=== PATIENT | female | born 1965 | race Two or more races ===

== ENCOUNTER 2016-12-31 23:40 | Inpatient (IN) | payer OTHER ==
[~2016-12-31] VITALS: Ht 160 cm; Wt 120.3 kg
[~2016-12-31 23:40] MED LIST: AMLO-218 PO; ASPI81TA3 PO; ATOR20TA38 PO; CEFT1FRO2 IV; FER325 PO; FOLI-49; FOLI-49 PO; HYDR10TA36 PO; HYDR200T5; HYDR200T5 PO; LANT3I SC; NOVO3I SC; NPH,100V SC; SODI473S19 IRR; SYN75 PO; TRAM50TA2 PO; VANC1PLA4 IVPB
[2017-01-01] VITALS (8 sets, daily range): BP systolic 130–173; BP diastolic 62–85; PULSE 77; RESP 16–20; Ht 160 cm; Wt 120.3 kg
[2017-01-01] MEDS ORDERED: ONDANSETRON 4 MG INJ IV PRN ×2 (04:00→16:00)
[2017-01-01] MEDS ORDERED: VANCOMYCIN IV PER PHARMACY XX SCH (04:00)
[2017-01-01] MEDS ORDERED: INSULIN GLARGINE [LANtus] 3 ML PEN SC ONE (04:00)
[2017-01-01] MEDS ORDERED: ACETAMINOPHEN 325 MG TAB PO PRN (04:00)
[2017-01-01] MEDS ORDERED: morphine 4 MG/ML VIAL IV PRN ×2 (04:00→16:00)
[2017-01-01] MEDS: SOD CHLORIDE 0.9% 1,000 ML IV SCH ×2 (04:34→15:27)
[2017-01-01] MEDS ORDERED: VANCOMYCIN 2 GM in SOD CHLORIDE 0.9% 500 ML IVPB SCH ×2 (05:00→07:00)
[2017-01-01] MEDS: PIPER-TAZO 3.375 GM IV (PMX) 100 ML IVPB SCH ×4 (05:37→23:59)
[2017-01-01 05:40] LABS: ADD SCAN DIFF NO
[2017-01-01] MEDS: hydrALAzine 20 MG INJ IV PRN ×2 (05:40→15:27)
[2017-01-01 05:52] LABS: BASOPHIL # 0.1 10^3/ul (0.0-0.1); BASOPHILS % 0.3 % (0.0-2.0); EOSINOPHILS # 0.1 10^3/ul (0.0-0.5); EOSINOPHILS % 0.4 % (0.0-7.0); HEMATOCRIT 32.9 % (37.0-47.0); HEMOGLOBIN 10.2 g/dl (12.0-16.0); LYMPHOCYTES % 10.3 % (15.0-51.0); MEAN CORPUSCULAR HEMOGLOBIN 26.9 pg (29.0-33.0); MEAN CORPUSCULAR VOLUME 86.8 fl (82.0-101.0); MEAN PLATELET VOLUME 11.5 fl (7.4-10.4); MONOCYTE # 1.2 10^3/ul (0.3-0.9); MONOCYTES % 6.1 % (0.0-11.0); NEUTROPHIL # 15.7 10^3/ul (1.6-7.5); NEUTROPHILS % 79.7 % (39.0-77.0); PLATELET COUNT 298 10^3/UL (140-415); RED BLOOD COUNT 3.79 10^6/ul (4.20-5.40); RED CELL DISTRIBUTION WIDTH 15.1 % (11.5-14.5); WHITE BLOOD COUNT 19.7 10^3/ul (4.8-10.8)
[2017-01-01 06:21] LABS: ALANINE AMINOTRANSFERASE 21 IU/L (13-69); ALBUMIN 3.2 g/dl (3.3-4.9); ALBUMIN/GLOBULIN RATIO 0.84; ALKALINE PHOSPHATASE 135 IU/L (42-121); ANION GAP 13 (8-16); ASPARTATE AMINO TRANSFERASE < 8 IU/L (15-46); BILIRUBIN,INDIRECT 0.4 mg/dl (0-1.1); BILIRUBIN,TOTAL 0.4 mg/dl (0.2-1.3); BLOOD UREA NITROGEN 43 mg/dl (7-20); CALCIUM 8.4 mg/dl (8.4-10.2); CARBON DIOXIDE 22 mmol/L (21-31); CHLORIDE 107 mmol/L (97-110); CHOL/HDL RATIO 10.3 RATIO; CHOLESTEROL 176 mg/dl (100-200); CREATININE 2.58 mg/dl (0.44-1.00); GLUCOSE 315 mg/dl (70-220); HDL CHOLESTEROL 17 mg/dl (37-92); MAGNESIUM 1.6 mg/dl (1.7-2.5); PHOSPHORUS 3.6 mg/dl (2.5-4.9); SODIUM 138 mmol/L (135-144); TRIGLYCERIDES 192 mg/dl (0-149)
--- NOTE | 2017-01-01 08:21 | HP ---
DATE OF ADMISSION: 01/01/2017 TIME SEEN: 3 a.m. CHIEF COMPLAINT: Right foot pain and infection. HISTORY OF PRESENT ILLNESS: The patient is a 51-year-old female with a history of right foot diabet ic ulcer/osteomyelitis, hypertension, diabetes, hypothyroidism, dyslipidemia, chronic kidney disease , and a right internal carotid artery stenosis who was transferred from an outside hospital for righ t foot wound/osteo. At the outside hospital, I will x-ray of the right foot shows osteo as well as gas-producing infection. She was also complaining of nausea and vomiting for which a CT abdomen and pelvis was done which showed no obstruction, but cholelithiasis was noted without cholecystitis. T he patient's poultry picking machine tender is Dr. Patterson, and according to the Transfer Center, the vascular surge on is Dr. Miguel Angel Love. I was also told that the patient was referred to Dr. Vaca, an orthopedic s urgeon. The patient denies fevers, chills, chest pain, shortness of breath, abdominal pain, or urin pal symptoms. The patient was last admitted here in 2013, and in fact, in March 2014 she underwent excisional debridement and drainage of the right lower extremity wound and had a right 2nd and 3rd toe amputati on by Dr. Bird. REVIEW OF SYSTEMS: Negative except as mentioned in the HPI. PAST MEDICAL HISTORY: As per HPI. PAST SURGICAL HISTORY: As per HPI including right carotid endarterectomy and . SOCIAL HISTORY: Monitor for history of tobacco, alcohol, or illicit drug use. ALLERGIES: NO KNOWN DRUG ALLERGIES. HOME MEDICATIONS: 1. Plaquenil. 2. Ferrous sulfate. 3. Norvasc. 4. Synthroid. 5. Insulin. 6. Folic acid. 7. Aspirin. PHYSICAL EXAMINATION: VITAL SIGNS: Blood pressure 173/74, heart rate 80, respiratory rate 20, temperature 98, oxygen satu ration 96% on room air. GENERAL: The patient lying in bed. Initially sleepy, but arousable, answering questions appropriat christina. HEENT: No obvious head deformity. Pupils react to right, extraocular muscles intact. CARDIOVASCULAR: Regular rate and rhythm. No extra sounds. LUNGS: Clear. ABDOMEN: Soft, nontender, nondistended. Positive bowel sounds. EXTREMITIES: There is a right foot wound with some drainage. There is a right 2nd and 3rd toe ampu tation. LABORATORY: Currently pending. IMAGING: From [facility], x-ray of the right foot shows osteomyelitis and gas-produ cing infection. CT abdomen and pelvis again from [facility] shows cholelithiasis wi thout any other acute findings. IMPRESSION: 1. Right foot osteomyelitis/wound. 2. Diabetes with hyperglycemia. 3. Hypertension, blood pressure not within goal. 4. History of dyslipidemia. 5. Chronic kidney disease with a creatinine of 2 from outside hospital. 6. History of right carotid artery endarterectomy. PLAN: She will be placed on broad-spectrum antibiotic. Will send wound culture and blood culture. She will be provided pain medications as needed. We will her poultry picking machine tender, vascular surgeon, as well as ortho. She will be on insulin for diabetes. Will check an A1c in the morning. Will adjust ant ihypertensives for better blood pressure control. Further workup and management as per clinical course. Dictated By: STEFFANY VILLATORO/SYED Conf#: [id number] DID#: [id number]
[2017-01-01] MEDS: HEPARIN 5,000 UNIT/0.5 ML VIAL SC SCH ×2 (08:45→21:00)
[2017-01-01] MEDS: INSULIN ASPART [NOVOLOG] 3 ML PEN SC SCH ×7 (08:45→21:00)
[2017-01-01 12:20] LABS: ADD UMIC YES; UR BILIRUBIN (Dip) NEGATIVE (NEGATIVE); UR BLOOD (Dip) 2+ (NEGATIVE); UR CLARITY CLEAR (CLEAR); UR COLOR YELLOW (YELLOW); UR KETONES (Dip) NEGATIVE (NEGATIVE); UR LEUKOCYTE ESTERASE (Dip) NEGATIVE (NEGATIVE); UR NITRITE (Dip) NEGATIVE (NEGATIVE); UR TOTAL PROTEIN (Dip) 4+ (NEGATIVE); UR UROBILINOGEN (Dip) 0.2 E.U./dL (0.1-1.0)
[2017-01-01 12:36] LABS: BACTERIA,URINE FEW; UR SQUAMOUS EPITHELIAL CELL FEW
[2017-01-01] MEDS ORDERED: GLUCAGON 1 MG INJ IM PRN (15:00)
[2017-01-01] MEDS ORDERED: MAGNESIUM SULFATE 1 GM/D5W 100 ML IVPB ONE (15:00)
[2017-01-01] MEDS ORDERED: DEXTROSE 50% 50 ML SYRINGE IV PRN ×2 (15:00)
[2017-01-01] MEDS ORDERED: GLUCOSE GEL 15 GRAM TUBE BUCCAL PRN (15:00)
[2017-01-01] MEDS ORDERED: GLUCOSE GEL 15 GRAM TUBE PO PRN ×2 (15:00)
[2017-01-01] MEDS ORDERED: traMADol 50 MG TAB PO PRN (15:00)
[2017-01-01] MEDS: INSULIN GLARGINE [LANtus] 3 ML PEN SC SCH ×2 (15:34→22:02)
--- NOTE | 2017-01-01 16:49 | CONS ---
DATE OF ADMISSION: 01/01/2017 DATE OF CONSULTATION: 01/01/2017 TYPE OF CONSULTATION: Infectious Disease. REASON FOR CONSULTATION: Antibiotic management. HISTORY OF PRESENT ILLNESS: Dina Narayanan is a 51-year-old female who comes in with right foot p ain and infection. Her past problems include: 1. Adult-onset diabetes mellitus. 2. Hypertension. 3. Hypothyroidism. 4. Dyslipidemia. 5. Chronic renal disease. 6. Right internal carotid artery stenosis. 7. History of right foot diabetic ulcers/osteomyelitis. The patient was transferred from an outside hospital for right foot wound and osteomyelitis. At the outside hospital, x-rays of the foot shows osteo as well as gas-producing infection. She is also c omplaining of nausea, vomiting with a CT scan of the abdomen and pelvis showed no obstruction but ch olelithiasis was noted without cholecystitis. The patient was referred to Dr. Vaca. The patient denies fever or chest pain, chills, shortness of breath. She was last admitted here in 2013 and in March 2014. She underwent excisional debridement and drainage of right lower extremity wound al annalisa with right 2nd and 3rd amputation right 2nd and 3rd toe amputation by Dr. Bird. PAST MEDICAL HISTORY: Operations as outlined. FAMILY HISTORY: Noncontributory. SOCIAL HISTORY: She does not smoke, drink or abuse drugs. ALLERGIES: NONE TO PENICILLIN, SULFA OR FOODS. MEDICATIONS: Per chart reviewed. REVIEW OF SYSTEMS: As per HPI. PAST SURGICAL HISTORY: Positive for right carotid endarterectomy and a . REVIEW OF SYSTEMS: Noncontributory. PHYSICAL EXAMINATION GENERAL: The patient is a well-developed, well-nourished female who is sleepy but arousable, in no acute distress. VITAL SIGNS: Stable. She is afebrile. SKIN: Without generalized rash or icterus. HEENT: Within normal limits. NECK: Supple. LYMPH NODES: None palpable. CHEST: Decreased breath sounds at the bases. HEART: Without murmur or gallop. ABDOMEN: Soft, nontender without organosplenomegaly or masses. EXTREMITIES: She has a right foot wound with drainage and right second and third toe amputations. RECTAL AND GENITAL: Deferred. NEUROLOGIC EVALUATION: No focal neurological abnormalities. She has decreased sensation in distal extremities. LABORATORY DATA: On admission, her white count was 19.7, H and H of 10.2 and 32.9, platelet count o f 298,000. BUN and creatinine 43/2.58. AST and ALT are normal. Alkaline phosphatase 135. MICROBIOLOGY: Pending. IMPRESSION: Imaging from [facility] shows that the right foot shows osteomyelitis a nd gas producing infection. CT scan of the abdomen and pelvis shows cholelithiasis without any acut e findings. In conclusion, the patient has right foot osteomyelitis as well as a wound. She is sylvester betic, along with all of her other problems. She was started on broad spectrum antibiotic therapy i n the form of vancomycin and Zosyn. The patient is currently on vancomycin and Zosyn. We will chec k on her cultures. She had a urinalysis, blood cultures and wound cultures, which are all pending. I will dictate my findings to the hospitalist and to Dr. Vaca. Dictated By: IRENA DEL RIO MD, JD/SYED Conf#: [id number] DID#: [id number]
[2017-01-01] MEDS: ONDANSETRON INJ 8 MG in SOD CHLORIDE 0.9% 50 ML IV PRN (16:59)
--- NOTE | 2017-01-01 19:43 | CONS ---
DATE OF ADMISSION: 01/01/2017 DATE OF CONSULTATION: 01/01/2017 REFERRING PHYSICIAN: Toan Dave MD TYPE OF CONSULTATION: Nephrology. REASON FOR CONSULTATION: Acute kidney injury. BUN 43, creatinine 2.58. HISTORY OF PRESENT ILLNESS: This is a 51-year-old female with a past medical history of right foot diabetic ulcer/osteomyelitis, hypertension, diabetes mellitus, hypothyroidism, dyslipidemia, chronic kidney disease secondary to diabetic nephropathy in the right internal carotid artery stenosis who was transferred from outside hospital for a right foot wound pain, infections. The patient has had a CT abdomen and pelvis done which showed no obstruction but cholelithiasis. She was noted to be wi thout cholecystitis. The patient's byproducts pump operator is Dr. Aries Avendano and according to the transfer ce nter, the vascular surgeon was Dr. Miguel Angel Love. The patient was referred to the orthopedic surgery. The patient previously admitted in 2013. In 2013 she had an excisional debridement and drainage o f the right lower extremity wound and had a right second and third toe amputation done by Dr. Chepe berkowitz. Dictated By: MANUEL WISDOM MD, KP/SYED Conf#: [id number] DID#: [id number]
--- NOTE | 2017-01-01 19:51 | CONS ---
DATE OF ADMISSION: 01/01/2017 DATE OF CONSULTATION: 01/01/2017 REASON FOR CONSULTATION: Acute kidney injury. REFERRING PHYSICIAN: Toan Dave MD. HISTORY OF PRESENT ILLNESS: This is a 51-year-old female with a past medical history of adult onset diabetes mellitus, hypertension, hypothyroidism, dyslipidemia, right internal carotid artery stenos is, history of right foot diabetic ulcers with osteomyelitis who was transferred from an outside [facility] for right foot wound osteomyelitis. The patient was previously admitted in 2013 and had incis ion and drainage of the right lower extremity wound along with the right second and third toe amputa tions done by Dr. Bird. Patient is noted to have a BUN of 43, creatinine of 2.58, admission and renal has been consulted for acute kidney injury versus acute on chronic renal failure. REVIEW OF SYSTEMS: As per HPI. PAST MEDICAL HISTORY: Notable for adult onset diabetes mellitus, hypertension, hyperlipidemia, hypo thyroidism, right internal carotid artery stenosis, history of right foot diabetic ulcer, osteomyeli tis. FAMILY HISTORY: Noncontributory. SOCIAL HISTORY: The patient does not smoke, drink or abuse drugs. ALLERGIES: NONE TO PENICILLIN, SULFA OR FOODS. PAST SURGICAL HISTORY: Positive for right carotid endarterectomy and . PHYSICAL EXAMINATION: VITAL SIGNS: Temperature 98.5, heart rate 79, respiration 18, blood pressure 151/68, saturation 99% on room air. GENERAL: Awake, alert, in no distress. HEENT: Normal. Pupils equal, reactive to light and accommodation. Extraocular muscles are intact. NECK: Supple, no JVD, no lymphadenopathy. LUNGS: Clear to auscultation. No crackles, no wheezes. HEART: S1, S2, with regular rhythm, no murmur. ABDOMEN: Soft, nontender, nondistended. Bowel sounds are present. EXTREMITIES: No clubbing, cyanosis, or edema. Right foot dressing in place. NEUROLOGICAL: Nonfocal, intact. PSYCHIATRIC: Appropriate affect and mood. LABORATORY DATA/DIAGNOSTIC IMAGING: Sodium 138, potassium 4, chloride 107, bicarbonate 22, BUN 43, c reatinine 2.5, glucose 315, calcium 8.4, magnesium 1.6. LFTs are normal. Urinalysis shows 2+ hemog lobin, 4+ protein. WBC 19.7, hemoglobin 10.2, platelet count 290. IMPRESSION: This is a 51-year-old female who is getting transferred from outside hospital for right foot osteomyelitis. Wound care, IV antibiotics and possible surgical intervention. Renal has been consulted for: 1. Acute kidney injury on chronic kidney disease secondary to sepsis from infections including the right foot osteomyelitis. 2. History of possible chronic kidney disease secondary to diabetic nephropathy. 3. Adult onset type 2 diabetes mellitus, poorly controlled. 4. Hypertension. 5. Hypothyroidism. 6. History of previous right second and third toe amputations. 7. Possible peripheral vascular disease. PLAN: Thank you, Dr. Dave, for this consultation. The patient is new to the [facility]. There are no previous records available in the recent years, and the last admission the pat ie was in 2013. At that time, she had a lower extremity Doppler ultrasound and MRI of the foot. No renal workup has been done before. I will order the patient's urine studies including a urine protein creatinine ratio, urine sodium, u rine eosinophils, CK total, uric acid. Renal ultrasound. I will order the renal ultrasounds to assess the kidney size, echogenicity and to rule out hydronephrosis. Continue the current IV antibiotics and I will switch the patient's IV fluids from ____ to half ____ at 75 mL hour. Magnesium sulfate 1 gram IV x1 has been ordered for hypomagnesemia. The patient currently seen in the med/surg floor and she will be followed up along with the primary care service and podiatry service. Total time spent in this patient's consultations, making assessment and plan, communicating with the patient's family and the nursing staff took more than 60 minutes. Dictated By: MANUEL WISDOM MD, KP/SYED Conf#: [id number] DID#: [id number]
[2017-01-01] MEDS: SODIUM HYPOCHLORITE 0.125% 473 ML BTL IRR SCH ×2 (21:00→22:06)
[2017-01-01] MEDS: FERROUS SULFATE (EC) 325 MG TAB PO SCH ×3 (21:00→22:12)
[2017-01-01] MEDS: SOD CHLORIDE 0.45% 1,000 ML IV SCH (22:05)
[2017-01-01] MEDS: ATORVASTATIN 20 MG TAB PO SCH (22:06)
--- NOTE | 2017-01-01 22:27 | RADRPT ---
PROCEDURE: Retroperitoneal ultrasound. CLINICAL INDICATION: Acute renal failure TECHNIQUE: Garcia scale and color doppler ultrasound images of the retroperitoneum, kidneys, urinary bladder COMPARISON: 09/04/2013 FINDINGS: Right kidney 11.3 cm in length. Right renal cortical thickness is preserved. Left kidney 11.1 cm in length. Left renal cortical thickness is preserved. Mildly increased echogenicity of both kidneys. No hydronephrosis. No renal calculi. No focal lesions. Bladder: No focal lesions. IMPRESSION: Mildly increased echogenicity of both kidneys without hydronephrosis compatible with medical renal d isease. RPTAT: AADD .Hayden Whitt MD, MD Date Time Electronically viewed and signed by .Hayden Whitt MD, on 01/01/2017 22:27 .B/
[2017-01-02] VITALS (13 sets, daily range): BP systolic 126–181; BP diastolic 31–78; PULSE 79–98; RESP 16–19
[2017-01-02] MEDS ORDERED: ACCU-CHEK XX SCH ×2 (02:00)
[2017-01-02 05:38] LABS: ADD SCAN DIFF NO
[2017-01-02 05:41] LABS: BASOPHIL # 0.1 10^3/ul (0.0-0.1); BASOPHILS % 0.2 % (0.0-2.0); EOSINOPHILS # 0.4 10^3/ul (0.0-0.5); EOSINOPHILS % 2.1 % (0.0-7.0); HEMATOCRIT 34.8 % (37.0-47.0); HEMOGLOBIN 10.7 g/dl (12.0-16.0); LYMPHOCYTES # 2.1 10^3/ul (0.8-2.9); MEAN CORPUSCULAR HGB CONC 30.7 g/dl (32.0-37.0); MEAN CORPUSCULAR VOLUME 87.9 fl (82.0-101.0); MEAN PLATELET VOLUME 11.2 fl (7.4-10.4); MONOCYTE # 1.1 10^3/ul (0.3-0.9); MONOCYTES % 5.5 % (0.0-11.0); NEUTROPHIL # 16.1 10^3/ul (1.6-7.5); NEUTROPHILS % 78.7 % (39.0-77.0); PLATELET COUNT 341 10^3/UL (140-415); RED BLOOD COUNT 3.96 10^6/ul (4.20-5.40); RED CELL DISTRIBUTION WIDTH 15.2 % (11.5-14.5); WHITE BLOOD COUNT 20.5 10^3/ul (4.8-10.8)
[2017-01-02] MEDS: PIPER-TAZO 3.375 GM IV (PMX) 100 ML IVPB SCH ×3 (06:06→18:49)
[2017-01-02] MEDS: LEVOTHYROXINE 75 MCG TAB PO SCH (06:06)
[2017-01-02 06:10] LABS: MAGNESIUM 1.9 mg/dl (1.7-2.5); PHOSPHORUS 4.4 mg/dl (2.5-4.9)
[2017-01-02 06:14] LABS: URIC ACID 7.9 mg/dl (3.1-7.9)
[2017-01-02 06:15] LABS: CALCIUM 8.6 mg/dl (8.4-10.2); CREATININE 2.58 mg/dl (0.44-1.00); POTASSIUM 3.5 mmol/L (3.5-5.1)
[2017-01-02 06:18] LABS: CREATINE KINASE < 20 IU/L (23-200)
[2017-01-02] MEDS: INSULIN ASPART [NOVOLOG] 3 ML PEN SC SCH ×7 (07:50→21:00)
[2017-01-02] MEDS ORDERED: INSULIN GLARGINE [LANtus] 3 ML PEN SC SCH (08:00)
[2017-01-02] MEDS: AMLODIPINE 10 MG TAB PO SCH (09:25)
[2017-01-02] MEDS: ONDANSETRON INJ 8 MG in SOD CHLORIDE 0.9% 50 ML IV PRN (09:25)
[2017-01-02] MEDS: ASPIRIN 81 MG TAB PO SCH (09:25)
[2017-01-02] MEDS: FOLIC ACID 1 MG TAB PO SCH (09:25)
[2017-01-02] MEDS: INSULIN GLARGINE [LANtus] 3 ML PEN SC SCH (09:28)
[2017-01-02] MEDS: HEPARIN 5,000 UNIT/0.5 ML VIAL SC SCH ×2 (09:29→23:32)
[2017-01-02] MEDS: SOD CHLORIDE 0.45% 1,000 ML IV SCH (09:36)
[2017-01-02] MEDS: SODIUM HYPOCHLORITE 0.125% 473 ML BTL IRR SCH ×2 (09:37→21:00)
--- NOTE | 2017-01-02 12:35 | CONS ---
Date/Time of Note Date/Time of Note DATE: 01/02/17 TIME: 12:31 Assessment/Plan Assessment/Plan Additional Assessment/Plan 1. Acute kidney injury on chronic kidney disease secondary to sepsis from infections including the right foot osteomyelitis. 2. History of possible chronic kidney disease secondary to diabetic nephropathy. 3. Adult onset type 2 diabetes mellitus, poorly controlled. 4. Hypertension. 5. Hypothyroidism. 6. History of previous right second and third toe amputations. 7. Possible peripheral vascular disease. PLAN: pt has acute on chronic renal failure, received IVF still Cr 2.58 BP high will stop IVF Pending podiatry evaluation Nurse instructed to call me if pt is planned for for any procedures/surgery-we will do some measures to prevent Contrast induced nephropathy will follow up US c/w Medical renal disease Consultation Date/Type/Reason Admit Date/Time Jan 01, 2017 at 01:45 Initial Consult Date Type of Consultation: NEPHROLOGY Reason for Consultation acute on chronic renal failure Referring Provider: GABRIELLA CABRERA 24 HR Interval Summary Free Text/Dictation Cr still 2.58, BUN 34, BP high Exam/Review of Systems Vital Signs Vitals Vital Signs Date Time Temp Pulse Resp B/P Pulse Ox O2 Delivery O2 Flow Rate FiO2 01/02/17 07:45 97.5 89 18 181/78 99 Intake and Output 01/01/17 01/01/17 01/02/17 14:59 22:59 06:59 Intake Total 854 ml 1563 ml Output Total 200 ml 650 ml Balance 654 ml 913 ml Exam GENERAL: Awake, alert, in no distress. HEENT: Normal. Pupils equal, reactive to light and accommodation. Extraocular muscles are intact. NECK: Supple, no JVD, no lymphadenopathy. LUNGS: Clear to auscultation. No crackles, no wheezes. HEART: S1, S2, with regular rhythm, no murmur. ABDOMEN: Soft, nontender, nondistended. Bowel sounds are present. EXTREMITIES: No clubbing, cyanosis, or edema. Right foot dressing in place. NEUROLOGICAL: Nonfocal, intact. PSYCHIATRIC: Appropriate affect and mood. Results Result Diagram: 01/02/17 0446 01/02/17 0446 Results 24 hrs Laboratory Tests Test 01/01/17 17:52 01/01/17 22:00 01/02/17 04:46 01/02/17 08:47 Bedside Glucose 223 H 86 125 White Blood Count 20.5 H Red Blood Count 3.96 L Hemoglobin 10.7 L Hematocrit 34.8 L Mean Corpuscular Volume 87.9 Mean Corpuscular Hemoglobin 27.0 L Mean Corpuscular Hemoglobin Concent 30.7 L Red Cell Distribution Width 15.2 H Platelet Count 341 Mean Platelet Volume 11.2 H Neutrophils % 78.7 H Lymphocytes % 10.0 L Monocytes % 5.5 Eosinophils % 2.1 Basophils % 0.2 Nucleated Red Blood Cells % 0.0 Neutrophils # 16.1 H Lymphocytes # 2.1 Monocytes # 1.1 H Eosinophils # 0.4 Basophils # 0.1 Nucleated Red Blood Cells # 0.0 Sodium Level 142 Potassium Level 3.5 Chloride Level 108 Carbon Dioxide Level 24 Anion Gap 14 Blood Urea Nitrogen 34 H Creatinine 2.58 H Glucose Level 91 # Uric Acid 7.9 Calcium Level 8.6 Phosphorus Level 4.4 Magnesium Level 1.9 Creatine Kinase < 20 L Test 01/02/17 11:00 Urine Eosinophils % 0.0 Urine Random Creatinine 130.41 Urine Random Sodium 61 Urine Protein/Creatinine Ratio Pending Urine Total Protein Pending Medications Medications Current Medications Piperacillin Sod/ Tazobactam Sod (Zosyn 3.375gm/ 100 ml (Pmx)) 100 ml @ 200 mls /hr Q6 IVPB Last administered on 01/02/17 06:06; Admin Dose 200 MLS/HR; Start 01/01/17 at 06:00 Acetaminophen (Tylenol Tab) 650 mg Q6H PRN PO PAIN AND OR ELEVATED TEMP; Start 01/01/17 at 04:00 Heparin Sodium (Porcine) (Heparin (5000 Units/0.5 ml)) 5,000 unit BID SC Last administered on 01/02/17 09:29; Admin Dose 5,000 UNIT; Start 01/01/17 at 09:00 Hydralazine HCl (Apresoline) 10 mg Q4H PRN IV ELEVATED BLOOD PRESSURE>150 Last administered on 01/01/17 15:27; Admin Dose 10 MG; Start 01/01/17 at 05:30 Amlodipine Besylate (Norvasc) 10 mg DAILY PO Last administered on 01/02/17 09: 25; Admin Dose 10 MG; Start 01/02/17 at 09:00 Aspirin (Aspirin) 81 mg DAILY PO Last administered on 01/02/17 09:25; Admin Dose 81 MG; Start 01/02/17 at 09:00 Atorvastatin Calcium (Lipitor) 20 mg QHS PO Last administered on 01/01/17 22:06 ; Admin Dose 20 MG; Start 01/01/17 at 21:00 Ferrous Sulfate (Ferrous Sulfate (Ec)) 325 mg TID PO ; Start 01/01/17 at 21:00 Folic Acid (Folic Acid) 1 mg DAILY PO Last administered on 01/02/17 09:25; Admin Dose 1 MG; Start 01/02/17 at 09:00 Hydralazine HCl (Apresoline) 10 mg DAILY@21 PO Last administered on 01/01/17 22 :09; Admin Dose 10 MG; Start 01/01/17 at 21:00 Insulin Glargine (Lantus) 22 unit Q12 SC Last administered on 01/02/17 09:28; Admin Dose 22 UNIT; Start 01/01/17 at 15:00 Levothyroxine Sodium (Synthroid) 75 mcg DAILY@06 PO Last administered on 06:06; Admin Dose 75 MCG; Start 01/02/17 at 06:00 Sodium Hypochlorite (Dakin'S (1/4 Strength)) BID IRR Last administered on 09:37; Admin Dose 1 APPLIC; Start 01/01/17 at 21:00 Tramadol HCl (Ultram) 50 mg Q6H PRN PO PAIN LEVEL 7-10; Start 01/01/17 at 15:00 Miscellaneous Information 1 ea NOTE XX ; Start 01/01/17 at 15:00 Glucose (Glutose) 15 gm Q15M PRN PO DECREASED GLUCOSE; Start 01/01/17 at 15:00 Glucose (Glutose) 22.5 gm Q15M PRN PO DECREASED GLUCOSE; Start 01/01/17 at 15:00 Dextrose (D50w Syringe) 25 ml Q15M PRN IV DECREASED GLUCOSE; Start 01/01/17 at 15:00 Dextrose (D50w Syringe) 50 ml Q15M PRN IV DECREASED GLUCOSE; Start 01/01/17 at 15:00 Glucagon (Glucagen) 1 mg Q15M PRN IM DECREASED GLUCOSE; Start 01/01/17 at 15:00 Glucose (Glutose) 15 gm Q15M PRN BUCCAL DECREASED GLUCOSE; Start 01/01/17 at 15: 00 Morphine Sulfate 2 mg 2 mg Q4H PRN IV PAIN; Start 01/01/17 at 16:00 Ondansetron HCl 8 mg/Sodium Chloride 54 ml @ 216 mls/hr Q6H PRN IV NAUSEA AND/ OR VOMITING Last administered on 01/02/17 09:25; Admin Dose 216 MLS/HR; Start at 15:30 Sodium Chloride (1/2 NS) 1,000 ml @ 75 mls/hr [id number] IV Last administered on 01/02/17 09:36; Admin Dose 75 MLS/HR; Start 01/01/17 at 19:30 Miscellaneous Information (*Rx Drug Level Order Reminder*) VANCOMYCIN RANDOM LEVEL IN AM ONCE ONCE XX ; Start 01/03/17 at 05:00; Stop 01/03/17 at 05:01 MANUEL WISDOM MD Jan 02, 2017 12:35
[2017-01-02] MEDS: hydrALAzine 20 MG INJ IV PRN (12:52)
[2017-01-02] MEDS: FERROUS SULFATE (EC) 325 MG TAB PO SCH ×2 (12:53→21:00)
[2017-01-02 13:01] LABS: PROTEIN/CREAT RATIO 4.5 RATIO
--- NOTE | 2017-01-02 13:57 | PN ---
DATE: 01/02/2017 INFECTIOUS DISEASE PROGRESS NOTE SUBJECTIVE: The patient is alert, feels better today, looks comfortable, no fevers. LABORATORY DATA: WBC 20.5, H and H 10.7 and 34.8, platelets 341, neutrophils 78.7, BUN 34, creatini ne 2.58. MICROBIOLOGY: Wound culture of her right foot growing diphtheroids. PRELIMINARY DIAGNOSTICS: Renal ultrasound revealed no hydronephrosis, but medical renal disease. ANTIMICROBIALS: The patient is on: 1. Zosyn. 2. Vancomycin. PHYSICAL EXAMINATION: GENERAL: This is a morbidly obese, middle-aged [place] woman who is alert, in no distress. HEENT: Head atraumatic, normocephalic. Sclerae anicteric. Buccal mucosa dry. NECK: Supple. CHEST: Rise symmetrical. Breath sounds diminished to bases. HEART: S1, S2. ABDOMEN: Soft, bowel sounds present. EXTREMITIES: With right foot dressing intact. ASSESSMENT: 1. Right foot cellulitis, osteomyelitis, status post multiple debridements. 2. Diabetes. 3. Hypertension. 4. Chronic kidney disease. 5. Morbid obesity. PLAN: The patient remains clinically stable. She is on broad-spectrum antibiotics which we will co ntinue. Pending ortho evaluation. Dictated By: GEORGIANA MORIN OBSTETRICS/GYNECOLOGY NURSE for IRENA ALVARADO/SYED Conf#: [id number] DID#: [id number]
--- NOTE | 2017-01-02 15:07 | PN ---
DATE: 01/02/2017 SUBJECTIVE: The patient denies any pain. Was seen by infectious disease team and renal team yester day. Still waiting to be seen by orthopedic team. No acute events overnight. OBJECTIVE VITAL SIGNS: Stable. GENERAL: The patient is lying in bed, answering questions appropriately. No acute distress. HEENT: Pupils equal, round, reactive to light. Extraocular muscles intact. NECK: Supple. No thyromegaly. LUNGS: Clear to auscultation bilaterally. CARDIOVASCULAR: S1, S2 heard. No rubs or gallops. ABDOMEN: Soft, nontender, nondistended. Normal bowel sounds. No rebound or guarding. MUSCULOSKELETAL: There is a right foot wound with some drainage ____ right second and third toe amp utations, otherwise no lower extremity edema bilaterally. NEUROLOGIC: No focal deficits. LABORATORY DATA: WBC 20.5, hemoglobin 10.7, hematocrit 34.8, platelets 341. Sodium 142, potassium 3.5, chloride 108, CO2 24, BUN of 34, creatinine 2.58, glucose 91. ASSESSMENT AND PLAN: A 51-year-old female with history of right foot diabetic ulcer, osteomyelitis, essential hypertension, type 2 diabetes, hypothyroidism, high cholesterol, chronic kidney disease, right internal carotid artery stenosis who was transferred from outside hospital for right foot woun d infection and osteomyelitis. 1. Right foot wound infection/osteomyelitis. Again, continue broad spectrum antibiotics. Follow u p ID recommendations. Tylenol p.r.n. pain, fevers. Follow up final culture results. Awaiting podi atry and orthopedic surgery consults as well. 2. Type 2 diabetes. Again, A1c is elevated. Continue current insulin regimen. Sugars appear to b e under good control over the last 12 hours. 3. Hypertension. Again, blood pressure is high normal. Continue p.o. medications and p.r.n. hydra lazine IV. 4. History of chronic kidney disease. Again, there is a creatinine of 2 from the outside hospital. Creatinine is still slightly elevated. Follow up renal recommendations. Continue to monitor urin e output. Continue IV fluids as well. 5. History of right carotid endarterectomy. Continue to monitor for now. 6. Gastrointestinal prophylaxis. Add Pepcid. 7. Deep venous thrombosis prophylaxis. Heparin subcutaneously. Dictated By: GABRIELLA SAWYER Conf#: [id number] [facility]#: [id number]
[2017-01-02] MEDS: FAMOTIDINE 20 MG TAB PO SCH (16:28)
--- NOTE | 2017-01-02 17:48 | RADRPT ---
PROCEDURE: XR Chest. CLINICAL INDICATION: Preoperative TECHNIQUE: Single portable view of the chest was obtained COMPARISON: 03/24/2014 FINDINGS: The heart is enlarged. The lungs are clear. There is no pleural effusion or pneumothorax. RPTAT: AA IMPRESSION: Mild Cardiomegaly. .Pedro Brown MD, Date Time Electronically viewed and signed by .Pedro Brown MD, on 01/02/2017 17:48 .S/
--- NOTE | 2017-01-02 20:24 | HPN ---
Date/Time of Note Date/Time of Note DATE: 01/02/17 TIME: 20:24 Interval H&P Admission Note Pt. seen H&P reviewed: No system changes CARMEN HAWKINS DPM Jan 02, 2017 20:24
[2017-01-02] MEDS ORDERED: METOCLOPRAMIDE 10 MG INJ ONE (20:42)
[2017-01-02] MEDS ORDERED: MIDAZOLAM 1 MG/ML 2 ML INJ ONE (20:42)
[2017-01-02] MEDS ORDERED: PROPOFOL 40 ML ONE (20:42)
[2017-01-02] MEDS ORDERED: BACITRACIN 50000 UNITS INJ ONE (21:04)
[2017-01-02] MEDS ORDERED: EPHEDrine SULFATE 50 MG/5 ML SYG ONE (21:07)
[2017-01-02] MEDS ORDERED: FENTAnyl 50 MCG/ML VIAL ONE ×2 (21:09→21:26)
[2017-01-02] MEDS ORDERED: LIDOCAINE 1% (STERILE-PAK) 30 ML INJ ONE ×2 (21:10→21:20)
[2017-01-02] MEDS ORDERED: PROPOFOL 20 ML ONE (21:28)
[2017-01-02] MEDS ORDERED: MEPERIDINE 25 MG INJ IV PRN (21:30)
[2017-01-02] MEDS ORDERED: METOCLOPRAMIDE 10 MG INJ IV PRN (21:30)
[2017-01-02] MEDS ORDERED: HYDROmorphONE (0.2 MG/ML) 10ML SYG IV PRN ×3 (21:30)
[2017-01-02] MEDS ORDERED: DIPHENHYDRAMINE 50 MG INJ IV PRN ×3 (21:30→23:30)
[2017-01-02] MEDS ORDERED: ONDANSETRON 4 MG INJ IV PRN ×3 (21:30→23:30)
[2017-01-02] MEDS ORDERED: PERMETHRIN 1% 59 ML TOP ONE (22:00)
--- NOTE | 2017-01-02 22:01 | OPR ---
Date/Time of Note Date/Time of Note DATE: 01/02/17 TIME: 21:55 Operative Report Preoperative Diagnosis Right foot deep space abscess Cellulitis Osteomyelitis Diabetic foot ulceration Postoperative Diagnosis Right foot deep space abscess Osteomyelitis Cellulitis Diabetic foot ulceration Surgeon: KYLER ROQUE DPM Bus Starter: CARMEN HAWKINS DPM Anesthesia: MAC Anesthesiologist: JEFFERY LAYNE MD Tourniquet Time: none Estimated Blood Loss: 100 - 150 ml's Specimens bone culture. bone pathology. wound culture. Tubes/Drains open packing Complications: None Pt Condition Post Procedure: stable Disposition: PACU Indications severe foot infection Operative\Procedure Findings gas/ purulence Procedure Description Right foot multiple incision and drainage with pulse lavage Debridement of ulceration bone 8x6 cm plantar aspect Copies To: CC: CARMEN HAWKINS DPM; KYLRE ROQUE DPM, RONALD J. DPM Jan 02, 2017 22:01
--- NOTE | 2017-01-02 22:09 | CONS ---
Date/Time of Note Date/Time of Note DATE: 01/02/17 TIME: 22:00 Assessment/Plan Assessment/Plan Chief Complaint/Hosp Course Right foot abscess. Likely deep plantar space abscess. Right foot plantar ulcer involving bone. Problems: Additional Assessment/Plan Right foot abscess. Likely deep plantar space abscess. Will plan for Surgical I&D. Will likely need several follow up surgeries. Right foot plantar ulcer involving bone. Will plan for Surgical debridement involving bone. Will likely need serial debridements. To be addressed during the Surgical I&D and Surgical debridements. Will monitor. Consultation Date/Type/Reason Admit Date/Time Jan 01, 2017 at 01:45 Type of Consultation: Podiatry-Surgery Reason for Consultation Coverage for Dr. Bird. Hx of Present Illness Admission for right foot infection, abscess, and open wound. X-rays reveal gas gangrene. Urgent Surgical debridement. Will schedule for OR time this PM. Anticipate Right foot I&D and right foot debridement involving bone. Social History Smoking Status: Never smoker Exam/Review of Systems Vital Signs Vitals Vital Signs Date Time Temp Pulse Resp B/P Pulse Ox O2 Delivery O2 Flow Rate FiO2 01/02/17 10:00 147/67 01/02/17 07:45 97.5 89 18 99 Intake and Output 01/01/17 01/01/17 01/02/17 15:00 23:00 07:00 Intake Total 854 ml 1563 ml Output Total 200 ml 650 ml Balance 654 ml 913 ml Exam Right foot plantar wound. Extreme edema and pain. X-rays reveal gas. Wound on the plantar aspect probes to deep plantar space. Highly suspicious of deep plantar space abscess. Results Result Diagram: 01/02/17 0446 01/02/17 0446 Results 24 hrs Laboratory Tests Test 01/02/17 04:46 01/02/17 08:47 01/02/17 11:00 01/02/17 12:44 White Blood Count 20.5 H Red Blood Count 3.96 L Hemoglobin 10.7 L Hematocrit 34.8 L Mean Corpuscular Volume 87.9 Mean Corpuscular Hemoglobin 27.0 L Mean Corpuscular Hemoglobin Concent 30.7 L Red Cell Distribution Width 15.2 H Platelet Count 341 Mean Platelet Volume 11.2 H Neutrophils % 78.7 H Lymphocytes % 10.0 L Monocytes % 5.5 Eosinophils % 2.1 Basophils % 0.2 Nucleated Red Blood Cells % 0.0 Neutrophils # 16.1 H Lymphocytes # 2.1 Monocytes # 1.1 H Eosinophils # 0.4 Basophils # 0.1 Nucleated Red Blood Cells # 0.0 Sodium Level 142 Potassium Level 3.5 Chloride Level 108 Carbon Dioxide Level 24 Anion Gap 14 Blood Urea Nitrogen 34 H Creatinine 2.58 H Glucose Level 91 # Uric Acid 7.9 Calcium Level 8.6 Phosphorus Level 4.4 Magnesium Level 1.9 Creatine Kinase < 20 L Bedside Glucose 125 124 Urine Eosinophils % 0.0 Urine Random Creatinine 130.41 Urine Random Sodium 61 Urine Protein/Creatinine Ratio 4.50 Urine Total Protein 588.0 H Test 01/02/17 18:05 Bedside Glucose 164 Medications Medications Current Medications Piperacillin Sod/ Tazobactam Sod (Zosyn 3.375gm/ 100 ml (Pmx)) 100 ml @ 200 mls /hr Q6 IVPB Last administered on 01/02/17 18:49; Admin Dose 200 MLS/HR; Start 01/01/17 at 06:00 Acetaminophen (Tylenol Tab) 650 mg Q6H PRN PO PAIN AND OR ELEVATED TEMP; Start 01/01/17 at 04:00 Heparin Sodium (Porcine) (Heparin (5000 Units/0.5 ml)) 5,000 unit BID SC Last administered on 01/02/17 09:29; Admin Dose 5,000 UNIT; Start 01/01/17 at 09:00 Hydralazine HCl (Apresoline) 10 mg Q4H PRN IV ELEVATED BLOOD PRESSURE>150 Last administered on 01/02/17 12:52; Admin Dose 10 MG; Start 01/01/17 at 05:30 Amlodipine Besylate (Norvasc) 10 mg DAILY PO Last administered on 01/02/17 09: 25; Admin Dose 10 MG; Start 01/02/17 at 09:00 Aspirin (Aspirin) 81 mg DAILY PO Last administered on 01/02/17 09:25; Admin Dose 81 MG; Start 01/02/17 at 09:00 Atorvastatin Calcium (Lipitor) 20 mg QHS PO Last administered on 01/01/17 22:06 ; Admin Dose 20 MG; Start 01/01/17 at 21:00 Ferrous Sulfate (Ferrous Sulfate (Ec)) 325 mg TID PO ; Start 01/01/17 at 21:00 Folic Acid (Folic Acid) 1 mg DAILY PO Last administered on 01/02/17 09:25; Admin Dose 1 MG; Start 01/02/17 at 09:00 Hydralazine HCl (Apresoline) 10 mg DAILY@21 PO Last administered on 01/01/17 22 :09; Admin Dose 10 MG; Start 01/01/17 at 21:00 Insulin Glargine (Lantus) 22 unit Q12 SC Last administered on 01/02/17 09:28; Admin Dose 22 UNIT; Start 01/01/17 at 15:00 Levothyroxine Sodium (Synthroid) 75 mcg DAILY@06 PO Last administered on 06:06; Admin Dose 75 MCG; Start 01/02/17 at 06:00 Sodium Hypochlorite (Dakin'S (1/4 Strength)) BID IRR Last administered on 09:37; Admin Dose 1 APPLIC; Start 01/01/17 at 21:00 Tramadol HCl (Ultram) 50 mg Q6H PRN PO PAIN LEVEL 7-10; Start 01/01/17 at 15:00 Miscellaneous Information 1 ea NOTE XX ; Start 01/01/17 at 15:00 Glucose (Glutose) 15 gm Q15M PRN PO DECREASED GLUCOSE; Start 01/01/17 at 15:00 Glucose (Glutose) 22.5 gm Q15M PRN PO DECREASED GLUCOSE; Start 01/01/17 at 15:00 Dextrose (D50w Syringe) 25 ml Q15M PRN IV DECREASED GLUCOSE; Start 01/01/17 at 15:00 Dextrose (D50w Syringe) 50 ml Q15M PRN IV DECREASED GLUCOSE; Start 01/01/17 at 15:00 Glucagon (Glucagen) 1 mg Q15M PRN IM DECREASED GLUCOSE; Start 01/01/17 at 15:00 Glucose (Glutose) 15 gm Q15M PRN BUCCAL DECREASED GLUCOSE; Start 01/01/17 at 15: 00 Morphine Sulfate 2 mg 2 mg Q4H PRN IV PAIN; Start 01/01/17 at 16:00 Ondansetron HCl/ Sodium Chloride (Zofran Inj/NS) 54 ml @ 216 mls/hr Q6H PRN IV NAUSEA AND/OR VOMITING Last administered on 6/6/17at 09:25; Admin Dose 216 MLS/HR; Start 01/01/17 at 15:30 Miscellaneous Information (*Rx Drug Level Order Reminder*) VANCOMYCIN RANDOM LEVEL IN AM ONCE ONCE XX ; Start 01/03/17 at 05:00; Stop 01/03/17 at 05:01 Hydralazine HCl (Apresoline) 10 mg Q6H PRN IV ELEVATED BLOOD PRESSURE; Start at 15:00 Famotidine (Pepcid) 20 mg DAILY PO Last administered on 01/02/17t 16:28; Admin Dose 20 MG; Start 01/02/17 at 15:00 Permethrin (Nix) 1 applic ONCE ONCE TOP ; Start 01/02/17 at 22:00; Stop 01/02/17 at 22:01 KYLER ROQUE DPM Jan 02, 2017 22:09
[2017-01-02] MEDS ORDERED: KETOROLAC 15 MG INJ IV PRN (22:30)
[2017-01-02] MEDS ORDERED: HYDROCODONE/APAP (10/325) TAB PO PRN (22:30)
[2017-01-02] MEDS ORDERED: CEPASTAT LOZENGE MT PRN ×2 (22:30→23:30)
[2017-01-02] MEDS ORDERED: IBUPROFEN 600 MG TAB PO PRN ×2 (22:30→23:30)
[2017-01-02] MEDS ORDERED: NACL 0.9% 3 ML SYG IV SCH (22:30)
[2017-01-02] MEDS ORDERED: HYDROCODONE/APAP (5/325) TAB PO PRN ×2 (22:30→23:30)
[2017-01-02] MEDS ORDERED: ZOLPIDEM 5 MG TAB PO PRN (22:30)
[2017-01-02] MEDS ORDERED: ACETAMINOPHEN 325 MG TAB PO PRN ×2 (22:30→23:30)
[2017-01-02] MEDS ORDERED: morphine 2 MG INJ IV PRN ×2 (22:30→23:30)
[2017-01-02] MEDS ORDERED: SENNA TAB PO PRN (22:30)
[2017-01-02] MEDS: ATORVASTATIN 20 MG TAB PO SCH (23:30)
[2017-01-02] MEDS ORDERED: KETOROLAC 30 MG INJ IV PRN (23:30)
[2017-01-03] MEDS: PIPER-TAZO 3.375 GM IV (PMX) 100 ML IVPB SCH ×3 (00:08→12:49)
[2017-01-03] MEDS: INSULIN GLARGINE [LANtus] 3 ML PEN SC SCH ×3 (00:10→21:56)
--- NOTE | 2017-01-03 00:16 | OPR ---
DATE OF OPERATION: 01/02/2017 SURGEON: Carmen Bird DPM FINISHING DEPARTMENT SUPERVISOR: Jensen Castellanos DPM PREOPERATIVE DIAGNOSES: 1. Right foot deep space abscess. 2. Cellulitis. 3. Diabetic foot ulceration, plantar aspects. 4. Osteomyelitis. 5. Charcot foot deformity. 6. Diabetes type 2, poorly controlled with peripheral neuropathy. POSTOPERATIVE DIAGNOSES: 1. Right foot deep space abscess. 2. Cellulitis. 3. Diabetic foot ulceration, plantar aspects. 4. Osteomyelitis. 5. Charcot foot deformity. 6. Diabetes type 2, poorly controlled with peripheral neuropathy. PROCEDURES PERFORMED: 1. Multiple incision and drainage of right foot dorsal aspect. 2. Excisional debridement of skin, subcutaneous tissue, muscle, and bone to ulceration plantar aspe ct 8 x 6 cm. PATHOLOGY: Wound cultures, bone cultures, bone for pathology. ANESTHESIA: MAC with local lidocaine 1% plain, 30 mL. ESTIMATED BLOOD LOSS: 20 mL. Hemostasis with electrocautery and compression. COMPLICATIONS: None. INDICATION FOR PROCEDURE: The patient admitted for severe right foot infection at risk for amputati on. She had been transferred from another facility and had been offered amputation. The patient pr esents for urgent emergent surgical intervention. Discussed planned procedure. The patient amenabl e. Informed consent was obtained. PROCEDURE IN DETAIL: The patient brought into the operating room and placed in the supine position. Formal timeout was performed. The patient had been initiated on empiric antibiotics. Extremity w as prepped with Betadine and draped in usual sterile fashion. At this time, using a pickup scissors , rongeur, excisional debridement of skin, subcutaneous tissue, and muscle performed. The Versajet was used to further debride the plantar ulceration. There were 2 tunneling wounds, which were irrig ated and further debrided with the Versajet. Wounds probe to bone. Bone was debrided using a ronge ur. Wound cultures, bone cultures, and bone obtained for pathology. There is estimated 40 mL of pu rulence. Appear to track to the dorsal aspect. A [place] was used to explore the depth. A 15 blade was used to make an incision dorsally x2 and was spread open with a hemostat. Approximately 5 mL of purulence was drained. There was a tunnel from the plantar wound, which appeared to track along pe roneal tendons and a separate incision was made approximately 6 cm at the level of the sinus tarsi a nd additional purulent material was evacuated. The wound was irrigated with hydrogen peroxide and p acked open with quarter inch iodoform Nu Gauze packing. Using electrocautery, all bleeders were cau terized. The patient had estimated blood loss of 20 mL. The patient was wrapped with 4 x 4 gauze, Kerlix, Leon wrap, and transferred to the PACU with vital signs stable. POSTOPERATIVE PLAN: Continue empiric antibiotic. We will follow up on the culture results. Will p apurva additional debridement to the right foot. The patient at high risk for amputation. May require wound VAC at future debridement operation. Dictated By: CARMEN DAVEY/SYED Conf#: [id number] DID#: [id number] CC: STEFFANY GOMEZ MD;*EndCC*
[2017-01-03 05:22] LABS: ADD SCAN DIFF NO
[2017-01-03 05:32] LABS: BASOPHILS % 0.2 % (0.0-2.0); EOSINOPHILS # 0.2 10^3/ul (0.0-0.5); EOSINOPHILS % 1.6 % (0.0-7.0); HEMOGLOBIN 8.3 g/dl (12.0-16.0); LYMPHOCYTES # 1.3 10^3/ul (0.8-2.9); LYMPHOCYTES % 9.1 % (15.0-51.0); MEAN CORPUSCULAR HEMOGLOBIN 26.9 pg (29.0-33.0); MEAN CORPUSCULAR HGB CONC 30.7 g/dl (32.0-37.0); MEAN CORPUSCULAR VOLUME 87.7 fl (82.0-101.0); MONOCYTES % 7.3 % (0.0-11.0); NEUTROPHIL # 11.4 10^3/ul (1.6-7.5); NEUTROPHILS % 79.2 % (39.0-77.0); PLATELET COUNT 297 10^3/UL (140-415); RED BLOOD COUNT 3.08 10^6/ul (4.20-5.40); RED CELL DISTRIBUTION WIDTH 15.3 % (11.5-14.5); WHITE BLOOD COUNT 14.3 10^3/ul (4.8-10.8)
[2017-01-03 05:45] LABS: INR 1.28; PROTIME 16.1 Sec (12.2-14.2); PT RATIO 1.3
[2017-01-03 05:46] LABS: PARTIAL THROMBOPLASTIN TIME 29.3 Sec (25.0-35.0)
[2017-01-03] MEDS: LEVOTHYROXINE 75 MCG TAB PO SCH (05:46)
[2017-01-03 06:02] LABS: ALBUMIN 2.8 g/dl (3.3-4.9); ALBUMIN/GLOBULIN RATIO 0.82; BILIRUBIN,INDIRECT 0.4 mg/dl (0-1.1); BILIRUBIN,TOTAL 0.4 mg/dl (0.2-1.3); CALCIUM 7.7 mg/dl (8.4-10.2); CREATININE 2.8 mg/dl (0.44-1.00); POTASSIUM 3.8 mmol/L (3.5-5.1); TOTAL PROTEIN 6.2 g/dl (6.1-8.1)
[2017-01-03] MEDS ORDERED: INSULIN ASPART [NOVOLOG] 3 ML PEN SC ONE (06:30)
[2017-01-03] MEDS ORDERED: ENOXAPARIN 40 MG/0.4 ML SYG SC SCH ×2 (07:00)
[2017-01-03] MEDS ORDERED: INSULIN ASPART [NOVOLOG] 3 ML PEN SC SCH (07:50)
[2017-01-03 08:40] VITALS: BP 171/74; RESP 19
[2017-01-03] MEDS ORDERED: FAMOTIDINE 20 MG TAB PO SCH ×2 (09:00)
[2017-01-03] MEDS: FERROUS SULFATE (EC) 325 MG TAB PO SCH ×3 (09:00→21:59)
[2017-01-03] MEDS: SODIUM HYPOCHLORITE 0.125% 473 ML BTL IRR SCH (09:00)
[2017-01-03] MEDS: DOCUSATE SODIUM 100 MG CAP PO SCH ×2 (09:01→21:59)
[2017-01-03] MEDS: FOLIC ACID 1 MG TAB PO SCH (09:01)
[2017-01-03] MEDS: ASPIRIN 81 MG TAB PO SCH (09:01)
[2017-01-03] MEDS: ASCORBIC ACID 500 MG TAB PO SCH (09:02)
[2017-01-03] MEDS: AMLODIPINE 10 MG TAB PO SCH (09:02)
[2017-01-03] MEDS: FAMOTIDINE 20 MG TAB PO SCH (09:02)
[2017-01-03] MEDS: INSULIN ASPART [NOVOLOG] 3 ML PEN SC SCH ×7 (09:05→21:55)
[2017-01-03] MEDS: HEPARIN 5,000 UNIT/0.5 ML VIAL SC SCH ×2 (09:06→21:54)
[2017-01-03 10:30] VITALS: BP 123/56; RESP 19
[2017-01-03] MEDS ORDERED: LORAZEPAM 0.5 MG TAB PO PRN (11:00)
[2017-01-03] MEDS ORDERED: VANCOMYCIN 1.5 GM in SOD CHLORIDE 0.9% 250 ML IVPB SCH (13:00)
[2017-01-03] MEDS ORDERED: IVERMECTIN 3 MG TAB PO ONE (13:00)
--- NOTE | 2017-01-03 13:03 | PN ---
DATE: 01/03/2017 SUBJECTIVE: No acute changes overnight. The patient is sleeping, looks comfortable, no fevers. ANTIMICROBIALS: 1. Vancomycin. 2. Zosyn. PHYSICAL EXAMINATION: GENERAL: This is a well-developed, morbidly obese, middle-aged, [place]ic-speaking woman, who is in n o distress. HEENT: Head atraumatic, normocephalic. Sclerae anicteric. Buccal mucosa dry. NECK: Supple. Trachea midline. CHEST: Rise symmetrical. Breath sounds diminished to bases. HEART: S1, S2. ABDOMEN: Soft, bowel tones present. EXTREMITIES: With right lower extremity dressing intact. MICROBIOLOGY: Wound culture growing gram-negative rods, corynebacterium species and enterococcus sp ecies. ASSESSMENT: 1. Right foot osteomyelitis, cellulitis, status post I and D. 2. Charcot deformity. 3. Diabetes. 4. Morbid obesity. 5. Scabies, status post Elimite statement. 6. Chronic kidney disease. PLAN: The patient remains stable. We will give her a dose of Ivermectin p.o. for scabies and repea t x2 weekly. Await for final wound cultures. Follow Podiatry's recommendations. Dictated By: GEORGIANA MORIN SPECIAL DELIVERY MESSENGER for IRENA ALVARADO/SYED Conf#: [id number] DID#: [id number]
--- NOTE | 2017-01-03 14:38 | PN ---
Date/Time of Note Date/Time of Note DATE: 01/03/17 TIME: 14:33 Assessment/Plan VTE Prophylaxis VTE Prophylaxis Intervention: heparin Lines/Catheters IV [facility]from [facility]ine [facility] Urinary Cath still in place: No Assessment/Plan Chief Complaint/Hosp Course ASSESSMENT AND PLAN: 51-year-old female with history of right foot diabetic ulcer, osteomyelitis, essential hypertension, type 2 diabetes, hypothyroidism, high cholesterol, chronic kidney disease, right internal carotid artery stenosis who was transferred from outside hospital for right foot wound infection and osteomyelitis, s/p surgery yesterday. 1. Right foot wound infection/osteomyelitis - POD # 1 of multiple incision and drainage of right foot dorsal aspect and excisional debridement of skin, subcutaneous tissue, muscle, and bone to ulceration plantar aspect 8 x 6 cm. - Again, continue broad spectrum antibiotics. - Follow up ID and podiatry recommendations. - Tylenol p.r.n. pain, fevers. - Follow up final culture results. 2. Type 2 diabetes. Again, A1c is elevated. - Continue current insulin regimen. 3. Hypertension. Again, blood pressure is high normal. - Continue p.o. medications and p.r.n. hydralazine IV. 4. History of chronic kidney disease. Again, there is a creatinine of 2 from the outside hospital. Creatinine is more elevated today. - Follow up renal recommendations. - Continue to monitor urine output. - restart IV fluids as well. 5. History of right carotid endarterectomy. Continue to monitor for now. 6. Gastrointestinal prophylaxis - Pepcid. 7. Deep venous thrombosis prophylaxis. Heparin subcutaneously. 8. Lice - received Elimite - f/u ID rec's - per ID, will give her a dose of Ivermectin p.o. for scabies and repeat x2 weekly Problems: Subjective 24 Hr Interval Summary Free Text/Dictation Pt dx with lice, on tx for this, had right foot surgery yesterday as well. Exam/Review of Systems Vital Signs Vitals Vital Signs Date Time Temp Pulse Resp B/P Pulse Ox O2 Delivery O2 Flow Rate FiO2 01/03/17 10:30 98.0 19 123/56 97 01/03/17 08:40 86 01/02/17 22:40 Room Air Intake and Output 01/02/17 01/02/17 01/03/17 15:00 23:00 07:00 Intake Total 379 ml 1600 ml 800 ml Output Total 550 ml Balance 379 ml 1050 ml 800 ml Exam GENERAL: The patient is lying in bed, answering questions appropriately. No acute distress. HEENT: Pupils equal, round, reactive to light. Extraocular muscles intact. NECK: Supple. No thyromegaly. LUNGS: Clear to auscultation bilaterally. CARDIOVASCULAR: S1, S2 heard. No rubs or gallops. ABDOMEN: Soft, nontender, nondistended. Normal bowel sounds. No rebound or guarding. MUSCULOSKELETAL: There is a right foot bandage, otherwise no lower extremity edema bilaterally. NEUROLOGIC: No focal deficits. Results Result Diagram: 01/03/17 0445 01/03/17 0445 Results 24 hrs Laboratory Tests Test 01/02/17 18:05 01/02/17 22:30 01/02/17 23:15 01/03/17 04:45 Bedside Glucose 164 166 Platelet Count 349 297 White Blood Count 14.3 #H Red Blood Count 3.08 #L Hemoglobin 8.3 #L Hematocrit 27.0 #L Mean Corpuscular Volume 87.7 Mean Corpuscular Hemoglobin 26.9 L Mean Corpuscular Hemoglobin Concent 30.7 L Red Cell Distribution Width 15.3 H Mean Platelet Volume 11.0 H Neutrophils % 79.2 H Lymphocytes % 9.1 L Monocytes % 7.3 Eosinophils % 1.6 Basophils % 0.2 Nucleated Red Blood Cells % 0.0 Neutrophils # 11.4 H Lymphocytes # 1.3 Monocytes # 1.0 H Eosinophils # 0.2 Basophils # 0.0 Nucleated Red Blood Cells # 0.0 Prothrombin Time 16.1 H Prothrombin Time Ratio 1.3 INR International Normalized Ratio 1.28 Activated Partial Thromboplast Time 29.3 Sodium Level 135 Potassium Level 3.8 Chloride Level 107 Carbon Dioxide Level 20 L Anion Gap 12 Blood Urea Nitrogen 33 H Creatinine 2.80 H Glucose Level 411 #*H Calcium Level 7.7 L Total Bilirubin 0.4 Direct Bilirubin 0.00 Indirect Bilirubin 0.4 Aspartate Amino Transf (AST/SGOT) 20 Alanine Aminotransferase (ALT/SGPT) 22 Alkaline Phosphatase 95 Total Protein 6.2 Albumin 2.8 L Globulin 3.40 H Albumin/Globulin Ratio 0.82 Random Vancomycin Level 9.7 Test 01/03/17 08:58 01/03/17 12:36 Bedside Glucose 291 H 160 Medications Medications Current Medications Acetaminophen (Tylenol Tab) 650 mg Q6H PRN PO PAIN AND OR ELEVATED TEMP; Start 01/01/17 at 04:00 Heparin Sodium (Porcine) (Heparin (5000 Units/0.5 ml)) 5,000 unit BID SC Last administered on 01/03/17 09:06; Admin Dose 5,000 UNIT; Start 01/01/17 at 09:00 Amlodipine Besylate (Norvasc) 10 mg DAILY PO Last administered on 01/03/17 09: 02; Admin Dose 10 MG; Start 01/02/17 at 09:00 Aspirin (Aspirin) 81 mg DAILY PO Last administered on 01/03/17 09:01; Admin Dose 81 MG; Start 01/02/17 at 09:00 Atorvastatin Calcium (Lipitor) 20 mg QHS PO Last administered on 01/02/17 23:30 ; Admin Dose 20 MG; Start 01/01/17 at 21:00 Ferrous Sulfate (Ferrous Sulfate (Ec)) 325 mg TID PO ; Start 01/01/17 at 21:00 Folic Acid (Folic Acid) 1 mg DAILY PO Last administered on 01/03/17 09:01; Admin Dose 1 MG; Start 01/02/17 at 09:00 Hydralazine HCl (Apresoline) 10 mg DAILY@21 PO Last administered on 01/02/17 23 :30; Admin Dose 10 MG; Start 01/01/17 at 21:00 Insulin Glargine (Lantus) 22 unit Q12 SC Last administered on 01/03/17 09:07; Admin Dose 22 UNIT; Start 01/01/17 at 15:00 Levothyroxine Sodium (Synthroid) 75 mcg DAILY@06 PO Last administered on 05:46; Admin Dose 75 MCG; Start 01/02/17 at 06:00 Sodium Hypochlorite (Dakin'S (1/4 Strength)) BID IRR Last administered on 09:37; Admin Dose 1 APPLIC; Start 01/01/17 at 21:00 Tramadol HCl (Ultram) 50 mg Q6H PRN PO PAIN LEVEL 7-10; Start 01/01/17 at 15:00 Miscellaneous Information 1 ea NOTE XX ; Start 01/01/17 at 15:00 Glucose (Glutose) 15 gm Q15M PRN PO DECREASED GLUCOSE; Start 01/01/17 at 15:00 Glucose (Glutose) 22.5 gm Q15M PRN PO DECREASED GLUCOSE; Start 01/01/17 at 15:00 Dextrose (D50w Syringe) 25 ml Q15M PRN IV DECREASED GLUCOSE; Start 01/01/17 at 15:00 Dextrose (D50w Syringe) 50 ml Q15M PRN IV DECREASED GLUCOSE; Start 01/01/17 at 15:00 Glucagon (Glucagen) 1 mg Q15M PRN IM DECREASED GLUCOSE; Start 01/01/17 at 15:00 Glucose (Glutose) 15 gm Q15M PRN BUCCAL DECREASED GLUCOSE; Start 01/01/17 at 15: 00 Morphine Sulfate 2 mg 2 mg Q4H PRN IV PAIN; Start 01/01/17 at 16:00 Ondansetron HCl/ Sodium Chloride (Zofran Inj/NS) 54 ml @ 216 mls/hr Q6H PRN IV NAUSEA AND/OR VOMITING Last administered on 01/02/17 09:25; Admin Dose 216 MLS/HR; Start 01/01/17 at 15:30 Hydralazine HCl (Apresoline) 10 mg Q6H PRN IV ELEVATED BLOOD PRESSURE; Start at 15:00 Famotidine (Pepcid) 20 mg DAILY PO Last administered on 01/03/17 09:02; Admin Dose 20 MG; Start 01/02/17 at 15:00 Morphine Sulfate (morphine) 2 mg Q2H PRN IV PAIN LEVEL 6-10; Start 01/02/17 at 22:30 Acetaminophen/ Hydrocodone Bitart (Fonda (5/325)) 1 tab Q6H PRN PO PAIN LEVEL 6 -10; Start 01/02/17 at 22:30 Acetaminophen/ Hydrocodone Bitart (Fonda (10/325)) 1 tab Q6H PRN PO PAIN; Start 01/02/17 at 22:30 Ketorolac Tromethamine (Toradol) 15 mg Q6H PRN IV PAIN; Start 01/02/17 at 22:30 ; Stop 01/05/17 at 22:29 Acetaminophen (Tylenol Tab) 650 mg Q6H PRN PO PAIN AND OR ELEVATED TEMP; Start 01/02/17 at 22:30 Ibuprofen (Motrin) 600 mg Q6H PRN PO PAIN LEVEL 1-5; Start 01/02/17 at 22:30 Diphenhydramine HCl (Benadryl) 25 mg Q6H PRN IV ITCHING; Start 01/02/17 at 22:30 Ondansetron HCl (Zofran Inj) 4 mg Q6H PRN IV NAUSEA AND/OR VOMITING; Start 01/02 at 22:30 Phenol (Cepastat Lozenge) 1 lozenge PRN PRN MT SORE THROAT; Start 01/02/17 at 22 :30 Zolpidem Tartrate (Ambien) 5 mg HS PRN PO INSOMNIA; Start 01/02/17 at 22:30 Docusate Sodium (Colace) 100 mg BID PO Last administered on 01/03/17 09:01; Admin Dose 100 MG; Start 01/03/17 at 09:00 Senna (Senokot) 1 tab BID PRN PO CONSTIPATION; Start 01/02/17 at 22:30 Ascorbic Acid 1000 mg 1,000 mg DAILY PO Last administered on 01/03/17 09:02; Admin Dose 1,000 MG; Start 01/03/17 at 09:00 Vancomycin HCl 1.5 gm/Sodium Chloride 250 ml @ 83.333 mls/ hr 13 IVPB Last administered on 01/03/17 13:28; Admin Dose 83.333 MLS/HR; Start 01/03/17 at 13:00 ; Stop 01/03/17 at 23:00 Piperacillin Sod/ Tazobactam Sod 50 ml @ 100 mls/hr Q6 IVPB ; Start 01/03/17 at 18:00 Sodium Chloride (NS) 1,000 ml @ 125 mls/hr Q8H IV ; Start 01/03/17 at 14:30; Status GABRIELLA RUGGIERO Jan 03, 2017 14:38
--- NOTE | 2017-01-03 16:38 | CONS ---
Date/Time of Note Date/Time of Note DATE: 01/03/17 TIME: 16:36 Assessment/Plan Assessment/Plan Additional Assessment/Plan 1. Acute kidney injury on chronic kidney disease secondary to sepsis from infections including the right foot osteomyelitis. 2. History of possible chronic kidney disease secondary to diabetic nephropathy. 3. Adult onset type 2 diabetes mellitus, poorly controlled. 4. Hypertension. 5. Hypothyroidism. 6. History of previous right second and third toe amputations. 7. Possible peripheral vascular disease. PLAN: pt has acute on chronic renal failure, received IVF , Cr bumped to 2.8- IVF restarted at 125xx/hr need better glycemic control Nurse instructed to call me if pt is planned for for any procedures/surgery-we will do some measures to prevent Contrast induced nephropathy will follow up US c/w Medical renal disease Consultation Date/Type/Reason Admit Date/Time Jan 01, 2017 at 01:45 Type of Consultation: NEPHROLOGY Referring Provider: GABRIELLA CABRERA 24 HR Interval Summary Free Text/Dictation Cr bumped, blood sugar has been r unning high Exam/Review of Systems Vital Signs Vitals Vital Signs Date Time Temp Pulse Resp B/P Pulse Ox O2 Delivery O2 Flow Rate FiO2 01/03/17 10:30 98.0 19 123/56 97 01/03/17 08:40 86 01/02/17 22:40 Room Air Intake and Output 01/02/17 01/02/17 01/03/17 15:00 23:00 07:00 Intake Total 379 ml 1600 ml 800 ml Output Total 550 ml Balance 379 ml 1050 ml 800 ml Exam GENERAL: Awake, alert, in no distress. HEENT: Normal. Pupils equal, reactive to light and accommodation. Extraocular muscles are intact. NECK: Supple, no JVD, no lymphadenopathy. LUNGS: Clear to auscultation. No crackles, no wheezes. HEART: S1, S2, with regular rhythm, no murmur. ABDOMEN: Soft, nontender, nondistended. Bowel sounds are present. EXTREMITIES: No clubbing, cyanosis, or edema. Right foot dressing in place. NEUROLOGICAL: Nonfocal, intact. PSYCHIATRIC: Appropriate affect and mood Results Result Diagram: 01/03/17 0445 01/03/17 0445 Results 24 hrs Laboratory Tests Test 01/02/17 18:05 01/02/17 22:30 01/02/17 23:15 01/03/17 04:45 Bedside Glucose 164 166 Platelet Count 349 297 White Blood Count 14.3 #H Red Blood Count 3.08 #L Hemoglobin 8.3 #L Hematocrit 27.0 #L Mean Corpuscular Volume 87.7 Mean Corpuscular Hemoglobin 26.9 L Mean Corpuscular Hemoglobin Concent 30.7 L Red Cell Distribution Width 15.3 H Mean Platelet Volume 11.0 H Neutrophils % 79.2 H Lymphocytes % 9.1 L Monocytes % 7.3 Eosinophils % 1.6 Basophils % 0.2 Nucleated Red Blood Cells % 0.0 Neutrophils # 11.4 H Lymphocytes # 1.3 Monocytes # 1.0 H Eosinophils # 0.2 Basophils # 0.0 Nucleated Red Blood Cells # 0.0 Prothrombin Time 16.1 H Prothrombin Time Ratio 1.3 INR International Normalized Ratio 1.28 Activated Partial Thromboplast Time 29.3 Sodium Level 135 Potassium Level 3.8 Chloride Level 107 Carbon Dioxide Level 20 L Anion Gap 12 Blood Urea Nitrogen 33 H Creatinine 2.80 H Glucose Level 411 #*H Calcium Level 7.7 L Total Bilirubin 0.4 Direct Bilirubin 0.00 Indirect Bilirubin 0.4 Aspartate Amino Transf (AST/SGOT) 20 Alanine Aminotransferase (ALT/SGPT) 22 Alkaline Phosphatase 95 Total Protein 6.2 Albumin 2.8 L Globulin 3.40 H Albumin/Globulin Ratio 0.82 Random Vancomycin Level 9.7 Test 01/03/17 08:58 01/03/17 12:36 Bedside Glucose 291 H 160 Medications Medications Current Medications Acetaminophen (Tylenol Tab) 650 mg Q6H PRN PO PAIN AND OR ELEVATED TEMP; Start 01/01/17 at 04:00 Heparin Sodium (Porcine) (Heparin (5000 Units/0.5 ml)) 5,000 unit BID SC Last administered on 01/03/17 09:06; Admin Dose 5,000 UNIT; Start 01/01/17 at 09:00 Amlodipine Besylate (Norvasc) 10 mg DAILY PO Last administered on 01/03/17 09: 02; Admin Dose 10 MG; Start 01/02/17 at 09:00 Aspirin (Aspirin) 81 mg DAILY PO Last administered on 01/03/17 09:01; Admin Dose 81 MG; Start 01/02/17 at 09:00 Atorvastatin Calcium (Lipitor) 20 mg QHS PO Last administered on 01/02/17 23:30 ; Admin Dose 20 MG; Start 01/01/17 at 21:00 Ferrous Sulfate (Ferrous Sulfate (Ec)) 325 mg TID PO ; Start 01/01/17 at 21:00 Folic Acid (Folic Acid) 1 mg DAILY PO Last administered on 01/03/17 09:01; Admin Dose 1 MG; Start 01/02/17 at 09:00 Hydralazine HCl (Apresoline) 10 mg DAILY@21 PO Last administered on 01/02/17 23 :30; Admin Dose 10 MG; Start 01/01/17 at 21:00 Insulin Glargine (Lantus) 22 unit Q12 SC Last administered on 01/03/17 09:07; Admin Dose 22 UNIT; Start 01/01/17 at 15:00 Levothyroxine Sodium (Synthroid) 75 mcg DAILY@06 PO Last administered on 05:46; Admin Dose 75 MCG; Start 01/02/17 at 06:00 Sodium Hypochlorite (Dakin'S (1/4 Strength)) BID IRR Last administered on 09:37; Admin Dose 1 APPLIC; Start 01/01/17 at 21:00 Tramadol HCl (Ultram) 50 mg Q6H PRN PO PAIN LEVEL 7-10; Start 01/01/17 at 15:00 Miscellaneous Information 1 ea NOTE XX ; Start 01/01/17 at 15:00 Glucose (Glutose) 15 gm Q15M PRN PO DECREASED GLUCOSE; Start 01/01/17 at 15:00 Glucose (Glutose) 22.5 gm Q15M PRN PO DECREASED GLUCOSE; Start 01/01/17 at 15:00 Dextrose (D50w Syringe) 25 ml Q15M PRN IV DECREASED GLUCOSE; Start 01/01/17 at 15:00 Dextrose (D50w Syringe) 50 ml Q15M PRN IV DECREASED GLUCOSE; Start 01/01/17 at 15:00 Glucagon (Glucagen) 1 mg Q15M PRN IM DECREASED GLUCOSE; Start 01/01/17 at 15:00 Glucose (Glutose) 15 gm Q15M PRN BUCCAL DECREASED GLUCOSE; Start 01/01/17 at 15: 00 Morphine Sulfate 2 mg 2 mg Q4H PRN IV PAIN; Start 01/01/17 at 16:00 Ondansetron HCl/ Sodium Chloride (Zofran Inj/NS) 54 ml @ 216 mls/hr Q6H PRN IV NAUSEA AND/OR VOMITING Last administered on 01/02/17 09:25; Admin Dose 216 MLS/HR; Start 01/01/17 at 15:30 Hydralazine HCl (Apresoline) 10 mg Q6H PRN IV ELEVATED BLOOD PRESSURE; Start at 15:00 Famotidine (Pepcid) 20 mg DAILY PO Last administered on 01/03/17 09:02; Admin Dose 20 MG; Start 01/02/17 at 15:00 Morphine Sulfate (morphine) 2 mg Q2H PRN IV PAIN LEVEL 6-10; Start 01/02/17 at 22:30 Acetaminophen/ Hydrocodone Bitart ([place] (5/325)) 1 tab Q6H PRN PO PAIN LEVEL 6 -10; Start 01/02/17 at 22:30 Acetaminophen/ Hydrocodone Bitart ([place] (10/325)) 1 tab Q6H PRN PO PAIN; Start 01/02/17 at 22:30 Ketorolac Tromethamine (Toradol) 15 mg Q6H PRN IV PAIN; Start 01/02/17 at 22:30 ; Stop 01/05/17 at 22:29 Acetaminophen (Tylenol Tab) 650 mg Q6H PRN PO PAIN AND OR ELEVATED TEMP; Start 01/02/17 at 22:30 Ibuprofen (Motrin) 600 mg Q6H PRN PO PAIN LEVEL 1-5; Start 01/02/17 at 22:30 Diphenhydramine HCl (Benadryl) 25 mg Q6H PRN IV ITCHING; Start 01/02/17 at 22:30 Ondansetron HCl (Zofran Inj) 4 mg Q6H PRN IV NAUSEA AND/OR VOMITING; Start 01/02 at 22:30 Phenol (Cepastat Lozenge) 1 lozenge PRN PRN MT SORE THROAT; Start 01/02/17 at 22 :30 Zolpidem Tartrate (Ambien) 5 mg HS PRN PO INSOMNIA; Start 01/02/17 at 22:30 Docusate Sodium (Colace) 100 mg BID PO Last administered on 01/03/17 09:01; Admin Dose 100 MG; Start 01/03/17 at 09:00 Senna (Senokot) 1 tab BID PRN PO CONSTIPATION; Start 01/02/17 at 22:30 Ascorbic Acid 1000 mg 1,000 mg DAILY PO Last administered on 01/03/17 09:02; Admin Dose 1,000 MG; Start 01/03/17 at 09:00 Vancomycin HCl 1.5 gm/Sodium Chloride 250 ml @ 83.333 mls/ hr 13 IVPB Last administered on 01/03/17 13:28; Admin Dose 83.333 MLS/HR; Start 01/03/17 at 13:00 ; Stop 01/03/17 at 23:00 Piperacillin Sod/ Tazobactam Sod 50 ml @ 100 mls/hr Q6 IVPB ; Start 01/03/17 at 18:00 Sodium Chloride (NS) 1,000 ml @ 125 mls/hr Q8H IV ; Start 01/03/17 at 14:30 MANUEL WISDOM MD Jan 03, 2017 16:38
[2017-01-03] MEDS: SOD CHLORIDE 0.9% 1,000 ML IV SCH (17:54)
[2017-01-03] MEDS: PIPER-TAZO 2.25 GM (PMX) 50 ML IVPB SCH (18:03)
[2017-01-03 20:47] VITALS: BP 135/63; RESP 20
[2017-01-03] MEDS: ATORVASTATIN 20 MG TAB PO SCH (21:59)
[2017-01-04] VITALS (16 sets, daily range): BP systolic 124–155; BP diastolic 55–65; PULSE 80–88; RESP 6–20
[2017-01-04] MEDS: PIPER-TAZO 2.25 GM (PMX) 50 ML IVPB SCH ×3 (00:26→12:33)
[2017-01-04] MEDS: SOD CHLORIDE 0.9% 1,000 ML IV SCH ×3 (03:02→15:44)
[2017-01-04 05:03] LABS: ADD SCAN DIFF NO
[2017-01-04 05:21] LABS: BASOPHILS % 0.2 % (0.0-2.0); EOSINOPHILS # 0.8 10^3/ul (0.0-0.5); EOSINOPHILS % 6.7 % (0.0-7.0); LYMPHOCYTES # 2.1 10^3/ul (0.8-2.9); LYMPHOCYTES % 16.8 % (15.0-51.0); MEAN CORPUSCULAR HGB CONC 29.6 g/dl (32.0-37.0); MEAN CORPUSCULAR VOLUME 91.2 fl (82.0-101.0); MEAN PLATELET VOLUME 11.4 fl (7.4-10.4); MONOCYTE # 0.7 10^3/ul (0.3-0.9); MONOCYTES % 5.7 % (0.0-11.0); NEUTROPHIL # 8.5 10^3/ul (1.6-7.5); NEUTROPHILS % 68.7 % (39.0-77.0); PLATELET COUNT 321 10^3/UL (140-415); RED BLOOD COUNT 2.96 10^6/ul (4.20-5.40); RED CELL DISTRIBUTION WIDTH 15.6 % (11.5-14.5); WHITE BLOOD COUNT 12.4 10^3/ul (4.8-10.8)
[2017-01-04 05:33] LABS: INR 1.17; PT RATIO 1.2
[2017-01-04 05:37] LABS: CALCIUM 7.7 mg/dl (8.4-10.2); CREATININE 2.63 mg/dl (0.44-1.00); POTASSIUM 4.2 mmol/L (3.5-5.1)
[2017-01-04] MEDS: LEVOTHYROXINE 75 MCG TAB PO SCH (06:19)
[2017-01-04] MEDS: ASPIRIN 81 MG TAB PO SCH (08:53)
[2017-01-04] MEDS: DOCUSATE SODIUM 100 MG CAP PO SCH ×2 (08:54→21:00)
[2017-01-04] MEDS: FERROUS SULFATE (EC) 325 MG TAB PO SCH ×3 (08:54→21:00)
[2017-01-04] MEDS: FOLIC ACID 1 MG TAB PO SCH (08:54)
[2017-01-04] MEDS: AMLODIPINE 10 MG TAB PO SCH (08:54)
[2017-01-04] MEDS: INSULIN ASPART [NOVOLOG] 3 ML PEN SC SCH ×7 (08:56→21:00)
[2017-01-04] MEDS: HEPARIN 5,000 UNIT/0.5 ML VIAL SC SCH ×2 (08:57→21:00)
[2017-01-04] MEDS: INSULIN GLARGINE [LANtus] 3 ML PEN SC SCH ×2 (08:57→22:45)
[2017-01-04] MEDS: FAMOTIDINE 20 MG TAB PO SCH (08:58)
[2017-01-04] MEDS: ASCORBIC ACID 500 MG TAB PO SCH (08:58)
--- NOTE | 2017-01-04 09:38 | CONS ---
Date/Time of Note Date/Time of Note DATE: 01/04/17 TIME: 09:36 Assessment/Plan Assessment/Plan Additional Assessment/Plan 1. Acute kidney injury on chronic kidney disease secondary to sepsis from infections including the right foot osteomyelitis. 2. History of possible chronic kidney disease secondary to diabetic nephropathy. 3. Adult onset type 2 diabetes mellitus, poorly controlled. 4. Hypertension. 5. Hypothyroidism. 6. History of previous right second and third toe amputations. 7. Possible peripheral vascular disease. PLAN: pt has acute on chronic renal failure, s/p IVF- then, Cr bumped from 2.5 to 2.8 - IVF restarted at 125xx/hr- again creatinine improved to 2.5- will decrease IVF to 75cc/hr x 24 hr then stop podiatry planning for possible debridement today need better glycemic control Nurse instructed to call me if pt is planned for for any procedures/surgery-we will do some measures to prevent Contrast induced nephropathy will follow up US c/w Medical renal disease Consultation Date/Type/Reason Admit Date/Time Jan 01, 2017 at 01:45 Type of Consultation: NEPHROLOGY Referring Provider: GABRIELLA CABRERA 24 HR Interval Summary Free Text/Dictation started on IVF,Cr improved to 1.58 Exam/Review of Systems Vital Signs Vitals Vital Signs Date Time Temp Pulse Resp B/P Pulse Ox O2 Delivery O2 Flow Rate FiO2 01/04/17 07:59 97.7 89 18 148/65 97 01/02/17 22:40 Room Air Intake and Output 01/03/17 01/03/17 01/04/17 15:00 23:00 07:00 Intake Total 1790 ml 340 ml Output Total 500 ml 600 ml Balance 1290 ml -260 ml Exam GENERAL: Awake, alert, in no distress. HEENT: Normal. Pupils equal, reactive to light and accommodation. Extraocular muscles are intact. NECK: Supple, no JVD, no lymphadenopathy. LUNGS: Clear to auscultation. No crackles, no wheezes. HEART: S1, S2, with regular rhythm, no murmur. ABDOMEN: Soft, nontender, nondistended. Bowel sounds are present. EXTREMITIES: No clubbing, cyanosis, or edema. Right foot dressing in place. NEUROLOGICAL: Nonfocal, intact. PSYCHIATRIC: Appropriate affect and mood Results Result Diagram: 01/04/17 04201/04/17 0422 Results 24 hrs Laboratory Tests Test 01/03/17 12:36 01/03/17 17:53 01/03/17 21:48 01/04/17 00:31 Bedside Glucose 160 138 195 174 Test 01/04/17 04:22 01/04/17 08:52 White Blood Count 12.4 H Red Blood Count 2.96 L Hemoglobin 8.0 L Hematocrit 27.0 L Mean Corpuscular Volume 91.2 Mean Corpuscular Hemoglobin 27.0 L Mean Corpuscular Hemoglobin Concent 29.6 L Red Cell Distribution Width 15.6 H Platelet Count 321 Mean Platelet Volume 11.4 H Neutrophils % 68.7 Lymphocytes % 16.8 Monocytes % 5.7 Eosinophils % 6.7 Basophils % 0.2 Nucleated Red Blood Cells % 0.0 Neutrophils # 8.5 H Lymphocytes # 2.1 Monocytes # 0.7 Eosinophils # 0.8 H Basophils # 0.0 Nucleated Red Blood Cells # 0.0 Prothrombin Time 15.0 H Prothrombin Time Ratio 1.2 INR International Normalized Ratio 1.17 Activated Partial Thromboplast Time 29.0 Sodium Level 139 Potassium Level 4.2 Chloride Level 113 H Carbon Dioxide Level 20 L Anion Gap 10 Blood Urea Nitrogen 33 H Creatinine 2.63 H Glucose Level 219 # Calcium Level 7.7 L Bedside Glucose 205 Medications Medications Current Medications Acetaminophen (Tylenol Tab) 650 mg Q6H PRN PO PAIN AND OR ELEVATED TEMP; Start 01/01/17 at 04:00 Heparin Sodium (Porcine) (Heparin (5000 Units/0.5 ml)) 5,000 unit BID SC Last administered on 01/04/17 08:57; Admin Dose 5,000 UNIT; Start 01/01/17 at 09:00 Amlodipine Besylate (Norvasc) 10 mg DAILY PO Last administered on 01/04/17 08: 54; Admin Dose 10 MG; Start 01/02/17 at 09:00 Aspirin (Aspirin) 81 mg DAILY PO Last administered on 01/04/17 08:53; Admin Dose 81 MG; Start 01/02/17 at 09:00 Atorvastatin Calcium (Lipitor) 20 mg QHS PO Last administered on 01/03/17 21:59 ; Admin Dose 20 MG; Start 01/01/17 at 21:00 Ferrous Sulfate (Ferrous Sulfate (Ec)) 325 mg TID PO Last administered on 21:59; Admin Dose 325 MG; Start 01/01/17 at 21:00 Folic Acid (Folic Acid) 1 mg DAILY PO Last administered on 01/04/17 08:54; Admin Dose 1 MG; Start 01/02/17 at 09:00 Hydralazine HCl (Apresoline) 10 mg DAILY@21 PO Last administered on 01/03/17 22 :00; Admin Dose 10 MG; Start 01/01/17 at 21:00 Insulin Glargine (Lantus) 22 unit Q12 SC Last administered on 01/04/17 08:57; Admin Dose 22 UNIT; Start 01/01/17 at 15:00 Levothyroxine Sodium (Synthroid) 75 mcg DAILY@06 PO Last administered on 06:19; Admin Dose 75 MCG; Start 01/02/17 at 06:00 Tramadol HCl (Ultram) 50 mg Q6H PRN PO PAIN LEVEL 7-10; Start 01/01/17 at 15:00 Miscellaneous Information 1 ea NOTE XX ; Start 01/01/17 at 15:00 Glucose (Glutose) 15 gm Q15M PRN PO DECREASED GLUCOSE; Start 01/01/17 at 15:00 Glucose (Glutose) 22.5 gm Q15M PRN PO DECREASED GLUCOSE; Start 01/01/17 at 15:00 Dextrose (D50w Syringe) 25 ml Q15M PRN IV DECREASED GLUCOSE; Start 01/01/17 at 15:00 Dextrose (D50w Syringe) 50 ml Q15M PRN IV DECREASED GLUCOSE; Start 01/01/17 at 15:00 Glucagon (Glucagen) 1 mg Q15M PRN IM DECREASED GLUCOSE; Start 01/01/17 at 15:00 Glucose (Glutose) 15 gm Q15M PRN BUCCAL DECREASED GLUCOSE; Start 01/01/17 at 15: 00 Morphine Sulfate 2 mg 2 mg Q4H PRN IV PAIN; Start 01/01/17 at 16:00 Ondansetron HCl/ Sodium Chloride (Zofran Inj/NS) 54 ml @ 216 mls/hr Q6H PRN IV NAUSEA AND/OR VOMITING Last administered on 01/02/17 09:25; Admin Dose 216 MLS/HR; Start 01/01/17 at 15:30 Hydralazine HCl (Apresoline) 10 mg Q6H PRN IV ELEVATED BLOOD PRESSURE; Start at 15:00 Famotidine (Pepcid) 20 mg DAILY PO Last administered on 01/04/17 08:58; Admin Dose 20 MG; Start 01/02/17 at 15:00 Morphine Sulfate (morphine) 2 mg Q2H PRN IV PAIN LEVEL 6-10; Start 01/02/17 at 22:30 Acetaminophen/ Hydrocodone Bitart ([place] (5/325)) 1 tab Q6H PRN PO PAIN LEVEL 6 -10; Start 01/02/17 at 22:30 Acetaminophen/ Hydrocodone Bitart ([place] (10/325)) 1 tab Q6H PRN PO PAIN; Start 01/02/17 at 22:30 Ketorolac Tromethamine (Toradol) 15 mg Q6H PRN IV PAIN; Start 01/02/17 at 22:30 ; Stop 01/05/17 at 22:29 Acetaminophen (Tylenol Tab) 650 mg Q6H PRN PO PAIN AND OR ELEVATED TEMP; Start 01/02/17 at 22:30 Ibuprofen (Motrin) 600 mg Q6H PRN PO PAIN LEVEL 1-5; Start 01/02/17 at 22:30 Diphenhydramine HCl (Benadryl) 25 mg Q6H PRN IV ITCHING; Start 01/02/17 at 22:30 Ondansetron HCl (Zofran Inj) 4 mg Q6H PRN IV NAUSEA AND/OR VOMITING; Start 01/02 at 22:30 Phenol (Cepastat Lozenge) 1 lozenge PRN PRN MT SORE THROAT; Start 01/02/17 at 22 :30 Zolpidem Tartrate (Ambien) 5 mg HS PRN PO INSOMNIA; Start 01/02/17 at 22:30 Docusate Sodium (Colace) 100 mg BID PO Last administered on 01/04/17 08:54; Admin Dose 100 MG; Start 01/03/17 at 09:00 Senna (Senokot) 1 tab BID PRN PO CONSTIPATION; Start 01/02/17 at 22:30 Ascorbic Acid 1000 mg 1,000 mg DAILY PO Last administered on 01/04/17 08:58; Admin Dose 1,000 MG; Start 01/03/17 at 09:00 Piperacillin Sod/ Tazobactam Sod 50 ml @ 100 mls/hr Q6 IVPB Last administered on 01/04/17 06:19; Admin Dose 100 MLS/HR; Start 01/03/17 at 18:00 Sodium Chloride (NS) 1,000 ml @ 125 mls/hr Q8H IV Last administered on 03:02; Admin Dose 125 MLS/HR; Start 01/03/17 at 14:30 MANUEL WISDOM MD Jan 04, 2017 09:38
[2017-01-04] MEDS ORDERED: INSULIN ASPART [NOVOLOG] 3 ML PEN SC ONE (12:30)
[2017-01-04] MEDS ORDERED: LEVOFLOXACIN 500 MG TAB PO ONE (13:30)
--- NOTE | 2017-01-04 13:42 | PN ---
Date/Time of Note Date/Time of Note DATE: 01/04/17 TIME: 13:39 Assessment/Plan VTE Prophylaxis VTE Prophylaxis Intervention: heparin Lines/Catheters IV [facility]from [facility] Peripheral IV Urinary Cath still in place: No Assessment/Plan Chief Complaint/Hosp Course ASSESSMENT AND PLAN: 51-year-old female with history of right foot diabetic ulcer, osteomyelitis, essential hypertension, type 2 diabetes, hypothyroidism, high cholesterol, chronic kidney disease, right internal carotid artery stenosis who was transferred from outside hospital for right foot wound infection and osteomyelitis, s/p surgery. 1. Right foot wound infection/osteomyelitis - POD # 2 of multiple incision and drainage of right foot dorsal aspect and excisional debridement of skin, subcutaneous tissue, muscle, and bone to ulceration plantar aspect 8 x 6 cm. - Again, continue broad spectrum antibiotics. - Follow up ID and podiatry recommendations - for another surgical procedure today - Tylenol p.r.n. pain, fevers. - Follow up final culture results. 2. Type 2 diabetes. Again, A1c is elevated = 8.0 - Continue current insulin regimen. 3. Hypertension. Again, blood pressure is high normal. - Continue p.o. medications and p.r.n. hydralazine IV. 4. History of chronic kidney disease. Creatinine still elevated, but trending down slightly today (2.8 -> 2.6) - Follow up renal recommendations. - Continue to monitor urine output. - IV fluids as well per renal rec's 5. History of right carotid endarterectomy. Continue to monitor for now. 6. Gastrointestinal prophylaxis - Pepcid. 7. Deep venous thrombosis prophylaxis. Heparin subcutaneously. 8. Lice - received Elimite - f/u ID rec's - per ID, s/p Ivermectin p.o. for scabies and repeat x2 weekly Problems: Subjective 24 Hr Interval Summary Free Text/Dictation No acute events overnight. Pt awaiting possible second surgical procedure today. Exam/Review of Systems Vital Signs Vitals Vital Signs Date Time Temp Pulse Resp B/P Pulse Ox O2 Delivery O2 Flow Rate FiO2 01/04/17 07:59 97.7 89 18 148/65 97 01/02/17 22:40 Room Air Intake and Output 01/03/17 01/03/17 01/04/17 15:00 23:00 07:00 Intake Total 1790 ml 340 ml Output Total 500 ml 600 ml Balance 1290 ml -260 ml Exam GENERAL: The patient is lying in bed, answering questions appropriately. No acute distress. HEENT: Pupils equal, round, reactive to light. Extraocular muscles intact. NECK: Supple. No thyromegaly. LUNGS: Clear to auscultation bilaterally. CARDIOVASCULAR: S1, S2 heard. No rubs or gallops. ABDOMEN: Soft, nontender, nondistended. Normal bowel sounds. No rebound or guarding. MUSCULOSKELETAL: There is a right foot bandage, otherwise no lower extremity edema bilaterally. NEUROLOGIC: No focal deficits. Results Result Diagram: 01/04/17 0422 01/04/17 0422 Results 24 hrs Laboratory Tests Test 01/03/17 17:53 01/03/17 21:48 01/04/17 00:31 01/04/17 04:22 Bedside Glucose 138 195 174 White Blood Count 12.4 H Red Blood Count 2.96 L Hemoglobin 8.0 L Hematocrit 27.0 L Mean Corpuscular Volume 91.2 Mean Corpuscular Hemoglobin 27.0 L Mean Corpuscular Hemoglobin Concent 29.6 L Red Cell Distribution Width 15.6 H Platelet Count 321 Mean Platelet Volume 11.4 H Neutrophils % 68.7 Lymphocytes % 16.8 Monocytes % 5.7 Eosinophils % 6.7 Basophils % 0.2 Nucleated Red Blood Cells % 0.0 Neutrophils # 8.5 H Lymphocytes # 2.1 Monocytes # 0.7 Eosinophils # 0.8 H Basophils # 0.0 Nucleated Red Blood Cells # 0.0 Prothrombin Time 15.0 H Prothrombin Time Ratio 1.2 INR International Normalized Ratio 1.17 Activated Partial Thromboplast Time 29.0 Sodium Level 139 Potassium Level 4.2 Chloride Level 113 H Carbon Dioxide Level 20 L Anion Gap 10 Blood Urea Nitrogen 33 H Creatinine 2.63 H Glucose Level 219 # Calcium Level 7.7 L Test 01/04/17 08:52 01/04/17 11:58 Bedside Glucose 205 120 Medications Medications Current Medications Acetaminophen (Tylenol Tab) 650 mg Q6H PRN PO PAIN AND OR ELEVATED TEMP; Start 01/01/17 at 04:00 Heparin Sodium (Porcine) (Heparin (5000 Units/0.5 ml)) 5,000 unit BID SC Last administered on 01/04/17t 08:57; Admin Dose 5,000 UNIT; Start 01/01/17 at 09:00 Amlodipine Besylate (Norvasc) 10 mg DAILY PO Last administered on 01/04/17 08: 54; Admin Dose 10 MG; Start 01/02/17 at 09:00 Aspirin (Aspirin) 81 mg DAILY PO Last administered on 01/04/17 08:53; Admin Dose 81 MG; Start 01/02/17 at 09:00 Atorvastatin Calcium (Lipitor) 20 mg QHS PO Last administered on 01/03/17 21:59 ; Admin Dose 20 MG; Start 01/01/17 at 21:00 Ferrous Sulfate (Ferrous Sulfate (Ec)) 325 mg TID PO Last administered on 21:59; Admin Dose 325 MG; Start 01/01/17 at 21:00 Folic Acid (Folic Acid) 1 mg DAILY PO Last administered on 01/04/17 08:54; Admin Dose 1 MG; Start 01/02/17 at 09:00 Hydralazine HCl (Apresoline) 10 mg DAILY@21 PO Last administered on 01/03/17 22 :00; Admin Dose 10 MG; Start 01/01/17 at 21:00 Insulin Glargine (Lantus) 22 unit Q12 SC Last administered on 01/04/17 08:57; Admin Dose 22 UNIT; Start 01/01/17 at 15:00 Levothyroxine Sodium (Synthroid) 75 mcg DAILY@06 PO Last administered on 06:19; Admin Dose 75 MCG; Start 01/02/17 at 06:00 Tramadol HCl (Ultram) 50 mg Q6H PRN PO PAIN LEVEL 7-10; Start 01/01/17 at 15:00 Miscellaneous Information 1 ea NOTE XX ; Start 01/01/17 at 15:00 Glucose (Glutose) 15 gm Q15M PRN PO DECREASED GLUCOSE; Start 01/01/17 at 15:00 Glucose (Glutose) 22.5 gm Q15M PRN PO DECREASED GLUCOSE; Start 01/01/17 at 15:00 Dextrose (D50w Syringe) 25 ml Q15M PRN IV DECREASED GLUCOSE; Start 01/01/17 at 15:00 Dextrose (D50w Syringe) 50 ml Q15M PRN IV DECREASED GLUCOSE; Start 01/01/17 at 15:00 Glucagon (Glucagen) 1 mg Q15M PRN IM DECREASED GLUCOSE; Start 01/01/17 at 15:00 Glucose (Glutose) 15 gm Q15M PRN BUCCAL DECREASED GLUCOSE; Start 01/01/17 at 15: 00 Morphine Sulfate 2 mg 2 mg Q4H PRN IV PAIN; Start 01/01/17 at 16:00 Ondansetron HCl/ Sodium Chloride (Zofran Inj/NS) 54 ml @ 216 mls/hr Q6H PRN IV NAUSEA AND/OR VOMITING Last administered on 01/02/17 09:25; Admin Dose 216 MLS/HR; Start 01/01/17 at 15:30 Hydralazine HCl (Apresoline) 10 mg Q6H PRN IV ELEVATED BLOOD PRESSURE; Start at 15:00 Famotidine (Pepcid) 20 mg DAILY PO Last administered on 01/04/17 08:58; Admin Dose 20 MG; Start 01/02/17 at 15:00 Morphine Sulfate (morphine) 2 mg Q2H PRN IV PAIN LEVEL 6-10; Start 01/02/17 at 22:30 Acetaminophen/ Hydrocodone Bitart ([place] (5/325)) 1 tab Q6H PRN PO PAIN LEVEL 6 -10; Start 01/02/17 at 22:30 Acetaminophen/ Hydrocodone Bitart ([place] (10/325)) 1 tab Q6H PRN PO PAIN; Start 01/02/17 at 22:30 Ketorolac Tromethamine (Toradol) 15 mg Q6H PRN IV PAIN; Start 01/02/17 at 22:30 ; Stop 01/05/17 at 22:29 Acetaminophen (Tylenol Tab) 650 mg Q6H PRN PO PAIN AND OR ELEVATED TEMP; Start 01/02/17 at 22:30 Ibuprofen (Motrin) 600 mg Q6H PRN PO PAIN LEVEL 1-5; Start 01/02/17 at 22:30 Diphenhydramine HCl (Benadryl) 25 mg Q6H PRN IV ITCHING; Start 01/02/17 at 22:30 Ondansetron HCl (Zofran Inj) 4 mg Q6H PRN IV NAUSEA AND/OR VOMITING; Start 01/02 at 22:30 Phenol (Cepastat Lozenge) 1 lozenge PRN PRN MT SORE THROAT; Start 01/02/17 at 22 :30 Zolpidem Tartrate (Ambien) 5 mg HS PRN PO INSOMNIA; Start 01/02/17 at 22:30 Docusate Sodium (Colace) 100 mg BID PO Last administered on 01/04/17 08:54; Admin Dose 100 MG; Start 01/03/17 at 09:00 Senna (Senokot) 1 tab BID PRN PO CONSTIPATION; Start 01/02/17 at 22:30 Ascorbic Acid 1000 mg 1,000 mg DAILY PO Last administered on 01/04/17 08:58; Admin Dose 1,000 MG; Start 01/03/17 at 09:00 Sodium Chloride (NS) 1,000 ml @ 75 mls/hr [id number] IV Last administered on 03:02; Admin Dose 125 MLS/HR; Start 01/03/17 at 14:30; Stop 01/05/17 at 10:00 Miscellaneous Information (*Rx Drug Level Order Reminder*) RANDOM VANCOMYCIN LEVEL ... ONCE ONCE XX ; Start 01/05/17 at 05:00; Stop 01/05/17 at 05:01 Levofloxacin (Levaquin) 250 mg DAILY@06 PO ; Start 01/05/17 at 06:00 GABRIELLA CABRERA Jan 04, 2017 13:42
--- NOTE | 2017-01-04 15:45 | CONS ---
Date/Time of Note Date/Time of Note DATE: 01/04/17 TIME: 15:44 Assessment/Plan Assessment/Plan Chief Complaint/Hosp Course SUBJECTIVE: No acute changes overnight. The patient is alert, feels better, looks comfortable, no fevers. ANTIMICROBIALS: 1. Vancomycin. 2. Levaquin. PHYSICAL EXAMINATION: GENERAL: This is a well-developed, morbidly obese, middle-aged, [place]- speaking woman, who is in no distress. HEENT: Head atraumatic, normocephalic. Sclerae anicteric. Buccal mucosa dry. NECK: Supple. Trachea midline. CHEST: Rise symmetrical. Breath sounds diminished to bases. HEART: S1, S2. ABDOMEN: Soft, bowel tones present. EXTREMITIES: With right lower extremity dressing intact. MICROBIOLOGY: Wound culture growing gram-negative rods, corynebacterium species and enterococcus species. ASSESSMENT: 1. Right foot osteomyelitis, cellulitis, status post I and D. 2. Charcot deformity. 3. Diabetes. 4. Morbid obesity. 5. Scabies, status post Elimite and Ivermectin. 6. Chronic kidney disease. PLAN: The patient remains stable. Continue abx, await for final cx, f/u podiatry rec-s, pt will require custodial IV abx for OM DW staff/pt Problems: Consultation Date/Type/Reason Admit Date/Time Jan 01, 2017 at 01:45 Initial Consult Date Type of Consultation: ID Referring Provider: GABRIELLA CABRERA Exam/Review of Systems Vital Signs Vitals Vital Signs Date Time Temp Pulse Resp B/P Pulse Ox O2 Delivery O2 Flow Rate FiO2 01/04/17 07:59 97.7 89 18 148/65 97 01/02/17 22:40 Room Air Intake and Output 01/03/17 01/03/17 01/04/17 15:00 23:00 07:00 Intake Total 1790 ml 340 ml Output Total 500 ml 600 ml Balance 1290 ml -260 ml Results Result Diagram: 01/04/17 0422 01/04/17 0422 Results 24 hrs Laboratory Tests Test 01/03/17 17:53 01/03/17 21:48 01/04/17 00:31 01/04/17 04:22 Bedside Glucose 138 195 174 White Blood Count 12.4 H Red Blood Count 2.96 L Hemoglobin 8.0 L Hematocrit 27.0 L Mean Corpuscular Volume 91.2 Mean Corpuscular Hemoglobin 27.0 L Mean Corpuscular Hemoglobin Concent 29.6 L Red Cell Distribution Width 15.6 H Platelet Count 321 Mean Platelet Volume 11.4 H Neutrophils % 68.7 Lymphocytes % 16.8 Monocytes % 5.7 Eosinophils % 6.7 Basophils % 0.2 Nucleated Red Blood Cells % 0.0 Neutrophils # 8.5 H Lymphocytes # 2.1 Monocytes # 0.7 Eosinophils # 0.8 H Basophils # 0.0 Nucleated Red Blood Cells # 0.0 Prothrombin Time 15.0 H Prothrombin Time Ratio 1.2 INR International Normalized Ratio 1.17 Activated Partial Thromboplast Time 29.0 Sodium Level 139 Potassium Level 4.2 Chloride Level 113 H Carbon Dioxide Level 20 L Anion Gap 10 Blood Urea Nitrogen 33 H Creatinine 2.63 H Glucose Level 219 # Calcium Level 7.7 L Test 01/04/17 08:52 01/04/17 11:58 Bedside Glucose 205 120 Medications Medications Current Medications Acetaminophen (Tylenol Tab) 650 mg Q6H PRN PO PAIN AND OR ELEVATED TEMP; Start 01/01/17 at 04:00 Heparin Sodium (Porcine) (Heparin (5000 Units/0.5 ml)) 5,000 unit BID SC Last administered on 01/04/17 08:57; Admin Dose 5,000 UNIT; Start 01/01/17 at 09:00 Amlodipine Besylate (Norvasc) 10 mg DAILY PO Last administered on 01/04/17 08: 54; Admin Dose 10 MG; Start 01/02/17 at 09:00 Aspirin (Aspirin) 81 mg DAILY PO Last administered on 01/04/17 08:53; Admin Dose 81 MG; Start 01/02/17 at 09:00 Atorvastatin Calcium (Lipitor) 20 mg QHS PO Last administered on 01/03/17 21:59 ; Admin Dose 20 MG; Start 01/01/17 at 21:00 Ferrous Sulfate (Ferrous Sulfate (Ec)) 325 mg TID PO Last administered on 21:59; Admin Dose 325 MG; Start 01/01/17 at 21:00 Folic Acid (Folic Acid) 1 mg DAILY PO Last administered on 01/04/17 08:54; Admin Dose 1 MG; Start 01/02/17 at 09:00 Hydralazine HCl (Apresoline) 10 mg DAILY@21 PO Last administered on 01/03/17 22 :00; Admin Dose 10 MG; Start 01/01/17 at 21:00 Insulin Glargine (Lantus) 22 unit Q12 SC Last administered on 01/04/17 08:57; Admin Dose 22 UNIT; Start 01/01/17 at 15:00 Levothyroxine Sodium (Synthroid) 75 mcg DAILY@06 PO Last administered on 06:19; Admin Dose 75 MCG; Start 01/02/17 at 06:00 Tramadol HCl (Ultram) 50 mg Q6H PRN PO PAIN LEVEL 7-10; Start 01/01/17 at 15:00 Miscellaneous Information 1 ea NOTE XX ; Start 01/01/17 at 15:00 Glucose (Glutose) 15 gm Q15M PRN PO DECREASED GLUCOSE; Start 01/01/17 at 15:00 Glucose (Glutose) 22.5 gm Q15M PRN PO DECREASED GLUCOSE; Start 01/01/17 at 15:00 Dextrose (D50w Syringe) 25 ml Q15M PRN IV DECREASED GLUCOSE; Start 01/01/17 at 15:00 Dextrose (D50w Syringe) 50 ml Q15M PRN IV DECREASED GLUCOSE; Start 01/01/17 at 15:00 Glucagon (Glucagen) 1 mg Q15M PRN IM DECREASED GLUCOSE; Start 01/01/17 at 15:00 Glucose (Glutose) 15 gm Q15M PRN BUCCAL DECREASED GLUCOSE; Start 01/01/17 at 15: 00 Morphine Sulfate 2 mg 2 mg Q4H PRN IV PAIN; Start 01/01/17 at 16:00 Ondansetron HCl/ Sodium Chloride (Zofran Inj/NS) 54 ml @ 216 mls/hr Q6H PRN IV NAUSEA AND/OR VOMITING Last administered on 01/02/17 09:25; Admin Dose 216 MLS/HR; Start 01/01/17 at 15:30 Hydralazine HCl (Apresoline) 10 mg Q6H PRN IV ELEVATED BLOOD PRESSURE; Start at 15:00 Famotidine (Pepcid) 20 mg DAILY PO Last administered on 01/04/17 08:58; Admin Dose 20 MG; Start 01/02/17 at 15:00 Morphine Sulfate (morphine) 2 mg Q2H PRN IV PAIN LEVEL 6-10; Start 01/02/17 at 22:30 Acetaminophen/ Hydrocodone Bitart ([place] (5/325)) 1 tab Q6H PRN PO PAIN LEVEL 6 -10; Start 01/02/17 at 22:30 Acetaminophen/ Hydrocodone Bitart ([place] (10/325)) 1 tab Q6H PRN PO PAIN; Start 01/02/17 at 22:30 Ketorolac Tromethamine (Toradol) 15 mg Q6H PRN IV PAIN; Start 01/02/17 at 22:30 ; Stop 01/05/17 at 22:29 Acetaminophen (Tylenol Tab) 650 mg Q6H PRN PO PAIN AND OR ELEVATED TEMP; Start 01/02/17 at 22:30 Ibuprofen (Motrin) 600 mg Q6H PRN PO PAIN LEVEL 1-5; Start 01/02/17 at 22:30 Diphenhydramine HCl (Benadryl) 25 mg Q6H PRN IV ITCHING; Start 01/02/17 at 22:30 Ondansetron HCl (Zofran Inj) 4 mg Q6H PRN IV NAUSEA AND/OR VOMITING; Start 01/02 at 22:30 Phenol (Cepastat Lozenge) 1 lozenge PRN PRN MT SORE THROAT; Start 01/02/17 at 22 :30 Zolpidem Tartrate (Ambien) 5 mg HS PRN PO INSOMNIA; Start 01/02/17 at 22:30 Docusate Sodium (Colace) 100 mg BID PO Last administered on 01/04/17 08:54; Admin Dose 100 MG; Start 01/03/17 at 09:00 Senna (Senokot) 1 tab BID PRN PO CONSTIPATION; Start 01/02/17 at 22:30 Ascorbic Acid 1000 mg 1,000 mg DAILY PO Last administered on 01/04/17 08:58; Admin Dose 1,000 MG; Start 01/03/17 at 09:00 Sodium Chloride (NS) 1,000 ml @ 75 mls/hr [id number] IV Last administered on 03:02; Admin Dose 125 MLS/HR; Start 01/03/17 at 14:30; Stop 01/05/17 at 10:00 Miscellaneous Information (*Rx Drug Level Order Reminder*) RANDOM VANCOMYCIN LEVEL ... ONCE ONCE XX ; Start 01/05/17 at 05:00; Stop 01/05/17 at 05:01 Levofloxacin (Levaquin) 250 mg DAILY@06 PO ; Start 01/05/17 at 06:00 GEORGIANA MORIN NP Jan 04, 2017 15:45
[2017-01-04] MEDS: traMADol 50 MG TAB PO SCH ×2 (18:00→23:57)
[2017-01-04] MEDS ORDERED: LIDOCAINE 1% (STERILE-PAK) 30 ML INJ ONE (19:38)
[2017-01-04] MEDS ORDERED: BACITRACIN 50000 UNITS INJ ONE (19:41)
[2017-01-04] MEDS ORDERED: PROPOFOL 40 ML ONE (20:13)
[2017-01-04] MEDS ORDERED: MIDAZOLAM 1 MG/ML 2 ML INJ ONE (20:13)
[2017-01-04] MEDS ORDERED: FENTAnyl 50 MCG/ML VIAL ONE ×2 (20:13→20:30)
[2017-01-04] MEDS ORDERED: METOCLOPRAMIDE 10 MG INJ ONE (20:17)
[2017-01-04] MEDS ORDERED: ONDANSETRON 4 MG INJ ONE (20:17)
[2017-01-04] MEDS ORDERED: PHENYLephrine (100 MCG/ML) 5ML SYG ONE (20:23)
[2017-01-04] MEDS ORDERED: HYDROGEN PEROXIDE 118 ML ZFS ONE (20:26)
[2017-01-04] MEDS ORDERED: PIPER-TAZO 3.375 GM IV (PMX) 100 ML ONE (20:46)
[2017-01-04] MEDS ORDERED: HYDROmorphONE (0.2 MG/ML) 10ML SYG IV PRN ×3 (21:00)
[2017-01-04] MEDS ORDERED: LABETALOL HCL 20MG INJ IV PRN (21:00)
[2017-01-04] MEDS ORDERED: EPHEDrine SULFATE 50 MG/5 ML SYG IV PRN (21:00)
[2017-01-04] MEDS ORDERED: METOCLOPRAMIDE 10 MG INJ IV PRN (21:00)
[2017-01-04] MEDS ORDERED: OXYCODONE/ACETAMINOPHEN (5/325) TAB PO PRN ×2 (21:00)
[2017-01-04] MEDS ORDERED: morphine (1 MG/ML) 10ML SYRINGE IV PRN ×3 (21:00)
[2017-01-04] MEDS ORDERED: MEPERIDINE 25 MG INJ IV PRN (21:00)
[2017-01-04] MEDS ORDERED: FENTAnyl 50 MCG/ML VIAL IV PRN ×3 (21:00)
[2017-01-04] MEDS ORDERED: DIPHENHYDRAMINE 50 MG INJ IV PRN (21:00)
[2017-01-04] MEDS ORDERED: hydrALAzine 20 MG INJ IV PRN (21:00)
[2017-01-04] MEDS ORDERED: ONDANSETRON 4 MG INJ IV PRN (21:00)
[2017-01-04] MEDS ORDERED: NALOXONE (0.4 MG/ML) INJ IV PRN (21:30)
--- NOTE | 2017-01-04 21:45 | OPR ---
DATE OF OPERATION: 01/04/2017 SURGEON: Carmen Bird DPM MICROSTRATEGY ARCHITECT DEVELOPER: Jensen Castellanos DPM POSTOPERATIVE DIAGNOSES: 1. Right foot diabetic foot ulceration. 2. Abscess. 3. Status post incision and drainage. 4. Osteomyelitis. 5. Diabetes with neuropathy. 6. Right foot Charcot osteoarthropathy. PROCEDURES PERFORMED: 1. Right foot excisional debridement of skin, subcutaneous tissue, muscle and bone, plantar aspect, 6 x 4 cm. 2. Excisional debridement of skin, subcutaneous tissue and muscle, lateral aspect, 4 x 1 cm. COMPLICATIONS: None. ANESTHESIA: MAC. ESTIMATED BLOOD LOSS: 50 mL. INDICATION FOR PROCEDURE: This is a 51-year-old female with severe infection at risk for limb loss is status post I and D, has persistent leukocytosis and presents for further washout of the ulceration. Informed consent was obtained. The patient had been on perioperative antibiotics and foot was marked in the holding area. PROCEDURE IN DETAIL: The patient brought into the operating room and placed in the supine position. Formal timeout was performed. The foot was confirmed and prepped with Betadine scrub and paint, draped in usual sterile fashion. At this time, the lateral incision was approached and was opened. There was a hematoma evacuated approximately 10 mL, and was debrided with excisional debridement of skin, subcutaneous tissue and muscle. Attention was directed to the plantar aspect measures 6 x 4 cm, using excisional debridement with scissors, rongeur, and 15 blade. Also, the Versajet was utilized. The wound was debrided, skin, subcutaneous tissue and muscle. There were fragments of bone, which were debrided with a rongeur, a portion was sent for pathology, culture for bacteria and fungus. The wound was irrigated with hydrogen peroxide and packed open with the silver foam to the plantar and lateral aspect , and was fully functioning at 125 mmHg. The patient had an estimated blood loss of 40 to 50 mL. The patient was transferred to the PACU with vital signs stable. POSTOPERATIVE PLAN: Anticipate need for wound VAC. Appreciate case management assistance with this. Continue tight glycemic control and continue empiric antibiotics. Dictated By: CARMEN DAVEY/SYED Conf#: [id number] DID#: [id number] [facility] HOSPITALJosep
[2017-01-04] MEDS: ATORVASTATIN 20 MG TAB PO SCH (22:41)
[2017-01-05 00:09] VITALS: BP 130/60; RESP 22
[2017-01-05] MEDS: LEVOTHYROXINE 75 MCG TAB PO SCH (05:23)
[2017-01-05] MEDS: LEVOFLOXACIN 250 MG TAB PO SCH (05:23)
[2017-01-05 05:42] LABS: ADD SCAN DIFF NO
[2017-01-05 05:49] LABS: BASOPHIL # 0.1 10^3/ul (0.0-0.1); BASOPHILS % 0.4 % (0.0-2.0); EOSINOPHILS # 0.8 10^3/ul (0.0-0.5); EOSINOPHILS % 6.8 % (0.0-7.0); HEMOGLOBIN 8.4 g/dl (12.0-16.0); LYMPHOCYTES # 2.1 10^3/ul (0.8-2.9); LYMPHOCYTES % 17.1 % (15.0-51.0); MEAN CORPUSCULAR HEMOGLOBIN 27.4 pg (29.0-33.0); MEAN CORPUSCULAR VOLUME 91.2 fl (82.0-101.0); MEAN PLATELET VOLUME 10.6 fl (7.4-10.4); MONOCYTE # 0.7 10^3/ul (0.3-0.9); MONOCYTES % 5.7 % (0.0-11.0); NEUTROPHIL # 8.5 10^3/ul (1.6-7.5); NEUTROPHILS % 68.2 % (39.0-77.0); PLATELET COUNT 370 10^3/UL (140-415); RED BLOOD COUNT 3.07 10^6/ul (4.20-5.40); RED CELL DISTRIBUTION WIDTH 15.9 % (11.5-14.5); WHITE BLOOD COUNT 12.4 10^3/ul (4.8-10.8)
[2017-01-05 05:59] LABS: INR 1.11; PROTIME 14.3 Sec (12.2-14.2); PT RATIO 1.1
[2017-01-05 06:00] LABS: PARTIAL THROMBOPLASTIN TIME 29.2 Sec (25.0-35.0)
[2017-01-05] MEDS: traMADol 50 MG TAB PO SCH ×4 (06:00→18:03)
[2017-01-05 06:08] LABS: CALCIUM 8.3 mg/dl (8.4-10.2); CREATININE 2.21 mg/dl (0.44-1.00); POTASSIUM 4.5 mmol/L (3.5-5.1)
[2017-01-05 06:12] VITALS: BP 124/76; PULSE 74; RESP 18
[2017-01-05] MEDS: hydrALAzine 20 MG INJ IV PRN (08:03)
[2017-01-05 08:38] VITALS: BP 180/78; RESP 20
[2017-01-05 09:00] VITALS: BP 150/78
[2017-01-05] MEDS: FERROUS SULFATE (EC) 325 MG TAB PO SCH ×3 (09:00→21:00)
[2017-01-05] MEDS: DOCUSATE SODIUM 100 MG CAP PO SCH ×2 (09:00→21:00)
[2017-01-05] MEDS: INSULIN ASPART [NOVOLOG] 3 ML PEN SC SCH ×7 (09:05→21:00)
[2017-01-05] MEDS: INSULIN GLARGINE [LANtus] 3 ML PEN SC SCH ×2 (09:06→21:13)
[2017-01-05] MEDS: ASCORBIC ACID 500 MG TAB PO SCH (09:08)
[2017-01-05] MEDS: ASPIRIN 81 MG TAB PO SCH (09:08)
[2017-01-05] MEDS: FAMOTIDINE 20 MG TAB PO SCH (09:08)
[2017-01-05] MEDS: AMLODIPINE 10 MG TAB PO SCH (09:11)
[2017-01-05] MEDS: HEPARIN 5,000 UNIT/0.5 ML VIAL SC SCH ×2 (09:13→20:59)
[2017-01-05] MEDS: FOLIC ACID 1 MG TAB PO SCH (11:05)
[2017-01-05] MEDS: SOD CHLORIDE 0.9% 1,000 ML IV SCH (11:05)
[2017-01-05] MEDS: VANCOMYCIN 1.5 GM in SOD CHLORIDE 0.9% 250 ML IVPB SCH (13:08)
--- NOTE | 2017-01-05 13:23 | CONS ---
Date/Time of Note Date/Time of Note DATE: 01/05/17 TIME: 13:20 Assessment/Plan Assessment/Plan Chief Complaint/Hosp Course SUBJECTIVE: No acute changes overnight. Denies pain.The patient is alert, feels better, looks comfortable, no fevers. ANTIMICROBIALS: 1. Vancomycin. 2. Levaquin. PHYSICAL EXAMINATION: GENERAL: This is a well-developed, morbidly obese, middle-aged, [place]- speaking woman, who is in no distress. HEENT: Head atraumatic, normocephalic. Sclerae anicteric. Buccal mucosa dry. NECK: Supple. Trachea midline. CHEST: Rise symmetrical. Breath sounds diminished to bases. HEART: S1, S2. ABDOMEN: Soft, bowel tones present. EXTREMITIES: With right lower extremity dressing intact. MICROBIOLOGY: Wound culture growing gram-negative rods, corynebacterium species and enterococcus species. ASSESSMENT: 1. Right foot osteomyelitis, cellulitis, status post I and D. 2. Charcot deformity. 3. Diabetes. 4. Morbid obesity. 5. Scabies, status post Elimite and Ivermectin. 6. Chronic kidney disease. PLAN: The patient remains stable. Continue abx, await for final cx, f/u podiatry rec-s, pt will require mortgage collector IV abx for OM , will order PICC line.DW staff . Problems: Consultation Date/Type/Reason Admit Date/Time Jan 01, 2017 at 01:45 Initial Consult Date Type of Consultation: ID Referring Provider: GABRIELLA CABRERA Exam/Review of Systems Vital Signs Vitals Vital Signs Date Time Temp Pulse Resp B/P Pulse Ox O2 Delivery O2 Flow Rate FiO2 01/05/17 09:00 150/78 01/05/17 08:38 98.7 84 20 92 01/05/17 06:12 Room Air 01/04/17 21:11 10.0 Intake and Output 01/04/17 01/04/17 01/05/17 15:00 23:00 07:00 Intake Total 1850 ml 800 ml Output Total 15 ml 1070 ml Balance 1835 ml -270 ml Results Result Diagram: 01/05/17 0515 01/05/17 0515 Results 24 hrs Laboratory Tests Test 01/04/17 17:10 01/04/17 22:35 01/05/17 05:15 01/05/17 08:07 Bedside Glucose 81 79 200 White Blood Count 12.4 H Red Blood Count 3.07 L Hemoglobin 8.4 L Hematocrit 28.0 L Mean Corpuscular Volume 91.2 Mean Corpuscular Hemoglobin 27.4 L Mean Corpuscular Hemoglobin Concent 30.0 L Red Cell Distribution Width 15.9 H Platelet Count 370 Mean Platelet Volume 10.6 H Neutrophils % 68.2 Lymphocytes % 17.1 Monocytes % 5.7 Eosinophils % 6.8 Basophils % 0.4 Nucleated Red Blood Cells % 0.0 Neutrophils # 8.5 H Lymphocytes # 2.1 Monocytes # 0.7 Eosinophils # 0.8 H Basophils # 0.1 Nucleated Red Blood Cells # 0.0 Prothrombin Time 14.3 H Prothrombin Time Ratio 1.1 INR International Normalized Ratio 1.11 Activated Partial Thromboplast Time 29.2 Sodium Level 144 Potassium Level 4.5 Chloride Level 114 H Carbon Dioxide Level 21 Anion Gap 14 Blood Urea Nitrogen 28 H Creatinine 2.21 H Glucose Level 193 Calcium Level 8.3 L Random Vancomycin Level 11.1 Test 01/05/17 12:27 Bedside Glucose 129 Medications Medications Current Medications Acetaminophen (Tylenol Tab) 650 mg Q6H PRN PO PAIN AND OR ELEVATED TEMP; Start 01/01/17 at 04:00 Heparin Sodium (Porcine) (Heparin (5000 Units/0.5 ml)) 5,000 unit BID SC Last administered on 01/05/17 09:13; Admin Dose 5,000 UNIT; Start 01/01/17 at 09:00 Amlodipine Besylate (Norvasc) 10 mg DAILY PO Last administered on 01/05/17 09: 11; Admin Dose 10 MG; Start 01/02/17 at 09:00 Aspirin (Aspirin) 81 mg DAILY PO Last administered on 01/05/17 09:08; Admin Dose 81 MG; Start 01/02/17 at 09:00 Atorvastatin Calcium (Lipitor) 20 mg QHS PO Last administered on 01/04/17 22:41 ; Admin Dose 20 MG; Start 01/01/17 at 21:00 Ferrous Sulfate (Ferrous Sulfate (Ec)) 325 mg TID PO Last administered on 21:59; Admin Dose 325 MG; Start 01/01/17 at 21:00 Folic Acid (Folic Acid) 1 mg DAILY PO Last administered on 01/05/17 11:05; Admin Dose 1 MG; Start 01/02/17 at 09:00 Hydralazine HCl (Apresoline) 10 mg DAILY@21 PO Last administered on 01/04/17 22 :42; Admin Dose 10 MG; Start 01/01/17 at 21:00 Insulin Glargine (Lantus) 22 unit Q12 SC Last administered on 01/05/17 09:06; Admin Dose 22 UNIT; Start 01/01/17 at 15:00 Levothyroxine Sodium (Synthroid) 75 mcg DAILY@06 PO Last administered on 05:23; Admin Dose 75 MCG; Start 01/02/17 at 06:00 Tramadol HCl (Ultram) 50 mg Q6H PRN PO PAIN LEVEL 7-10; Start 01/01/17 at 15:00 Miscellaneous Information 1 ea NOTE XX ; Start 01/01/17 at 15:00 Glucose (Glutose) 15 gm Q15M PRN PO DECREASED GLUCOSE; Start 01/01/17 at 15:00 Glucose (Glutose) 22.5 gm Q15M PRN PO DECREASED GLUCOSE; Start 01/01/17 at 15:00 Dextrose (D50w Syringe) 25 ml Q15M PRN IV DECREASED GLUCOSE; Start 01/01/17 at 15:00 Dextrose (D50w Syringe) 50 ml Q15M PRN IV DECREASED GLUCOSE; Start 01/01/17 at 15:00 Glucagon (Glucagen) 1 mg Q15M PRN IM DECREASED GLUCOSE; Start 01/01/17 at 15:00 Glucose (Glutose) 15 gm Q15M PRN BUCCAL DECREASED GLUCOSE; Start 01/01/17 at 15: 00 Morphine Sulfate 2 mg 2 mg Q4H PRN IV PAIN; Start 01/01/17 at 16:00 Ondansetron HCl/ Sodium Chloride (Zofran Inj/NS) 54 ml @ 216 mls/hr Q6H PRN IV NAUSEA AND/OR VOMITING Last administered on 01/02/17 09:25; Admin Dose 216 MLS/HR; Start 01/01/17 at 15:30 Hydralazine HCl (Apresoline) 10 mg Q6H PRN IV ELEVATED BLOOD PRESSURE Last administered on 01/05/17 08:03; Admin Dose 10 MG; Start 01/02/17 at 15:00 Famotidine (Pepcid) 20 mg DAILY PO Last administered on 01/05/17 09:08; Admin Dose 20 MG; Start 01/02/17 at 15:00 Morphine Sulfate (morphine) 2 mg Q2H PRN IV PAIN LEVEL 6-10; Start 01/02/17 at 22:30 Acetaminophen/ Hydrocodone Bitart ([place] (5/325)) 1 tab Q6H PRN PO PAIN LEVEL 6 -10; Start 01/02/17 at 22:30 Acetaminophen/ Hydrocodone Bitart ([place] (10/325)) 1 tab Q6H PRN PO PAIN; Start 01/02/17 at 22:30 Ketorolac Tromethamine (Toradol) 15 mg Q6H PRN IV PAIN; Start 01/02/17 at 22:30 ; Stop 01/05/17 at 22:29 Acetaminophen (Tylenol Tab) 650 mg Q6H PRN PO PAIN AND OR ELEVATED TEMP; Start 01/02/17 at 22:30 Ibuprofen (Motrin) 600 mg Q6H PRN PO PAIN LEVEL 1-5; Start 01/02/17 at 22:30 Diphenhydramine HCl (Benadryl) 25 mg Q6H PRN IV ITCHING; Start 01/02/17 at 22:30 Ondansetron HCl (Zofran Inj) 4 mg Q6H PRN IV NAUSEA AND/OR VOMITING; Start 01/02 at 22:30 Phenol (Cepastat Lozenge) 1 lozenge PRN PRN MT SORE THROAT; Start 01/02/17 at 22 :30 Zolpidem Tartrate (Ambien) 5 mg HS PRN PO INSOMNIA; Start 01/02/17 at 22:30 Docusate Sodium (Colace) 100 mg BID PO Last administered on 01/04/17 08:54; Admin Dose 100 MG; Start 01/03/17 at 09:00 Senna (Senokot) 1 tab BID PRN PO CONSTIPATION; Start 01/02/17 at 22:30 Ascorbic Acid (Vitamin C) 1,000 mg DAILY PO Last administered on 01/05/17 09:08 ; Admin Dose 1,000 MG; Start 01/03/17 at 09:00 Levofloxacin (Levaquin) 250 mg DAILY@06 PO Last administered on 01/05/17 05:23 ; Admin Dose 250 MG; Start 01/05/17 at 06:00 Tramadol HCl (Ultram) 50 mg Q6 PO Last administered on 01/05/17 13:08; Admin Dose 50 MG; Start 01/04/17 at 18:00 Naloxone HCl 0.2 mg 0.2 mg Q2M PRN IV RESPIRATORY RATE LESS THAN 8; Start at 21:30 Vancomycin HCl/ Sodium Chloride (Vancocin/NS) 250 ml @ 83.333 mls/ hr Q48H IVPB Last administered on 01/05/17 13:08; Admin Dose 83.333 MLS/HR; Start at 12:00 CARMEN COREY NP Jan 05, 2017 13:23
[2017-01-05] MEDS ORDERED: LIDOCAINE 1% (MPF) 5 ML VIAL SC ONE (13:30)
--- NOTE | 2017-01-05 15:18 | PN ---
Date/Time of Note Date/Time of Note DATE: 01/05/17 TIME: 15:12 Assessment/Plan VTE Prophylaxis VTE Prophylaxis Intervention: heparin Lines/Catheters IV C[facility]ter Type (from [facility]): Peripheral IV Urinary Cath still in place: No Assessment/Plan Chief Complaint/Hosp Course ASSESSMENT AND PLAN: 51-year-old female with history of right foot diabetic ulcer, osteomyelitis, essential hypertension, type 2 diabetes, hypothyroidism, high cholesterol, chronic kidney disease, right internal carotid artery stenosis who was transferred from outside hospital for right foot wound infection and osteomyelitis, s/p surgery. 1. Right foot wound infection/osteomyelitis - multiple incision and drainage of right foot dorsal aspect and excisional debridement of skin, subcutaneous tissue, muscle, and bone to ulceration plantar aspect 8 x 6 cm, x 2 surgical procedures. - Again, continue broad spectrum antibiotics. - Follow up ID and podiatry recommendations - Tylenol p.r.n. pain, fevers. - Follow up final culture results. 2. Type 2 diabetes. Again, A1c is elevated = 8.0 - Continue current insulin regimen. 3. Hypertension. Again, blood pressure is high normal. - Continue p.o. medications and p.r.n. hydralazine IV. 4. History of chronic kidney disease. Creatinine still elevated, but trending down slightly today (2.8 -> 2.6 -> 2.2) - Follow up renal recommendations. - Continue to monitor urine output. - IV fluids as well per renal rec's 5. History of right carotid endarterectomy. Continue to monitor for now. 6. Gastrointestinal prophylaxis - Pepcid. 7. Deep venous thrombosis prophylaxis. Heparin subcutaneously. 8. Lice - received Elimite - f/u ID rec's - per ID, s/p Ivermectin p.o. for scabies and repeat x2 weekly Problems: Subjective 24 Hr Interval Summary Free Text/Dictation Pt had second surgery yesterday. No acute events overnight. Exam/Review of Systems Vital Signs Vitals Vital Signs Date Time Temp Pulse Resp B/P Pulse Ox O2 Delivery O2 Flow Rate FiO2 01/05/17 09:00 150/78 01/05/17 08:38 98.7 84 20 92 01/05/17 06:12 Room Air 01/04/17 21:11 10.0 Intake and Output 01/04/17 01/04/17 01/05/17 15:00 23:00 07:00 Intake Total 1850 ml 800 ml Output Total 15 ml 1070 ml Balance 1835 ml -270 ml Exam GENERAL: The patient is lying in bed, answering questions appropriately. No acute distress. HEENT: Pupils equal, round, reactive to light. Extraocular muscles intact. NECK: Supple. No thyromegaly. LUNGS: Clear to auscultation bilaterally. CARDIOVASCULAR: S1, S2 heard. No rubs or gallops. ABDOMEN: Soft, nontender, nondistended. Normal bowel sounds. No rebound or guarding. MUSCULOSKELETAL: There is a right foot bandage, otherwise no lower extremity edema bilaterally. NEUROLOGIC: No focal deficits. Results Result Diagram: 01/05/17 0515 01/05/17 0515 Results 24 hrs Laboratory Tests Test 01/04/17 17:10 01/04/17 22:35 01/05/17 05:15 01/05/17 08:07 Bedside Glucose 81 79 200 White Blood Count 12.4 H Red Blood Count 3.07 L Hemoglobin 8.4 L Hematocrit 28.0 L Mean Corpuscular Volume 91.2 Mean Corpuscular Hemoglobin 27.4 L Mean Corpuscular Hemoglobin Concent 30.0 L Red Cell Distribution Width 15.9 H Platelet Count 370 Mean Platelet Volume 10.6 H Neutrophils % 68.2 Lymphocytes % 17.1 Monocytes % 5.7 Eosinophils % 6.8 Basophils % 0.4 Nucleated Red Blood Cells % 0.0 Neutrophils # 8.5 H Lymphocytes # 2.1 Monocytes # 0.7 Eosinophils # 0.8 H Basophils # 0.1 Nucleated Red Blood Cells # 0.0 Prothrombin Time 14.3 H Prothrombin Time Ratio 1.1 INR International Normalized Ratio 1.11 Activated Partial Thromboplast Time 29.2 Sodium Level 144 Potassium Level 4.5 Chloride Level 114 H Carbon Dioxide Level 21 Anion Gap 14 Blood Urea Nitrogen 28 H Creatinine 2.21 H Glucose Level 193 Calcium Level 8.3 L Random Vancomycin Level 11.1 Test 01/05/17 12:27 Bedside Glucose 129 Medications Medications Current Medications Acetaminophen (Tylenol Tab) 650 mg Q6H PRN PO PAIN AND OR ELEVATED TEMP; Start 01/01/17 at 04:00 Heparin Sodium (Porcine) (Heparin (5000 Units/0.5 ml)) 5,000 unit BID SC Last administered on 01/05/17t 09:13; Admin Dose 5,000 UNIT; Start 01/01/17 at 09:00 Amlodipine Besylate (Norvasc) 10 mg DAILY PO Last administered on 01/05/17 09: 11; Admin Dose 10 MG; Start 01/02/17 at 09:00 Aspirin (Aspirin) 81 mg DAILY PO Last administered on 01/05/17 09:08; Admin Dose 81 MG; Start 01/02/17 at 09:00 Atorvastatin Calcium (Lipitor) 20 mg QHS PO Last administered on 01/04/17 22:41 ; Admin Dose 20 MG; Start 01/01/17 at 21:00 Ferrous Sulfate (Ferrous Sulfate (Ec)) 325 mg TID PO Last administered on 21:59; Admin Dose 325 MG; Start 01/01/17 at 21:00 Folic Acid (Folic Acid) 1 mg DAILY PO Last administered on 01/05/17 11:05; Admin Dose 1 MG; Start 01/02/17 at 09:00 Hydralazine HCl (Apresoline) 10 mg DAILY@21 PO Last administered on 01/04/17 22 :42; Admin Dose 10 MG; Start 01/01/17 at 21:00 Insulin Glargine (Lantus) 22 unit Q12 SC Last administered on 01/05/17 09:06; Admin Dose 22 UNIT; Start 01/01/17 at 15:00 Levothyroxine Sodium (Synthroid) 75 mcg DAILY@06 PO Last administered on 05:23; Admin Dose 75 MCG; Start 01/02/17 at 06:00 Tramadol HCl (Ultram) 50 mg Q6H PRN PO PAIN LEVEL 7-10; Start 01/01/17 at 15:00 Miscellaneous Information 1 ea NOTE XX ; Start 01/01/17 at 15:00 Glucose (Glutose) 15 gm Q15M PRN PO DECREASED GLUCOSE; Start 01/01/17 at 15:00 Glucose (Glutose) 22.5 gm Q15M PRN PO DECREASED GLUCOSE; Start 01/01/17 at 15:00 Dextrose (D50w Syringe) 25 ml Q15M PRN IV DECREASED GLUCOSE; Start 01/01/17 at 15:00 Dextrose (D50w Syringe) 50 ml Q15M PRN IV DECREASED GLUCOSE; Start 01/01/17 at 15:00 Glucagon (Glucagen) 1 mg Q15M PRN IM DECREASED GLUCOSE; Start 01/01/17 at 15:00 Glucose (Glutose) 15 gm Q15M PRN BUCCAL DECREASED GLUCOSE; Start 01/01/17 at 15: 00 Morphine Sulfate 2 mg 2 mg Q4H PRN IV PAIN; Start 01/01/17 at 16:00 Ondansetron HCl/ Sodium Chloride (Zofran Inj/NS) 54 ml @ 216 mls/hr Q6H PRN IV NAUSEA AND/OR VOMITING Last administered on 01/02/17 09:25; Admin Dose 216 MLS/HR; Start 01/01/17 at 15:30 Hydralazine HCl (Apresoline) 10 mg Q6H PRN IV ELEVATED BLOOD PRESSURE Last administered on 01/05/17 08:03; Admin Dose 10 MG; Start 01/02/17 at 15:00 Famotidine (Pepcid) 20 mg DAILY PO Last administered on 01/05/17 09:08; Admin Dose 20 MG; Start 01/02/17 at 15:00 Morphine Sulfate (morphine) 2 mg Q2H PRN IV PAIN LEVEL 6-10; Start 01/02/17 at 22:30 Acetaminophen/ Hydrocodone Bitart ([place] (5/325)) 1 tab Q6H PRN PO PAIN LEVEL 6 -10; Start 01/02/17 at 22:30 Acetaminophen/ Hydrocodone Bitart ([place] (10/325)) 1 tab Q6H PRN PO PAIN; Start 01/02/17 at 22:30 Ketorolac Tromethamine (Toradol) 15 mg Q6H PRN IV PAIN; Start 01/02/17 at 22:30 ; Stop 01/05/17 at 22:29 Acetaminophen (Tylenol Tab) 650 mg Q6H PRN PO PAIN AND OR ELEVATED TEMP; Start 01/02/17 at 22:30 Ibuprofen (Motrin) 600 mg Q6H PRN PO PAIN LEVEL 1-5; Start 01/02/17 at 22:30 Diphenhydramine HCl (Benadryl) 25 mg Q6H PRN IV ITCHING; Start 01/02/17 at 22:30 Ondansetron HCl (Zofran Inj) 4 mg Q6H PRN IV NAUSEA AND/OR VOMITING; Start 01/02 at 22:30 Phenol (Cepastat Lozenge) 1 lozenge PRN PRN MT SORE THROAT; Start 01/02/17 at 22 :30 Zolpidem Tartrate (Ambien) 5 mg HS PRN PO INSOMNIA; Start 01/02/17 at 22:30 Docusate Sodium (Colace) 100 mg BID PO Last administered on 01/04/17 08:54; Admin Dose 100 MG; Start 01/03/17 at 09:00 Senna (Senokot) 1 tab BID PRN PO CONSTIPATION; Start 01/02/17 at 22:30 Ascorbic Acid (Vitamin C) 1,000 mg DAILY PO Last administered on 01/05/17 09:08 ; Admin Dose 1,000 MG; Start 01/03/17 at 09:00 Levofloxacin (Levaquin) 250 mg DAILY@06 PO Last administered on 01/05/17 05:23 ; Admin Dose 250 MG; Start 01/05/17 at 06:00 Tramadol HCl (Ultram) 50 mg Q6 PO Last administered on 01/05/17 13:08; Admin Dose 50 MG; Start 01/04/17 at 18:00 Naloxone HCl 0.2 mg 0.2 mg Q2M PRN IV RESPIRATORY RATE LESS THAN 8; Start at 21:30 Vancomycin HCl/ Sodium Chloride (Vancocin/NS) 250 ml @ 83.333 mls/ hr Q48H IVPB Last administered on 01/05/17 13:08; Admin Dose 83.333 MLS/HR; Start at 12:00 GABRIELLA CABRERA Jan 05, 2017 15:18
--- NOTE | 2017-01-05 17:55 | CONS ---
Date/Time of Note Date/Time of Note DATE: 01/05/17 TIME: 17:53 Assessment/Plan Assessment/Plan Additional Assessment/Plan 1. Acute kidney injury on chronic kidney disease secondary to sepsis from infections including the right foot osteomyelitis. 2. History of possible chronic kidney disease secondary to diabetic nephropathy. 3. Adult onset type 2 diabetes mellitus, poorly controlled. 4. Hypertension. 5. Hypothyroidism. 6. History of previous right second and third toe amputations. 7. Possible peripheral vascular disease. PLAN: pt has acute on chronic renal failure, s/p IVF- Cr improved to 2.2 with IV abx and IVF hydration s/p Right foot excisional debridement , D/c IV fluids need better glycemic control will follow up US c/w Medical renal disease Consultation Date/Type/Reason Admit Date/Time Jan 01, 2017 at 01:45 Type of Consultation: NEPHROLOGY Referring Provider: GABRIELLA CABRERA 24 HR Interval Summary Free Text/Dictation Cr improved to 2.2, BP stable, on IV abx Exam/Review of Systems Vital Signs Vitals Vital Signs Date Time Temp Pulse Resp B/P Pulse Ox O2 Delivery O2 Flow Rate FiO2 01/05/17 09:00 150/78 01/05/17 08:38 98.7 84 20 92 01/05/17 06:12 Room Air 01/04/17 21:11 10.0 Intake and Output 01/04/17 01/04/17 01/05/17 15:00 23:00 07:00 Intake Total 1850 ml 800 ml Output Total 15 ml 1070 ml Balance 1835 ml -270 ml Exam GENERAL: This is a well-developed, morbidly obese, middle-aged, [place]- speaking woman, who is in no distress. HEENT: Head atraumatic, normocephalic. Sclerae anicteric. Buccal mucosa dry. NECK: Supple. Trachea midline. CHEST: Rise symmetrical. Breath sounds diminished to bases. HEART: S1, S2. ABDOMEN: Soft, bowel tones present. EXTREMITIES: With right lower extremity dressing intact. Results Result Diagram: 01/05/17 0515 01/05/17 0515 Results 24 hrs Laboratory Tests Test 01/04/17 22:35 01/05/17 05:15 01/05/17 08:07 01/05/17 12:27 Bedside Glucose 79 200 129 White Blood Count 12.4 H Red Blood Count 3.07 L Hemoglobin 8.4 L Hematocrit 28.0 L Mean Corpuscular Volume 91.2 Mean Corpuscular Hemoglobin 27.4 L Mean Corpuscular Hemoglobin Concent 30.0 L Red Cell Distribution Width 15.9 H Platelet Count 370 Mean Platelet Volume 10.6 H Neutrophils % 68.2 Lymphocytes % 17.1 Monocytes % 5.7 Eosinophils % 6.8 Basophils % 0.4 Nucleated Red Blood Cells % 0.0 Neutrophils # 8.5 H Lymphocytes # 2.1 Monocytes # 0.7 Eosinophils # 0.8 H Basophils # 0.1 Nucleated Red Blood Cells # 0.0 Prothrombin Time 14.3 H Prothrombin Time Ratio 1.1 INR International Normalized Ratio 1.11 Activated Partial Thromboplast Time 29.2 Sodium Level 144 Potassium Level 4.5 Chloride Level 114 H Carbon Dioxide Level 21 Anion Gap 14 Blood Urea Nitrogen 28 H Creatinine 2.21 H Glucose Level 193 Calcium Level 8.3 L Random Vancomycin Level 11.1 Medications Medications Current Medications Acetaminophen (Tylenol Tab) 650 mg Q6H PRN PO PAIN AND OR ELEVATED TEMP; Start 01/01/17 at 04:00 Heparin Sodium (Porcine) (Heparin (5000 Units/0.5 ml)) 5,000 unit BID SC Last administered on 01/05/17 09:13; Admin Dose 5,000 UNIT; Start 01/01/17 at 09:00 Amlodipine Besylate (Norvasc) 10 mg DAILY PO Last administered on 01/05/17 09: 11; Admin Dose 10 MG; Start 01/02/17 at 09:00 Aspirin (Aspirin) 81 mg DAILY PO Last administered on 01/05/17 09:08; Admin Dose 81 MG; Start 01/02/17 at 09:00 Atorvastatin Calcium (Lipitor) 20 mg QHS PO Last administered on 01/04/17 22:41 ; Admin Dose 20 MG; Start 01/01/17 at 21:00 Ferrous Sulfate (Ferrous Sulfate (Ec)) 325 mg TID PO Last administered on 21:59; Admin Dose 325 MG; Start 01/01/17 at 21:00 Folic Acid (Folic Acid) 1 mg DAILY PO Last administered on 01/05/17 11:05; Admin Dose 1 MG; Start 01/02/17 at 09:00 Hydralazine HCl (Apresoline) 10 mg DAILY@21 PO Last administered on 01/04/17 22 :42; Admin Dose 10 MG; Start 01/01/17 at 21:00 Insulin Glargine (Lantus) 22 unit Q12 SC Last administered on 01/05/17 09:06; Admin Dose 22 UNIT; Start 01/01/17 at 15:00 Levothyroxine Sodium (Synthroid) 75 mcg DAILY@06 PO Last administered on 05:23; Admin Dose 75 MCG; Start 01/02/17 at 06:00 Tramadol HCl (Ultram) 50 mg Q6H PRN PO PAIN LEVEL 7-10; Start 01/01/17 at 15:00 Miscellaneous Information 1 ea NOTE XX ; Start 01/01/17 at 15:00 Glucose (Glutose) 15 gm Q15M PRN PO DECREASED GLUCOSE; Start 01/01/17 at 15:00 Glucose (Glutose) 22.5 gm Q15M PRN PO DECREASED GLUCOSE; Start 01/01/17 at 15:00 Dextrose (D50w Syringe) 25 ml Q15M PRN IV DECREASED GLUCOSE; Start 01/01/17 at 15:00 Dextrose (D50w Syringe) 50 ml Q15M PRN IV DECREASED GLUCOSE; Start 01/01/17 at 15:00 Glucagon (Glucagen) 1 mg Q15M PRN IM DECREASED GLUCOSE; Start 01/01/17 at 15:00 Glucose (Glutose) 15 gm Q15M PRN BUCCAL DECREASED GLUCOSE; Start 01/01/17 at 15: 00 Morphine Sulfate 2 mg 2 mg Q4H PRN IV PAIN; Start 01/01/17 at 16:00 Ondansetron HCl/ Sodium Chloride (Zofran Inj/NS) 54 ml @ 216 mls/hr Q6H PRN IV NAUSEA AND/OR VOMITING Last administered on 01/02/17 09:25; Admin Dose 216 MLS/HR; Start 01/01/17 at 15:30 Hydralazine HCl (Apresoline) 10 mg Q6H PRN IV ELEVATED BLOOD PRESSURE Last administered on 01/05/17 08:03; Admin Dose 10 MG; Start 01/02/17 at 15:00 Famotidine (Pepcid) 20 mg DAILY PO Last administered on 01/05/17 09:08; Admin Dose 20 MG; Start 01/02/17 at 15:00 Morphine Sulfate (morphine) 2 mg Q2H PRN IV PAIN LEVEL 6-10; Start 01/02/17 at 22:30 Acetaminophen/ Hydrocodone Bitart ([place] (5/325)) 1 tab Q6H PRN PO PAIN LEVEL 6 -10; Start 01/02/17 at 22:30 Acetaminophen/ Hydrocodone Bitart ([place] (10/325)) 1 tab Q6H PRN PO PAIN; Start 01/02/17 at 22:30 Ketorolac Tromethamine (Toradol) 15 mg Q6H PRN IV PAIN; Start 01/02/17 at 22:30 ; Stop 01/05/17 at 22:29 Acetaminophen (Tylenol Tab) 650 mg Q6H PRN PO PAIN AND OR ELEVATED TEMP; Start 01/02/17 at 22:30 Ibuprofen (Motrin) 600 mg Q6H PRN PO PAIN LEVEL 1-5; Start 01/02/17 at 22:30 Diphenhydramine HCl (Benadryl) 25 mg Q6H PRN IV ITCHING; Start 01/02/17 at 22:30 Ondansetron HCl (Zofran Inj) 4 mg Q6H PRN IV NAUSEA AND/OR VOMITING; Start 01/02 at 22:30 Phenol (Cepastat Lozenge) 1 lozenge PRN PRN MT SORE THROAT; Start 01/02/17 at 22 :30 Zolpidem Tartrate (Ambien) 5 mg HS PRN PO INSOMNIA; Start 01/02/17 at 22:30 Docusate Sodium (Colace) 100 mg BID PO Last administered on 01/04/17 08:54; Admin Dose 100 MG; Start 01/03/17 at 09:00 Senna (Senokot) 1 tab BID PRN PO CONSTIPATION; Start 01/02/17 at 22:30 Ascorbic Acid (Vitamin C) 1,000 mg DAILY PO Last administered on 01/05/17 09:08 ; Admin Dose 1,000 MG; Start 01/03/17 at 09:00 Levofloxacin (Levaquin) 250 mg DAILY@06 PO Last administered on 01/05/17 05:23 ; Admin Dose 250 MG; Start 01/05/17 at 06:00 Tramadol HCl (Ultram) 50 mg Q6 PO Last administered on 01/05/17 13:08; Admin Dose 50 MG; Start 01/04/17 at 18:00 Naloxone HCl 0.2 mg 0.2 mg Q2M PRN IV RESPIRATORY RATE LESS THAN 8; Start at 21:30 Vancomycin HCl/ Sodium Chloride (Vancocin/NS) 250 ml @ 83.333 mls/ hr Q48H IVPB Last administered on 01/05/17 13:08; Admin Dose 83.333 MLS/HR; Start at 12:00 MANUEL WISDOM MD Jan 05, 2017 17:55
[2017-01-05 20:45] VITALS: BP 185/81; PULSE 83; RESP 18
[2017-01-05] MEDS: ATORVASTATIN 20 MG TAB PO SCH (20:54)
[2017-01-06 00:17] VITALS: BP 188/85; RESP 19
[2017-01-06] MEDS ORDERED: hydrALAzine 20 MG INJ IM ONE (00:30)
[2017-01-06 05:04] LABS: ADD SCAN DIFF NO
[2017-01-06 05:13] LABS: BASOPHILS % 0.3 % (0.0-2.0); EOSINOPHILS % 7.6 % (0.0-7.0); HEMATOCRIT 26.1 % (37.0-47.0); HEMOGLOBIN 7.8 g/dl (12.0-16.0); LYMPHOCYTES # 2.2 10^3/ul (0.8-2.9); LYMPHOCYTES % 16.9 % (15.0-51.0); MEAN CORPUSCULAR HEMOGLOBIN 27.3 pg (29.0-33.0); MEAN CORPUSCULAR HGB CONC 29.9 g/dl (32.0-37.0); MEAN CORPUSCULAR VOLUME 91.3 fl (82.0-101.0); MEAN PLATELET VOLUME 10.4 fl (7.4-10.4); MONOCYTE # 0.7 10^3/ul (0.3-0.9); MONOCYTES % 5.3 % (0.0-11.0); NEUTROPHIL # 8.9 10^3/ul (1.6-7.5); NEUTROPHILS % 68.7 % (39.0-77.0); PLATELET COUNT 360 10^3/UL (140-415); RED BLOOD COUNT 2.86 10^6/ul (4.20-5.40); RED CELL DISTRIBUTION WIDTH 15.9 % (11.5-14.5)
[2017-01-06 05:24] LABS: INR 1.15; PROTIME 14.7 Sec (12.2-14.2); PT RATIO 1.1
[2017-01-06 05:25] LABS: PARTIAL THROMBOPLASTIN TIME 29.3 Sec (25.0-35.0)
[2017-01-06 05:27] LABS: CALCIUM 8.3 mg/dl (8.4-10.2); CREATININE 2.21 mg/dl (0.44-1.00); POTASSIUM 4.5 mmol/L (3.5-5.1)
[2017-01-06 05:33] VITALS: BP 141/75; PULSE 85; RESP 18
[2017-01-06] MEDS: LEVOTHYROXINE 75 MCG TAB PO SCH (05:41)
[2017-01-06] MEDS: LEVOFLOXACIN 250 MG TAB PO SCH (05:41)
[2017-01-06] MEDS: traMADol 50 MG TAB PO SCH ×5 (06:00→23:54)
[2017-01-06 08:29] VITALS: BP 164/71; RESP 20
[2017-01-06] MEDS: ASPIRIN 81 MG TAB PO SCH (08:31)
[2017-01-06] MEDS: ASCORBIC ACID 500 MG TAB PO SCH (08:32)
[2017-01-06] MEDS: FOLIC ACID 1 MG TAB PO SCH (08:32)
[2017-01-06] MEDS: AMLODIPINE 10 MG TAB PO SCH (08:32)
[2017-01-06] MEDS: FAMOTIDINE 20 MG TAB PO SCH (08:32)
[2017-01-06] MEDS: INSULIN ASPART [NOVOLOG] 3 ML PEN SC SCH ×7 (08:35→20:36)
[2017-01-06] MEDS: INSULIN GLARGINE [LANtus] 3 ML PEN SC SCH ×2 (08:37→20:33)
[2017-01-06] MEDS: FERROUS SULFATE (EC) 325 MG TAB PO SCH ×3 (09:00→20:31)
[2017-01-06] MEDS: DOCUSATE SODIUM 100 MG CAP PO SCH ×2 (09:00→20:31)
[2017-01-06] MEDS: HEPARIN 5,000 UNIT/0.5 ML VIAL SC SCH ×2 (09:32→20:32)
[2017-01-06 10:19] VITALS: BP 128/64
[2017-01-06] MEDS ORDERED: SOD CHLORIDE 0.9% 250 ML IV* ONE (10:27)
[2017-01-06] MEDS ORDERED: LIDOCAINE 1% (MPF) 5 ML VIAL SC ONE (10:30)
--- NOTE | 2017-01-06 10:30 | PN ---
Date/Time of Note Date/Time of Note DATE: 01/06/17 TIME: 10:29 Assessment/Plan VTE Prophylaxis VTE Prophylaxis Intervention: heparin Lines/Catheters IV Catheter Type (from [facility]): Peripheral IV Urinary Cath still in place: No Assessment/Plan Chief Complaint/Hosp Course ASSESSMENT AND PLAN: 51-year-old female with history of right foot diabetic ulcer, osteomyelitis, essential hypertension, type 2 diabetes, hypothyroidism, high cholesterol, chronic kidney disease, right internal carotid artery stenosis who was transferred from outside hospital for right foot wound infection and osteomyelitis, s/p surgery. 1. Right foot wound infection/osteomyelitis - multiple incision and drainage of right foot dorsal aspect and excisional debridement of skin, subcutaneous tissue, muscle, and bone to ulceration plantar aspect 8 x 6 cm, x 2 surgical procedures. - Again, continue broad spectrum antibiotics. - Follow up ID and podiatry recommendations - Tylenol p.r.n. pain, fevers. - Follow up final culture results. - PICC placement today 2. Type 2 diabetes. Again, A1c is elevated = 8.0 - Continue current insulin regimen. 3. Hypertension. Again, blood pressure is high normal. - Continue p.o. medications and p.r.n. hydralazine IV. 4. History of chronic kidney disease. Creatinine still elevated, but trending down slightly today (2.8 -> 2.6 -> 2.2 -> 2.2) - Follow up renal recommendations. - Continue to monitor urine output. - IV fluids as well per renal rec's 5. History of right carotid endarterectomy. Continue to monitor for now. 6. Gastrointestinal prophylaxis - Pepcid. 7. Deep venous thrombosis prophylaxis. Heparin subcutaneously. 8. Lice - received Elimite - f/u ID rec's - per ID, s/p Ivermectin p.o. for scabies and repeat x2 weekly Problems: Subjective 24 Hr Interval Summary Free Text/Dictation No acute events overnight, awaiting PICC placement later today. Exam/Review of Systems Vital Signs Vitals Vital Signs Date Time Temp Pulse Resp B/P Pulse Ox O2 Delivery O2 Flow Rate FiO2 01/06/17 10:19 128/64 01/06/17 08:29 98.2 85 20 94 01/06/17 05:33 Room Air 01/04/17 21:11 10.0 Intake and Output 601/05/17 01/06/17 15:00 23:00 07:00 Intake Total 450 ml 550 ml Output Total 20 ml Balance 450 ml 550 ml -20 ml Exam GENERAL: The patient is lying in bed, answering questions appropriately. No acute distress. HEENT: Pupils equal, round, reactive to light. Extraocular muscles intact. NECK: Supple. No thyromegaly. LUNGS: Clear to auscultation bilaterally. CARDIOVASCULAR: S1, S2 heard. No rubs or gallops. ABDOMEN: Soft, nontender, nondistended. Normal bowel sounds. No rebound or guarding. MUSCULOSKELETAL: There is a right foot bandage, otherwise no lower extremity edema bilaterally. NEUROLOGIC: No focal deficits. Results Result Diagram: 01/06/17 0433 01/06/17 0433 Results 24 hrs Laboratory Tests Test 01/05/17 12:27 01/05/17 17:55 01/05/17 21:10 01/06/17 04:33 Bedside Glucose 129 131 114 White Blood Count 13.0 H Red Blood Count 2.86 L Hemoglobin 7.8 L Hematocrit 26.1 L Mean Corpuscular Volume 91.3 Mean Corpuscular Hemoglobin 27.3 L Mean Corpuscular Hemoglobin Concent 29.9 L Red Cell Distribution Width 15.9 H Platelet Count 360 Mean Platelet Volume 10.4 Neutrophils % 68.7 Lymphocytes % 16.9 Monocytes % 5.3 Eosinophils % 7.6 H Basophils % 0.3 Nucleated Red Blood Cells % 0.0 Neutrophils # 8.9 H Lymphocytes # 2.2 Monocytes # 0.7 Eosinophils # 1.0 H Basophils # 0.0 Nucleated Red Blood Cells # 0.0 Prothrombin Time 14.7 H Prothrombin Time Ratio 1.1 INR International Normalized Ratio 1.15 Activated Partial Thromboplast Time 29.3 Sodium Level 141 Potassium Level 4.5 Chloride Level 114 H Carbon Dioxide Level 19 L Anion Gap 13 Blood Urea Nitrogen 30 H Creatinine 2.21 H Glucose Level 198 Calcium Level 8.3 L Medications Medications Current Medications Acetaminophen (Tylenol Tab) 650 mg Q6H PRN PO PAIN AND OR ELEVATED TEMP; Start 01/01/17 at 04:00 Heparin Sodium (Porcine) (Heparin (5000 Units/0.5 ml)) 5,000 unit BID SC Last administered on 01/06/17t 09:32; Admin Dose 5,000 UNIT; Start 01/01/17 at 09:00 Amlodipine Besylate (Norvasc) 10 mg DAILY PO Last administered on 01/06/17 08: 32; Admin Dose 10 MG; Start 01/02/17 at 09:00 Aspirin (Aspirin) 81 mg DAILY PO Last administered on 01/06/17 08:31; Admin Dose 81 MG; Start 01/02/17 at 09:00 Atorvastatin Calcium (Lipitor) 20 mg QHS PO Last administered on 01/05/17 20:54 ; Admin Dose 20 MG; Start 01/01/17 at 21:00 Ferrous Sulfate (Ferrous Sulfate (Ec)) 325 mg TID PO Last administered on 21:59; Admin Dose 325 MG; Start 01/01/17 at 21:00 Folic Acid (Folic Acid) 1 mg DAILY PO Last administered on 01/06/17 08:32; Admin Dose 1 MG; Start 01/02/17 at 09:00 Hydralazine HCl (Apresoline) 10 mg DAILY@21 PO Last administered on 01/05/17 20 :57; Admin Dose 10 MG; Start 01/01/17 at 21:00 Insulin Glargine (Lantus) 22 unit Q12 SC Last administered on 01/06/17 08:37; Admin Dose 22 UNIT; Start 01/01/17 at 15:00 Levothyroxine Sodium (Synthroid) 75 mcg DAILY@06 PO Last administered on 05:41; Admin Dose 75 MCG; Start 01/02/17 at 06:00 Tramadol HCl (Ultram) 50 mg Q6H PRN PO PAIN LEVEL 7-10; Start 01/01/17 at 15:00 Miscellaneous Information 1 ea NOTE XX ; Start 01/01/17 at 15:00 Glucose (Glutose) 15 gm Q15M PRN PO DECREASED GLUCOSE; Start 01/01/17 at 15:00 Glucose (Glutose) 22.5 gm Q15M PRN PO DECREASED GLUCOSE; Start 01/01/17 at 15:00 Dextrose (D50w Syringe) 25 ml Q15M PRN IV DECREASED GLUCOSE; Start 01/01/17 at 15:00 Dextrose (D50w Syringe) 50 ml Q15M PRN IV DECREASED GLUCOSE; Start 01/01/17 at 15:00 Glucagon (Glucagen) 1 mg Q15M PRN IM DECREASED GLUCOSE; Start 01/01/17 at 15:00 Glucose (Glutose) 15 gm Q15M PRN BUCCAL DECREASED GLUCOSE; Start 01/01/17 at 15: 00 Morphine Sulfate 2 mg 2 mg Q4H PRN IV PAIN; Start 01/01/17 at 16:00 Ondansetron HCl/ Sodium Chloride (Zofran Inj/NS) 54 ml @ 216 mls/hr Q6H PRN IV NAUSEA AND/OR VOMITING Last administered on 01/02/17 09:25; Admin Dose 216 MLS/HR; Start 01/01/17 at 15:30 Hydralazine HCl (Apresoline) 10 mg Q6H PRN IV ELEVATED BLOOD PRESSURE Last administered on 01/05/17 08:03; Admin Dose 10 MG; Start 01/02/17 at 15:00 Famotidine (Pepcid) 20 mg DAILY PO Last administered on 01/06/17 08:32; Admin Dose 20 MG; Start 01/02/17 at 15:00 Morphine Sulfate (morphine) 2 mg Q2H PRN IV PAIN LEVEL 6-10; Start 01/02/17 at 22:30 Acetaminophen/ Hydrocodone Bitart ([place] (5/325)) 1 tab Q6H PRN PO PAIN LEVEL 6 -10; Start 01/02/17 at 22:30 Acetaminophen/ Hydrocodone Bitart ([place] (10/325)) 1 tab Q6H PRN PO PAIN; Start 01/02/17 at 22:30 Acetaminophen (Tylenol Tab) 650 mg Q6H PRN PO PAIN AND OR ELEVATED TEMP; Start 01/02/17 at 22:30 Ibuprofen (Motrin) 600 mg Q6H PRN PO PAIN LEVEL 1-5; Start 01/02/17 at 22:30 Diphenhydramine HCl (Benadryl) 25 mg Q6H PRN IV ITCHING; Start 01/02/17 at 22:30 Ondansetron HCl (Zofran Inj) 4 mg Q6H PRN IV NAUSEA AND/OR VOMITING; Start 01/02 at 22:30 Phenol (Cepastat Lozenge) 1 lozenge PRN PRN MT SORE THROAT; Start 01/02/17 at 22 :30 Zolpidem Tartrate (Ambien) 5 mg HS PRN PO INSOMNIA; Start 01/02/17 at 22:30 Docusate Sodium (Colace) 100 mg BID PO Last administered on 01/04/17 08:54; Admin Dose 100 MG; Start 01/03/17 at 09:00 Senna (Senokot) 1 tab BID PRN PO CONSTIPATION; Start 01/02/17 at 22:30 Ascorbic Acid (Vitamin C) 1,000 mg DAILY PO Last administered on 01/06/17 08: 32; Admin Dose 1,000 MG; Start 01/03/17 at 09:00 Levofloxacin (Levaquin) 250 mg DAILY@06 PO Last administered on 01/06/17 05:41 ; Admin Dose 250 MG; Start 01/05/17 at 06:00 Tramadol HCl (Ultram) 50 mg Q6 PO Last administered on 01/05/17 18:03; Admin Dose 50 MG; Start 01/04/17 at 18:00 Naloxone HCl 0.2 mg 0.2 mg Q2M PRN IV RESPIRATORY RATE LESS THAN 8; Start at 21:30 Vancomycin HCl/ Sodium Chloride (Vancocin/NS) 250 ml @ 83.333 mls/ hr Q48H IVPB Last administered on 01/05/17 13:08; Admin Dose 83.333 MLS/HR; Start at 12:00 Clonidine (Catapres) 0.1 mg Q6H PRN PO SBP>160 Last administered on 01/06/17 09:31; Admin Dose 0.1 MG; Start 01/06/17 at 09:00 Lidocaine (Xylocaine 1% (Mpf)) 5 ml ONCE ONCE SC ; Start 01/06/17 at 10:30; Stop 01/06/17 at 10:31 GABRIELLA CABRERA Jan 06, 2017 10:30
--- NOTE | 2017-01-06 11:19 | RADRPT ---
PROCEDURE: Ultrasound guidance for PICC line placement by PICC line nurse. CLINICAL INDICATION: Central IV access TECHNIQUE: Ultrasound guidance was provided to PICC line nurse. Limited scanning of the upper ext remity veins is performed. COMPARISON: None FINDINGS: Limited scans of the upper extremity shows patent upper extremity veins. IMPRESSION: Ultrasound guidance provided to PICC line nurse for PICC line placement. RPTAT: QQ .Miguel Angel Leo MD, MD Date Time Electronically viewed and signed by .Miguel Angel Leo MD, on 01/06/2017 11:19 .L/
--- NOTE | 2017-01-06 11:20 | RADRPT ---
PROCEDURE: XR Chest. CLINICAL INDICATION: PICC line placement. TECHNIQUE: Single frontal chest x-ray. COMPARISON: 01/02/2017 FINDINGS: The lungs are clear of acute infiltrates, edema, effusions, or masses. There is new right arm PICC l ine in place with tip in the superior vena cava.. Cardiomediastinal silhouette is stable.. The osse ous structures are intact. IMPRESSION: No acute cardiopulmonary disease. Right arm PICC line in place with tip in superior vena cava. Call report: A call report of the findings was made to PICC line nurse on 01/06/2017 11:20:15 AM. RPTAT: QQ .Miguel Angel Leo MD, Date Time Electronically viewed and signed by .Miguel Angel Leo MD, on 01/06/2017 11:20 .L/
[2017-01-06] MEDS: FLUCONAZOLE 100 MG TAB PO SCH (13:13)
--- NOTE | 2017-01-06 15:01 | CONS ---
Date/Time of Note Date/Time of Note DATE: 01/06/17 TIME: 14:51 Assessment/Plan Assessment/Plan Additional Assessment/Plan - Anemia Hb 7.8- getting blood transfusion now. CBC am - Acute kidney injury on chronic kidney disease secondary to sepsis from infections including the right foot osteomyelitis. - Cr 2.21- improving - History of possible chronic kidney disease secondary to diabetic nephropathy. - Adult onset type 2 diabetes mellitus, poorly controlled. - Hypertension. - Hypothyroidism. - History of previous right second and third toe amputations. - Possible peripheral vascular disease. PLAN: pt has acute on chronic renal failure, s/p IVF- Cr improved to 2.21 with IV abx and IVF hydration s/p Right foot excisional debridement , D/c IV fluids need better glycemic control will follow up US c/w Medical renal disease- Mildly increased echogenicity of both kidneys. Further recommendations depend upon patient's clinical course. Plan of care dw Dr Serge Morillo /staff Consultation Date/Type/Reason Admit Date/Time Jan 01, 2017 at 01:45 Initial Consult Date Type of Consultation: NEPHROLOGY Referring Provider: GABRIELLA CABRERA 24 HR Interval Summary Free Text/Dictation alet, awake, ready to get blood transfusion today, monitoe CBC am, Exam/Review of Systems Vital Signs Vitals Vital Signs Date Time Temp Pulse Resp B/P Pulse Ox O2 Delivery O2 Flow Rate FiO2 01/06/17 10:19 128/64 01/06/17 08:29 98.2 85 20 94 01/06/17 05:33 Room Air 01/04/17 21:11 10.0 Intake and Output 01/05/17 01/05/17 01/06/17 15:00 23:00 07:00 Intake Total 450 ml 550 ml Output Total 20 ml Balance 450 ml 550 ml -20 ml Results Result Diagram: 01/06/17 0433 01/06/17 0433 Results 24 hrs Laboratory Tests Test 01/05/17 17:55 01/05/17 21:10 01/06/17 04:33 01/06/17 11:53 Bedside Glucose 131 114 99 White Blood Count 13.0 H Red Blood Count 2.86 L Hemoglobin 7.8 L Hematocrit 26.1 L Mean Corpuscular Volume 91.3 Mean Corpuscular Hemoglobin 27.3 L Mean Corpuscular Hemoglobin Concent 29.9 L Red Cell Distribution Width 15.9 H Platelet Count 360 Mean Platelet Volume 10.4 Neutrophils % 68.7 Lymphocytes % 16.9 Monocytes % 5.3 Eosinophils % 7.6 H Basophils % 0.3 Nucleated Red Blood Cells % 0.0 Neutrophils # 8.9 H Lymphocytes # 2.2 Monocytes # 0.7 Eosinophils # 1.0 H Basophils # 0.0 Nucleated Red Blood Cells # 0.0 Prothrombin Time 14.7 H Prothrombin Time Ratio 1.1 INR International Normalized Ratio 1.15 Activated Partial Thromboplast Time 29.3 Sodium Level 141 Potassium Level 4.5 Chloride Level 114 H Carbon Dioxide Level 19 L Anion Gap 13 Blood Urea Nitrogen 30 H Creatinine 2.21 H Glucose Level 198 Calcium Level 8.3 L Medications Medications Current Medications Acetaminophen (Tylenol Tab) 650 mg Q6H PRN PO PAIN AND OR ELEVATED TEMP; Start 01/01/17 at 04:00 Heparin Sodium (Porcine) (Heparin (5000 Units/0.5 ml)) 5,000 unit BID SC Last administered on 01/06/17 09:32; Admin Dose 5,000 UNIT; Start 01/01/17 at 09:00 Amlodipine Besylate (Norvasc) 10 mg DAILY PO Last administered on 01/06/17 08: 32; Admin Dose 10 MG; Start 01/02/17 at 09:00 Aspirin (Aspirin) 81 mg DAILY PO Last administered on 01/06/17 08:31; Admin Dose 81 MG; Start 01/02/17 at 09:00 Atorvastatin Calcium (Lipitor) 20 mg QHS PO Last administered on 01/05/17 20:54 ; Admin Dose 20 MG; Start 01/01/17 at 21:00 Ferrous Sulfate (Ferrous Sulfate (Ec)) 325 mg TID PO Last administered on 12:51; Admin Dose 325 MG; Start 01/01/17 at 21:00 Folic Acid (Folic Acid) 1 mg DAILY PO Last administered on 01/06/17 08:32; Admin Dose 1 MG; Start 01/02/17 at 09:00 Hydralazine HCl (Apresoline) 10 mg DAILY@21 PO Last administered on 01/05/17 20 :57; Admin Dose 10 MG; Start 01/01/17 at 21:00 Insulin Glargine (Lantus) 22 unit Q12 SC Last administered on 01/06/17 08:37; Admin Dose 22 UNIT; Start 01/01/17 at 15:00 Levothyroxine Sodium (Synthroid) 75 mcg DAILY@06 PO Last administered on 05:41; Admin Dose 75 MCG; Start 01/02/17 at 06:00 Tramadol HCl (Ultram) 50 mg Q6H PRN PO PAIN LEVEL 7-10; Start 01/01/17 at 15:00 Miscellaneous Information 1 ea NOTE XX ; Start 01/01/17 at 15:00 Glucose (Glutose) 15 gm Q15M PRN PO DECREASED GLUCOSE; Start 01/01/17 at 15:00 Glucose (Glutose) 22.5 gm Q15M PRN PO DECREASED GLUCOSE; Start 01/01/17 at 15:00 Dextrose (D50w Syringe) 25 ml Q15M PRN IV DECREASED GLUCOSE; Start 01/01/17 at 15:00 Dextrose (D50w Syringe) 50 ml Q15M PRN IV DECREASED GLUCOSE; Start 01/01/17 at 15:00 Glucagon (Glucagen) 1 mg Q15M PRN IM DECREASED GLUCOSE; Start 01/01/17 at 15:00 Glucose (Glutose) 15 gm Q15M PRN BUCCAL DECREASED GLUCOSE; Start 01/01/17 at 15: 00 Morphine Sulfate 2 mg 2 mg Q4H PRN IV PAIN; Start 01/01/17 at 16:00 Ondansetron HCl/ Sodium Chloride (Zofran Inj/NS) 54 ml @ 216 mls/hr Q6H PRN IV NAUSEA AND/OR VOMITING Last administered on 01/02/17 09:25; Admin Dose 216 MLS/HR; Start 01/01/17 at 15:30 Hydralazine HCl (Apresoline) 10 mg Q6H PRN IV ELEVATED BLOOD PRESSURE Last administered on 01/05/17 08:03; Admin Dose 10 MG; Start 01/02/17 at 15:00 Famotidine (Pepcid) 20 mg DAILY PO Last administered on 01/06/17 08:32; Admin Dose 20 MG; Start 01/02/17 at 15:00 Morphine Sulfate (morphine) 2 mg Q2H PRN IV PAIN LEVEL 6-10; Start 01/02/17 at 22:30 Acetaminophen/ Hydrocodone Bitart ([place] (5/325)) 1 tab Q6H PRN PO PAIN LEVEL 6 -10; Start 01/02/17 at 22:30 Acetaminophen/ Hydrocodone Bitart ([place] (10325)) 1 tab Q6H PRN PO PAIN; Start 01/02/17 at 22:30 Acetaminophen (Tylenol Tab) 650 mg Q6H PRN PO PAIN AND OR ELEVATED TEMP; Start 01/02/17 at 22:30 Ibuprofen (Motrin) 600 mg Q6H PRN PO PAIN LEVEL 1-5; Start 01/02/17 at 22:30 Diphenhydramine HCl (Benadryl) 25 mg Q6H PRN IV ITCHING; Start 01/02/17 at 22:30 Ondansetron HCl (Zofran Inj) 4 mg Q6H PRN IV NAUSEA AND/OR VOMITING; Start 01/02 at 22:30 Phenol (Cepastat Lozenge) 1 lozenge PRN PRN MT SORE THROAT; Start 01/02/17 at 22 :30 Zolpidem Tartrate (Ambien) 5 mg HS PRN PO INSOMNIA; Start 01/02/17 at 22:30 Docusate Sodium (Colace) 100 mg BID PO Last administered on 01/04/17 08:54; Admin Dose 100 MG; Start 01/03/17 at 09:00 Senna (Senokot) 1 tab BID PRN PO CONSTIPATION; Start 01/02/17 at 22:30 Ascorbic Acid (Vitamin C) 1,000 mg DAILY PO Last administered on 01/06/17 08: 32; Admin Dose 1,000 MG; Start 01/03/17 at 09:00 Levofloxacin (Levaquin) 250 mg DAILY@06 PO Last administered on 01/06/17 05:41 ; Admin Dose 250 MG; Start 01/05/17 at 06:00 Tramadol HCl (Ultram) 50 mg Q6 PO Last administered on 01/06/17 12:51; Admin Dose 50 MG; Start 01/04/17 at 18:00 Naloxone HCl 0.2 mg 0.2 mg Q2M PRN IV RESPIRATORY RATE LESS THAN 8; Start at 21:30 Vancomycin HCl/ Sodium Chloride (Vancocin/NS) 250 ml @ 83.333 mls/ hr Q48H IVPB Last administered on 01/05/17 13:08; Admin Dose 83.333 MLS/HR; Start at 12:00 Clonidine (Catapres) 0.1 mg Q6H PRN PO SBP>160 Last administered on 01/06/17 09:31; Admin Dose 0.1 MG; Start 01/06/17 at 09:00 Fluconazole (Diflucan) 100 mg DAILY PO Last administered on 01/06/17 13:13; Admin Dose 100 MG; Start 01/06/17 at 12:30 KIT ROBERTS Jan 06, 2017 15:01
[2017-01-06] MEDS: hydrALAzine 20 MG INJ IV PRN (18:01)
[2017-01-06 19:45] VITALS: BP 143/63; PULSE 78; RESP 18
[2017-01-06] MEDS: ATORVASTATIN 20 MG TAB PO SCH (20:31)
[2017-01-06 22:32] VITALS: BP 160/70; PULSE 72; RESP 18
[2017-01-07 05:13] LABS: ADD SCAN DIFF NO
[2017-01-07 05:26] LABS: BASOPHIL # 0.1 10^3/ul (0.0-0.1); BASOPHILS % 0.4 % (0.0-2.0); EOSINOPHILS # 0.9 10^3/ul (0.0-0.5); HEMOGLOBIN 9.8 g/dl (12.0-16.0); LYMPHOCYTES # 2.1 10^3/ul (0.8-2.9); MEAN CORPUSCULAR HEMOGLOBIN 28.2 pg (29.0-33.0); MEAN CORPUSCULAR HGB CONC 31.6 g/dl (32.0-37.0); MEAN CORPUSCULAR VOLUME 89.3 fl (82.0-101.0); MEAN PLATELET VOLUME 10.3 fl (7.4-10.4); MONOCYTE # 0.8 10^3/ul (0.3-0.9); MONOCYTES % 6.2 % (0.0-11.0); NEUTROPHIL # 8.4 10^3/ul (1.6-7.5); NEUTROPHILS % 68.2 % (39.0-77.0); PLATELET COUNT 372 10^3/UL (140-415); RED BLOOD COUNT 3.47 10^6/ul (4.20-5.40); RED CELL DISTRIBUTION WIDTH 15.7 % (11.5-14.5); WHITE BLOOD COUNT 12.3 10^3/ul (4.8-10.8)
[2017-01-07 05:34] LABS: INR 1.06; PROTIME 13.8 Sec (12.2-14.2); PT RATIO 1.1
[2017-01-07 05:35] LABS: PARTIAL THROMBOPLASTIN TIME 30.3 Sec (25.0-35.0)
[2017-01-07 05:44] LABS: CALCIUM 8.3 mg/dl (8.4-10.2); CREATININE 2.15 mg/dl (0.44-1.00); POTASSIUM 4.6 mmol/L (3.5-5.1)
[2017-01-07] MEDS: LEVOFLOXACIN 250 MG TAB PO SCH (06:13)
[2017-01-07] MEDS: LEVOTHYROXINE 75 MCG TAB PO SCH (06:13)
[2017-01-07] MEDS: traMADol 50 MG TAB PO SCH ×4 (06:14→23:41)
[2017-01-07 07:59] VITALS: BP 175/77; RESP 19
[2017-01-07] MEDS: FAMOTIDINE 20 MG TAB PO SCH (08:52)
[2017-01-07] MEDS: DOCUSATE SODIUM 100 MG CAP PO SCH ×3 (08:52→21:39)
[2017-01-07] MEDS: FOLIC ACID 1 MG TAB PO SCH (08:52)
[2017-01-07] MEDS: FLUCONAZOLE 100 MG TAB PO SCH (08:52)
[2017-01-07] MEDS: ASPIRIN 81 MG TAB PO SCH (08:52)
[2017-01-07] MEDS: FERROUS SULFATE (EC) 325 MG TAB PO SCH ×3 (08:52→21:39)
[2017-01-07] MEDS: AMLODIPINE 10 MG TAB PO SCH (08:53)
[2017-01-07] MEDS: ASCORBIC ACID 500 MG TAB PO SCH (08:53)
[2017-01-07] MEDS: HEPARIN 5,000 UNIT/0.5 ML VIAL SC SCH ×2 (08:56→21:41)
[2017-01-07] MEDS: INSULIN GLARGINE [LANtus] 3 ML PEN SC SCH ×2 (08:57→21:42)
[2017-01-07] MEDS: INSULIN ASPART [NOVOLOG] 3 ML PEN SC SCH ×7 (08:57→21:00)
[2017-01-07] MEDS: VANCOMYCIN 1.5 GM in SOD CHLORIDE 0.9% 250 ML IVPB SCH (12:41)
--- NOTE | 2017-01-07 14:32 | CONS ---
Date/Time of Note Date/Time of Note DATE: 01/07/17 TIME: 14:28 Assessment/Plan Assessment/Plan Additional Assessment/Plan - Anemia Hb 7.8- sp blood transfusion Hb- 9.8 . CBC am - Acute kidney injury on chronic kidney disease secondary to sepsis from infections including the right foot osteomyelitis. - Cr 2.15- improving - History of possible chronic kidney disease secondary to diabetic nephropathy. - Adult onset type 2 diabetes mellitus, poorly controlled. - Hypertension. - Hypothyroidism. - History of previous right second and third toe amputations. - Possible peripheral vascular disease. PLAN: pt has acute on chronic renal failure, s/p IVF- Cr improved to 2.15 with IV abx and IVF hydration s/p Right foot excisional debridement , D/c IV fluids need better glycemic control will follow up US c/w Medical renal disease- Mildly increased echogenicity of both kidneys. Further recommendations depend upon patient's clinical course. Plan of care benigno Morillo /staff Consultation Date/Type/Reason Admit Date/Time Jan 01, 2017 at 01:45 Type of Consultation: NEPHROLOGY Referring Provider: GABRIELLA CABRERA 24 HR Interval Summary Free Text/Dictation SP blood transfusion , Hb better -9.8 Cr improved- 2.15 afebrile- dw staff Constitutional: improved, requiring O2 Exam/Review of Systems Vital Signs Vitals Vital Signs Date Time Temp Pulse Resp B/P Pulse Ox O2 Delivery O2 Flow Rate FiO2 01/07/17 07:59 97.6 78 19 175/77 96 01/06/17 22:32 Room Air 01/04/17 21:11 10.0 Intake and Output 01/06/17 01/06/17 01/07/17 15:00 23:00 07:00 Intake Total 1850 ml 1050 ml Output Total 910 ml 1005 ml Balance 940 ml 45 ml Exam Constitutional: alert, oriented, well developed Respiratory: clear to auscultation, normal air movement Cardiovascular: nl pulses, regular rate and rhythm Gastrointestinal: non-tender, soft Musculoskeletal: other (sp Right foot I/D) Neurological: nl mental status, nl speech Skin: other Lymph: nontender Results Result Diagram: 01/07/17 0430 01/07/17 0430 Results 24 hrs Laboratory Tests Test 01/06/17 17:35 01/06/17 20:25 01/07/17 04:30 01/07/17 06:32 Bedside Glucose 143 124 White Blood Count 12.3 H Red Blood Count 3.47 #L Hemoglobin 9.8 #L Hematocrit 31.0 L Mean Corpuscular Volume 89.3 Mean Corpuscular Hemoglobin 28.2 L Mean Corpuscular Hemoglobin Concent 31.6 L Red Cell Distribution Width 15.7 H Platelet Count 372 Mean Platelet Volume 10.3 Neutrophils % 68.2 Lymphocytes % 17.0 Monocytes % 6.2 Eosinophils % 7.0 Basophils % 0.4 Nucleated Red Blood Cells % 0.0 Neutrophils # 8.4 H Lymphocytes # 2.1 Monocytes # 0.8 Eosinophils # 0.9 H Basophils # 0.1 Nucleated Red Blood Cells # 0.0 Prothrombin Time 13.8 Prothrombin Time Ratio 1.1 INR International Normalized Ratio 1.06 Activated Partial Thromboplast Time 30.3 Sodium Level 140 Potassium Level 4.6 Chloride Level 111 H Carbon Dioxide Level 22 Anion Gap 12 Blood Urea Nitrogen 31 H Creatinine 2.15 H Glucose Level 205 Calcium Level 8.3 L Lab Scanned Report BLOOD TRANSFUSION Test 01/07/17 08:50 01/07/17 12:40 Bedside Glucose 228 H 97 Medications Medications Current Medications Acetaminophen (Tylenol Tab) 650 mg Q6H PRN PO PAIN AND OR ELEVATED TEMP; Start 01/01/17 at 04:00 Heparin Sodium (Porcine) (Heparin (5000 Units/0.5 ml)) 5,000 unit BID SC Last administered on 01/07/17 08:56; Admin Dose 5,000 UNIT; Start 01/01/17 at 09:00 Amlodipine Besylate (Norvasc) 10 mg DAILY PO Last administered on 01/07/17 08: 53; Admin Dose 10 MG; Start 01/02/17 at 09:00 Aspirin (Aspirin) 81 mg DAILY PO Last administered on 01/07/17 08:52; Admin Dose 81 MG; Start 01/02/17 at 09:00 Atorvastatin Calcium (Lipitor) 20 mg QHS PO Last administered on 01/06/17 20: 31; Admin Dose 20 MG; Start 01/01/17 at 21:00 Ferrous Sulfate (Ferrous Sulfate (Ec)) 325 mg TID PO Last administered on 12:41; Admin Dose 325 MG; Start 01/01/17 at 21:00 Folic Acid (Folic Acid) 1 mg DAILY PO Last administered on 01/07/17 08:52; Admin Dose 1 MG; Start 01/02/17 at 09:00 Hydralazine HCl (Apresoline) 10 mg DAILY@21 PO Last administered on 01/06/17 20:31; Admin Dose 10 MG; Start 01/01/17 at 21:00 Insulin Glargine (Lantus) 22 unit Q12 SC Last administered on 01/07/17 08:57; Admin Dose 22 UNIT; Start 01/01/17 at 15:00 Levothyroxine Sodium (Synthroid) 75 mcg DAILY@06 PO Last administered on 06:13; Admin Dose 75 MCG; Start 01/02/17 at 06:00 Tramadol HCl (Ultram) 50 mg Q6H PRN PO PAIN LEVEL 7-10; Start 01/01/17 at 15:00 Miscellaneous Information 1 ea NOTE XX ; Start 01/01/17 at 15:00 Glucose (Glutose) 15 gm Q15M PRN PO DECREASED GLUCOSE; Start 01/01/17 at 15:00 Glucose (Glutose) 22.5 gm Q15M PRN PO DECREASED GLUCOSE; Start 01/01/17 at 15:00 Dextrose (D50w Syringe) 25 ml Q15M PRN IV DECREASED GLUCOSE; Start 01/01/17 at 15:00 Dextrose (D50w Syringe) 50 ml Q15M PRN IV DECREASED GLUCOSE; Start 01/01/17 at 15:00 Glucagon (Glucagen) 1 mg Q15M PRN IM DECREASED GLUCOSE; Start 01/01/17 at 15:00 Glucose (Glutose) 15 gm Q15M PRN BUCCAL DECREASED GLUCOSE; Start 01/01/17 at 15: 00 Morphine Sulfate 2 mg 2 mg Q4H PRN IV PAIN; Start 01/01/17 at 16:00 Ondansetron HCl/ Sodium Chloride (Zofran Inj/NS) 54 ml @ 216 mls/hr Q6H PRN IV NAUSEA AND/OR VOMITING Last administered on 01/02/17 09:25; Admin Dose 216 MLS/HR; Start 01/01/17 at 15:30 Hydralazine HCl (Apresoline) 10 mg Q6H PRN IV ELEVATED BLOOD PRESSURE Last administered on 01/06/17 18:01; Admin Dose 10 MG; Start 01/02/17 at 15:00 Famotidine (Pepcid) 20 mg DAILY PO Last administered on 01/07/17 08:52; Admin Dose 20 MG; Start 01/02/17 at 15:00 Morphine Sulfate (morphine) 2 mg Q2H PRN IV PAIN LEVEL 6-10; Start 01/02/17 at 22:30 Acetaminophen/ Hydrocodone Bitart ([place] (5/325)) 1 tab Q6H PRN PO PAIN LEVEL 6 -10; Start 01/02/17 at 22:30 Acetaminophen/ Hydrocodone Bitart ([place] (10/325)) 1 tab Q6H PRN PO PAIN; Start 01/02/17 at 22:30 Acetaminophen (Tylenol Tab) 650 mg Q6H PRN PO PAIN AND OR ELEVATED TEMP; Start 01/02/17 at 22:30 Ibuprofen (Motrin) 600 mg Q6H PRN PO PAIN LEVEL 1-5; Start 01/02/17 at 22:30 Diphenhydramine HCl (Benadryl) 25 mg Q6H PRN IV ITCHING; Start 01/02/17 at 22:30 Ondansetron HCl (Zofran Inj) 4 mg Q6H PRN IV NAUSEA AND/OR VOMITING; Start 01/02 at 22:30 Phenol (Cepastat Lozenge) 1 lozenge PRN PRN MT SORE THROAT; Start 01/02/17 at 22 :30 Zolpidem Tartrate (Ambien) 5 mg HS PRN PO INSOMNIA; Start 01/02/17 at 22:30 Docusate Sodium (Colace) 100 mg BID PO Last administered on 01/06/17 20:31; Admin Dose 100 MG; Start 01/03/17 at 09:00 Senna (Senokot) 1 tab BID PRN PO CONSTIPATION; Start 01/02/17 at 22:30 Ascorbic Acid (Vitamin C) 1,000 mg DAILY PO Last administered on 01/07/17 08: 53; Admin Dose 1,000 MG; Start 01/03/17 at 09:00 Levofloxacin (Levaquin) 250 mg DAILY@06 PO Last administered on 01/07/17 06:13 ; Admin Dose 250 MG; Start 01/05/17 at 06:00 Tramadol HCl (Ultram) 50 mg Q6 PO Last administered on 01/07/17 12:41; Admin Dose 50 MG; Start 01/04/17 at 18:00 Naloxone HCl 0.2 mg 0.2 mg Q2M PRN IV RESPIRATORY RATE LESS THAN 8; Start at 21:30 Vancomycin HCl/ Sodium Chloride (Vancocin/NS) 250 ml @ 83.333 mls/ hr Q48H IVPB Last administered on 01/07/17 12:41; Admin Dose 83.333 MLS/HR; Start 01/05 at 12:00 Clonidine (Catapres) 0.1 mg Q6H PRN PO SBP>160 Last administered on 01/06/17 22:09; Admin Dose 0.1 MG; Start 01/06/17 at 09:00 Fluconazole (Diflucan) 100 mg DAILY PO Last administered on 01/07/17 08:52; Admin Dose 100 MG; Start 01/06/17 at 12:30 IV Flush (NS 10 ml) 10 ml PRN PRN IV FLUSH LINE; Start 01/06/17 at 19:30 KIT ROBERTS Jan 07, 2017 14:32
--- NOTE | 2017-01-07 16:07 | PN ---
Date/Time of Note Date/Time of Note DATE: 01/07/17 TIME: 16:05 Assessment/Plan VTE Prophylaxis VTE Prophylaxis Intervention: heparin Lines/Catheters IV [facility] Type (from [facility] PICC Line Central line still needed: Yes Urinary Cath still in place: No Assessment/Plan Chief Complaint/Hosp Course ASSESSMENT AND PLAN: 51-year-old female with history of right foot diabetic ulcer, osteomyelitis, essential hypertension, type 2 diabetes, hypothyroidism, high cholesterol, chronic kidney disease, right internal carotid artery stenosis who was transferred from outside hospital for right foot wound infection and osteomyelitis, s/p surgery. 1. Right foot wound infection/osteomyelitis - s/p x 2 surgical procedures this admission - multiple incision and drainage of right foot dorsal aspect and excisional debridement of skin, subcutaneous tissue, muscle, and bone to ulceration plantar aspect 8 x 6 cm - Again, continue broad spectrum antibiotics. - Follow up ID and podiatry recommendations regarding length of abx tx - Tylenol p.r.n. pain, fevers. - Follow up final culture results. 2. Type 2 diabetes. Again, A1c is elevated = 8.0 - Continue current insulin regimen. 3. Hypertension. Again, blood pressure is high normal. - Continue p.o. medications and p.r.n. hydralazine IV. 4. History of chronic kidney disease. Creatinine still elevated, but trending down slightly today (2.8 -> 2.6 -> 2.2 -> 2.2 -> 2.15) - Follow up renal recommendations. - Continue to monitor urine output. - IV fluids as well per renal rec's 5. History of right carotid endarterectomy. Continue to monitor for now. 6. Gastrointestinal prophylaxis - Pepcid. 7. Deep venous thrombosis prophylaxis. Heparin subcutaneously. 8. Lice - received Elimite - f/u ID rec's - per ID, s/p Ivermectin p.o. for scabies and repeat x2 weekly Problems: Subjective 24 Hr Interval Summary Free Text/Dictation No acute events overnight. Received PICC. Exam/Review of Systems Vital Signs Vitals Vital Signs Date Time Temp Pulse Resp B/P Pulse Ox O2 Delivery O2 Flow Rate FiO2 01/07/17 07:59 97.6 78 19 175/77 96 01/06/17 22:32 Room Air 01/04/17 21:11 10.0 Intake and Output 01/06/17 01/06/17 01/07/17 15:00 23:00 07:00 Intake Total 1850 ml 1050 ml Output Total 910 ml 1005 ml Balance 940 ml 45 ml Exam GENERAL: The patient is lying in bed, answering questions appropriately. No acute distress. HEENT: Pupils equal, round, reactive to light. Extraocular muscles intact. NECK: Supple. No thyromegaly. LUNGS: Clear to auscultation bilaterally. CARDIOVASCULAR: S1, S2 heard. No rubs or gallops. ABDOMEN: Soft, nontender, nondistended. Normal bowel sounds. No rebound or guarding. MUSCULOSKELETAL: There is a right foot bandage, otherwise no lower extremity edema bilaterally. NEUROLOGIC: No focal deficits. Results Result Diagram: 01/07/17 0430 01/07/17 0430 Results 24 hrs Laboratory Tests Test 01/06/17 17:35 01/06/17 20:25 01/07/17 04:30 01/07/17 06:32 Bedside Glucose 143 124 White Blood Count 12.3 H Red Blood Count 3.47 #L Hemoglobin 9.8 #L Hematocrit 31.0 L Mean Corpuscular Volume 89.3 Mean Corpuscular Hemoglobin 28.2 L Mean Corpuscular Hemoglobin Concent 31.6 L Red Cell Distribution Width 15.7 H Platelet Count 372 Mean Platelet Volume 10.3 Neutrophils % 68.2 Lymphocytes % 17.0 Monocytes % 6.2 Eosinophils % 7.0 Basophils % 0.4 Nucleated Red Blood Cells % 0.0 Neutrophils # 8.4 H Lymphocytes # 2.1 Monocytes # 0.8 Eosinophils # 0.9 H Basophils # 0.1 Nucleated Red Blood Cells # 0.0 Prothrombin Time 13.8 Prothrombin Time Ratio 1.1 INR International Normalized Ratio 1.06 Activated Partial Thromboplast Time 30.3 Sodium Level 140 Potassium Level 4.6 Chloride Level 111 H Carbon Dioxide Level 22 Anion Gap 12 Blood Urea Nitrogen 31 H Creatinine 2.15 H Glucose Level 205 Calcium Level 8.3 L Lab Scanned Report BLOOD TRANSFUSION Test 01/07/17 08:50 01/07/17 12:40 Bedside Glucose 228 H 97 Medications Medications Current Medications Acetaminophen (Tylenol Tab) 650 mg Q6H PRN PO PAIN AND OR ELEVATED TEMP; Start 01/01/17 at 04:00 Heparin Sodium (Porcine) (Heparin (5000 Units/0.5 ml)) 5,000 unit BID SC Last administered on 01/07/17 08:56; Admin Dose 5,000 UNIT; Start 01/01/17 at 09:00 Amlodipine Besylate (Norvasc) 10 mg DAILY PO Last administered on 01/07/17 08: 53; Admin Dose 10 MG; Start 01/02/17 at 09:00 Aspirin (Aspirin) 81 mg DAILY PO Last administered on 01/07/17 08:52; Admin Dose 81 MG; Start 01/02/17 at 09:00 Atorvastatin Calcium (Lipitor) 20 mg QHS PO Last administered on 01/06/17 20: 31; Admin Dose 20 MG; Start 01/01/17 at 21:00 Ferrous Sulfate (Ferrous Sulfate (Ec)) 325 mg TID PO Last administered on 12:41; Admin Dose 325 MG; Start 01/01/17 at 21:00 Folic Acid (Folic Acid) 1 mg DAILY PO Last administered on 01/07/17 08:52; Admin Dose 1 MG; Start 01/02/17 at 09:00 Hydralazine HCl (Apresoline) 10 mg DAILY@21 PO Last administered on 01/06/17 20:31; Admin Dose 10 MG; Start 01/01/17 at 21:00 Insulin Glargine (Lantus) 22 unit Q12 SC Last administered on 01/07/17 08:57; Admin Dose 22 UNIT; Start 01/01/17 at 15:00 Levothyroxine Sodium (Synthroid) 75 mcg DAILY@06 PO Last administered on 06:13; Admin Dose 75 MCG; Start 01/02/17 at 06:00 Tramadol HCl (Ultram) 50 mg Q6H PRN PO PAIN LEVEL 7-10; Start 01/01/17 at 15:00 Miscellaneous Information 1 ea NOTE XX ; Start 01/01/17 at 15:00 Glucose (Glutose) 15 gm Q15M PRN PO DECREASED GLUCOSE; Start 01/01/17 at 15:00 Glucose (Glutose) 22.5 gm Q15M PRN PO DECREASED GLUCOSE; Start 01/01/17 at 15:00 Dextrose (D50w Syringe) 25 ml Q15M PRN IV DECREASED GLUCOSE; Start 01/01/17 at 15:00 Dextrose (D50w Syringe) 50 ml Q15M PRN IV DECREASED GLUCOSE; Start 01/01/17 at 15:00 Glucagon (Glucagen) 1 mg Q15M PRN IM DECREASED GLUCOSE; Start 01/01/17 at 15:00 Glucose (Glutose) 15 gm Q15M PRN BUCCAL DECREASED GLUCOSE; Start 01/01/17 at 15: 00 Morphine Sulfate 2 mg 2 mg Q4H PRN IV PAIN; Start 01/01/17 at 16:00 Ondansetron HCl/ Sodium Chloride (Zofran Inj/NS) 54 ml @ 216 mls/hr Q6H PRN IV NAUSEA AND/OR VOMITING Last administered on 01/02/17 09:25; Admin Dose 216 MLS/HR; Start 01/01/17 at 15:30 Hydralazine HCl (Apresoline) 10 mg Q6H PRN IV ELEVATED BLOOD PRESSURE Last administered on 01/06/17 18:01; Admin Dose 10 MG; Start 01/02/17 at 15:00 Famotidine (Pepcid) 20 mg DAILY PO Last administered on 01/07/17 08:52; Admin Dose 20 MG; Start 01/02/17 at 15:00 Morphine Sulfate (morphine) 2 mg Q2H PRN IV PAIN LEVEL 6-10; Start 01/02/17 at 22:30 Acetaminophen/ Hydrocodone Bitart ([place] (5/325)) 1 tab Q6H PRN PO PAIN LEVEL 6 -10; Start 01/02/17 at 22:30 Acetaminophen/ Hydrocodone Bitart ([place] (10/325)) 1 tab Q6H PRN PO PAIN; Start 01/02/17 at 22:30 Acetaminophen (Tylenol Tab) 650 mg Q6H PRN PO PAIN AND OR ELEVATED TEMP; Start 01/02/17 at 22:30 Ibuprofen (Motrin) 600 mg Q6H PRN PO PAIN LEVEL 1-5; Start 01/02/17 at 22:30 Diphenhydramine HCl (Benadryl) 25 mg Q6H PRN IV ITCHING; Start 01/02/17 at 22:30 Ondansetron HCl (Zofran Inj) 4 mg Q6H PRN IV NAUSEA AND/OR VOMITING; Start 01/02 at 22:30 Phenol (Cepastat Lozenge) 1 lozenge PRN PRN MT SORE THROAT; Start 01/02/17 at 22 :30 Zolpidem Tartrate (Ambien) 5 mg HS PRN PO INSOMNIA; Start 01/02/17 at 22:30 Docusate Sodium (Colace) 100 mg BID PO Last administered on 01/06/17 20:31; Admin Dose 100 MG; Start 01/03/17 at 09:00 Senna (Senokot) 1 tab BID PRN PO CONSTIPATION; Start 01/02/17 at 22:30 Ascorbic Acid (Vitamin C) 1,000 mg DAILY PO Last administered on 01/07/17 08: 53; Admin Dose 1,000 MG; Start 01/03/17 at 09:00 Levofloxacin (Levaquin) 250 mg DAILY@06 PO Last administered on 01/07/17 06:13 ; Admin Dose 250 MG; Start 01/05/17 at 06:00 Tramadol HCl (Ultram) 50 mg Q6 PO Last administered on 01/07/17 12:41; Admin Dose 50 MG; Start 01/04/17 at 18:00 Naloxone HCl 0.2 mg 0.2 mg Q2M PRN IV RESPIRATORY RATE LESS THAN 8; Start at 21:30 Vancomycin HCl/ Sodium Chloride (Vancocin/NS) 250 ml @ 83.333 mls/ hr Q48H IVPB Last administered on 01/07/17 12:41; Admin Dose 83.333 MLS/HR; Start 01/05 at 12:00 Clonidine (Catapres) 0.1 mg Q6H PRN PO SBP>160 Last administered on 01/06/17 22:09; Admin Dose 0.1 MG; Start 01/06/17 at 09:00 Fluconazole (Diflucan) 100 mg DAILY PO Last administered on 01/07/17 08:52; Admin Dose 100 MG; Start 01/06/17 at 12:30 IV Flush (NS 10 ml) 10 ml PRN PRN IV FLUSH LINE; Start 01/06/17 at 19:30 GABRIELLA CABRERA 11, 2017 16:07
[2017-01-07 19:09] VITALS: BP 144/67; RESP 18
--- NOTE | 2017-01-07 20:25 | CONS ---
Date/Time of Note Date/Time of Note DATE: 01/07/17 TIME: 20:23 Assessment/Plan Assessment/Plan Chief Complaint/Hosp Course SUBJECTIVE: No acute changes overnight. The patient is alert,looks comfortable , no fevers. ANTIMICROBIALS: 1. Vancomycin. 2. Levaquin. 3. Diflucan PHYSICAL EXAMINATION: GENERAL: This is a well-developed, morbidly obese, middle-aged, [place]- speaking woman, who is in no distress. HEENT: Head atraumatic, normocephalic. Sclerae anicteric. Buccal mucosa dry. NECK: Supple. Trachea midline. CHEST: Rise symmetrical. Breath sounds diminished to bases. HEART: S1, S2. ABDOMEN: Soft, bowel tones present. EXTREMITIES: With right lower extremity dressing intact. MICROBIOLOGY: Wound culture growing Enterobacter, yeast,, corynebacterium species and enterococcus species. ASSESSMENT: 1. Right foot osteomyelitis, cellulitis, status post I and D. 2. Charcot deformity. 3. Diabetes. 4. Morbid obesity. 5. Scabies, status post Elimite and Ivermectin. 6. Chronic kidney disease. PLAN: The patient remains stable. Continue abx, f/u podiatry rec-s, will require 6-8 weeks IV abx for OM, possibly longer DW staff/pt Problems: Consultation Date/Type/Reason Admit Date/Time Jan 01, 2017 at 01:45 Type of Consultation: ID Referring Provider: GABRIELLA CABRERA Exam/Review of Systems Vital Signs Vitals Vital Signs Date Time Temp Pulse Resp B/P Pulse Ox O2 Delivery O2 Flow Rate FiO2 01/07/17 19:09 98.0 88 18 144/67 95 01/06/17 22:32 Room Air 01/04/17 21:11 10.0 Intake and Output 01/06/17 01/06/17 01/07/17 15:00 23:00 07:00 Intake Total 1850 ml 1050 ml Output Total 910 ml 1005 ml Balance 940 ml 45 ml Results Result Diagram: 01/07/17 0430 01/07/17 0430 Results 24 hrs Laboratory Tests Test 01/06/17 20:25 01/07/17 04:30 01/07/17 06:32 01/07/17 08:50 Bedside Glucose 124 228 H White Blood Count 12.3 H Red Blood Count 3.47 #L Hemoglobin 9.8 #L Hematocrit 31.0 L Mean Corpuscular Volume 89.3 Mean Corpuscular Hemoglobin 28.2 L Mean Corpuscular Hemoglobin Concent 31.6 L Red Cell Distribution Width 15.7 H Platelet Count 372 Mean Platelet Volume 10.3 Neutrophils % 68.2 Lymphocytes % 17.0 Monocytes % 6.2 Eosinophils % 7.0 Basophils % 0.4 Nucleated Red Blood Cells % 0.0 Neutrophils # 8.4 H Lymphocytes # 2.1 Monocytes # 0.8 Eosinophils # 0.9 H Basophils # 0.1 Nucleated Red Blood Cells # 0.0 Prothrombin Time 13.8 Prothrombin Time Ratio 1.1 INR International Normalized Ratio 1.06 Activated Partial Thromboplast Time 30.3 Sodium Level 140 Potassium Level 4.6 Chloride Level 111 H Carbon Dioxide Level 22 Anion Gap 12 Blood Urea Nitrogen 31 H Creatinine 2.15 H Glucose Level 205 Calcium Level 8.3 L Lab Scanned Report BLOOD TRANSFUSION Test 01/07/17 12:40 01/07/17 17:44 Bedside Glucose 97 90 Medications Medications Current Medications Acetaminophen (Tylenol Tab) 650 mg Q6H PRN PO PAIN AND OR ELEVATED TEMP; Start 01/01/17 at 04:00 Heparin Sodium (Porcine) (Heparin (5000 Units/0.5 ml)) 5,000 unit BID SC Last administered on 01/07/17 08:56; Admin Dose 5,000 UNIT; Start 01/01/17 at 09:00 Amlodipine Besylate (Norvasc) 10 mg DAILY PO Last administered on 01/07/17 08: 53; Admin Dose 10 MG; Start 01/02/17 at 09:00 Aspirin (Aspirin) 81 mg DAILY PO Last administered on 01/07/17 08:52; Admin Dose 81 MG; Start 01/02/17 at 09:00 Atorvastatin Calcium (Lipitor) 20 mg QHS PO Last administered on 01/06/17 20: 31; Admin Dose 20 MG; Start 01/01/17 at 21:00 Ferrous Sulfate (Ferrous Sulfate (Ec)) 325 mg TID PO Last administered on 12:41; Admin Dose 325 MG; Start 01/01/17 at 21:00 Folic Acid (Folic Acid) 1 mg DAILY PO Last administered on 01/07/17 08:52; Admin Dose 1 MG; Start 01/02/17 at 09:00 Hydralazine HCl (Apresoline) 10 mg DAILY@21 PO Last administered on 01/06/17 20:31; Admin Dose 10 MG; Start 01/01/17 at 21:00 Insulin Glargine (Lantus) 22 unit Q12 SC Last administered on 01/07/17 08:57; Admin Dose 22 UNIT; Start 01/01/17 at 15:00 Levothyroxine Sodium (Synthroid) 75 mcg DAILY@06 PO Last administered on 06:13; Admin Dose 75 MCG; Start 01/02/17 at 06:00 Tramadol HCl (Ultram) 50 mg Q6H PRN PO PAIN LEVEL 7-10; Start 01/01/17 at 15:00 Miscellaneous Information 1 ea NOTE XX ; Start 01/01/17 at 15:00 Glucose (Glutose) 15 gm Q15M PRN PO DECREASED GLUCOSE; Start 01/01/17 at 15:00 Glucose (Glutose) 22.5 gm Q15M PRN PO DECREASED GLUCOSE; Start 01/01/17 at 15:00 Dextrose (D50w Syringe) 25 ml Q15M PRN IV DECREASED GLUCOSE; Start 01/01/17 at 15:00 Dextrose (D50w Syringe) 50 ml Q15M PRN IV DECREASED GLUCOSE; Start 01/01/17 at 15:00 Glucagon (Glucagen) 1 mg Q15M PRN IM DECREASED GLUCOSE; Start 01/01/17 at 15:00 Glucose (Glutose) 15 gm Q15M PRN BUCCAL DECREASED GLUCOSE; Start 01/01/17 at 15: 00 Morphine Sulfate 2 mg 2 mg Q4H PRN IV PAIN; Start 01/01/17 at 16:00 Ondansetron HCl/ Sodium Chloride (Zofran Inj/NS) 54 ml @ 216 mls/hr Q6H PRN IV NAUSEA AND/OR VOMITING Last administered on 01/02/17 09:25; Admin Dose 216 MLS/HR; Start 01/01/17 at 15:30 Hydralazine HCl (Apresoline) 10 mg Q6H PRN IV ELEVATED BLOOD PRESSURE Last administered on 01/06/17 18:01; Admin Dose 10 MG; Start 01/02/17 at 15:00 Famotidine (Pepcid) 20 mg DAILY PO Last administered on 01/07/17 08:52; Admin Dose 20 MG; Start 01/02/17 at 15:00 Morphine Sulfate (morphine) 2 mg Q2H PRN IV PAIN LEVEL 6-10; Start 01/02/17 at 22:30 Acetaminophen/ Hydrocodone Bitart ([place] (5/325)) 1 tab Q6H PRN PO PAIN LEVEL 6 -10; Start 01/02/17 at 22:30 Acetaminophen/ Hydrocodone Bitart ([place] (10/325)) 1 tab Q6H PRN PO PAIN; Start 01/02/17 at 22:30 Acetaminophen (Tylenol Tab) 650 mg Q6H PRN PO PAIN AND OR ELEVATED TEMP; Start 01/02/17 at 22:30 Ibuprofen (Motrin) 600 mg Q6H PRN PO PAIN LEVEL 1-5; Start 01/02/17 at 22:30 Diphenhydramine HCl (Benadryl) 25 mg Q6H PRN IV ITCHING; Start 01/02/17 at 22:30 Ondansetron HCl (Zofran Inj) 4 mg Q6H PRN IV NAUSEA AND/OR VOMITING; Start 01/02 at 22:30 Phenol (Cepastat Lozenge) 1 lozenge PRN PRN MT SORE THROAT; Start 01/02/17 at 22 :30 Zolpidem Tartrate (Ambien) 5 mg HS PRN PO INSOMNIA; Start 01/02/17 at 22:30 Docusate Sodium (Colace) 100 mg BID PO Last administered on 01/06/17 20:31; Admin Dose 100 MG; Start 01/03/17 at 09:00 Senna (Senokot) 1 tab BID PRN PO CONSTIPATION; Start 01/02/17 at 22:30 Ascorbic Acid (Vitamin C) 1,000 mg DAILY PO Last administered on 01/07/17 08: 53; Admin Dose 1,000 MG; Start 01/03/17 at 09:00 Levofloxacin (Levaquin) 250 mg DAILY@06 PO Last administered on 01/07/17 06:13 ; Admin Dose 250 MG; Start 01/05/17 at 06:00 Tramadol HCl (Ultram) 50 mg Q6 PO Last administered on 01/07/17 17:44; Admin Dose 50 MG; Start 01/04/17 at 18:00 Naloxone HCl 0.2 mg 0.2 mg Q2M PRN IV RESPIRATORY RATE LESS THAN 8; Start at 21:30 Vancomycin HCl/ Sodium Chloride (Vancocin/NS) 250 ml @ 83.333 mls/ hr Q48H IVPB Last administered on 01/07/17 12:41; Admin Dose 83.333 MLS/HR; Start 01/05 at 12:00 Clonidine (Catapres) 0.1 mg Q6H PRN PO SBP>160 Last administered on 01/06/17 22:09; Admin Dose 0.1 MG; Start 01/06/17 at 09:00 Fluconazole (Diflucan) 100 mg DAILY PO Last administered on 01/07/17 08:52; Admin Dose 100 MG; Start 01/06/17 at 12:30 IV Flush (NS 10 ml) 10 ml PRN PRN IV FLUSH LINE; Start 01/06/17 at 19:30 GEORGIANA MORIN NP Jan 07, 2017 20:25
[2017-01-07] MEDS: ATORVASTATIN 20 MG TAB PO SCH (21:39)
[2017-01-08] MEDS: traMADol 50 MG TAB PO SCH ×3 (05:36→17:58)
[2017-01-08] MEDS: LEVOTHYROXINE 75 MCG TAB PO SCH (05:36)
[2017-01-08] MEDS: LEVOFLOXACIN 250 MG TAB PO SCH (05:36)
[2017-01-08 05:48] LABS: ADD SCAN DIFF NO
[2017-01-08 06:07] LABS: BASOPHIL # 0.1 10^3/ul (0.0-0.1); BASOPHILS % 0.5 % (0.0-2.0); EOSINOPHILS # 0.7 10^3/ul (0.0-0.5); EOSINOPHILS % 4.9 % (0.0-7.0); HEMATOCRIT 31.1 % (37.0-47.0); HEMOGLOBIN 9.6 g/dl (12.0-16.0); LYMPHOCYTES # 1.9 10^3/ul (0.8-2.9); LYMPHOCYTES % 12.3 % (15.0-51.0); MEAN CORPUSCULAR HEMOGLOBIN 27.6 pg (29.0-33.0); MEAN CORPUSCULAR HGB CONC 30.9 g/dl (32.0-37.0); MEAN CORPUSCULAR VOLUME 89.4 fl (82.0-101.0); MEAN PLATELET VOLUME 10.6 fl (7.4-10.4); MONOCYTE # 0.9 10^3/ul (0.3-0.9); NEUTROPHIL # 11.4 10^3/ul (1.6-7.5); NEUTROPHILS % 75.4 % (39.0-77.0); PLATELET COUNT 362 10^3/UL (140-415); RED BLOOD COUNT 3.48 10^6/ul (4.20-5.40); RED CELL DISTRIBUTION WIDTH 15.9 % (11.5-14.5); WHITE BLOOD COUNT 15.1 10^3/ul (4.8-10.8)
[2017-01-08 06:26] LABS: CALCIUM 8.7 mg/dl (8.4-10.2); CREATININE 2.1 mg/dl (0.44-1.00); POTASSIUM 4.8 mmol/L (3.5-5.1)
--- NOTE | 2017-01-08 07:44 | PN ---
DATE: 01/07/2017 SUBJECTIVE: The patient is alert, feels better. Looks comfortable, no fevers. WBC 13, platelets 360, no shift, no bands. BUN 30, creatinine 2.21. MICROBIOLOGY: Wound culture repeated on 01/04/2017 growing yeast and gram-negative rods. Previous culture grew enterococcus species, corynebacterium, coagulase negative staph, Enterobacter cloacae. ANTIMICROBIALS: The patient is on: 1. Vancomycin. 2. Fluconazole. 3. Levaquin. INDWELLINGS: PICC line placed on 01/06/2017. PHYSICAL EXAMINATION: GENERAL: This is a morbidly obese, well-developed, middle-aged [place] speaking woman who is alert, in no distress. HEENT: Head atraumatic, normocephalic. Sclerae anicteric. Buccal mucosa pink. NECK: Supple. CHEST: Rise symmetrical. Breath sounds clear. HEART: S1, S2. ABDOMEN: Soft. Bowel sounds present. EXTREMITIES: With right foot dressing intact. ASSESSMENT: 1. Right foot cellulitis, osteomyelitis, abscess, status post incision and drainage. 2. Right foot Charcot deformity. 3. Scabies, status post received treatment with Elimite and then dose of ivermectin 3 days ago. 4. Morbid obesity. 5. Poorly controlled diabetes. 6. Chronic kidney disease. PLAN: The patient remains stable. WBC tracing down. She is on appropriate antimicrobials pending final cultures. Follow podiatry recommendations. Anticipate discharge on IV antibiotics for 6 to 8 weeks. Dictated By: GEORGIANA MORIN PALLETISER OPERATOR evaristo ALVARADO/SYED Conf#: [id number] DID#: [id number]
[2017-01-08 08:23] VITALS: BP 178/74; RESP 19
[2017-01-08] MEDS: ASPIRIN 81 MG TAB PO SCH (08:49)
[2017-01-08] MEDS: FLUCONAZOLE 100 MG TAB PO SCH (08:49)
[2017-01-08] MEDS: AMLODIPINE 10 MG TAB PO SCH (08:50)
[2017-01-08] MEDS: FOLIC ACID 1 MG TAB PO SCH (08:50)
[2017-01-08] MEDS: ASCORBIC ACID 500 MG TAB PO SCH (08:50)
[2017-01-08] MEDS: FAMOTIDINE 20 MG TAB PO SCH (08:50)
[2017-01-08] MEDS: HEPARIN 5,000 UNIT/0.5 ML VIAL SC SCH ×2 (08:52→21:26)
[2017-01-08] MEDS: INSULIN ASPART [NOVOLOG] 3 ML PEN SC SCH ×7 (08:53→21:00)
[2017-01-08] MEDS: INSULIN GLARGINE [LANtus] 3 ML PEN SC SCH ×2 (08:55→21:25)
[2017-01-08] MEDS: DOCUSATE SODIUM 100 MG CAP PO SCH ×2 (09:00→21:22)
[2017-01-08] MEDS: FERROUS SULFATE (EC) 325 MG TAB PO SCH ×3 (09:00→21:22)
--- NOTE | 2017-01-08 10:14 | PN ---
Date/Time of Note Date/Time of Note DATE: 01/08/17 TIME: 10:08 Assessment/Plan VTE Prophylaxis VTE Prophylaxis Intervention: heparin Lines/Catheters [facility] PICC Line Central line still needed: Yes Urinary Cath still in place: No Assessment/Plan Assessment/Plan 51-year-old female with history of right foot diabetic ulcer, osteomyelitis, essential hypertension, type 2 diabetes, hypothyroidism, high cholesterol, chronic kidney disease, right internal carotid artery stenosis who was transferred from outside hospital for right foot wound infection and osteomyelitis, s/p surgery. 1. Multiorganism Right foot wound infection/osteomyelitis - s/p x 2 surgical procedures this admission - multiple incision and drainage of right foot dorsal aspect and excisional debridement of skin, subcutaneous tissue, muscle, and bone to ulceration plantar aspect 8 x 6 cm - Again, continue broad spectrum antibiotics. - Follow up ID and podiatry recommendations regarding length of abx tx - Tylenol p.r.n. pain, fevers. 2. Type 2 diabetes. Again, A1c is elevated = 8.0 - Continue current insulin regimen. 3. Hypertension. Again, blood pressure is high normal. - Continue p.o. medications and p.r.n. hydralazine IV. 4. History of chronic kidney disease. Creatinine still elevated, but trending down slightly today (2.8 -> 2.6 -> 2.2 -> 2.2 -> 2.15) - Follow up renal recommendations. - Continue to monitor urine output. - IV fluids as well per renal rec's 5. History of right carotid endarterectomy. Continue to monitor for now. 6. Hypothyroidism 7. Lice - received Elimite - f/u ID rec's - per ID, s/p Ivermectin p.o. for scabies and repeat x2 weekly 8. Hypochromic anemia associated with CKD Dispo: Patient remain stable for D/c on IV abx after HH / wound vac / wound care has been setup. Gastrointestinal prophylaxis - Pepcid. Deep venous thrombosis prophylaxis. Heparin subcutaneously. Subjective 24 Hr Interval Summary Free Text/Dictation NO COMPLAINTS, Awaiting home abx arrangements and wound vac Exam/Review of Systems Vital Signs Vitals Vital Signs Date Time Temp Pulse Resp B/P Pulse Ox O2 Delivery O2 Flow Rate FiO2 01/08/17 08:23 98.1 97 19 178/74 96 01/06/17 22:32 Room Air 01/04/17 21:11 10.0 Intake and Output 01/07/17 01/07/17 01/08/17 15:00 23:00 07:00 Intake Total 1050 ml 650 ml Output Total 1005 ml 700 ml Balance 45 ml -50 ml Exam GENERAL: The patient sitting on the edge of the bed, answering questions appropriately. No acute distress. HEENT: Pupils equal, round, reactive to light. Extraocular muscles intact. NECK: Supple. No thyromegaly. LUNGS: Clear to auscultation bilaterally. CARDIOVASCULAR: S1, S2 heard. No rubs or gallops. ABDOMEN: Soft, nontender, nondistended. Normal bowel sounds. No rebound or guarding. MUSCULOSKELETAL: There is a right foot bandage, otherwise no lower extremity edema bilaterally. NEUROLOGIC: No focal deficits. Results Result Diagram: 01/08/17 0427 01/08/17 0427 Results 24 hrs Laboratory Tests Test 01/07/17 12:40 01/07/17 17:44 01/07/17 21:36 01/08/17 04:27 Bedside Glucose 97 90 78 White Blood Count 15.1 #H Red Blood Count 3.48 L Hemoglobin 9.6 L Hematocrit 31.1 L Mean Corpuscular Volume 89.4 Mean Corpuscular Hemoglobin 27.6 L Mean Corpuscular Hemoglobin Concent 30.9 L Red Cell Distribution Width 15.9 H Platelet Count 362 Mean Platelet Volume 10.6 H Neutrophils % 75.4 Lymphocytes % 12.3 L Monocytes % 6.0 Eosinophils % 4.9 Basophils % 0.5 Nucleated Red Blood Cells % 0.0 Neutrophils # 11.4 H Lymphocytes # 1.9 Monocytes # 0.9 Eosinophils # 0.7 H Basophils # 0.1 Nucleated Red Blood Cells # 0.0 Sodium Level 139 Potassium Level 4.8 Chloride Level 110 Carbon Dioxide Level 21 Anion Gap 13 Blood Urea Nitrogen 37 H Creatinine 2.10 H Glucose Level 159 Calcium Level 8.7 Test 01/08/17 08:48 Bedside Glucose 220 Medications Medications Current Medications Acetaminophen (Tylenol Tab) 650 mg Q6H PRN PO PAIN AND OR ELEVATED TEMP; Start 01/01/17 at 04:00 Heparin Sodium (Porcine) (Heparin (5000 Units/0.5 ml)) 5,000 unit BID SC Last administered on 01/08/17 08:52; Admin Dose 5,000 UNIT; Start 01/01/17 at 09:00 Amlodipine Besylate (Norvasc) 10 mg DAILY PO Last administered on 01/08/17 08: 50; Admin Dose 10 MG; Start 01/02/17 at 09:00 Aspirin (Aspirin) 81 mg DAILY PO Last administered on 01/08/17 08:49; Admin Dose 81 MG; Start 01/02/17 at 09:00 Atorvastatin Calcium (Lipitor) 20 mg QHS PO Last administered on 01/07/17 21: 39; Admin Dose 20 MG; Start 01/01/17 at 21:00 Ferrous Sulfate (Ferrous Sulfate (Ec)) 325 mg TID PO Last administered on 21:39; Admin Dose 325 MG; Start 01/01/17 at 21:00 Folic Acid (Folic Acid) 1 mg DAILY PO Last administered on 01/08/17 08:50; Admin Dose 1 MG; Start 01/02/17 at 09:00 Hydralazine HCl (Apresoline) 10 mg DAILY@21 PO Last administered on 01/07/17 21:40; Admin Dose 10 MG; Start 01/01/17 at 21:00 Insulin Glargine (Lantus) 22 unit Q12 SC Last administered on 01/08/17 08:55; Admin Dose 22 UNIT; Start 01/01/17 at 15:00 Levothyroxine Sodium (Synthroid) 75 mcg DAILY@06 PO Last administered on 05:36; Admin Dose 75 MCG; Start 01/02/17 at 06:00 Tramadol HCl (Ultram) 50 mg Q6H PRN PO PAIN LEVEL 7-10; Start 01/01/17 at 15:00 Miscellaneous Information 1 ea NOTE XX ; Start 01/01/17 at 15:00 Glucose (Glutose) 15 gm Q15M PRN PO DECREASED GLUCOSE; Start 01/01/17 at 15:00 Glucose (Glutose) 22.5 gm Q15M PRN PO DECREASED GLUCOSE; Start 01/01/17 at 15:00 Dextrose (D50w Syringe) 25 ml Q15M PRN IV DECREASED GLUCOSE; Start 01/01/17 at 15:00 Dextrose (D50w Syringe) 50 ml Q15M PRN IV DECREASED GLUCOSE; Start 01/01/17 at 15:00 Glucagon (Glucagen) 1 mg Q15M PRN IM DECREASED GLUCOSE; Start 01/01/17 at 15:00 Glucose (Glutose) 15 gm Q15M PRN BUCCAL DECREASED GLUCOSE; Start 01/01/17 at 15: 00 Morphine Sulfate 2 mg 2 mg Q4H PRN IV PAIN; Start 01/01/17 at 16:00 Ondansetron HCl/ Sodium Chloride (Zofran Inj/NS) 54 ml @ 216 mls/hr Q6H PRN IV NAUSEA AND/OR VOMITING Last administered on 01/02/17 09:25; Admin Dose 216 MLS/HR; Start 01/01/17 at 15:30 Hydralazine HCl (Apresoline) 10 mg Q6H PRN IV ELEVATED BLOOD PRESSURE Last administered on 01/06/17 18:01; Admin Dose 10 MG; Start 01/02/17 at 15:00 Famotidine (Pepcid) 20 mg DAILY PO Last administered on 01/08/17 08:50; Admin Dose 20 MG; Start 01/02/17 at 15:00 Morphine Sulfate (morphine) 2 mg Q2H PRN IV PAIN LEVEL 6-10; Start 01/02/17 at 22:30 Acetaminophen/ Hydrocodone Bitart ([place] (5/325)) 1 tab Q6H PRN PO PAIN LEVEL 6 -10; Start 01/02/17 at 22:30 Acetaminophen/ Hydrocodone Bitart ([place] (10/325)) 1 tab Q6H PRN PO PAIN; Start 01/02/17 at 22:30 Acetaminophen (Tylenol Tab) 650 mg Q6H PRN PO PAIN AND OR ELEVATED TEMP; Start 01/02/17 at 22:30 Ibuprofen (Motrin) 600 mg Q6H PRN PO PAIN LEVEL 1-5; Start 01/02/17 at 22:30 Diphenhydramine HCl (Benadryl) 25 mg Q6H PRN IV ITCHING; Start 01/02/17 at 22:30 Ondansetron HCl (Zofran Inj) 4 mg Q6H PRN IV NAUSEA AND/OR VOMITING; Start 01/02 at 22:30 Phenol (Cepastat Lozenge) 1 lozenge PRN PRN MT SORE THROAT; Start 01/02/17 at 22 :30 Zolpidem Tartrate (Ambien) 5 mg HS PRN PO INSOMNIA; Start 01/02/17 at 22:30 Docusate Sodium (Colace) 100 mg BID PO Last administered on 01/07/17 21:39; Admin Dose 100 MG; Start 01/03/17 at 09:00 Senna (Senokot) 1 tab BID PRN PO CONSTIPATION; Start 01/02/17 at 22:30 Ascorbic Acid (Vitamin C) 1,000 mg DAILY PO Last administered on 01/08/17 08: 50; Admin Dose 1,000 MG; Start 01/03/17 at 09:00 Levofloxacin (Levaquin) 250 mg DAILY@06 PO Last administered on 01/08/17 05:36 ; Admin Dose 250 MG; Start 01/05/17 at 06:00 Tramadol HCl (Ultram) 50 mg Q6 PO Last administered on 01/08/17 05:36; Admin Dose 50 MG; Start 01/04/17 at 18:00 Naloxone HCl 0.2 mg 0.2 mg Q2M PRN IV RESPIRATORY RATE LESS THAN 8; Start at 21:30 Vancomycin HCl/ Sodium Chloride (Vancocin/NS) 250 ml @ 83.333 mls/ hr Q48H IVPB Last administered on 01/07/17 12:41; Admin Dose 83.333 MLS/HR; Start 01/05 at 12:00 Clonidine (Catapres) 0.1 mg Q6H PRN PO SBP>160 Last administered on 01/06/17 22:09; Admin Dose 0.1 MG; Start 01/06/17 at 09:00 Fluconazole (Diflucan) 100 mg DAILY PO Last administered on 01/08/17 08:49; Admin Dose 100 MG; Start 01/06/17 at 12:30 IV Flush (NS 10 ml) 10 ml PRN PRN IV FLUSH LINE; Start 01/06/17 at 19:30 MARIAA AGOSTO Jan 08, 2017 10:14
[2017-01-08] MEDS: hydrALAzine 20 MG INJ IV PRN (10:47)
[2017-01-08 10:52] LABS: IRON 45 ug/dl (35-150)
[2017-01-08 11:02] LABS: TOTAL IRON BINDING CAPACITY 252 ug/dl (241-421)
[2017-01-08 11:44] VITALS: BP 133/80; PULSE 101; RESP 18
--- NOTE | 2017-01-08 12:32 | CONS ---
Date/Time of Note Date/Time of Note DATE: 01/08/17 TIME: 12:27 Assessment/Plan Assessment/Plan Chief Complaint/Hosp Course SUBJECTIVE: The patient is alert, feels better. Looks comfortable, no fevers. Denies pain. MICROBIOLOGY: Wound culture repeated on 01/04/2017 growing yeast and gram- negative rods. Previous culture grew enterococcus species, corynebacterium, coagulase negative staph, Enterobacter cloacae. ANTIMICROBIALS: The patient is on: 1. Vancomycin. 2. Fluconazole. 3. Levaquin. INDWELLINGS: PICC line placed on 01/06/2017. PHYSICAL EXAMINATION: GENERAL: This is a morbidly obese, well-developed, middle-aged Pakistani speaking woman who is alert, in no distress. HEENT: Head atraumatic, normocephalic. Sclerae anicteric. Buccal mucosa pink. NECK: Supple. CHEST: Rise symmetrical. Breath sounds clear. HEART: S1, S2. ABDOMEN: Soft. Bowel sounds present. EXTREMITIES: With right foot dressing intact. ASSESSMENT: 1. Right foot cellulitis, osteomyelitis, abscess, status post incision and drainage. 2. Right foot Charcot deformity. 3. Scabies, status post received treatment with Elimite and then dose of ivermectin 3 days ago. 4. Morbid obesity. 5. Poorly controlled diabetes. 6. Chronic kidney disease. PLAN: The patient remains stable. WBC tracing down. She is on appropriate antimicrobials pending final cultures. Follow podiatry recommendations. Anticipate discharge on IV antibiotics for 6 to 8 weeks. We will give one more dose of Rx Ivermectine. D/W staff. Problems: Consultation Date/Type/Reason Admit Date/Time Jan 01, 2017 at 01:45 Type of Consultation: ID Referring Provider: GABRIELLA CABRERA Exam/Review of Systems Vital Signs Vitals Vital Signs Date Time Temp Pulse Resp B/P Pulse Ox O2 Delivery O2 Flow Rate FiO2 01/08/17 11:44 101 18 133/80 99 Room Air 01/08/17 08:23 98.1 01/04/17 21:11 10.0 Intake and Output 01/07/17 01/07/17 01/08/17 15:00 23:00 07:00 Intake Total 1050 ml 650 ml Output Total 1005 ml 700 ml Balance 45 ml -50 ml Results Result Diagram: 01/08/17 0427 01/08/17 0427 Results 24 hrs Laboratory Tests Test 01/07/17 12:40 01/07/17 17:44 01/07/17 21:36 01/08/17 04:27 Bedside Glucose 97 90 78 White Blood Count 15.1 #H Red Blood Count 3.48 L Hemoglobin 9.6 L Hematocrit 31.1 L Mean Corpuscular Volume 89.4 Mean Corpuscular Hemoglobin 27.6 L Mean Corpuscular Hemoglobin Concent 30.9 L Red Cell Distribution Width 15.9 H Platelet Count 362 Mean Platelet Volume 10.6 H Neutrophils % 75.4 Lymphocytes % 12.3 L Monocytes % 6.0 Eosinophils % 4.9 Basophils % 0.5 Nucleated Red Blood Cells % 0.0 Neutrophils # 11.4 H Lymphocytes # 1.9 Monocytes # 0.9 Eosinophils # 0.7 H Basophils # 0.1 Nucleated Red Blood Cells # 0.0 Sodium Level 139 Potassium Level 4.8 Chloride Level 110 Carbon Dioxide Level 21 Anion Gap 13 Blood Urea Nitrogen 37 H Creatinine 2.10 H Glucose Level 159 Calcium Level 8.7 Iron Level 45 Total Iron Binding Capacity 252 Percent Iron Saturation 18 L Test 01/08/17 08:48 Bedside Glucose 220 Medications Medications Current Medications Acetaminophen (Tylenol Tab) 650 mg Q6H PRN PO PAIN AND OR ELEVATED TEMP; Start 01/01/17 at 04:00 Heparin Sodium (Porcine) (Heparin (5000 Units/0.5 ml)) 5,000 unit BID SC Last administered on 01/08/17 08:52; Admin Dose 5,000 UNIT; Start 01/01/17 at 09:00 Amlodipine Besylate (Norvasc) 10 mg DAILY PO Last administered on 01/08/17 08: 50; Admin Dose 10 MG; Start 01/02/17 at 09:00 Aspirin (Aspirin) 81 mg DAILY PO Last administered on 01/08/17 08:49; Admin Dose 81 MG; Start 01/02/17 at 09:00 Atorvastatin Calcium (Lipitor) 20 mg QHS PO Last administered on 01/07/17 21: 39; Admin Dose 20 MG; Start 01/01/17 at 21:00 Ferrous Sulfate (Ferrous Sulfate (Ec)) 325 mg TID PO Last administered on 21:39; Admin Dose 325 MG; Start 01/01/17 at 21:00 Folic Acid (Folic Acid) 1 mg DAILY PO Last administered on 01/08/17 08:50; Admin Dose 1 MG; Start 01/02/17 at 09:00 Hydralazine HCl (Apresoline) 10 mg DAILY@21 PO Last administered on 01/07/17 21:40; Admin Dose 10 MG; Start 01/01/17 at 21:00 Insulin Glargine (Lantus) 22 unit Q12 SC Last administered on 01/08/17 08:55; Admin Dose 22 UNIT; Start 01/01/17 at 15:00 Levothyroxine Sodium (Synthroid) 75 mcg DAILY@06 PO Last administered on 05:36; Admin Dose 75 MCG; Start 01/02/17 at 06:00 Tramadol HCl (Ultram) 50 mg Q6H PRN PO PAIN LEVEL 7-10; Start 01/01/17 at 15:00 Miscellaneous Information 1 ea NOTE XX ; Start 01/01/17 at 15:00 Glucose (Glutose) 15 gm Q15M PRN PO DECREASED GLUCOSE; Start 01/01/17 at 15:00 Glucose (Glutose) 22.5 gm Q15M PRN PO DECREASED GLUCOSE; Start 01/01/17 at 15:00 Dextrose (D50w Syringe) 25 ml Q15M PRN IV DECREASED GLUCOSE; Start 01/01/17 at 15:00 Dextrose (D50w Syringe) 50 ml Q15M PRN IV DECREASED GLUCOSE; Start 01/01/17 at 15:00 Glucagon (Glucagen) 1 mg Q15M PRN IM DECREASED GLUCOSE; Start 01/01/17 at 15:00 Glucose (Glutose) 15 gm Q15M PRN BUCCAL DECREASED GLUCOSE; Start 01/01/17 at 15: 00 Morphine Sulfate 2 mg 2 mg Q4H PRN IV PAIN; Start 01/01/17 at 16:00 Ondansetron HCl/ Sodium Chloride (Zofran Inj/NS) 54 ml @ 216 mls/hr Q6H PRN IV NAUSEA AND/OR VOMITING Last administered on 01/02/17 09:25; Admin Dose 216 MLS/HR; Start 01/01/17 at 15:30 Hydralazine HCl (Apresoline) 10 mg Q6H PRN IV ELEVATED BLOOD PRESSURE Last administered on 01/08/17 10:47; Admin Dose 10 MG; Start 01/02/17 at 15:00 Famotidine (Pepcid) 20 mg DAILY PO Last administered on 01/08/17 08:50; Admin Dose 20 MG; Start 01/02/17 at 15:00 Morphine Sulfate (morphine) 2 mg Q2H PRN IV PAIN LEVEL 6-10; Start 01/02/17 at 22:30 Acetaminophen/ Hydrocodone Bitart ([place] (5/325)) 1 tab Q6H PRN PO PAIN LEVEL 6 -10; Start 01/02/17 at 22:30 Acetaminophen/ Hydrocodone Bitart ([place] (10/325)) 1 tab Q6H PRN PO PAIN; Start 01/02/17 at 22:30 Acetaminophen (Tylenol Tab) 650 mg Q6H PRN PO PAIN AND OR ELEVATED TEMP; Start 01/02/17 at 22:30 Ibuprofen (Motrin) 600 mg Q6H PRN PO PAIN LEVEL 1-5; Start 01/02/17 at 22:30 Diphenhydramine HCl (Benadryl) 25 mg Q6H PRN IV ITCHING; Start 01/02/17 at 22:30 Ondansetron HCl (Zofran Inj) 4 mg Q6H PRN IV NAUSEA AND/OR VOMITING; Start 01/02 at 22:30 Phenol (Cepastat Lozenge) 1 lozenge PRN PRN MT SORE THROAT; Start 01/02/17 at 22 :30 Zolpidem Tartrate (Ambien) 5 mg HS PRN PO INSOMNIA; Start 01/02/17 at 22:30 Docusate Sodium (Colace) 100 mg BID PO Last administered on 01/07/17 21:39; Admin Dose 100 MG; Start 01/03/17 at 09:00 Senna (Senokot) 1 tab BID PRN PO CONSTIPATION; Start 01/02/17 at 22:30 Ascorbic Acid (Vitamin C) 1,000 mg DAILY PO Last administered on 01/08/17 08: 50; Admin Dose 1,000 MG; Start 01/03/17 at 09:00 Levofloxacin (Levaquin) 250 mg DAILY@06 PO Last administered on 01/08/17 05:36 ; Admin Dose 250 MG; Start 01/05/17 at 06:00 Tramadol HCl (Ultram) 50 mg Q6 PO Last administered on 01/08/17 05:36; Admin Dose 50 MG; Start 01/04/17 at 18:00 Naloxone HCl 0.2 mg 0.2 mg Q2M PRN IV RESPIRATORY RATE LESS THAN 8; Start at 21:30 Vancomycin HCl/ Sodium Chloride (Vancocin/NS) 250 ml @ 83.333 mls/ hr Q48H IVPB Last administered on 01/07/17 12:41; Admin Dose 83.333 MLS/HR; Start 01/05 at 12:00 Clonidine (Catapres) 0.1 mg Q6H PRN PO SBP>160 Last administered on 01/06/17 22:09; Admin Dose 0.1 MG; Start 01/06/17 at 09:00 Fluconazole (Diflucan) 100 mg DAILY PO Last administered on 01/08/17 08:49; Admin Dose 100 MG; Start 01/06/17 at 12:30 IV Flush (NS 10 ml) 10 ml PRN PRN IV FLUSH LINE; Start 01/06/17 at 19:30 Miscellaneous Information (*Rx Drug Level Order Reminder*) VANCOMYCIN TROUGH AT 1100 ONCE ONCE XX ; Start 01/09/17 at 11:00; Stop 01/09/17 at 11:01 Ivermectin (Stromectol) 12 mg ONCE PO ; Start 01/08/17 at 13:00; Stop 01/08/17 at 13:01 CARMEN COREY NP Jan 08, 2017 12:32
[2017-01-08] MEDS ORDERED: LEVO250T35 PO (12:57)
[2017-01-08] MEDS ORDERED: FLUC100T PO (12:57)
[2017-01-08] MEDS ORDERED: DOCU-216 PO (12:57)
[2017-01-08] MEDS ORDERED: ASC500 PO (12:57)
[2017-01-08] MEDS ORDERED: LACT1CAP57 PO (12:57)
[2017-01-08] MEDS ORDERED: Vancomycin Iv Per Pharmacy XX (12:57)
[2017-01-08] MEDS ORDERED: IVERMECTIN 3 MG TAB PO SCH (13:00)
--- NOTE | 2017-01-08 15:16 | CONS ---
DATE OF ADMISSION: 01/01/2017 DATE OF CONSULTATION: 01/08/2017 SUBJECTIVE FINDINGS: The patient being followed for right foot infection. She is status post ewa ional debridements. Cultures positive for Enterobacter cloacae, yeast and coag negative staph. The p atient remains afebrile, has trend of decreased WBC, today it is elevated at 15.1. OBJECTIVE FINDINGS VITAL SIGNS: Temperature 98.1, pulse 97, respiratory rate 19, blood pressure 178/74, pulse oximetry is 96%. GENERAL: The patient alert, oriented, overweight, has a wound VAC with estimated sanguineous draina ge of 50 mL. The patient with chronic Charcot deformity. Absent protective sensation. Extremity i s warm to touch, wound VAC removed. The patient has a plantar ulceration with improved granulation. There is mild sanguineous drainage. No active bleeding. There is 1 wound that tunnels to bone, m id foot and surgical incision located lateral aspect of the fifth MPJ and lateral aspect of the foot and ankle. Also with mild sanguineous drainage, decreased edema, erythema. The patient has 2 toe amputation. ASSESSMENT: 1. Right foot diabetic foot infection. 2. Polymicrobial infection with enterococcus and yeast and history of scabies. 3. Cellulitis. 4. Edema. 5. Diabetes, poorly controlled. 6. Chronic kidney disease. PLAN: Patient has a PICC line placed. Recommend 6 to 8 weeks IV antibiotics. Appreciate ID recomm endations. Will need follow up for wound care. The patient will need a wound VAC and case managemen t assistance to set up home health as well as a wound VAC dressing change with silver foam with dres sing changes q. Sunday, Sunday and Sunday. Recommend nonweightbearing status with the use of a wheelchair. The patient at high risk for furthe r diabetic foot complications and loss of limb. Cultures and labs reviewed. Pathology results prel iminary reveals acute osteomyelitis. Wound VAC was changed. Skin and wound care performed. Recomm end discharge planning. Dictated By: CARMEN DAVEY/SYED Conf#: [id number] DID#: [id number]
--- NOTE | 2017-01-08 17:10 | CONS ---
Date/Time of Note Date/Time of Note DATE: 01/08/17 TIME: 17:09 Assessment/Plan Assessment/Plan Additional Assessment/Plan 1. Acute kidney injury on chronic kidney disease secondary to sepsis from infections including the right foot osteomyelitis. 2. History of possible chronic kidney disease secondary to diabetic nephropathy. 3. Adult onset type 2 diabetes mellitus, poorly controlled. 4. Hypertension. 5. Hypothyroidism. 6. History of previous right second and third toe amputations. 7. Possible peripheral vascular disease. PLAN: pt has acute on chronic renal failure, s/p IVF- Cr improved to 2.1 with IV abx and IVF hydration s/p Right foot excisional debridement , need better glycemic control will follow up US c/w Medical renal disease Consultation Date/Type/Reason Admit Date/Time Jan 01, 2017 at 01:45 Initial Consult Date Cr improved to 2.1.Electrolytes stable Type of Consultation: NEPHROLOGY Referring Provider: GABRIELLA CABRERA Exam/Review of Systems Vital Signs Vitals Vital Signs Date Time Temp Pulse Resp B/P Pulse Ox O2 Delivery O2 Flow Rate FiO2 01/08/17 11:44 101 18 133/80 99 Room Air 01/08/17 08:23 98.1 01/04/17 21:11 10.0 Intake and Output 01/07/17 01/07/17 01/08/17 15:00 23:00 07:00 Intake Total 1050 ml 650 ml Output Total 1005 ml 700 ml Balance 45 ml -50 ml Results Result Diagram: 01/08/17 0427 01/08/17 0427 Results 24 hrs Laboratory Tests Test 01/07/17 17:44 01/07/17 21:36 01/08/17 04:27 01/08/17 08:48 Bedside Glucose 90 78 220 White Blood Count 15.1 #H Red Blood Count 3.48 L Hemoglobin 9.6 L Hematocrit 31.1 L Mean Corpuscular Volume 89.4 Mean Corpuscular Hemoglobin 27.6 L Mean Corpuscular Hemoglobin Concent 30.9 L Red Cell Distribution Width 15.9 H Platelet Count 362 Mean Platelet Volume 10.6 H Neutrophils % 75.4 Lymphocytes % 12.3 L Monocytes % 6.0 Eosinophils % 4.9 Basophils % 0.5 Nucleated Red Blood Cells % 0.0 Neutrophils # 11.4 H Lymphocytes # 1.9 Monocytes # 0.9 Eosinophils # 0.7 H Basophils # 0.1 Nucleated Red Blood Cells # 0.0 Sodium Level 139 Potassium Level 4.8 Chloride Level 110 Carbon Dioxide Level 21 Anion Gap 13 Blood Urea Nitrogen 37 H Creatinine 2.10 H Glucose Level 159 Calcium Level 8.7 Iron Level 45 Total Iron Binding Capacity 252 Percent Iron Saturation 18 L Test 01/08/17 12:43 Bedside Glucose 144 Medications Medications Current Medications Acetaminophen (Tylenol Tab) 650 mg Q6H PRN PO PAIN AND OR ELEVATED TEMP; Start 01/01/17 at 04:00 Heparin Sodium (Porcine) (Heparin (5000 Units/0.5 ml)) 5,000 unit BID SC Last administered on 01/08/17 08:52; Admin Dose 5,000 UNIT; Start 01/01/17 at 09:00 Amlodipine Besylate (Norvasc) 10 mg DAILY PO Last administered on 01/08/17 08: 50; Admin Dose 10 MG; Start 01/02/17 at 09:00 Aspirin (Aspirin) 81 mg DAILY PO Last administered on 01/08/17 08:49; Admin Dose 81 MG; Start 01/02/17 at 09:00 Atorvastatin Calcium (Lipitor) 20 mg QHS PO Last administered on 01/07/17 21: 39; Admin Dose 20 MG; Start 01/01/17 at 21:00 Ferrous Sulfate (Ferrous Sulfate (Ec)) 325 mg TID PO Last administered on 21:39; Admin Dose 325 MG; Start 01/01/17 at 21:00 Folic Acid (Folic Acid) 1 mg DAILY PO Last administered on 01/08/17 08:50; Admin Dose 1 MG; Start 01/02/17 at 09:00 Hydralazine HCl (Apresoline) 10 mg DAILY@21 PO Last administered on 01/07/17 21:40; Admin Dose 10 MG; Start 01/01/17 at 21:00 Insulin Glargine (Lantus) 22 unit Q12 SC Last administered on 01/08/17 08:55; Admin Dose 22 UNIT; Start 01/01/17 at 15:00 Levothyroxine Sodium (Synthroid) 75 mcg DAILY@06 PO Last administered on 05:36; Admin Dose 75 MCG; Start 01/02/17 at 06:00 Tramadol HCl (Ultram) 50 mg Q6H PRN PO PAIN LEVEL 7-10; Start 01/01/17 at 15:00 Miscellaneous Information 1 ea NOTE XX ; Start 01/01/17 at 15:00 Glucose (Glutose) 15 gm Q15M PRN PO DECREASED GLUCOSE; Start 01/01/17 at 15:00 Glucose (Glutose) 22.5 gm Q15M PRN PO DECREASED GLUCOSE; Start 01/01/17 at 15:00 Dextrose (D50w Syringe) 25 ml Q15M PRN IV DECREASED GLUCOSE; Start 01/01/17 at 15:00 Dextrose (D50w Syringe) 50 ml Q15M PRN IV DECREASED GLUCOSE; Start 01/01/17 at 15:00 Glucagon (Glucagen) 1 mg Q15M PRN IM DECREASED GLUCOSE; Start 01/01/17 at 15:00 Glucose (Glutose) 15 gm Q15M PRN BUCCAL DECREASED GLUCOSE; Start 01/01/17 at 15: 00 Morphine Sulfate 2 mg 2 mg Q4H PRN IV PAIN; Start 01/01/17 at 16:00 Ondansetron HCl/ Sodium Chloride (Zofran Inj/NS) 54 ml @ 216 mls/hr Q6H PRN IV NAUSEA AND/OR VOMITING Last administered on 01/02/17 09:25; Admin Dose 216 MLS/HR; Start 01/01/17 at 15:30 Hydralazine HCl (Apresoline) 10 mg Q6H PRN IV ELEVATED BLOOD PRESSURE Last administered on 01/08/17 10:47; Admin Dose 10 MG; Start 01/02/17 at 15:00 Famotidine (Pepcid) 20 mg DAILY PO Last administered on 01/08/17 08:50; Admin Dose 20 MG; Start 01/02/17 at 15:00 Morphine Sulfate (morphine) 2 mg Q2H PRN IV PAIN LEVEL 6-10; Start 01/02/17 at 22:30 Acetaminophen/ Hydrocodone Bitart ([place] (5/325)) 1 tab Q6H PRN PO PAIN LEVEL 6 -10; Start 01/02/17 at 22:30 Acetaminophen/ Hydrocodone Bitart ([place] (10/325)) 1 tab Q6H PRN PO PAIN; Start 01/02/17 at 22:30 Acetaminophen (Tylenol Tab) 650 mg Q6H PRN PO PAIN AND OR ELEVATED TEMP; Start 01/02/17 at 22:30 Ibuprofen (Motrin) 600 mg Q6H PRN PO PAIN LEVEL 1-5; Start 01/02/17 at 22:30 Diphenhydramine HCl (Benadryl) 25 mg Q6H PRN IV ITCHING; Start 01/02/17 at 22:30 Ondansetron HCl (Zofran Inj) 4 mg Q6H PRN IV NAUSEA AND/OR VOMITING; Start 01/02 at 22:30 Phenol (Cepastat Lozenge) 1 lozenge PRN PRN MT SORE THROAT; Start 01/02/17 at 22 :30 Zolpidem Tartrate (Ambien) 5 mg HS PRN PO INSOMNIA; Start 01/02/17 at 22:30 Docusate Sodium (Colace) 100 mg BID PO Last administered on 01/07/17 21:39; Admin Dose 100 MG; Start 01/03/17 at 09:00 Senna (Senokot) 1 tab BID PRN PO CONSTIPATION; Start 01/02/17 at 22:30 Ascorbic Acid (Vitamin C) 1,000 mg DAILY PO Last administered on 01/08/17 08: 50; Admin Dose 1,000 MG; Start 01/03/17 at 09:00 Levofloxacin (Levaquin) 250 mg DAILY@06 PO Last administered on 01/08/17 05:36 ; Admin Dose 250 MG; Start 01/05/17 at 06:00 Tramadol HCl (Ultram) 50 mg Q6 PO Last administered on 01/08/17 12:44; Admin Dose 50 MG; Start 01/04/17 at 18:00 Naloxone HCl 0.2 mg 0.2 mg Q2M PRN IV RESPIRATORY RATE LESS THAN 8; Start at 21:30 Vancomycin HCl/ Sodium Chloride (Vancocin/NS) 250 ml @ 83.333 mls/ hr Q48H IVPB Last administered on 01/07/17 12:41; Admin Dose 83.333 MLS/HR; Start 01/05 at 12:00 Clonidine (Catapres) 0.1 mg Q6H PRN PO SBP>160 Last administered on 01/06/17 22:09; Admin Dose 0.1 MG; Start 6/10/17 at 09:00 Fluconazole (Diflucan) 100 mg DAILY PO Last administered on 01/08/17t 08:49; Admin Dose 100 MG; Start 01/06/17 at 12:30 IV Flush (NS 10 ml) 10 ml PRN PRN IV FLUSH LINE; Start 01/06/17 at 19:30 Miscellaneous Information (*Rx Drug Level Order Reminder*) VANCOMYCIN TROUGH AT 1100 ONCE ONCE XX ; Start 01/09/17 at 11:00; Stop 01/09/17 at 11:01 MANUEL WISDOM MD Jan 08, 2017 17:10
[2017-01-08 21:04] VITALS: BP 142/74; RESP 19
[2017-01-08] MEDS: ATORVASTATIN 20 MG TAB PO SCH (21:23)
[2017-01-09] MEDS: traMADol 50 MG TAB PO SCH ×4 (00:14→17:34)
[2017-01-09 05:19] LABS: ADD SCAN DIFF NO
[2017-01-09 05:24] LABS: BASOPHIL # 0.1 10^3/ul (0.0-0.1); BASOPHILS % 0.7 % (0.0-2.0); EOSINOPHILS # 0.7 10^3/ul (0.0-0.5); EOSINOPHILS % 5.6 % (0.0-7.0); HEMATOCRIT 30.9 % (37.0-47.0); HEMOGLOBIN 9.6 g/dl (12.0-16.0); LYMPHOCYTES # 2.1 10^3/ul (0.8-2.9); LYMPHOCYTES % 17.4 % (15.0-51.0); MEAN CORPUSCULAR HEMOGLOBIN 27.7 pg (29.0-33.0); MEAN CORPUSCULAR HGB CONC 31.1 g/dl (32.0-37.0); MEAN PLATELET VOLUME 9.8 fl (7.4-10.4); MONOCYTE # 0.7 10^3/ul (0.3-0.9); MONOCYTES % 5.6 % (0.0-11.0); NEUTROPHIL # 8.5 10^3/ul (1.6-7.5); NEUTROPHILS % 69.6 % (39.0-77.0); PLATELET COUNT 375 10^3/UL (140-415); RED BLOOD COUNT 3.47 10^6/ul (4.20-5.40); RED CELL DISTRIBUTION WIDTH 15.9 % (11.5-14.5); WHITE BLOOD COUNT 12.3 10^3/ul (4.8-10.8)
[2017-01-09] MEDS: LEVOTHYROXINE 75 MCG TAB PO SCH (05:29)
[2017-01-09] MEDS: LEVOFLOXACIN 250 MG TAB PO SCH (05:29)
[2017-01-09 05:52] LABS: CALCIUM 8.7 mg/dl (8.4-10.2); CREATININE 2.25 mg/dl (0.44-1.00); MAGNESIUM 1.5 mg/dl (1.7-2.5); POTASSIUM 4.6 mmol/L (3.5-5.1)
[2017-01-09 06:23] LABS: THYROID STIMULATING HORMONE 13.4 MIU/L (0.465-4.680)
[2017-01-09 08:01] VITALS: BP 147/72; RESP 19
[2017-01-09] MEDS: ASCORBIC ACID 500 MG TAB PO SCH (08:36)
[2017-01-09] MEDS: FERROUS SULFATE (EC) 325 MG TAB PO SCH ×4 (08:36→20:50)
[2017-01-09] MEDS: ASPIRIN 81 MG TAB PO SCH (08:36)
[2017-01-09] MEDS: FAMOTIDINE 20 MG TAB PO SCH (08:37)
[2017-01-09] MEDS: DOCUSATE SODIUM 100 MG CAP PO SCH ×2 (08:37→20:50)
[2017-01-09] MEDS: AMLODIPINE 10 MG TAB PO SCH (08:37)
[2017-01-09] MEDS: FLUCONAZOLE 100 MG TAB PO SCH (08:37)
[2017-01-09] MEDS: FOLIC ACID 1 MG TAB PO SCH (08:37)
[2017-01-09] MEDS: INSULIN ASPART [NOVOLOG] 3 ML PEN SC SCH ×7 (08:39→20:50)
[2017-01-09] MEDS: HEPARIN 5,000 UNIT/0.5 ML VIAL SC SCH ×2 (08:43→20:41)
[2017-01-09] MEDS: INSULIN GLARGINE [LANtus] 3 ML PEN SC SCH ×2 (08:43→20:41)
--- NOTE | 2017-01-09 09:14 | PN ---
Date/Time of Note Date/Time of Note DATE: 01/09/17 TIME: 09:13 Assessment/Plan VTE Prophylaxis VTE Prophylaxis Intervention: heparin Lines/Catheters IV Catheter Type (from [facility]): PICC Line Central line still needed: Yes Urinary Cath still in place: No Assessment/Plan Assessment/Plan 51-year-old female with history of right foot diabetic ulcer, osteomyelitis, essential hypertension, type 2 diabetes, hypothyroidism, high cholesterol, chronic kidney disease, right internal carotid artery stenosis who was transferred from outside hospital for right foot wound infection and osteomyelitis, s/p surgery. 1. Multiorganism Right foot wound infection/osteomyelitis - * s/p x 2 surgical procedures this admission - multiple incision and drainage of right foot dorsal aspect and excisional debridement of skin, subcutaneous tissue, muscle, and bone to ulceration plantar aspect 8 x 6 cm 2. Type 2 diabetes. A1c 8.0 - Continue current insulin regimen. 3. Hypertension: fair control - Continue p.o. medications and p.r.n. hydralazine IV. 4. History of chronic kidney disease: stable 5. History of right carotid endarterectomy. 6. Hypothyroidism: stable 7. Lice - received Elimite - f/u ID rec's - per ID, s/p Ivermectin p.o. for scabies and repeat x2 weekly 8. Hypochromic anemia associated with CKD Dispo: * Patient remain stable for D/c on IV abx after HH / wound vac / wound care has been setup. * Gastrointestinal prophylaxis - Pepcid. * Deep venous thrombosis prophylaxis. Heparin subcutaneously. Subjective 24 Hr Interval Summary Free Text/Dictation Patient doing well, no new issues. Exam/Review of Systems Vital Signs Vitals Vital Signs Date Time Temp Pulse Resp B/P Pulse Ox O2 Delivery O2 Flow Rate FiO2 01/09/17 08:01 98.1 89 19 147/72 96 01/08/17 11:44 Room Air Intake and Output 01/08/17 01/08/17 01/09/17 15:00 23:00 07:00 Intake Total 1200 ml 250 ml Balance 1200 ml 250 ml Exam GENERAL: The patient sitting on the edge of the bed, answering questions appropriately. No acute distress. HEENT: Pupils equal, round, reactive to light. Extraocular muscles intact. NECK: Supple. No thyromegaly. LUNGS: Clear to auscultation bilaterally. CARDIOVASCULAR: S1, S2 heard. No rubs or gallops. ABDOMEN: Soft, nontender, nondistended. Normal bowel sounds. No rebound or guarding. MUSCULOSKELETAL: There is a right foot bandage, otherwise no lower extremity edema bilaterally. NEUROLOGIC: No focal deficits. Results Result Diagram: 01/09/17 0430 01/09/17 0430 Results 24 hrs Laboratory Tests Test 01/08/17 12:43 01/08/17 17:57 01/08/17 21:20 01/09/17 04:30 Bedside Glucose 144 127 116 White Blood Count 12.3 H Red Blood Count 3.47 L Hemoglobin 9.6 L Hematocrit 30.9 L Mean Corpuscular Volume 89.0 Mean Corpuscular Hemoglobin 27.7 L Mean Corpuscular Hemoglobin Concent 31.1 L Red Cell Distribution Width 15.9 H Platelet Count 375 Mean Platelet Volume 9.8 Neutrophils % 69.6 Lymphocytes % 17.4 Monocytes % 5.6 Eosinophils % 5.6 Basophils % 0.7 Nucleated Red Blood Cells % 0.0 Neutrophils # 8.5 H Lymphocytes # 2.1 Monocytes # 0.7 Eosinophils # 0.7 H Basophils # 0.1 Nucleated Red Blood Cells # 0.0 Sodium Level 140 Potassium Level 4.6 Chloride Level 110 Carbon Dioxide Level 20 L Anion Gap 15 Blood Urea Nitrogen 40 H Creatinine 2.25 H Glucose Level 124 Calcium Level 8.7 Magnesium Level 1.5 L Thyroid Stimulating Hormone (TSH) 13.400 H Test 01/09/17 07:49 Bedside Glucose 156 Medications Medications Current Medications Acetaminophen (Tylenol Tab) 650 mg Q6H PRN PO PAIN AND OR ELEVATED TEMP; Start 01/01/17 at 04:00 Heparin Sodium (Porcine) (Heparin (5000 Units/0.5 ml)) 5,000 unit BID SC Last administered on 01/09/17 08:43; Admin Dose 5,000 UNIT; Start 01/01/17 at 09:00 Amlodipine Besylate (Norvasc) 10 mg DAILY PO Last administered on 01/09/17 08: 37; Admin Dose 10 MG; Start 01/02/17 at 09:00 Aspirin (Aspirin) 81 mg DAILY PO Last administered on 01/09/17 08:36; Admin Dose 81 MG; Start 01/02/17 at 09:00 Atorvastatin Calcium (Lipitor) 20 mg QHS PO Last administered on 01/08/17 21: 23; Admin Dose 20 MG; Start 01/01/17 at 21:00 Ferrous Sulfate (Ferrous Sulfate (Ec)) 325 mg TID PO Last administered on 08:36; Admin Dose 325 MG; Start 01/01/17 at 21:00 Folic Acid (Folic Acid) 1 mg DAILY PO Last administered on 01/09/17 08:37; Admin Dose 1 MG; Start 01/02/17 at 09:00 Hydralazine HCl (Apresoline) 10 mg DAILY@21 PO Last administered on 01/08/17 21:23; Admin Dose 10 MG; Start 01/01/17 at 21:00 Insulin Glargine (Lantus) 22 unit Q12 SC Last administered on 01/09/17 08:43; Admin Dose 22 UNIT; Start 01/01/17 at 15:00 Levothyroxine Sodium (Synthroid) 75 mcg DAILY@06 PO Last administered on 05:29; Admin Dose 75 MCG; Start 01/02/17 at 06:00 Tramadol HCl (Ultram) 50 mg Q6H PRN PO PAIN LEVEL 7-10; Start 01/01/17 at 15:00 Miscellaneous Information 1 ea NOTE XX ; Start 01/01/17 at 15:00 Glucose (Glutose) 15 gm Q15M PRN PO DECREASED GLUCOSE; Start 01/01/17 at 15:00 Glucose (Glutose) 22.5 gm Q15M PRN PO DECREASED GLUCOSE; Start 01/01/17 at 15:00 Dextrose (D50w Syringe) 25 ml Q15M PRN IV DECREASED GLUCOSE; Start 01/01/17 at 15:00 Dextrose (D50w Syringe) 50 ml Q15M PRN IV DECREASED GLUCOSE; Start 01/01/17 at 15:00 Glucagon (Glucagen) 1 mg Q15M PRN IM DECREASED GLUCOSE; Start 01/01/17 at 15:00 Glucose (Glutose) 15 gm Q15M PRN BUCCAL DECREASED GLUCOSE; Start 01/01/17 at 15: 00 Morphine Sulfate 2 mg 2 mg Q4H PRN IV PAIN; Start 01/01/17 at 16:00 Ondansetron HCl/ Sodium Chloride (Zofran Inj/NS) 54 ml @ 216 mls/hr Q6H PRN IV NAUSEA AND/OR VOMITING Last administered on 01/02/17 09:25; Admin Dose 216 MLS/HR; Start 01/01/17 at 15:30 Hydralazine HCl (Apresoline) 10 mg Q6H PRN IV ELEVATED BLOOD PRESSURE Last administered on 01/08/17 10:47; Admin Dose 10 MG; Start 01/02/17 at 15:00 Famotidine (Pepcid) 20 mg DAILY PO Last administered on 01/09/17 08:37; Admin Dose 20 MG; Start 01/02/17 at 15:00 Morphine Sulfate (morphine) 2 mg Q2H PRN IV PAIN LEVEL 6-10; Start 01/02/17 at 22:30 Acetaminophen/ Hydrocodone Bitart ([place] (5/325)) 1 tab Q6H PRN PO PAIN LEVEL 6 -10; Start 01/02/17 at 22:30 Acetaminophen/ Hydrocodone Bitart ([place] (10/325)) 1 tab Q6H PRN PO PAIN; Start 01/02/17 at 22:30 Acetaminophen (Tylenol Tab) 650 mg Q6H PRN PO PAIN AND OR ELEVATED TEMP; Start 01/02/17 at 22:30 Ibuprofen (Motrin) 600 mg Q6H PRN PO PAIN LEVEL 1-5; Start 01/02/17 at 22:30 Diphenhydramine HCl (Benadryl) 25 mg Q6H PRN IV ITCHING; Start 01/02/17 at 22:30 Ondansetron HCl (Zofran Inj) 4 mg Q6H PRN IV NAUSEA AND/OR VOMITING; Start 01/02 at 22:30 Phenol (Cepastat Lozenge) 1 lozenge PRN PRN MT SORE THROAT; Start 01/02/17 at 22 :30 Zolpidem Tartrate (Ambien) 5 mg HS PRN PO INSOMNIA; Start 01/02/17 at 22:30 Docusate Sodium (Colace) 100 mg BID PO Last administered on 01/09/17 08:37; Admin Dose 100 MG; Start 01/03/17 at 09:00 Senna (Senokot) 1 tab BID PRN PO CONSTIPATION; Start 01/02/17 at 22:30 Ascorbic Acid (Vitamin C) 1,000 mg DAILY PO Last administered on 01/09/17 08: 36; Admin Dose 1,000 MG; Start 01/03/17 at 09:00 Levofloxacin (Levaquin) 250 mg DAILY@06 PO Last administered on 01/09/17 05:29 ; Admin Dose 250 MG; Start 01/05/17 at 06:00 Tramadol HCl (Ultram) 50 mg Q6 PO Last administered on 01/09/17 05:29; Admin Dose 50 MG; Start 01/04/17 at 18:00 Naloxone HCl 0.2 mg 0.2 mg Q2M PRN IV RESPIRATORY RATE LESS THAN 8; Start at 21:30 Vancomycin HCl/ Sodium Chloride (Vancocin/NS) 250 ml @ 83.333 mls/ hr Q48H IVPB Last administered on 01/07/17 12:41; Admin Dose 83.333 MLS/HR; Start 01/05 at 12:00 Clonidine (Catapres) 0.1 mg Q6H PRN PO SBP>160 Last administered on 01/06/17 22:09; Admin Dose 0.1 MG; Start 01/06/17 at 09:00 Fluconazole (Diflucan) 100 mg DAILY PO Last administered on 01/09/17 08:37; Admin Dose 100 MG; Start 01/06/17 at 12:30 IV Flush (NS 10 ml) 10 ml PRN PRN IV FLUSH LINE; Start 01/06/17 at 19:30 Miscellaneous Information (*Rx Drug Level Order Reminder*) VANCOMYCIN TROUGH AT 1100 ONCE ONCE XX ; Start 01/09/17 at 11:00; Stop 01/09/17 at 11:01 MARIAA AGOSTO Jan 09, 2017 09:13
--- NOTE | 2017-01-09 12:13 | CONS ---
Date/Time of Note Date/Time of Note DATE: 01/09/17 TIME: 12:12 Assessment/Plan Assessment/Plan Chief Complaint/Hosp Course SUBJECTIVE: No acute changes overnight. The patient is alert,looks comfortable , no fevers. ANTIMICROBIALS: 1. Vancomycin. 2. Levaquin. 3. Diflucan PHYSICAL EXAMINATION: GENERAL: This is a well-developed, morbidly obese, middle-aged, [place]- speaking woman, who is in no distress. HEENT: Head atraumatic, normocephalic. Sclerae anicteric. Buccal mucosa dry. NECK: Supple. Trachea midline. CHEST: Rise symmetrical. Breath sounds diminished to bases. HEART: S1, S2. ABDOMEN: Soft, bowel tones present. EXTREMITIES: With right lower extremity dressing intact. MICROBIOLOGY: Wound culture growing Enterobacter, yeast,, corynebacterium species and enterococcus species. ASSESSMENT: 1. Right foot osteomyelitis, cellulitis, status post I and D. 2. Charcot deformity. 3. Diabetes. 4. Morbid obesity. 5. Scabies, status post Elimite and Ivermectin. 6. Chronic kidney disease. PLAN: The patient remains stable. Continue on current for 6-8 weeks, f/u with podiatry at wound clinic, continue wound vac DW staff Problems: Consultation Date/Type/Reason Admit Date/Time Jan 01, 2017 at 01:45 Type of Consultation: id Referring Provider: GABRIELLA CABRERA Exam/Review of Systems Vital Signs Vitals Vital Signs Date Time Temp Pulse Resp B/P Pulse Ox O2 Delivery O2 Flow Rate FiO2 01/09/17 08:01 98.1 89 19 147/72 96 01/08/17 11:44 Room Air Intake and Output 01/08/17 01/08/17 01/09/17 15:00 23:00 07:00 Intake Total 1200 ml 250 ml Balance 1200 ml 250 ml Results Result Diagram: 01/09/17 0430 01/09/17 0430 Results 24 hrs Laboratory Tests Test 01/08/17 12:43 01/08/17 17:57 01/08/17 21:20 01/09/17 04:30 Bedside Glucose 144 127 116 White Blood Count 12.3 H Red Blood Count 3.47 L Hemoglobin 9.6 L Hematocrit 30.9 L Mean Corpuscular Volume 89.0 Mean Corpuscular Hemoglobin 27.7 L Mean Corpuscular Hemoglobin Concent 31.1 L Red Cell Distribution Width 15.9 H Platelet Count 375 Mean Platelet Volume 9.8 Neutrophils % 69.6 Lymphocytes % 17.4 Monocytes % 5.6 Eosinophils % 5.6 Basophils % 0.7 Nucleated Red Blood Cells % 0.0 Neutrophils # 8.5 H Lymphocytes # 2.1 Monocytes # 0.7 Eosinophils # 0.7 H Basophils # 0.1 Nucleated Red Blood Cells # 0.0 Sodium Level 140 Potassium Level 4.6 Chloride Level 110 Carbon Dioxide Level 20 L Anion Gap 15 Blood Urea Nitrogen 40 H Creatinine 2.25 H Glucose Level 124 Calcium Level 8.7 Magnesium Level 1.5 L Thyroid Stimulating Hormone (TSH) 13.400 H Test 01/09/17 07:49 Bedside Glucose 156 Medications Medications Current Medications Acetaminophen (Tylenol Tab) 650 mg Q6H PRN PO PAIN AND OR ELEVATED TEMP; Start 01/01/17 at 04:00 Heparin Sodium (Porcine) (Heparin (5000 Units/0.5 ml)) 5,000 unit BID SC Last administered on 01/09/17 08:43; Admin Dose 5,000 UNIT; Start 01/01/17 at 09:00 Amlodipine Besylate (Norvasc) 10 mg DAILY PO Last administered on 01/09/17 08: 37; Admin Dose 10 MG; Start 01/02/17 at 09:00 Aspirin (Aspirin) 81 mg DAILY PO Last administered on 01/09/17 08:36; Admin Dose 81 MG; Start 01/02/17 at 09:00 Atorvastatin Calcium (Lipitor) 20 mg QHS PO Last administered on 01/08/17 21: 23; Admin Dose 20 MG; Start 01/01/17 at 21:00 Ferrous Sulfate (Ferrous Sulfate (Ec)) 325 mg TID PO Last administered on 08:36; Admin Dose 325 MG; Start 01/01/17 at 21:00 Folic Acid (Folic Acid) 1 mg DAILY PO Last administered on 01/09/17 08:37; Admin Dose 1 MG; Start 01/02/17 at 09:00 Hydralazine HCl (Apresoline) 10 mg DAILY@21 PO Last administered on 01/08/17 21:23; Admin Dose 10 MG; Start 01/01/17 at 21:00 Insulin Glargine (Lantus) 22 unit Q12 SC Last administered on 01/09/17 08:43; Admin Dose 22 UNIT; Start 01/01/17 at 15:00 Levothyroxine Sodium (Synthroid) 75 mcg DAILY@06 PO Last administered on 05:29; Admin Dose 75 MCG; Start 01/02/17 at 06:00 Tramadol HCl (Ultram) 50 mg Q6H PRN PO PAIN LEVEL 7-10; Start 01/01/17 at 15:00 Miscellaneous Information 1 ea NOTE XX ; Start 01/01/17 at 15:00 Glucose (Glutose) 15 gm Q15M PRN PO DECREASED GLUCOSE; Start 01/01/17 at 15:00 Glucose (Glutose) 22.5 gm Q15M PRN PO DECREASED GLUCOSE; Start 01/01/17 at 15:00 Dextrose (D50w Syringe) 25 ml Q15M PRN IV DECREASED GLUCOSE; Start 01/01/17 at 15:00 Dextrose (D50w Syringe) 50 ml Q15M PRN IV DECREASED GLUCOSE; Start 01/01/17 at 15:00 Glucagon (Glucagen) 1 mg Q15M PRN IM DECREASED GLUCOSE; Start 01/01/17 at 15:00 Glucose (Glutose) 15 gm Q15M PRN BUCCAL DECREASED GLUCOSE; Start 01/01/17 at 15: 00 Morphine Sulfate 2 mg 2 mg Q4H PRN IV PAIN; Start 01/01/17 at 16:00 Ondansetron HCl/ Sodium Chloride (Zofran Inj/NS) 54 ml @ 216 mls/hr Q6H PRN IV NAUSEA AND/OR VOMITING Last administered on 01/02/17 09:25; Admin Dose 216 MLS/HR; Start 01/01/17 at 15:30 Hydralazine HCl (Apresoline) 10 mg Q6H PRN IV ELEVATED BLOOD PRESSURE Last administered on 01/08/17 10:47; Admin Dose 10 MG; Start 01/02/17 at 15:00 Famotidine (Pepcid) 20 mg DAILY PO Last administered on 01/09/17 08:37; Admin Dose 20 MG; Start 01/02/17 at 15:00 Morphine Sulfate (morphine) 2 mg Q2H PRN IV PAIN LEVEL 6-10; Start 01/02/17 at 22:30 Acetaminophen/ Hydrocodone Bitart ([place] (5/325)) 1 tab Q6H PRN PO PAIN LEVEL 6 -10; Start 01/02/17 at 22:30 Acetaminophen/ Hydrocodone Bitart ([place] (10/325)) 1 tab Q6H PRN PO PAIN; Start 01/02/17 at 22:30 Acetaminophen (Tylenol Tab) 650 mg Q6H PRN PO PAIN AND OR ELEVATED TEMP; Start 01/02/17 at 22:30 Ibuprofen (Motrin) 600 mg Q6H PRN PO PAIN LEVEL 1-5; Start 01/02/17 at 22:30 Diphenhydramine HCl (Benadryl) 25 mg Q6H PRN IV ITCHING; Start 01/02/17 at 22:30 Ondansetron HCl (Zofran Inj) 4 mg Q6H PRN IV NAUSEA AND/OR VOMITING; Start 01/02 at 22:30 Phenol (Cepastat Lozenge) 1 lozenge PRN PRN MT SORE THROAT; Start 01/02/17 at 22 :30 Zolpidem Tartrate (Ambien) 5 mg HS PRN PO INSOMNIA; Start 01/02/17 at 22:30 Docusate Sodium (Colace) 100 mg BID PO Last administered on 01/09/17 08:37; Admin Dose 100 MG; Start 01/03/17 at 09:00 Senna (Senokot) 1 tab BID PRN PO CONSTIPATION; Start 01/02/17 at 22:30 Ascorbic Acid (Vitamin C) 1,000 mg DAILY PO Last administered on 01/09/17 08: 36; Admin Dose 1,000 MG; Start 01/03/17 at 09:00 Levofloxacin (Levaquin) 250 mg DAILY@06 PO Last administered on 01/09/17 05:29 ; Admin Dose 250 MG; Start 01/05/17 at 06:00 Tramadol HCl (Ultram) 50 mg Q6 PO Last administered on 01/09/17 05:29; Admin Dose 50 MG; Start 01/04/17 at 18:00 Naloxone HCl 0.2 mg 0.2 mg Q2M PRN IV RESPIRATORY RATE LESS THAN 8; Start at 21:30 Vancomycin HCl/ Sodium Chloride (Vancocin/NS) 250 ml @ 83.333 mls/ hr Q48H IVPB Last administered on 01/07/17 12:41; Admin Dose 83.333 MLS/HR; Start 01/05 at 12:00 Clonidine (Catapres) 0.1 mg Q6H PRN PO SBP>160 Last administered on 01/06/17 22:09; Admin Dose 0.1 MG; Start 01/06/17 at 09:00 Fluconazole (Diflucan) 100 mg DAILY PO Last administered on 01/09/17 08:37; Admin Dose 100 MG; Start 01/06/17 at 12:30 IV Flush (NS 10 ml) 10 ml PRN PRN IV FLUSH LINE; Start 01/06/17 at 19:30 GEORGIANA MORIN NP Jan 09, 2017 12:13
[2017-01-09] MEDS: VANCOMYCIN 1.5 GM in SOD CHLORIDE 0.9% 250 ML IVPB SCH (13:00)
[2017-01-09] MEDS ORDERED: MAGNESIUM SULFATE 2 GM/50 ML 50 ML IVPB SCH (13:30)
--- NOTE | 2017-01-09 17:06 | CONS ---
Date/Time of Note Date/Time of Note DATE: 01/09/17 TIME: 17:01 Consult Date/Type/Reason Admit Date/Time Jan 01, 2017 at 01:45 Initial Consult Date Type of Consultation: Podiatry/Surgery Reason for Consultation Coverage for Dr. Bird. Right foot ulcer. F/U right foot staged Surgical debridements x 2. Ordering Provider: GABRIELLA CABRERA Subjective Patient is in good spirits. Pain levels are controlled. Objective Vital Signs Date Time Temp Pulse Resp B/P Pulse Ox O2 Delivery O2 Flow Rate FiO2 01/09/17 08:01 98.1 89 19 147/72 96 01/08/17 11:44 Room Air Intake and Output 01/08/17 01/08/17 01/09/17 15:00 23:00 07:00 Intake Total 1200 ml 250 ml Balance 1200 ml 250 ml Exam Wound VAC in place and set at 175mHg. Dressing D/C/I. Results/Medications Result Diagram: 01/09/17 0430 01/09/17 0430 Results 24 hrs Laboratory Tests Test 01/08/17 17:57 01/08/17 21:20 01/09/17 04:30 01/09/17 07:49 Bedside Glucose 127 116 156 White Blood Count 12.3 H Red Blood Count 3.47 L Hemoglobin 9.6 L Hematocrit 30.9 L Mean Corpuscular Volume 89.0 Mean Corpuscular Hemoglobin 27.7 L Mean Corpuscular Hemoglobin Concent 31.1 L Red Cell Distribution Width 15.9 H Platelet Count 375 Mean Platelet Volume 9.8 Neutrophils % 69.6 Lymphocytes % 17.4 Monocytes % 5.6 Eosinophils % 5.6 Basophils % 0.7 Nucleated Red Blood Cells % 0.0 Neutrophils # 8.5 H Lymphocytes # 2.1 Monocytes # 0.7 Eosinophils # 0.7 H Basophils # 0.1 Nucleated Red Blood Cells # 0.0 Sodium Level 140 Potassium Level 4.6 Chloride Level 110 Carbon Dioxide Level 20 L Anion Gap 15 Blood Urea Nitrogen 40 H Creatinine 2.25 H Glucose Level 124 Calcium Level 8.7 Magnesium Level 1.5 L Thyroid Stimulating Hormone (TSH) 13.400 H Test 01/09/17 11:00 01/09/17 12:21 Vancomycin Level Trough 11.1 Bedside Glucose 153 Medications Current Medications Acetaminophen (Tylenol Tab) 650 mg Q6H PRN PO PAIN AND OR ELEVATED TEMP; Start 01/01/17 at 04:00 Heparin Sodium (Porcine) (Heparin (5000 Units/0.5 ml)) 5,000 unit BID SC Last administered on 01/09/17 08:43; Admin Dose 5,000 UNIT; Start 01/01/17 at 09:00 Amlodipine Besylate (Norvasc) 10 mg DAILY PO Last administered on 01/09/17 08: 37; Admin Dose 10 MG; Start 01/02/17 at 09:00 Aspirin (Aspirin) 81 mg DAILY PO Last administered on 01/09/17 08:36; Admin Dose 81 MG; Start 01/02/17 at 09:00 Atorvastatin Calcium (Lipitor) 20 mg QHS PO Last administered on 01/08/17 21: 23; Admin Dose 20 MG; Start 01/01/17 at 21:00 Ferrous Sulfate (Ferrous Sulfate (Ec)) 325 mg TID PO Last administered on 12:53; Admin Dose 325 MG; Start 01/01/17 at 21:00 Folic Acid (Folic Acid) 1 mg DAILY PO Last administered on 01/09/17 08:37; Admin Dose 1 MG; Start 01/02/17 at 09:00 Hydralazine HCl (Apresoline) 10 mg DAILY@21 PO Last administered on 01/08/17 21:23; Admin Dose 10 MG; Start 01/01/17 at 21:00 Insulin Glargine (Lantus) 22 unit Q12 SC Last administered on 01/09/17 08:43; Admin Dose 22 UNIT; Start 01/01/17 at 15:00 Tramadol HCl (Ultram) 50 mg Q6H PRN PO PAIN LEVEL 7-10; Start 01/01/17 at 15:00 Miscellaneous Information 1 ea NOTE XX ; Start 01/01/17 at 15:00 Glucose (Glutose) 15 gm Q15M PRN PO DECREASED GLUCOSE; Start 01/01/17 at 15:00 Glucose (Glutose) 22.5 gm Q15M PRN PO DECREASED GLUCOSE; Start 01/01/17 at 15:00 Dextrose (D50w Syringe) 25 ml Q15M PRN IV DECREASED GLUCOSE; Start 01/01/17 at 15:00 Dextrose (D50w Syringe) 50 ml Q15M PRN IV DECREASED GLUCOSE; Start 01/01/17 at 15:00 Glucagon (Glucagen) 1 mg Q15M PRN IM DECREASED GLUCOSE; Start 01/01/17 at 15:00 Glucose (Glutose) 15 gm Q15M PRN BUCCAL DECREASED GLUCOSE; Start 01/01/17 at 15: 00 Morphine Sulfate 2 mg 2 mg Q4H PRN IV PAIN; Start 01/01/17 at 16:00 Ondansetron HCl/ Sodium Chloride (Zofran Inj/NS) 54 ml @ 216 mls/hr Q6H PRN IV NAUSEA AND/OR VOMITING Last administered on 01/02/17 09:25; Admin Dose 216 MLS/HR; Start 01/01/17 at 15:30 Hydralazine HCl (Apresoline) 10 mg Q6H PRN IV ELEVATED BLOOD PRESSURE Last administered on 01/08/17 10:47; Admin Dose 10 MG; Start 01/02/17 at 15:00 Famotidine (Pepcid) 20 mg DAILY PO Last administered on 01/09/17 08:37; Admin Dose 20 MG; Start 01/02/17 at 15:00 Morphine Sulfate (morphine) 2 mg Q2H PRN IV PAIN LEVEL 6-10; Start 01/02/17 at 22:30 Acetaminophen/ Hydrocodone Bitart ([place] (5/325)) 1 tab Q6H PRN PO PAIN LEVEL 6 -10; Start 01/02/17 at 22:30 Acetaminophen/ Hydrocodone Bitart ([place] (10/325)) 1 tab Q6H PRN PO PAIN; Start 01/02/17 at 22:30 Acetaminophen (Tylenol Tab) 650 mg Q6H PRN PO PAIN AND OR ELEVATED TEMP; Start 01/02/17 at 22:30 Ibuprofen (Motrin) 600 mg Q6H PRN PO PAIN LEVEL 1-5; Start 01/02/17 at 22:30 Diphenhydramine HCl (Benadryl) 25 mg Q6H PRN IV ITCHING; Start 01/02/17 at 22:30 Ondansetron HCl (Zofran Inj) 4 mg Q6H PRN IV NAUSEA AND/OR VOMITING; Start 01/02 at 22:30 Phenol (Cepastat Lozenge) 1 lozenge PRN PRN MT SORE THROAT; Start 01/02/17 at 22 :30 Zolpidem Tartrate (Ambien) 5 mg HS PRN PO INSOMNIA; Start 01/02/17 at 22:30 Docusate Sodium (Colace) 100 mg BID PO Last administered on 01/09/17 08:37; Admin Dose 100 MG; Start 01/03/17 at 09:00 Senna (Senokot) 1 tab BID PRN PO CONSTIPATION; Start 01/02/17 at 22:30 Ascorbic Acid (Vitamin C) 1,000 mg DAILY PO Last administered on 01/09/17 08: 36; Admin Dose 1,000 MG; Start 01/03/17 at 09:00 Levofloxacin (Levaquin) 250 mg DAILY@06 PO Last administered on 01/09/17 05:29 ; Admin Dose 250 MG; Start 01/05/17 at 06:00 Tramadol HCl (Ultram) 50 mg Q6 PO Last administered on 01/09/17 12:53; Admin Dose 50 MG; Start 01/04/17 at 18:00 Naloxone HCl (Narcan) 0.2 mg Q2M PRN IV RESPIRATORY RATE LESS THAN 8; Start 01/04/17 at 21:30 Clonidine (Catapres) 0.1 mg Q6H PRN PO SBP>160 Last administered on 01/06/17 22:09; Admin Dose 0.1 MG; Start 01/06/17 at 09:00 Fluconazole (Diflucan) 100 mg DAILY PO Last administered on 01/09/17 08:37; Admin Dose 100 MG; Start 01/06/17 at 12:30 IV Flush (NS 10 ml) 10 ml PRN PRN IV FLUSH LINE; Start 01/06/17 at 19:30 Levothyroxine Sodium 100 mcg 100 mcg DAILY@06 PO ; Start 01/10/17 at 06:00 Vancomycin HCl/ Sodium Chloride (Vancocin/NS) 500 ml @ 125 mls/hr Q48H IVPB ; Start 01/11/17 at 05:00 Assessment/Plan Chief Complaint/Hosp Course Right foot abscess. Likely deep plantar space abscess. Right foot plantar ulcer involving bone. Problems: (1) Diabetic foot ulcer (2) Charcot's joint of right foot Additional Assessment/Plan Continue Abx as per ID. Vanco, Levo and Diflucan. PICC line placed. Wound VAC change Mon, Wed, Fri with silver sponge. Need Case Management assistance for Home Health and Wound VAC. Recommend use of wheelchair. Patient is high risk for recurrent Diabetic foot ulcers and infections. Pt to F/U in wound clinic within one week of discharge from Hospital. KYLER ROQUE DPM Jan 09, 2017 17:06
[2017-01-09 19:45] VITALS: BP 149/66; RESP 20
[2017-01-09] MEDS: ATORVASTATIN 20 MG TAB PO SCH (20:40)
--- NOTE | 2017-01-09 20:45 | CONS ---
Date/Time of Note Date/Time of Note DATE: 01/09/17 TIME: 20:44 Assessment/Plan Assessment/Plan Additional Assessment/Plan 1. Acute kidney injury on chronic kidney disease secondary to sepsis from infections including the right foot osteomyelitis. 2. History of possible chronic kidney disease secondary to diabetic nephropathy. 3. Adult onset type 2 diabetes mellitus, poorly controlled. 4. Hypertension. 5. Hypothyroidism. 6. History of previous right second and third toe amputations. 7. Possible peripheral vascular disease. PLAN: pt has acute on chronic renal failure, s/p IVF- Cr 2.25 with IV abx and IVF hydration s/p Right foot excisional debridement , need better glycemic control will follow up US c/w Medical renal disease Consultation Date/Type/Reason Admit Date/Time Jan 01, 2017 at 01:45 Initial Consult Date Type of Consultation: NEPHROLOGY Referring Provider: GABRIELLA CABRERA 24 HR Interval Summary Free Text/Dictation Cr 2.25.Electrolytes stable, HCo3 slighty low, on IV abx Exam/Review of Systems Vital Signs Vitals Vital Signs Date Time Temp Pulse Resp B/P Pulse Ox O2 Delivery O2 Flow Rate FiO2 01/09/17 19:45 98.3 91 20 149/66 98 01/08/17 11:44 Room Air Intake and Output 01/08/17 01/08/17 01/09/17 15:00 23:00 07:00 Intake Total 1200 ml 250 ml Balance 1200 ml 250 ml Exam GENERAL: This is a well-developed, morbidly obese, middle-aged, Brazilian- speaking woman, who is in no distress. HEENT: Head atraumatic, normocephalic. Sclerae anicteric. Buccal mucosa dry. NECK: Supple. Trachea midline. CHEST: Rise symmetrical. Breath sounds diminished to bases. HEART: S1, S2. ABDOMEN: Soft, bowel tones present. EXTREMITIES: With right lower extremity dressing intact. Results Result Diagram: 01/09/17 0430 01/09/17 0430 Results 24 hrs Laboratory Tests Test 01/08/17 21:20 01/09/17 04:30 01/09/17 07:49 01/09/17 11:00 Bedside Glucose 116 156 White Blood Count 12.3 H Red Blood Count 3.47 L Hemoglobin 9.6 L Hematocrit 30.9 L Mean Corpuscular Volume 89.0 Mean Corpuscular Hemoglobin 27.7 L Mean Corpuscular Hemoglobin Concent 31.1 L Red Cell Distribution Width 15.9 H Platelet Count 375 Mean Platelet Volume 9.8 Neutrophils % 69.6 Lymphocytes % 17.4 Monocytes % 5.6 Eosinophils % 5.6 Basophils % 0.7 Nucleated Red Blood Cells % 0.0 Neutrophils # 8.5 H Lymphocytes # 2.1 Monocytes # 0.7 Eosinophils # 0.7 H Basophils # 0.1 Nucleated Red Blood Cells # 0.0 Sodium Level 140 Potassium Level 4.6 Chloride Level 110 Carbon Dioxide Level 20 L Anion Gap 15 Blood Urea Nitrogen 40 H Creatinine 2.25 H Glucose Level 124 Calcium Level 8.7 Magnesium Level 1.5 L Thyroid Stimulating Hormone (TSH) 13.400 H Vancomycin Level Trough 11.1 Test 01/09/17 12:21 01/09/17 17:31 Bedside Glucose 153 106 Medications Medications Current Medications Acetaminophen (Tylenol Tab) 650 mg Q6H PRN PO PAIN AND OR ELEVATED TEMP; Start 01/01/17 at 04:00 Heparin Sodium (Porcine) (Heparin (5000 Units/0.5 ml)) 5,000 unit BID SC Last administered on 01/09/17 08:43; Admin Dose 5,000 UNIT; Start 01/01/17 at 09:00 Amlodipine Besylate (Norvasc) 10 mg DAILY PO Last administered on 01/09/17 08: 37; Admin Dose 10 MG; Start 01/02/17 at 09:00 Aspirin (Aspirin) 81 mg DAILY PO Last administered on 01/09/17 08:36; Admin Dose 81 MG; Start 01/02/17 at 09:00 Atorvastatin Calcium (Lipitor) 20 mg QHS PO Last administered on 01/08/17 21: 23; Admin Dose 20 MG; Start 01/01/17 at 21:00 Ferrous Sulfate (Ferrous Sulfate (Ec)) 325 mg TID PO Last administered on 12:53; Admin Dose 325 MG; Start 01/01/17 at 21:00 Folic Acid (Folic Acid) 1 mg DAILY PO Last administered on 01/09/17 08:37; Admin Dose 1 MG; Start 01/02/17 at 09:00 Hydralazine HCl (Apresoline) 10 mg DAILY@21 PO Last administered on 01/08/17 21:23; Admin Dose 10 MG; Start 01/01/17 at 21:00 Insulin Glargine (Lantus) 22 unit Q12 SC Last administered on 01/09/17 08:43; Admin Dose 22 UNIT; Start 01/01/17 at 15:00 Tramadol HCl (Ultram) 50 mg Q6H PRN PO PAIN LEVEL 7-10; Start 01/01/17 at 15:00 Miscellaneous Information 1 ea NOTE XX ; Start 01/01/17 at 15:00 Glucose (Glutose) 15 gm Q15M PRN PO DECREASED GLUCOSE; Start 01/01/17 at 15:00 Glucose (Glutose) 22.5 gm Q15M PRN PO DECREASED GLUCOSE; Start 01/01/17 at 15:00 Dextrose (D50w Syringe) 25 ml Q15M PRN IV DECREASED GLUCOSE; Start 01/01/17 at 15:00 Dextrose (D50w Syringe) 50 ml Q15M PRN IV DECREASED GLUCOSE; Start 01/01/17 at 15:00 Glucagon (Glucagen) 1 mg Q15M PRN IM DECREASED GLUCOSE; Start 01/01/17 at 15:00 Glucose (Glutose) 15 gm Q15M PRN BUCCAL DECREASED GLUCOSE; Start 01/01/17 at 15: 00 Morphine Sulfate 2 mg 2 mg Q4H PRN IV PAIN; Start 01/01/17 at 16:00 Ondansetron HCl/ Sodium Chloride (Zofran Inj/NS) 54 ml @ 216 mls/hr Q6H PRN IV NAUSEA AND/OR VOMITING Last administered on 01/02/17 09:25; Admin Dose 216 MLS/HR; Start 01/01/17 at 15:30 Hydralazine HCl (Apresoline) 10 mg Q6H PRN IV ELEVATED BLOOD PRESSURE Last administered on 01/08/17 10:47; Admin Dose 10 MG; Start 01/02/17 at 15:00 Famotidine (Pepcid) 20 mg DAILY PO Last administered on 01/09/17 08:37; Admin Dose 20 MG; Start 01/02/17 at 15:00 Morphine Sulfate (morphine) 2 mg Q2H PRN IV PAIN LEVEL 6-10; Start 01/02/17 at 22:30 Acetaminophen/ Hydrocodone Bitart ([place] (5/325)) 1 tab Q6H PRN PO PAIN LEVEL 6 -10; Start 01/02/17 at 22:30 Acetaminophen/ Hydrocodone Bitart ([place]ff[place] (10/325)) 1 tab Q6H PRN PO PAIN; Start 01/02/17 at 22:30 Acetaminophen (Tylenol Tab) 650 mg Q6H PRN PO PAIN AND OR ELEVATED TEMP; Start 01/02/17 at 22:30 Ibuprofen (Motrin) 600 mg Q6H PRN PO PAIN LEVEL 1-5; Start 01/02/17 at 22:30 Diphenhydramine HCl (Benadryl) 25 mg Q6H PRN IV ITCHING; Start 01/02/17 at 22:30 Ondansetron HCl (Zofran Inj) 4 mg Q6H PRN IV NAUSEA AND/OR VOMITING; Start 01/02 at 22:30 Phenol (Cepastat Lozenge) 1 lozenge PRN PRN MT SORE THROAT; Start 01/02/17 at 22 :30 Zolpidem Tartrate (Ambien) 5 mg HS PRN PO INSOMNIA; Start 01/02/17 at 22:30 Docusate Sodium (Colace) 100 mg BID PO Last administered on 01/09/17 08:37; Admin Dose 100 MG; Start 01/03/17 at 09:00 Senna (Senokot) 1 tab BID PRN PO CONSTIPATION; Start 01/02/17 at 22:30 Ascorbic Acid (Vitamin C) 1,000 mg DAILY PO Last administered on 01/09/17 08: 36; Admin Dose 1,000 MG; Start 01/03/17 at 09:00 Levofloxacin (Levaquin) 250 mg DAILY@06 PO Last administered on 01/09/17 05:29 ; Admin Dose 250 MG; Start 01/05/17 at 06:00 Tramadol HCl (Ultram) 50 mg Q6 PO Last administered on 01/09/17 17:34; Admin Dose 50 MG; Start 01/04/17 at 18:00 Naloxone HCl (Narcan) 0.2 mg Q2M PRN IV RESPIRATORY RATE LESS THAN 8; Start 01/04/17 at 21:30 Clonidine (Catapres) 0.1 mg Q6H PRN PO SBP>160 Last administered on 01/06/17 22:09; Admin Dose 0.1 MG; Start 01/06/17 at 09:00 Fluconazole (Diflucan) 100 mg DAILY PO Last administered on 01/09/17t 08:37; Admin Dose 100 MG; Start 01/06/17 at 12:30 IV Flush (NS 10 ml) 10 ml PRN PRN IV FLUSH LINE; Start 01/06/17 at 19:30 Levothyroxine Sodium 100 mcg 100 mcg DAILY@06 PO ; Start 01/10/17 at 06:00 Vancomycin HCl/ Sodium Chloride (Vancocin/NS) 500 ml @ 125 mls/hr Q48H IVPB ; Start 01/11/17 at 05:00 MANUEL WISDOM MD Jan 09, 2017 20:45
[2017-01-10] MEDS: traMADol 50 MG TAB PO SCH ×3 (00:03→12:42)
[2017-01-10 05:02] LABS: ADD SCAN DIFF NO
[2017-01-10 05:08] LABS: BASOPHIL # 0.1 10^3/ul (0.0-0.1); BASOPHILS % 0.6 % (0.0-2.0); EOSINOPHILS # 0.7 10^3/ul (0.0-0.5); EOSINOPHILS % 5.6 % (0.0-7.0); HEMOGLOBIN 9.7 g/dl (12.0-16.0); LYMPHOCYTES # 1.7 10^3/ul (0.8-2.9); LYMPHOCYTES % 13.4 % (15.0-51.0); MEAN CORPUSCULAR HGB CONC 31.3 g/dl (32.0-37.0); MEAN CORPUSCULAR VOLUME 89.6 fl (82.0-101.0); MEAN PLATELET VOLUME 9.8 fl (7.4-10.4); MONOCYTE # 0.9 10^3/ul (0.3-0.9); MONOCYTES % 6.9 % (0.0-11.0); NEUTROPHIL # 9.3 10^3/ul (1.6-7.5); NEUTROPHILS % 72.6 % (39.0-77.0); PLATELET COUNT 344 10^3/UL (140-415); RED BLOOD COUNT 3.46 10^6/ul (4.20-5.40); RED CELL DISTRIBUTION WIDTH 16.1 % (11.5-14.5); WHITE BLOOD COUNT 12.8 10^3/ul (4.8-10.8)
[2017-01-10] MEDS: LEVOFLOXACIN 250 MG TAB PO SCH (05:44)
[2017-01-10] MEDS ORDERED: LEVOTHYROXINE 100 MCG TAB PO SCH (06:00)
[2017-01-10 06:30] LABS: CALCIUM 8.6 mg/dl (8.4-10.2); CREATININE 2.25 mg/dl (0.44-1.00); POTASSIUM 4.8 mmol/L (3.5-5.1)
[2017-01-10 07:00] VITALS: BP 166/74; RESP 20
[2017-01-10] MEDS: DOCUSATE SODIUM 100 MG CAP PO SCH (08:50)
[2017-01-10] MEDS: FOLIC ACID 1 MG TAB PO SCH (08:50)
[2017-01-10] MEDS: ASPIRIN 81 MG TAB PO SCH (08:50)
[2017-01-10] MEDS: FERROUS SULFATE (EC) 325 MG TAB PO SCH ×2 (08:50→12:25)
[2017-01-10] MEDS: FLUCONAZOLE 100 MG TAB PO SCH (08:50)
[2017-01-10] MEDS: FAMOTIDINE 20 MG TAB PO SCH (08:51)
[2017-01-10] MEDS: AMLODIPINE 10 MG TAB PO SCH (08:51)
[2017-01-10] MEDS: ASCORBIC ACID 500 MG TAB PO SCH (08:52)
[2017-01-10] MEDS: HEPARIN 5,000 UNIT/0.5 ML VIAL SC SCH (08:54)
[2017-01-10] MEDS: INSULIN ASPART [NOVOLOG] 3 ML PEN SC SCH ×4 (08:55→12:45)
[2017-01-10] MEDS: INSULIN GLARGINE [LANtus] 3 ML PEN SC SCH (08:57)
[2017-01-10 10:00] VITALS: BP 126/60; RESP 20
[2017-01-10] MEDS: hydrALAzine 20 MG INJ IV PRN (10:17)
--- NOTE | 2017-01-10 14:02 | CONS ---
Date/Time of Note Date/Time of Note DATE: 01/10/17 TIME: 14:00 Assessment/Plan Assessment/Plan Chief Complaint/Hosp Course SUBJECTIVE: No acute changes overnight. The patient is alert,looks comfortable , no fevers. ANTIMICROBIALS: 1. Vancomycin. 2. Levaquin. 3. Diflucan PHYSICAL EXAMINATION: GENERAL: This is a well-developed, morbidly obese, middle-aged, Finnish- speaking woman, who is in no distress. HEENT: Head atraumatic, normocephalic. Sclerae anicteric. Buccal mucosa dry. NECK: Supple. Trachea midline. CHEST: Rise symmetrical. Breath sounds diminished to bases. HEART: S1, S2. ABDOMEN: Soft, bowel tones present. EXTREMITIES: With right lower extremity dressing intact. MICROBIOLOGY: Wound culture growing Enterobacter, yeast, corynebacterium species and enterococcus species. ASSESSMENT: 1. Right foot osteomyelitis, cellulitis, status post I and D. 2. Charcot deformity. 3. Diabetes. 4. Morbid obesity. 5. Scabies, status post Elimite and Ivermectin. 6. Chronic kidney disease. PLAN: The patient remains stable, add Rocephin for persistent Enterobacter, continue abx for 6-8 weeks, f/u with podiatry at wound clinic, continue wound vac, nephrology rec-s [facility] staff Problems: Consultation Date/Type/Reason Admit Date/Time Jan 01, 2017 at 01:45 Type of Consultation: id Referring Provider: GABRIELLA CABRERA Exam/Review of Systems Vital Signs Vitals Vital Signs Date Time Temp Pulse Resp B/P Pulse Ox O2 Delivery O2 Flow Rate FiO2 01/10/17 10:00 97.9 94 20 126/60 97 01/08/17 11:44 Room Air Intake and Output 01/09/17 01/09/17 01/10/17 15:00 23:00 07:00 Intake Total 720 ml 600 ml Output Total 20 ml Balance 700 ml 600 ml Results Result Diagram: 01/10/17 0440 01/10/17 0440 Results 24 hrs Laboratory Tests Test 01/09/17 17:31 01/09/17 20:39 01/10/17 04:40 01/10/17 08:49 Bedside Glucose 106 140 205 White Blood Count 12.8 H Red Blood Count 3.46 L Hemoglobin 9.7 L Hematocrit 31.0 L Mean Corpuscular Volume 89.6 Mean Corpuscular Hemoglobin 28.0 L Mean Corpuscular Hemoglobin Concent 31.3 L Red Cell Distribution Width 16.1 H Platelet Count 344 Mean Platelet Volume 9.8 Neutrophils % 72.6 Lymphocytes % 13.4 L Monocytes % 6.9 Eosinophils % 5.6 Basophils % 0.6 Nucleated Red Blood Cells % 0.0 Neutrophils # 9.3 H Lymphocytes # 1.7 Monocytes # 0.9 Eosinophils # 0.7 H Basophils # 0.1 Nucleated Red Blood Cells # 0.0 Sodium Level 139 Potassium Level 4.8 Chloride Level 111 H Carbon Dioxide Level 22 Anion Gap 11 Blood Urea Nitrogen 41 H Creatinine 2.25 H Glucose Level 151 Calcium Level 8.6 Test 01/10/17 12:42 Bedside Glucose 142 Medications Medications Current Medications Acetaminophen (Tylenol Tab) 650 mg Q6H PRN PO PAIN AND OR ELEVATED TEMP; Start 01/01/17 at 04:00 Heparin Sodium (Porcine) (Heparin (5000 Units/0.5 ml)) 5,000 unit BID SC Last administered on 01/10/17 08:54; Admin Dose 5,000 UNIT; Start 01/01/17 at 09:00 Amlodipine Besylate (Norvasc) 10 mg DAILY PO Last administered on 01/10/17 08: 51; Admin Dose 10 MG; Start 01/02/17 at 09:00 Aspirin (Aspirin) 81 mg DAILY PO Last administered on 01/10/17 08:50; Admin Dose 81 MG; Start 01/02/17 at 09:00 Atorvastatin Calcium (Lipitor) 20 mg QHS PO Last administered on 01/09/17 20: 40; Admin Dose 20 MG; Start 01/01/17 at 21:00 Ferrous Sulfate (Ferrous Sulfate (Ec)) 325 mg TID PO Last administered on 12:53; Admin Dose 325 MG; Start 01/01/17 at 21:00 Folic Acid (Folic Acid) 1 mg DAILY PO Last administered on 01/10/17 08:50; Admin Dose 1 MG; Start 01/02/17 at 09:00 Hydralazine HCl (Apresoline) 10 mg DAILY@21 PO Last administered on 01/09/17 20:40; Admin Dose 10 MG; Start 01/01/17 at 21:00 Insulin Glargine (Lantus) 22 unit Q12 SC Last administered on 01/10/17 08:57; Admin Dose 22 UNIT; Start 01/01/17 at 15:00 Tramadol HCl (Ultram) 50 mg Q6H PRN PO PAIN LEVEL 7-10; Start 01/01/17 at 15:00 Miscellaneous Information 1 ea NOTE XX ; Start 01/01/17 at 15:00 Glucose (Glutose) 15 gm Q15M PRN PO DECREASED GLUCOSE; Start 01/01/17 at 15:00 Glucose (Glutose) 22.5 gm Q15M PRN PO DECREASED GLUCOSE; Start 01/01/17 at 15:00 Dextrose (D50w Syringe) 25 ml Q15M PRN IV DECREASED GLUCOSE; Start 01/01/17 at 15:00 Dextrose (D50w Syringe) 50 ml Q15M PRN IV DECREASED GLUCOSE; Start 01/01/17 at 15:00 Glucagon (Glucagen) 1 mg Q15M PRN IM DECREASED GLUCOSE; Start 01/01/17 at 15:00 Glucose (Glutose) 15 gm Q15M PRN BUCCAL DECREASED GLUCOSE; Start 01/01/17 at 15: 00 Morphine Sulfate 2 mg 2 mg Q4H PRN IV PAIN; Start 01/01/17 at 16:00 Ondansetron HCl/ Sodium Chloride (Zofran Inj/NS) 54 ml @ 216 mls/hr Q6H PRN IV NAUSEA AND/OR VOMITING Last administered on 01/02/17 09:25; Admin Dose 216 MLS/HR; Start 01/01/17 at 15:30 Hydralazine HCl (Apresoline) 10 mg Q6H PRN IV ELEVATED BLOOD PRESSURE Last administered on 01/10/17 10:17; Admin Dose 10 MG; Start 01/02/17 at 15:00 Famotidine (Pepcid) 20 mg DAILY PO Last administered on 01/10/17 08:51; Admin Dose 20 MG; Start 01/02/17 at 15:00 Morphine Sulfate (morphine) 2 mg Q2H PRN IV PAIN LEVEL 6-10; Start 01/02/17 at 22:30 Acetaminophen/ Hydrocodone Bitart ([place] (5/325)) 1 tab Q6H PRN PO PAIN LEVEL 6 -10; Start 01/02/17 at 22:30 Acetaminophen/ Hydrocodone Bitart ([place] (10/325)) 1 tab Q6H PRN PO PAIN; Start 01/02/17 at 22:30 Acetaminophen (Tylenol Tab) 650 mg Q6H PRN PO PAIN AND OR ELEVATED TEMP; Start 01/02/17 at 22:30 Ibuprofen (Motrin) 600 mg Q6H PRN PO PAIN LEVEL 1-5; Start 01/02/17 at 22:30 Diphenhydramine HCl (Benadryl) 25 mg Q6H PRN IV ITCHING; Start 01/02/17 at 22:30 Ondansetron HCl (Zofran Inj) 4 mg Q6H PRN IV NAUSEA AND/OR VOMITING; Start 01/02 at 22:30 Phenol (Cepastat Lozenge) 1 lozenge PRN PRN MT SORE THROAT; Start 01/02/17 at 22 :30 Zolpidem Tartrate (Ambien) 5 mg HS PRN PO INSOMNIA; Start 01/02/17 at 22:30 Docusate Sodium (Colace) 100 mg BID PO Last administered on 01/09/17 08:37; Admin Dose 100 MG; Start 01/03/17 at 09:00 Senna (Senokot) 1 tab BID PRN PO CONSTIPATION; Start 01/02/17 at 22:30 Ascorbic Acid (Vitamin C) 1,000 mg DAILY PO Last administered on 01/10/17 08: 52; Admin Dose 1,000 MG; Start 01/03/17 at 09:00 Levofloxacin (Levaquin) 250 mg DAILY@06 PO Last administered on 01/10/17 05:44 ; Admin Dose 250 MG; Start 01/05/17 at 06:00 Tramadol HCl (Ultram) 50 mg Q6 PO Last administered on 01/10/17 12:42; Admin Dose 50 MG; Start 01/04/17 at 18:00 Naloxone HCl (Narcan) 0.2 mg Q2M PRN IV RESPIRATORY RATE LESS THAN 8; Start 01/04/17 at 21:30 Clonidine (Catapres) 0.1 mg Q6H PRN PO SBP>160 Last administered on 01/06/17 22:09; Admin Dose 0.1 MG; Start 01/06/17 at 09:00 Fluconazole (Diflucan) 100 mg DAILY PO Last administered on 01/10/17 08:50; Admin Dose 100 MG; Start 01/06/17 at 12:30 IV Flush (NS 10 ml) 10 ml PRN PRN IV FLUSH LINE; Start 01/06/17 at 19:30 Levothyroxine Sodium 100 mcg 100 mcg DAILY@06 PO Last administered on 05:44; Admin Dose 100 MCG; Start 01/10/17 at 06:00 Vancomycin HCl/ Sodium Chloride (Vancocin/NS) 500 ml @ 125 mls/hr Q48H IVPB ; Start 01/11/17 at 05:00 GEORGIANA MORIN NP Jan 10, 2017 14:02
[2017-01-10] MEDS ORDERED: CEFTRIAXONE 1 GM/50 ML (PMX) 50 ML IVPB SCH (14:30)
--- NOTE | 2017-01-10 14:44 | DS ---
Date/Time of Note Date/Time of Note DATE: 01/10/17 TIME: 14:32 Discharge Summary Admission/Discharge Info Admit Date/Time Jan 01, 2017 at 01:45 Discharge Date/Time Final Diagnosis 51-year-old female with history of right foot diabetic ulcer, osteomyelitis, essential hypertension, type 2 diabetes, hypothyroidism, high cholesterol, chronic kidney disease, right internal carotid artery stenosis who was transferred from outside hospital for right foot wound infection and osteomyelitis, s/p surgery. 1. Multiorganism Right foot cellulitis with wound infection, abscess and osteomyelitis - * s/p x 2 surgical procedures this admission - multiple incision and drainage of right foot dorsal aspect and excisional debridement of skin, subcutaneous tissue, muscle, and bone to ulceration plantar aspect 8 x 6 cm 2. Type 2 diabetes. A1c 8.0 : improved control 3. Hypertension: fair control 4. Chronic kidney disease: stable 5. History of right carotid endarterectomy. 6. Hypothyroidism: stable 7. Lice - s/p treatment 8. Hypochromic anemia associated with CKD 9. Diabetes with neuropathy. 10. Right foot Charcot osteoarthropathy. 11. s/p previous amputation R 2nd and 3rd toe. . Patient Condition: Stable Consults Podiatry: Carolynn ID : [email or web address] Nephro: Sruthi carreon . Procedures 1. Procedure Description Date : 01/02/17 Right foot multiple incision and drainage with pulse lavage Debridement of ulceration bone 8x6 cm plantar aspect 2. PROCEDURES PERFORMED: Date : 01/04/17 1. Right foot excisional debridement of skin, subcutaneous tissue, muscle and bone, plantar aspect, 6 x 4 cm. 2. Excisional debridement of skin, subcutaneous tissue and muscle, lateral aspect, 4 x 1 cm. . Hospital Course 48-year-old female who was admitted December 28, 2016 with a past medical history of chronic kidney disease, hypothyroidism, hypertension with a right foot wound and x-ray findings of osteomyelitis. Patient has a has a history of right carotid endarterectomy as well as diabetes mellitus and not had a previous right second and third 2 amputation here in the past. She was admitted and started on broad-spectrum antibiotics and underwent incision and drainage with pulse lavage and debridement of ulceration January 02, 2017 and also went back for right foot excisional debridement of skin and subcutaneous tissue, muscle and bone January 04, 2017. After his second procedure, wound VAC was placed and cultures were followed up. She however was noticed to have lice and was treated with ivermectin. At this time she is a stable condition. Unfortunately her hospitalization was prolonged by her insurance company delay in authorization of a wound VAC to be used at home and they required wound dressings. It is my understanding that these have been approved and patient is to be discharged home today with home health as well as IV antibiotics and a wound VAC. Comorbidities were also aggressively managed as per Med records. Patient at this time has been evaluated and examined in detail and is assessed to be in stable condition and ready for discharge. Home Meds Active Scripts Lactobacillus Rhamnosus* (Culturelle*) 1 Each Cap.sprink, 1 CAP PO BID for 42 Days, CAP Prov:PITER AGOSTONahid Emiliana 01/08/17 Ascorbic Acid (Vitamin C) 500 Mg Tab, 1000 MG PO DAILY for 30 Days, TAB 2 Refills Prov:ELMIRA AGOSTOJOLANTA Emiliana 01/08/17 Docusate Sodium (Dok) 100 Mg Capsule, 100 MG PO BID for 30 Days, CAP 2 Refills Prov:ELMIRA AGOSTOJOLANTA Emiliana 01/08/17 [Vancomycin Iv Per Pharmacy] 1 EA EACH No Conflict Check, 0 EA XX .PER PROTOCOL for 42 Days Prov:PITER AGOSTONahid JanEmiliana 01/08/17 Levofloxacin* (Levaquin*) 250 Mg Tablet, 250 MG PO DAILY@06 for 42 Days, TAB Prov:PITER AGOSTONahid Jan. 01/08/17 Fluconazole* (Diflucan*) 100 Mg Tablet, 100 MG PO DAILY for 42 Days, TAB Prov:TRINYELMIRA JaimeJOLANTA Darden 01/08/17 Tramadol HCl (Tramadol HCl) 50 Mg Tab, 50 MG PO Q6H Y for PAIN LEVEL 7-10 for 14 Days, TAB Prov:JUAN ANTONIO CISNEROS NP 03/25/14 Insulin Glargine* (Lantus*) 100 Unit/Ml Soln, 22 UNIT SC Q12 for 30 Days Prov:JUAN ANTONIO CISNEROS NP 03/25/14 Insulin Aspart* (Novolog Insulin Pen*) 100 Unit/Ml Soln, 16 UNIT SC WITH MEALS for 30 Days Prov:JUAN ANTONIO CISNEROS NP 03/25/14 Sodium Hypochlorite (Dakin's (1/4 Strength)) 1 Applic Irrig.soln, 0 APPLIC IRR BID for 7 Days Prov:JUAN ANTONIO CISNEROS NP 03/25/14 Levothyroxine Sodium* (Synthroid*) 75 Mcg Tab, 75 MCG PO DAILY@06 for 30 Days Prov:JUAN ANTONIO CISNEROS NP 03/25/14 Hydralazine Hcl* (Apresoline*) 10 Mg Tab, 10 MG PO DAILY@21 for 30 Days, TAB Prov:JUAN ANTONIO CISNEROS NP 03/25/14 Folic Acid* (Folic Acid*) 1 Mg Tab, 1 MG PO DAILY for 30 Days Prov:JUAN ANTONIO CISNEROS NP 03/25/14 Ferrous Sulfate* (Ferrous Sulfate*) 325 Mg Tabec, 325 MG PO TID for 30 Days Prov:JUAN ANTONIO CISNEROS NP 03/25/14 Atorvastatin Calcium* (Atorvastatin Calcium*) 20 Mg Tab, 20 MG PO QHS for 30 Days Prov:JUAN ANTONIO CISNEROS NP 03/25/14 Aspirin (Aspirin) 81 Mg Chew, 81 MG PO DAILY for 30 Days Prov:JUAN ANTONIO CISNEROS NP 03/25/14 Reported Medications Amlodipine Besylate* (Norvasc*) 10 Mg Tablet, 10 MG PO DAILY 11/18/11 Hydroxychloroquine Sulfate* (Plaquenil*) 200 Mg Tab, DAILY 10/03/10 Discontinued Reported Medications Tramadol HCl (Tramadol HCl) 50 Mg Tablet, 50 MG PO Q6 11/18/11 Folic Acid* (Folic Acid*) 1 Mg Tablet, DAILY 08/03/10 Discontinued Scripts Vancomycin-D5W (Vancomycin-NS) 1 G/250 Ml Plast..bag, 1 GM IVPB Q24H for 42 Days , EA Prov:JUAN ANTONIO CISNEROS NP 03/25/14 Ceftriaxone Na/Dextrose,Iso (Ceftriaxone 1 Gm Piggyback) 1 G/50 Ml Froz.piggy, 1 G IV DAILY for 42 Days Prov:JUAN ANTONIO CISNEROS NP 03/25/14 Nph, Human Insulin Isophane (Humulin N) 100 Unit/Ml Solution, 10 UNIT SC HS for 30 Days, VIAL Prov:JUAN ANTONIO CISNEROS NP 03/25/14 Hydroxychloroquine Sulfate* (Plaquenil*) 200 Mg Tab, 200 MG PO DAILY for 30 Days , TAB Prov:JUAN ANTONIO CISNEROS NP 03/25/14 Amlodipine Besylate* (Norvasc*) 10 Mg Tab, 10 MG PO DAILY for 30 Days Prov:JUAN ANTONIO CISNEROS HEEL SCORER 03/25/14 Follow-up Plan Patient will follow up with podiatry as well as vascular surgery as outpatient, and she is recommended to follow-up with her primary care physician as well within the next 1-2 weeks. Primary Care Provider Sim Castillo Time spent on discharge: > 30 minutes Pending Labs Laboratory Tests Test 01/09/17 17:31 01/09/17 20:39 01/10/17 04:40 01/10/17 08:49 Bedside Glucose 106mg/dL (70-220) 140mg/dL (70-220) 205mg/dL (70-220) White Blood Count 12.810^3/ul (4.8-10.8) Red Blood Count 3.4610^6/ul (4.20-5.40) Hemoglobin 9.7g/dl (12.0-16.0) Hematocrit 31.0% (37.0-47.0) Mean Corpuscular Volume 89.6fl (82.0-101.0) Mean Corpuscular Hemoglobin 28.0pg (29.0-33.0) Mean Corpuscular Hemoglobin Concent 31.3g/dl (32.0-37.0) Red Cell Distribution Width 16.1% (11.5-14.5) Platelet Count 23268^3/UL (140-415) Mean Platelet Volume 9.8fl (7.4-10.4) Neutrophils % 72.6% (39.0-77.0) Lymphocytes % 13.4% (15.0-51.0) Monocytes % 6.9% (0.0-11.0) Eosinophils % 5.6% (0.0-7.0) Basophils % 0.6% (0.0-2.0) Nucleated Red Blood Cells % 0.0/100WBC (0.0-0.0) Neutrophils # 9.310^3/ul (1.6-7.5) Lymphocytes # 1.710^3/ul (0.8-2.9) Monocytes # 0.910^3/ul (0.3-0.9) Eosinophils # 0.710^3/ul (0.0-0.5) Basophils # 0.110^3/ul (0.0-0.1) Nucleated Red Blood Cells # 0.010^3/ul (0.0-0.0) Sodium Level 139mmol/L (135-144) Potassium Level 4.8mmol/L (3.5-5.1) Chloride Level 111mmol/L (97-110) Carbon Dioxide Level 22mmol/L (21-31) Anion Gap 11 (8-16) Blood Urea Nitrogen 41mg/dl (7-20) Creatinine 2.25mg/dl (0.44-1.00) Glucose Level 151mg/dl (70-220) Calcium Level 8.6mg/dl (8.4-10.2) Test 01/10/17 12:42 Bedside Glucose 142mg/dL (70-220) MARIAA AGOSTO Jan 10, 2017 14:43
--- NOTE | 2017-01-10 17:43 | CONS ---
Date/Time of Note Date/Time of Note DATE: 01/10/17 TIME: 17:42 Assessment/Plan Assessment/Plan Additional Assessment/Plan 1. Acute kidney injury on chronic kidney disease secondary to sepsis from infections including the right foot osteomyelitis. 2. History of possible chronic kidney disease secondary to diabetic nephropathy. 3. Adult onset type 2 diabetes mellitus, poorly controlled. 4. Hypertension. 5. Hypothyroidism. 6. History of previous right second and third toe amputations. 7. Possible peripheral vascular disease. PLAN: pt has acute on chronic renal failure, s/p IVF- Cr 2.25 with IV abx and IVF hydration s/p Right foot excisional debridement , need better glycemic control will follow up US c/w Medical renal disease Consultation Date/Type/Reason Admit Date/Time Jan 01, 2017 at 01:45 Initial Consult Date Type of Consultation: NEPHROLOG Y Referring Provider: GABRIELLA CABRERA 24 HR Interval Summary Free Text/Dictation pt was seen in AM< BUN/Cr stable Exam/Review of Systems Vital Signs Vitals Vital Signs Date Time Temp Pulse Resp B/P Pulse Ox O2 Delivery O2 Flow Rate FiO2 01/10/17 10:00 97.9 94 20 126/60 97 01/08/17 11:44 Room Air Intake and Output 01/09/17 01/09/17 01/10/17 15:00 23:00 07:00 Intake Total 720 ml 600 ml Output Total 20 ml Balance 700 ml 600 ml Results Result Diagram: 01/10/17 0440 01/10/17 0440 Results 24 hrs Laboratory Tests Test 01/09/17 20:39 01/10/17 04:40 01/10/17 08:49 01/10/17 12:42 Bedside Glucose 140 205 142 White Blood Count 12.8 H Red Blood Count 3.46 L Hemoglobin 9.7 L Hematocrit 31.0 L Mean Corpuscular Volume 89.6 Mean Corpuscular Hemoglobin 28.0 L Mean Corpuscular Hemoglobin Concent 31.3 L Red Cell Distribution Width 16.1 H Platelet Count 344 Mean Platelet Volume 9.8 Neutrophils % 72.6 Lymphocytes % 13.4 L Monocytes % 6.9 Eosinophils % 5.6 Basophils % 0.6 Nucleated Red Blood Cells % 0.0 Neutrophils # 9.3 H Lymphocytes # 1.7 Monocytes # 0.9 Eosinophils # 0.7 H Basophils # 0.1 Nucleated Red Blood Cells # 0.0 Sodium Level 139 Potassium Level 4.8 Chloride Level 111 H Carbon Dioxide Level 22 Anion Gap 11 Blood Urea Nitrogen 41 H Creatinine 2.25 H Glucose Level 151 Calcium Level 8.6 MANUEL WISDOM MD Jan 10, 2017 17:43
[2017-01-11] MEDS ORDERED: VANCOMYCIN 1.75 GM in NS 500 ML IVPB SCH (05:00)
== END 2017-01-10 16:50 | disposition home health service (06) | DRG 629 ==
LOC: MS1 01-01 01:45
PROVIDERS: ADMIT Internal Medicine; ATTEND Internal Medicine
PROC: 0KBV0ZZ Excision of Right Foot Muscle, Open Approach (ICD-10-PCS; 2017-01-02)
PROC: 0QBN0ZX Excision of Right Metatarsal, Open Approach, Diagnostic (ICD-10-PCS; principal; 2017-01-02 19:30)
PROC: 0QBN0ZX Excision of Right Metatarsal, Open Approach, Diagnostic (ICD-10-PCS; 2017-01-04)
PROC: 0KBV0ZZ Excision of Right Foot Muscle, Open Approach (ICD-10-PCS; 2017-01-04)
PROC: 02HV33Z Insertion of Infusion Device into Superior Vena Cava, Percutaneous Approach (ICD-10-PCS; 2017-01-06)
PROC: 30243N1 Transfusion of Nonautologous Red Blood Cells into Central Vein, Percutaneous Approach (ICD-10-PCS; 2017-01-06)
DX: E11.69 Type 2 diabetes mellitus with other specified complication (principal); Z68.42 Body mass index [BMI] 45.0-49.9, adult; M86.9 Osteomyelitis, unspecified; N17.9 Acute kidney failure, unspecified; E11.22 Type 2 diabetes mellitus with diabetic chronic kidney disease; E11.621 Type 2 diabetes mellitus with foot ulcer; E11.610 Type 2 diabetes mellitus with diabetic neuropathic arthropathy; L03.115 Cellulitis of right lower limb; L02.611 Cutaneous abscess of right foot; L97.514 Non-pressure chronic ulcer of other part of right foot with necrosis of bone; E11.65 Type 2 diabetes mellitus with hyperglycemia; I12.9 Hypertensive chronic kidney disease with stage 1 through stage 4 chronic kidney disease, or unspecified chronic kidney disease; N18.9 Chronic kidney disease, unspecified; E66.01 Morbid (severe) obesity due to excess calories; B86 Scabies; B85.2 Pediculosis, unspecified; B95.2 Enterococcus as the cause of diseases classified elsewhere; B96.89 Other specified bacterial agents as the cause of diseases classified elsewhere; D64.9 Anemia, unspecified; E03.9 Hypothyroidism, unspecified; E78.5 Hyperlipidemia, unspecified; K80.20 Calculus of gallbladder without cholecystitis without obstruction; Z79.4 Long term (current) use of insulin; Z79.82 Long term (current) use of aspirin; Z89.421 Acquired absence of other right toe(s)
CPT/HCPCS: 36430; 36569; 71010; 76775; 76937; 80048; 80053; 80061; 80202; 81001; 81003; 82550; 82570; 82962; 83036; 83540; 83735; 84100; 84300; 84443; 84560; 85025; 85049; 85610; 85730; 86850; 86900; 86901; 86920; 87040; 87070; 87075; 87081; 87102; 87116; 88304; 88311; 89190; J0360; J0696; J1644; J1815; J2250; J2370; J2405; J2543; J2765; J3010; J3370; J3475; J7030; J7040; J7050; P9016

== ENCOUNTER 2017-03-26 17:41 | Inpatient (IN) | payer OTHER ==
[~2017-03-26] VITALS: Ht 160 cm; Wt 128.0 kg
[~2017-03-26 17:41] MED LIST changes: +ASC500 PO; -CEFT1FRO2 IV; +DOCU-216 PO; +FLUC100T PO; -FOLI-49; -HYDR200T5 PO; +LACT1CAP57 PO; +LEVO250T35 PO; -NPH,100V SC; -VANC1PLA4 IVPB; +Vancomycin Iv Per Pharmacy XX
[2017-03-26] MEDS ORDERED: SOD CHLORIDE 0.9% 500 ML IV STA (22:30)
[2017-03-26] MEDS ORDERED: LANT3I SC (23:08)
[2017-03-26] MEDS ORDERED: LOSA100T7 PO (23:08)
[2017-03-26] MEDS ORDERED: LORA10TA3 PO (23:08)
[2017-03-26] MEDS ORDERED: HYDR-3672 PO (23:08)
[2017-03-26] MEDS ORDERED: INSU100C SC (23:08)
[2017-03-26] MEDS ORDERED: SIMV20TA PO (23:08)
[2017-03-26] MEDS ORDERED: FAMO20TA18 PO (23:08)
[2017-03-26] MEDS ORDERED: LEVO25TA53 PO (23:08)
[2017-03-26] MEDS ORDERED: CHOL100062 PO (23:08)
[2017-03-26] MEDS ORDERED: CLOP75TA4 PO (23:08)
[2017-03-26 23:13] LABS: BASOPHIL # 0.1 10^3/ul (0.0-0.1); BASOPHILS % 0.4 % (0.0-2.0); EOSINOPHILS # 0.9 10^3/ul (0.0-0.5); HEMATOCRIT 32.8 % (37.0-47.0); HEMOGLOBIN 10.7 g/dl (12.0-16.0); LYMPHOCYTES # 2.8 10^3/ul (0.8-2.9); MEAN CORPUSCULAR HEMOGLOBIN 29.2 pg (29.0-33.0); MEAN CORPUSCULAR HGB CONC 32.6 g/dl (32.0-37.0); MEAN CORPUSCULAR VOLUME 89.4 fl (82.0-101.0); MEAN PLATELET VOLUME 10.6 fl (7.4-10.4); MONOCYTE # 0.8 10^3/ul (0.3-0.9); MONOCYTES % 4.9 % (0.0-11.0); NEUTROPHILS % 70.2 % (39.0-77.0); PLATELET COUNT 344 10^3/UL (140-415); RED BLOOD COUNT 3.67 10^6/ul (4.20-5.40); RED CELL DISTRIBUTION WIDTH 14.5 % (11.5-14.5); WHITE BLOOD COUNT 15.4 10^3/ul (4.8-10.8)
[2017-03-26 23:33] LABS: ALBUMIN 3.2 g/dl (3.3-4.9); ALBUMIN/GLOBULIN RATIO 0.69; CALCIUM 8.4 mg/dl (8.4-10.2); CREATININE 2.67 mg/dl (0.44-1.00); POTASSIUM 4.5 mmol/L (3.5-5.1); TOTAL PROTEIN 7.8 g/dl (6.1-8.1)
[2017-03-27] VITALS (7 sets, daily range): BP systolic 146–174; BP diastolic 67–77; RESP 18–21; TEMP 97.7; Ht 160 cm; Wt 128.0 kg
--- NOTE | 2017-03-27 01:05 | ERA ---
ER Documentation Chief Complaint Date/Time DATE: 03/27/17 TIME: 01:04 Chief Complaint RT LEG PAIN AND SWELLING WITH OPEN WOUNDS HPI This a 52-year-old female comes complaints of right leg pain and swelling with open wounds. She underwent surgery with a airways control specialist [facility]. She had underwent 6 weeks of intravenous antibiotics via PICC line. Continues to have dry purulent drainage from the surgical site. Sent in by airways control specialist for admission and further evaluation. ROS All systems reviewed and are negative except as per history of present illness. Medications Home Meds Active Scripts Docusate Sodium (Dok) 100 Mg Capsule, 100 MG PO BID for 30 Days, CAP 2 Refills Prov:MARIAA AGOSTO 01/08/17 Tramadol HCl (Tramadol HCl) 50 Mg Tab, 50 MG PO Q6H Y for PAIN LEVEL 7-10 for 14 Days, TAB Prov:JUAN ANTONIO CISNEROS CARE TRANSITION COORDINATOR 03/25/14 Hydralazine Hcl* (Apresoline*) 10 Mg Tab, 10 MG PO DAILY@21 for 30 Days, TAB Prov:JUAN ANTONIO CISNEROS CARE TRANSITION COORDINATOR 03/25/14 Folic Acid* (Folic Acid*) 1 Mg Tab, 1 MG PO DAILY for 30 Days Prov:JUAN ANTONIO CISNEROS CARE TRANSITION COORDINATOR 03/25/14 Reported Medications Loratadine* (Loratadine*) 10 Mg Tablet, 10 MG PO DAILY, #30 TAB 03/26/17 Losartan Potassium* (Losartan Potassium*) 100 Mg Tablet, 100 MG PO DAILY, TAB 03/26/17 Simvastatin* (Zocor*) 20 Mg Tablet, 20 MG PO QHS, #30 TAB 03/26/17 Cholecalciferol* (Vitamin D3*) 1,000 Unit Tablet, 1000 UNIT PO DAILY, TAB 03/26/17 Famotidine* (Famotidine*) 20 Mg Tablet, 20 MG PO PRN Y for DAILY, #60 TAB 03/26/17 Clopidogrel Bisulfate* (Clopidogrel Bisulfate*) 75 Mg Tablet, 75 MG PO DAILY, # 30 TAB 03/26/17 Levothyroxine Sodium* (Levothyroxine Sodium*) 25 Mcg Tablet, 25 MCG PO BEFORE BREAKFAST, #30 TAB TAKE 1 TABLET AT 8 AM DAILY 03/26/17 Insulin Glargine* (Lantus*) 100 Unit/Ml Soln, 40 UNIT SC BID WITH MEALS, #1 VIAL 8/28/17 Insulin Lispro (Humalog) 100 Unit/1 Ml Cartridge, SC SLIDING SCALE 03/26/17 Hydralazine Hcl* (Hydralazine Hcl*) 50 Mg Tab, 50 MG PO BID, #120 TAB Tk 1 tablet by mouth twice daily 03/26/17 Amlodipine Besylate* (Norvasc*) 10 Mg Tablet, 10 MG PO DAILY 11/18/11 Hydroxychloroquine Sulfate* (Plaquenil*) 200 Mg Tab, DAILY 10/03/10 Discontinued Scripts Lactobacillus Rhamnosus* (Culturelle*) 1 Each Cap.sprink, 1 CAP PO BID for 42 Days, CAP Prov:PITER AGOSTONahid JanEmiliana 01/08/17 Ascorbic Acid (Vitamin C) 500 Mg Tab, 1000 MG PO DAILY for 30 Days, TAB 2 Refills Prov:PITER AGOSTONahid Emiliana 01/08/17 [Vancomycin Iv Per Pharmacy] 1 EA EACH No Conflict Check, 0 EA XX .PER PROTOCOL for 42 Days Prov:TRINYELMIRAJOLANTA Darden 01/08/17 Levofloxacin* (Levaquin*) 250 Mg Tablet, 250 MG PO DAILY@06 for 42 Days, TAB Prov:PITER AGOSTONahid Jan. 01/08/17 Fluconazole* (Diflucan*) 100 Mg Tablet, 100 MG PO DAILY for 42 Days, TAB Prov:PITER AGOSTONahid Jan. 01/08/17 Insulin Glargine* (Lantus*) 100 Unit/Ml Soln, 22 UNIT SC Q12 for 30 Days Prov:JUAN ANTONIO CISNEROS NP 03/25/14 Insulin Aspart* (Novolog Insulin Pen*) 100 Unit/Ml Soln, 16 UNIT SC WITH MEALS for 30 Days Prov:JUAN ANTONIO CISNEROS NP 03/25/14 Sodium Hypochlorite (Dakin's (1/4 Strength)) 1 Applic Irrig.soln, 0 APPLIC IRR BID for 7 Days Prov:JUAN ANTONIO CISNEROS NP 03/25/14 Levothyroxine Sodium* (Synthroid*) 75 Mcg Tab, 75 MCG PO DAILY@06 for 30 Days Prov:JUAN ANTONIO CISNEROS NP 03/25/14 Ferrous Sulfate* (Ferrous Sulfate*) 325 Mg Tabec, 325 MG PO TID for 30 Days Prov:JUAN ANTONIO CISNEROS NP 03/25/14 Atorvastatin Calcium* (Atorvastatin Calcium*) 20 Mg Tab, 20 MG PO QHS for 30 Days Prov:ERNESTINAAMYJUAN ANTONIO CARE TRANSITION COORDINATOR 03/25/14 Aspirin (Aspirin) 81 Mg Chew, 81 MG PO DAILY for 30 Days Prov:JUAN ANTONIO CISNEROS CARE TRANSITION COORDINATOR 03/25/14 Allergies Allergies: Coded Allergies: No Known Allergy (Unverified , 03/26/17) PMhx/Soc History of Surgery: Yes (RIGHT 2ND & 3RD TOES AMPUTATION, C SECTION 1999 & 2000 , NECK SX) Anesthesia Reaction: No Hx Neurological Disorder: No Hx Respiratory Disorders: No Hx Cardiac Disorders: Yes (HTN, ONSET UNK POSSIBLY 1999) Hx Psychiatric Problems: No Hx Miscellaneous Medical Probl: No (DM, partial right foot amputation and post- op infection) Hx Alcohol Use: No Hx Substance Use: No Hx Tobacco Use: No Smoking Status: Unknown if ever smoked Physical Exam Vitals Vital Signs Date Time Temp Pulse Resp B/P Pulse Ox O2 Delivery O2 Flow Rate FiO2 03/26/17 18:02 99.3 82 18 136/105 96 Physical Exam Const: [] Head: Atraumatic Eyes: Normal Conjunctiva ENT: Normal External Ears, Nose and Mouth. Neck: Full range of motion..~ No meningismus. Resp: Clear to auscultation bilaterally Cardio: Regular rate and rhythm, no murmurs Abd: Soft, non tender, non distended. Normal bowel sounds Skin: No petechiae or rashes Back: No midline or flank tenderness Ext: No cyanosis, or edema Neur: Awake and alert Psych: Normal Mood and Affect Result Diagram: 03/26/17224403/26/172244 Results 24 hrs Laboratory Tests Test 03/26/17 22:45 White Blood Count 15.410^3/ul Red Blood Count 3.6710^6/ul Hemoglobin 10.7g/dl Hematocrit 32.8% Mean Corpuscular Volume 89.4fl Mean Corpuscular Hemoglobin 29.2pg Mean Corpuscular Hemoglobin Concent 32.6g/dl Red Cell Distribution Width 14.5% Platelet Count 17537^3/UL Mean Platelet Volume 10.6fl Neutrophils % 70.2% Lymphocytes % 18.0% Monocytes % 4.9% Eosinophils % 6.0% Basophils % 0.4% Nucleated Red Blood Cells % 0.0/100WBC Neutrophils # (Manual) 10.810^3/ul Lymphocytes # 2.810^3/ul Monocytes # 0.810^3/ul Eosinophils # 0.910^3/ul Basophils # 0.110^3/ul Nucleated Red Blood Cells # 0.010^3/ul Sodium Level 140mmol/L Potassium Level 4.5mmol/L Chloride Level 103mmol/L Carbon Dioxide Level 21mmol/L Anion Gap 21 Blood Urea Nitrogen 47mg/dl Creatinine 2.67mg/dl Glucose Level 399mg/dl Calcium Level 8.4mg/dl Total Bilirubin 0.0mg/dl Direct Bilirubin 0.00mg/dl Indirect Bilirubin 0.0mg/dl Aspartate Amino Transf (AST/SGOT) 12IU/L Alanine Aminotransferase (ALT/SGPT) 22IU/L Alkaline Phosphatase 136IU/L Total Protein 7.8g/dl Albumin 3.2g/dl Globulin 4.60g/dl Albumin/Globulin Ratio 0.69 Lipase 68U/L Current Medications Medications (Trade) Dose Ordered Sig/Val[place] Route PRN Reason Start Time Stop Time Status Last Admin Dose Admin Sodium Chloride (NS) 500 ml @ 500 mls/hr Q1H STAT IV 03/26/17 22:30 03/26/17 23:29 DC 03/26/17 22:49 Procedures/MDM Medical decision-makin-year-old female with infected diabetic postop wound. Patient will be admitted for further evaluation and management. Departure Diagnosis: Primary Impression: Post op infection Qualified Code: T81.4XXA - Postoperative infection, initial encounter Condition: Stable STEFFANY SCOTT Mar 27, 2017 01:05
[2017-03-27] MEDS ORDERED: VANCOMYCIN IV PER PHARMACY XX SCH (04:00)
[2017-03-27] MEDS ORDERED: FAMOTIDINE 20 MG TAB PO PRN (04:00)
[2017-03-27] MEDS ORDERED: traMADol 50 MG TAB PO PRN (04:00)
[2017-03-27] MEDS ORDERED: GLUCAGON 1 MG INJ IM PRN (04:30)
[2017-03-27] MEDS ORDERED: GLUCOSE GEL 15 GRAM TUBE BUCCAL PRN (04:30)
[2017-03-27] MEDS ORDERED: VANCOMYCIN 2 GM in SOD CHLORIDE 0.9% 500 ML IVPB SCH (04:30)
[2017-03-27] MEDS ORDERED: DEXTROSE 50% 50 ML SYRINGE IV PRN ×2 (04:30)
[2017-03-27] MEDS ORDERED: GLUCOSE GEL 15 GRAM TUBE PO PRN ×2 (04:30)
[2017-03-27] MEDS: PIPER-TAZO 3.375 GM IV (PMX) 100 ML IVPB SCH ×3 (05:39→18:02)
[2017-03-27] MEDS: LEVOTHYROXINE 25 MCG TAB PO SCH (06:50)
[2017-03-27 06:57] LABS: CREATININE 2.59 mg/dl (0.44-1.00); POTASSIUM 4.4 mmol/L (3.5-5.1)
[2017-03-27] MEDS: INSULIN GLARGINE [LANtus] 3 ML PEN SC SCH ×2 (08:30→20:50)
[2017-03-27] MEDS: INSULIN ASPART [NOVOLOG] 3 ML PEN SC SCH ×4 (08:32→20:51)
[2017-03-27] MEDS: FOLIC ACID 1 MG TAB PO SCH (08:34)
[2017-03-27] MEDS: LOSARTAN 50 MG TAB PO SCH (08:34)
[2017-03-27] MEDS: CLOPIDOGREL 75 MG TAB PO SCH (08:34)
[2017-03-27] MEDS: AMLODIPINE 10 MG TAB PO SCH (08:35)
[2017-03-27] MEDS: LORATADINE 10 MG TAB PO SCH (08:36)
[2017-03-27] MEDS: CHOLECALCIFEROL 1,000 UNIT TAB PO SCH (08:36)
[2017-03-27] MEDS: HYDROXYCHLOROQUINE 200 MG TAB PO SCH (08:36)
[2017-03-27] MEDS: DOCUSATE SODIUM 100 MG CAP PO SCH ×2 (08:37→20:42)
[2017-03-27 08:52] LABS: BASOPHILS % 0.3 % (0.0-2.0); EOSINOPHILS # 1.1 10^3/ul (0.0-0.5); EOSINOPHILS % 8.3 % (0.0-7.0); HEMATOCRIT 32.1 % (37.0-47.0); LYMPHOCYTES # 2.4 10^3/ul (0.8-2.9); MEAN CORPUSCULAR HEMOGLOBIN 28.5 pg (29.0-33.0); MEAN CORPUSCULAR HGB CONC 31.2 g/dl (32.0-37.0); MEAN CORPUSCULAR VOLUME 91.5 fl (82.0-101.0); MEAN PLATELET VOLUME 10.8 fl (7.4-10.4); MONOCYTE # 0.7 10^3/ul (0.3-0.9); MONOCYTES % 5.3 % (0.0-11.0); NEUTROPHILS % 66.6 % (39.0-77.0); PLATELET COUNT 305 10^3/UL (140-415); RED BLOOD COUNT 3.51 10^6/ul (4.20-5.40); RED CELL DISTRIBUTION WIDTH 14.5 % (11.5-14.5); WHITE BLOOD COUNT 12.6 10^3/ul (4.8-10.8)
--- NOTE | 2017-03-27 10:30 | HP ---
Date/Time of Note Date/Time of Note DATE: 03/27/17 TIME: 10:23 Assessment/Plan VTE Prophylaxis VTE Prophylaxis Intervention: heparin Lines/Catheters IV Catheter Type (from [facility]): PICC Line Central line still needed: Yes Assessment/Plan Assessment/Plan 1. Right foot infected osteomyelitis -IV antibiotic -Follow-up culture results -ID consult -Her retrofit installer to follow in-house 2. Hypertension -Continue BP meds with adjustment as needed 3. Diabetes -Insulin while in-house his adjustment as needed 4. Hypothyroidism -Continue Synthroid 5. CKD -Avoid nephrotoxins -Nephrology to follow along HPI/ROS Admit Date/Time Admit Date/Time Mar 27, 2017 at 01:03 Hx of Present Illness This is a 52-year-old female with history of right foot osteomyelitis with a history of right second and third toe amputations, chronic kidney disease, hypothyroidism, hypertension, diabetes. Patient was sent by her retrofit installer for IV antibiotic because of right foot infection. Patient was a sleepy and was not really interested in providing history but she stated that she had noticed some draining from her right foot. Denied fever or chills. Patient was recently admitted here and was discharged with home health for IV antibiotic after placement of a PICC line. When she presented to the ER today, vitals were stable, white count 15.6. She was started with IV antibiotic. . PMH/Family/Social Past Medical History Medical History: diabetes, hyperthyroid, hypothyroid, other (Right foot osteomyelitis) Past Surgical History Past Surgical Hx: other (Right second and fourth toe amputation) Social History Alcohol Use: none Smoking Status: Never smoker Drug Use: none Exam/Review of Systems Vital Signs Vitals Vital Signs Date Time Temp Pulse Resp B/P Pulse Ox O2 Delivery O2 Flow Rate FiO2 03/27/17 04:32 152/70 03/27/17 03:52 97.7 81 18 94 03/27/17 02:46 Room Air Intake and Output 03/26/17 03/26/17 03/27/17 15:00 23:00 07:00 Intake Total 250 ml Balance 250 ml Exam Constitutional: other (Sleepy but arousable. No acute distress) Head: atraumatic, normocephalic Eyes: EOMI, PERRL Respiratory: clear to auscultation, normal air movement Cardiovascular: nl pulses, regular rate and rhythm Gastrointestinal: non-tender, soft Extremities: other (Right foot is covered with dressing which is dry) Labs Result Diagram: 03/27/17 0504 03/27/17 0504 Medications Medications Current Medications Amlodipine Besylate (Norvasc) 10 mg DAILY PO Last administered on 03/27/17 08: 35; Admin Dose 10 MG; Start 03/27/17 at 09:00 Cholecalciferol (Vitamin D) 1,000 unit DAILY PO Last administered on 03/27/17 08:36; Admin Dose 1,000 UNIT; Start 03/27/17 at 09:00 Clopidogrel Bisulfate (plaVIX) 75 mg DAILY PO Last administered on 03/27/17 08 :34; Admin Dose 75 MG; Start 03/27/17 at 09:00 Docusate Sodium (Colace) 100 mg BID PO ; Start 03/27/17 at 09:00 Famotidine (Pepcid) 20 mg DAILY PRN PO PRN; Start 03/27/17 at 04:00 Folic Acid (Folic Acid) 1 mg DAILY PO Last administered on 03/27/17 08:34; Admin Dose 1 MG; Start 03/27/17 at 09:00 Hydralazine HCl (Apresoline) 50 mg BID PO Last administered on 03/27/17 08:34 ; Admin Dose 50 MG; Start 03/27/17 at 09:00 Hydralazine HCl (Apresoline) 10 mg DAILY@21 PO ; Start 03/27/17 at 21:00 Hydroxychloroquine Sulfate (Plaquenil) 200 mg DAILY PO Last administered on 08:36; Admin Dose 200 MG; Start 03/27/17 at 09:00 Loratadine (Claritin) 10 mg DAILY PO Last administered on 03/27/17 08:36; Admin Dose 10 MG; Start 03/27/17 at 09:00 Losartan Potassium (Cozaar) 100 mg DAILY PO Last administered on 03/27/17 08: 34; Admin Dose 100 MG; Start 03/27/17 at 09:00 Tramadol HCl (Ultram) 50 mg Q6H PRN PO PAIN LEVEL 7-10; Start 03/27/17 at 04:00 Atorvastatin Calcium 10 mg 10 mg QHS PO ; Start 03/27/17 at 21:00 Piperacillin Sod/ Tazobactam Sod (Zosyn 3.375gm/ 100 ml (Pmx)) 100 ml @ 25 mls/ hr Q6 IVPB Last administered on 03/27/17 05:39; Admin Dose 25 MLS/HR; Start at 06:00 Diagnostic Test (Pha) (Accu-Chek) 1 ea 02 XX ; Start 03/28/17 at 02:00 Miscellaneous Information 1 ea NOTE XX ; Start 03/27/17 at 04:30 Glucose (Glutose) 15 gm Q15M PRN PO DECREASED GLUCOSE; Start 03/27/17 at 04:30 Glucose (Glutose) 22.5 gm Q15M PRN PO DECREASED GLUCOSE; Start 03/27/17 at 04: 30 Dextrose (D50w Syringe) 25 ml Q15M PRN IV DECREASED GLUCOSE; Start 03/27/17 at 04:30 Dextrose (D50w Syringe) 50 ml Q15M PRN IV DECREASED GLUCOSE; Start 03/27/17 at 04:30 Glucagon (Glucagen) 1 mg Q15M PRN IM DECREASED GLUCOSE; Start 03/27/17 at 04:30 Glucose (Glutose) 15 gm Q15M PRN BUCCAL DECREASED GLUCOSE; Start 03/27/17 at 04 :30 Insulin Glargine (Lantus) 40 unit BID@08,20 SC Last administered on 03/27/17 08:30; Admin Dose 40 UNIT; Start 03/27/17 at 08:00 STEFFANY GOMEZ MD Mar 27, 2017 10:30
--- NOTE | 2017-03-27 13:12 | CONS ---
DATE OF ADMISSION: 03/27/2017 DATE OF CONSULTATION: 03/27/2017 REASON FOR CONSULTATION: Chronic kidney disease. HISTORY OF PRESENT ILLNESS: This is a 52-year-old female with a past medical history of chronic kidney disease stage 3B/4 with a baseline creatinine between 2.5 and 3 mg/dL, history of right foot osteomyelitis, history of hypothyroidism, diabetes, hypertension, who presents to [facility] for IV antibiotics due to a right foot infection. The patient noted worsening pain and drainage of her right foot. Denied any fevers or chills. As a result, she came in to the emergency room, [facility] In terms of patient's renal history, the patient has a baseline creatinine ranging from 2.2 to 2.8 mg/dL. She denies any hemoptysis, hematemesis, hematochezia. The patient does take an ARB at home. She denies any NSAID use. PAST MEDICAL HISTORY: As stated above. History of chronic kidney disease stage 3B/4, history of diabetes, hypertension, hypothyroidism, history of right foot osteomyelitis. PAST SURGICAL HISTORY: Right 2nd and 4th toe amputation. FAMILY HISTORY: Noncontributory. SOCIAL HISTORY: Does not drink, smoke, or do drugs. REVIEW OF SYSTEMS: Fourteen point review of systems conducted. Pertinent positives stated in HPI, otherwise negative. PHYSICAL EXAMINATION: VITAL SIGNS: Blood pressure 160/77, respirations 18, pulse 74, temperature 97.4. HEENT: Head is normocephalic. NECK: Supple. HEART: Regular rate. LUNGS: Show diminished breath sounds base. ABDOMEN: Soft, nontender to palpation. No rebound or guarding. EXTREMITIES: Negative for clubbing, cyanosis. Edema on the left leg. Right foot has dressing clean, dry, intact. NEUROLOGIC: No focal deficits. DERMATOLOGIC: Clean. No rashes. MEDICATIONS: Reviewed. LABORATORY DATA: Shows white count 12.6, hemoglobin 10.0, crit 32.1, platelet count 305. Sodium 142, potassium 4.0, chloride 107, bicarb 21, BUN 29, creatinine 2.59, 387. IMPRESSION AND PLAN: This is a 52-year-old female who presents with: 1. Nonoliguric acute kidney injury on top of chronic kidney disease with previous baseline creatinine around 2.2 to 2.8 mg/dL. Etiology of current acute kidney injury is likely secondary to hemodynamics, possible . Plan at this point is to do a full evaluation. Check UA with microanalysis. We will check urine lytes. Would recommend continue treating underlying infection. We will continue losartan at this time. Otherwise, continue supportive care. Renally dose all medications. Avoid nephrotoxins. 2. Anemia. Monitor H and H levels. We will give Epogen as needed. 3. Mineral bone disorder. Continue to monitor calcium and phosphorus levels. We will give phosphorus binders as needed. 4. Right foot osteomyelitis. Continue current antibiotic course. Follow up cultures. Follow up with Podiatry. 5. Hypertension. Continue current blood pressure regimen. 6. Diabetes. Continue Accu-Cheks, insulin sliding scale. 7. Hypothyroidism. Continue Synthroid. Thank you, Dr. Hansen, for this interesting consult. It will be a pleasure to follow patient with you throughout the hospital course. Dictated By: Gilmar Diehl DO /vickie/mary /Document#: [id number]
--- NOTE | 2017-03-27 14:05 | CONS ---
Date/Time of Note Date/Time of Note DATE: 03/27/17 TIME: 14:04 Consultation Date/Type/Reason Admit Date/Time Mar 27, 2017 at 01:03 Date of Consultation: Mar 27, 2017 Type of Consultation: ID Reason for Consultation Antibiotic management Past Medical History Medical History: diabetes, hyperthyroid, hypothyroid, other (Right foot osteomyelitis) Past Surgical History Past Surgical Hx: other (Right second and fourth toe amputation) Social History Alcohol Use: none Smoking Status: Never smoker Drug Use: none Exam/Review of Systems Vital Signs Vitals Vital Signs Date Time Temp Pulse Resp B/P Pulse Ox O2 Delivery O2 Flow Rate FiO2 03/27/17 08:15 97.4 74 18 162/77 95 03/27/17 02:46 Room Air Intake and Output 03/26/17 03/26/17 03/27/17 15:00 23:00 07:00 Intake Total 250 ml Balance 250 ml Results Result Diagram: 03/27/17 0504 03/27/17 0504 Results 24 hrs Laboratory Tests Test 03/26/17 22:45 03/27/17 05:04 03/27/17 08:05 03/27/17 11:46 White Blood Count 15.4 #H 12.6 H Red Blood Count 3.67 L 3.51 L Hemoglobin 10.7 L 10.0 L Hematocrit 32.8 L 32.1 L Mean Corpuscular Volume 89.4 91.5 Mean Corpuscular Hemoglobin 29.2 28.5 L Mean Corpuscular Hemoglobin Concent 32.6 31.2 L Red Cell Distribution Width 14.5 14.5 Platelet Count 344 305 Mean Platelet Volume 10.6 H 10.8 H Neutrophils % 70.2 66.6 Lymphocytes % 18.0 19.0 Monocytes % 4.9 5.3 Eosinophils % 6.0 8.3 H Basophils % 0.4 0.3 Nucleated Red Blood Cells % 0.0 0.0 Neutrophils # (Manual) 10.8 H 8.4 H Lymphocytes # 2.8 2.4 Monocytes # 0.8 0.7 Eosinophils # 0.9 H 1.1 H Basophils # 0.1 0.0 Nucleated Red Blood Cells # 0.0 0.0 Sodium Level 140 142 Potassium Level 4.5 4.4 Chloride Level 103 107 Carbon Dioxide Level 21 21 Anion Gap 21 H 18 H Blood Urea Nitrogen 47 H 49 H Creatinine 2.67 H 2.59 H Glucose Level 399 H 387 H Calcium Level 8.4 8.0 L Total Bilirubin 0.0 L Direct Bilirubin 0.00 Indirect Bilirubin 0.0 Aspartate Amino Transf (AST/SGOT) 12 L Alanine Aminotransferase (ALT/SGPT) 22 Alkaline Phosphatase 136 H Total Protein 7.8 Albumin 3.2 L Globulin 4.60 H Albumin/Globulin Ratio 0.69 Lipase 68 Hemoglobin A1c 7.4 H Bedside Glucose 299 H 199 Medications Medications Current Medications Amlodipine Besylate (Norvasc) 10 mg DAILY PO Last administered on 03/27/17 08: 35; Admin Dose 10 MG; Start 03/27/17 at 09:00 Cholecalciferol (Vitamin D) 1,000 unit DAILY PO Last administered on 03/27/17 08:36; Admin Dose 1,000 UNIT; Start 03/27/17 at 09:00 Clopidogrel Bisulfate (plaVIX) 75 mg DAILY PO Last administered on 03/27/17 08 :34; Admin Dose 75 MG; Start 03/27/17 at 09:00 Docusate Sodium (Colace) 100 mg BID PO ; Start 03/27/17 at 09:00 Famotidine (Pepcid) 20 mg DAILY PRN PO PRN; Start 03/27/17 at 04:00 Folic Acid (Folic Acid) 1 mg DAILY PO Last administered on 03/27/17 08:34; Admin Dose 1 MG; Start 03/27/17 at 09:00 Hydralazine HCl (Apresoline) 50 mg BID PO Last administered on 03/27/17 08:34 ; Admin Dose 50 MG; Start 03/27/17 at 09:00 Hydralazine HCl (Apresoline) 10 mg DAILY@21 PO ; Start 03/27/17 at 21:00 Hydroxychloroquine Sulfate (Plaquenil) 200 mg DAILY PO Last administered on 08:36; Admin Dose 200 MG; Start 03/27/17 at 09:00 Loratadine (Claritin) 10 mg DAILY PO Last administered on 03/27/17 08:36; Admin Dose 10 MG; Start 03/27/17 at 09:00 Losartan Potassium (Cozaar) 100 mg DAILY PO Last administered on 03/27/17 08: 34; Admin Dose 100 MG; Start 03/27/17 at 09:00 Tramadol HCl (Ultram) 50 mg Q6H PRN PO PAIN LEVEL 7-10; Start 03/27/17 at 04:00 Atorvastatin Calcium 10 mg 10 mg QHS PO ; Start 03/27/17 at 21:00 Piperacillin Sod/ Tazobactam Sod (Zosyn 3.375gm/ 100 ml (Pmx)) 100 ml @ 25 mls/ hr Q6 IVPB Last administered on 03/27/17 05:39; Admin Dose 25 MLS/HR; Start at 06:00 Diagnostic Test (Pha) (Accu-Chek) 1 ea 02 XX ; Start 03/28/17 at 02:00 Miscellaneous Information 1 ea NOTE XX ; Start 03/27/17 at 04:30 Glucose (Glutose) 15 gm Q15M PRN PO DECREASED GLUCOSE; Start 03/27/17 at 04:30 Glucose (Glutose) 22.5 gm Q15M PRN PO DECREASED GLUCOSE; Start 03/27/17 at 04: 30 Dextrose (D50w Syringe) 25 ml Q15M PRN IV DECREASED GLUCOSE; Start 03/27/17 at 04:30 Dextrose (D50w Syringe) 50 ml Q15M PRN IV DECREASED GLUCOSE; Start 03/27/17 at 04:30 Glucagon (Glucagen) 1 mg Q15M PRN IM DECREASED GLUCOSE; Start 03/27/17 at 04:30 Glucose (Glutose) 15 gm Q15M PRN BUCCAL DECREASED GLUCOSE; Start 03/27/17 at 04 :30 Insulin Glargine 40 unit 40 unit BID@08,20 SC Last administered on 03/27/17 08 :30; Admin Dose 40 UNIT; Start 03/27/17 at 08:00 Vancomycin HCl/ Sodium Chloride (Vancocin/NS) 500 ml @ 125 mls/hr Q48H IVPB ; Start 03/29/17 at 10:00 IRENA DEL RIO MD Mar 27, 2017 14:05
--- NOTE | 2017-03-27 17:01 | CONS ---
DATE OF ADMISSION: 03/27/2017 DATE OF CONSULTATION: 03/27/2017 INFECTIOUS DISEASE CONSULTATION: REASON FOR CONSULTATION: This infectious disease consult is for consultation for antibiotic management. HISTORY OF PRESENT ILLNESS: Dina Narayanan is a 52-year-old female with a history of right foot osteomyelitis who comes in now for infected foot and antibiotic management. Problems include: 1. Adult-onset diabetes mellitus, insulin dependent. 2. Right foot osteomyelitis with a history of right second and third toe amputations. 3. Chronic renal disease. 4. Hypothyroidism. 5. Hypertension. 6. Right foot osteomyelitis. The patient was sent by her learning officer for IV antibiotics because of right foot infection. She has some drainage from the right foot. She was recently admitted to here and discharged with home health for IV antibiotics after placement of a PICC line. On admission, her white count was 12.6, although in the emergency room was 15.6, on the was 12.6, H and H of 10 and 32.1, platelet count 305,000. BUN creatinine 49/2.59. Random glucose is 387,000. PAST MEDICAL HISTORY: As outlined. PAST SURGICAL HISTORY: Right second and third toe amputation. ALLERGIES: NONE TO PENICILLIN, SULFA, OR FOODS. MEDICATION: Per chart. SOCIAL HISTORY: She does not smoke, drink, or abuse drugs. REVIEW OF SYSTEMS: As per HPI. PHYSICAL EXAMINATION: GENERAL: Patient is a well-developed, well-nourished female, alert, responsive, in no acute distress. VITAL SIGNS: Stable. She is afebrile. SKIN: Without generalized rash. HEENT: Within normal limits. NECK: Supple. Lymph nodes nonpalpable. CHEST: Decreased breath sounds at the bases. HEART: Without murmur or gallop. ABDOMEN: Soft, nontender, without organosplenomegaly or masses. EXTREMITIES: Without cyanosis or clubbing. She has a right second and third toe amputation and at the present time, her foot is wrapped. RECTAL AND GENITAL: Exam is deferred. NEUROLOGICAL: She has decreased sensation distal extremities. Otherwise no focal neurological abnormalities. IMPRESSION AND PLAN: Patient has osteomyelitis. She was started on vancomycin and Zosyn. She should see Podiatry, as well. She has chronic renal disease and is being followed by Dr. Diehl. I will dictate my findings to the hospitalist and to Dr. Diehl. Dictated By: Harley Diaz MD JD/vickie/torres /Document#: [id number]
[2017-03-27] MEDS: ATORVASTATIN 10 MG TAB PO SCH (20:42)
[2017-03-28] MEDS: PIPER-TAZO 3.375 GM IV (PMX) 100 ML IVPB SCH ×4 (00:17→17:32)
[2017-03-28] MEDS: ACCU-CHEK XX SCH (02:00)
[2017-03-28 02:47] VITALS: BP 153/69; RESP 19
[2017-03-28] MEDS: LEVOTHYROXINE 25 MCG TAB PO SCH (06:28)
[2017-03-28] MEDS: INSULIN ASPART [NOVOLOG] 3 ML PEN SC SCH ×4 (07:30→21:11)
[2017-03-28 08:00] VITALS: BP 138/63; RESP 18
[2017-03-28] MEDS: INSULIN GLARGINE [LANtus] 3 ML PEN SC SCH ×2 (08:19→21:11)
[2017-03-28] MEDS: CHOLECALCIFEROL 1,000 UNIT TAB PO SCH (08:20)
[2017-03-28] MEDS: HYDROXYCHLOROQUINE 200 MG TAB PO SCH (08:20)
[2017-03-28] MEDS: CLOPIDOGREL 75 MG TAB PO SCH (08:20)
[2017-03-28] MEDS: FOLIC ACID 1 MG TAB PO SCH (08:20)
[2017-03-28] MEDS: LORATADINE 10 MG TAB PO SCH (08:20)
[2017-03-28] MEDS: AMLODIPINE 10 MG TAB PO SCH (08:21)
[2017-03-28] MEDS: LOSARTAN 50 MG TAB PO SCH (08:22)
[2017-03-28] MEDS: DOCUSATE SODIUM 100 MG CAP PO SCH ×2 (08:23→21:00)
[2017-03-28 14:00] VITALS: BP 128/61; RESP 20
--- NOTE | 2017-03-28 14:19 | PN ---
Date/Time of Note Date/Time of Note DATE: 03/28/17 TIME: 14:15 Assessment/Plan VTE Prophylaxis VTE Prophylaxis Intervention: SCD's Lines/Catheters IV Catheter Type (from Nrsg): PICC Line Central line still needed: Yes Assessment/Plan Chief Complaint/Hosp Course Assessment and plan 1. Right foot infection osteomyelitis. Continue antibiotics. Awaiting cultures. Baccarat Dealer follow in-house. ID consult is following 2. Essential hypertension. Continue antihypertensives and adjust the 3. Diabetes. On insulin regimen. Stable at present. Will monitor. 4. Hypothyroidism. Continue on Synthroid 5. CAD. Medications to be renally dosed. Monitor renal panel. Disposition plan: Continue antibiotics. Await podiatry input. Continue in- house monitoring. Discussed plan of care with Dr. Dave Problems: Subjective 24 Hr Interval Summary Free Text/Dictation no s/s of distress. no reports of pain at this time Exam/Review of Systems Vital Signs Vitals Vital Signs Date Time Temp Pulse Resp B/P Pulse Ox O2 Delivery O2 Flow Rate FiO2 03/28/17 08:00 97.5 70 18 138/63 95 03/27/17 02:46 Room Air Intake and Output 03/27/17 03/27/17 03/28/17 15:00 23:00 07:00 Intake Total 600 ml 1420 ml 800 ml Balance 600 ml 1420 ml 800 ml Exam Constitutional: obese, oriented Head: normocephalic Respiratory: clear to auscultation, normal air movement Cardiovascular: regular rate and rhythm Gastrointestinal: non-tender, soft Musculoskeletal: other (right foot in dressing cdi) Neurological: WIRE SPLICER II-XII intact, nl mental status, nl speech Results Result Diagram: 03/27/17 0504 03/27/17 0504 Results 24 hrs Laboratory Tests Test 03/27/17 17:15 03/27/17 20:45 03/28/17 07:58 03/28/17 11:56 Bedside Glucose 244 H 163 84 200 Medications Medications Current Medications Amlodipine Besylate (Norvasc) 10 mg DAILY PO Last administered on 03/28/17 08: 21; Admin Dose 10 MG; Start 03/27/17 at 09:00 Cholecalciferol (Vitamin D) 1,000 unit DAILY PO Last administered on 03/28/17 08:20; Admin Dose 1,000 UNIT; Start 03/27/17 at 09:00 Clopidogrel Bisulfate (plaVIX) 75 mg DAILY PO Last administered on 03/28/17 08 :20; Admin Dose 75 MG; Start 03/27/17 at 09:00 Docusate Sodium (Colace) 100 mg BID PO Last administered on 03/27/17 20:42; Admin Dose 100 MG; Start 03/27/17 at 09:00 Famotidine (Pepcid) 20 mg DAILY PRN PO PRN; Start 03/27/17 at 04:00 Folic Acid (Folic Acid) 1 mg DAILY PO Last administered on 03/28/17 08:20; Admin Dose 1 MG; Start 03/27/17 at 09:00 Hydralazine HCl (Apresoline) 50 mg BID PO Last administered on 03/28/17 08:21 ; Admin Dose 50 MG; Start 03/27/17 at 09:00 Hydralazine HCl (Apresoline) 10 mg DAILY@21 PO Last administered on 03/27/17 20:42; Admin Dose 10 MG; Start 03/27/17 at 21:00 Hydroxychloroquine Sulfate (Plaquenil) 200 mg DAILY PO Last administered on 08:20; Admin Dose 200 MG; Start 03/27/17 at 09:00 Loratadine (Claritin) 10 mg DAILY PO Last administered on 03/28/17 08:20; Admin Dose 10 MG; Start 03/27/17 at 09:00 Losartan Potassium (Cozaar) 100 mg DAILY PO Last administered on 03/28/17 08: 22; Admin Dose 100 MG; Start 03/27/17 at 09:00 Tramadol HCl (Ultram) 50 mg Q6H PRN PO PAIN LEVEL 7-10; Start 03/27/17 at 04:00 Atorvastatin Calcium (Lipitor) 10 mg QHS PO Last administered on 03/27/17 20: 42; Admin Dose 10 MG; Start 03/27/17 at 21:00 Diagnostic Test (Pha) (Accu-Chek) 1 ea 02 XX ; Start 03/28/17 at 02:00 Miscellaneous Information 1 ea NOTE XX ; Start 03/27/17 at 04:30 Glucose (Glutose) 15 gm Q15M PRN PO DECREASED GLUCOSE; Start 03/27/17 at 04:30 Glucose (Glutose) 22.5 gm Q15M PRN PO DECREASED GLUCOSE; Start 03/27/17 at 04: 30 Dextrose (D50w Syringe) 25 ml Q15M PRN IV DECREASED GLUCOSE; Start 03/27/17 at 04:30 Dextrose (D50w Syringe) 50 ml Q15M PRN IV DECREASED GLUCOSE; Start 03/27/17 at 04:30 Glucagon (Glucagen) 1 mg Q15M PRN IM DECREASED GLUCOSE; Start 03/27/17 at 04:30 Glucose (Glutose) 15 gm Q15M PRN BUCCAL DECREASED GLUCOSE; Start 03/27/17 at 04 :30 Insulin Glargine 40 unit 40 unit BID@08,20 SC Last administered on 03/28/17 08 :19; Admin Dose 40 UNIT; Start 03/27/17 at 08:00 Vancomycin HCl 1.75 gm/Sodium Chloride 500 ml @ 125 mls/hr Q48H IVPB ; Start at 10:00 Piperacillin Sod/ Tazobactam Sod (Zosyn 3.375gm/ 100 ml (Pmx)) 100 ml @ 200 mls /hr Q6 IVPB Last administered on 03/28/17 12:04; Admin Dose 200 MLS/HR; Start 03/27/17 at 18:00 ERON MILLS Mar 28, 2017 14:19
[2017-03-28 15:20] LABS: CALCIUM 7.5 mg/dl (8.4-10.2); CREATININE 2.89 mg/dl (0.44-1.00); POTASSIUM 5.1 mmol/L (3.5-5.1)
[2017-03-28 20:54] VITALS: BP 143/65; RESP 19
[2017-03-28] MEDS: ATORVASTATIN 10 MG TAB PO SCH (21:12)
[2017-03-29] MEDS: PIPER-TAZO 3.375 GM IV (PMX) 100 ML IVPB SCH ×4 (00:24→21:45)
[2017-03-29] MEDS: ACCU-CHEK XX SCH (01:55)
[2017-03-29 02:54] VITALS: BP 151/72; RESP 18
--- NOTE | 2017-03-29 03:42 | PN ---
DATE: 03/28/2017 SUBJECTIVE DATA: The patient is alert, feels good, denies pain, discomfort. No fevers. LABORATORY AND DIAGNOSTIC DATA: WBC 12.6, H and H 10 and 32.1, platelets 205, no shift, no bands. BUN 49, creatinine 2.59, blood sugar 244. MICROBIOLOGY: Blood cultures remain negative. ANTIMICROBIALS: The patient is on vancomycin and Zosyn. OBJECTIVE DATA: GENERAL: This is a morbidly obese, well developed, middle-aged, white woman, who is alert, in no distress. HEENT: Head atraumatic, normocephalic. Sclerae anicteric. Buccal mucosa pink. NECK: Supple. RESPIRATORY: Chest rise symmetrical. Breath sounds clear. HEART: S1, S2. ABDOMEN: Soft, bowel sounds present. EXTREMITIES: With right lower extremity dressing intact. ASSESSMENT: 1. Right lower extremity osteomyelitis with wound culture in December growing Sandy parapsilosis, Enterobacter cloacae, coag- negative staph species. 2. Morbid obesity. 3. Diabetes, poorly controlled. 4. Chronic kidney disease. 5. Charcot deformity. PLAN: The patient remains stable. We will continue her on current antimicrobials. Monitor renal function closely. Await for podiatry input. The patient needs tight blood sugar control. Consider endocrinology evaluation. Dictated By: Jordon Bazzi NP /vickie/mary /Document#: [id number]
[2017-03-29 04:52] LABS: BASOPHILS % 0.3 % (0.0-2.0); EOSINOPHILS # 1.4 10^3/ul (0.0-0.5); EOSINOPHILS % 12.1 % (0.0-7.0); HEMATOCRIT 31.4 % (37.0-47.0); HEMOGLOBIN 9.7 g/dl (12.0-16.0); LYMPHOCYTES # 1.7 10^3/ul (0.8-2.9); LYMPHOCYTES % 14.5 % (15.0-51.0); MEAN CORPUSCULAR HEMOGLOBIN 27.8 pg (29.0-33.0); MEAN CORPUSCULAR HGB CONC 30.9 g/dl (32.0-37.0); MEAN PLATELET VOLUME 10.5 fl (7.4-10.4); MONOCYTE # 0.6 10^3/ul (0.3-0.9); MONOCYTES % 5.1 % (0.0-11.0); NEUTROPHILS % 67.5 % (39.0-77.0); PLATELET COUNT 291 10^3/UL (140-415); RED BLOOD COUNT 3.49 10^6/ul (4.20-5.40); RED CELL DISTRIBUTION WIDTH 14.7 % (11.5-14.5); WHITE BLOOD COUNT 11.7 10^3/ul (4.8-10.8)
--- NOTE | 2017-03-29 05:06 | PN ---
DATE: 03/28/2017 SUBJECTIVE DATA: The patient is stable. No acute events overnight. No fevers, chills, nausea, vomiting, shortness of breath. OBJECTIVE DATA: VITAL SIGNS: Blood pressure is 130/63, respirations 18, pulse 72, temperature 97.5. HEENT: Head is normocephalic. NECK: Supple. HEART: Regular rate. LUNGS: Show diminished breath sounds at the base. ABDOMEN: Soft, nontender to palpation. No guarding. EXTREMITIES: Negative for clubbing, cyanosis, edema. DERMATOLOGIC: No rashes. No sloughing. MUSCULOSKELETAL: No joint effusion. NEUROLOGIC: Unchanged exam. MEDICATIONS: Reviewed. LABORATORY AND DIAGNOSTIC DATA: Has been reviewed. No new labs. ASSESSMENT AND PLAN: 1. Nonoliguric acute kidney injury on top of chronic kidney disease with previous baseline creatinine between 2.2 to 2.8 mg/dL. Etiology of acute kidney injury is currently secondary to hemodynamics. Patient's urinalysis is currently pending. At this point, continue current treatment plan and supportive care. Renally dose all meds. 2. Anemia. Monitor H and H levels. Will give Epogen as needed. 3. Mineral bone disorder. Monitor calcium and phosphorus levels. 4. Right foot osteomyelitis. Continue current antibiotic regimen. 5. Hypertension. Continue current blood pressure regimen. 6. Diabetes. Continue Accu-Cheks and sliding scale. 7. Hypothyroidism. Continue Synthroid. Dictated By: Gilmar Diehl DO /vickie/shailesh /Document#: [id number]
[2017-03-29 05:30] LABS: CALCIUM 7.7 mg/dl (8.4-10.2); CREATININE 2.84 mg/dl (0.44-1.00); POTASSIUM 4.8 mmol/L (3.5-5.1)
[2017-03-29] MEDS: LEVOTHYROXINE 25 MCG TAB PO SCH (06:08)
[2017-03-29 07:20] VITALS: BP 169/79; RESP 16
[2017-03-29] MEDS: INSULIN ASPART [NOVOLOG] 3 ML PEN SC SCH ×4 (07:30→21:56)
[2017-03-29] MEDS: CLOPIDOGREL 75 MG TAB PO SCH (08:15)
[2017-03-29] MEDS: FOLIC ACID 1 MG TAB PO SCH (08:16)
[2017-03-29] MEDS: AMLODIPINE 10 MG TAB PO SCH (08:16)
[2017-03-29] MEDS: DOCUSATE SODIUM 100 MG CAP PO SCH ×2 (08:16→21:00)
[2017-03-29] MEDS: LORATADINE 10 MG TAB PO SCH (08:17)
[2017-03-29] MEDS: CHOLECALCIFEROL 1,000 UNIT TAB PO SCH (08:17)
[2017-03-29] MEDS: LOSARTAN 50 MG TAB PO SCH (08:17)
[2017-03-29] MEDS: HYDROXYCHLOROQUINE 200 MG TAB PO SCH (08:17)
[2017-03-29] MEDS: INSULIN GLARGINE [LANtus] 3 ML PEN SC SCH ×2 (08:21→21:50)
[2017-03-29] MEDS: VANCOMYCIN 1.75 GM in NS 500 ML IVPB SCH (10:05)
--- NOTE | 2017-03-29 11:01 | PN ---
Date/Time of Note Date/Time of Note DATE: 03/29/17 TIME: 10:59 Assessment/Plan VTE Prophylaxis VTE Prophylaxis Intervention: SCD's Lines/Catheters IV Catheter Type (from Nrsg): PICC Line Central line still needed: Yes Assessment/Plan Chief Complaint/Hosp Course Assessment and plan 1. Right foot infection osteomyelitis. Continue antibiotics. Noted with Corynebacterium species and wound. Tentative plan for podiatry intervention. Will follow up. Continue on antibiotics 2. Essential hypertension. Continue antihypertensives and adjust as needed 3. Diabetes. On insulin regimen. Stable at present. Will monitor. 4. Hypothyroidism. Continue on Synthroid 5. CAD. Medications to be renally dosed. Monitor renal panel. Stable at present Disposition plan: Continue with antibiotics. Tentative plan for podiatry intervention March 30, 2017. We will follow-up Discussed plan of care with Dr. Dave Problems: Subjective 24 Hr Interval Summary Free Text/Dictation Denies any pain at this time. Comfortable at present. Exam/Review of Systems Vital Signs Vitals Vital Signs Date Time Temp Pulse Resp B/P Pulse Ox O2 Delivery O2 Flow Rate FiO2 03/29/17 07:20 97.6 68 16 169/79 93 03/27/17 02:46 Room Air Intake and Output 03/28/17 03/28/17 03/29/17 15:00 23:00 07:00 Intake Total 100 ml 960 ml 920 ml Balance 100 ml 960 ml 920 ml Exam Constitutional: obese, oriented Head: normocephalic Respiratory: clear to auscultation, normal air movement Cardiovascular: regular rate and rhythm Gastrointestinal: non-tender, soft Musculoskeletal: other (right foot in dressing cdi) Neurological: UPPER LEATHER SORTER II-XII intact, nl mental status, nl speech Results Result Diagram: 03/29/17 0430 03/29/17 0430 Results 24 hrs Laboratory Tests Test 03/28/17 11:56 03/28/17 13:35 03/28/17 17:22 03/28/17 21:09 Bedside Glucose 200 375 H 240 H Sodium Level 141 Potassium Level 5.1 Chloride Level 107 Carbon Dioxide Level 20 L Anion Gap 19 H Blood Urea Nitrogen 50 H Creatinine 2.89 H Glucose Level 262 #H Calcium Level 7.5 L Test 03/29/17 01:55 03/29/17 04:30 03/29/17 08:13 Bedside Glucose 147 92 White Blood Count 11.7 H Red Blood Count 3.49 L Hemoglobin 9.7 L Hematocrit 31.4 L Mean Corpuscular Volume 90.0 Mean Corpuscular Hemoglobin 27.8 L Mean Corpuscular Hemoglobin Concent 30.9 L Red Cell Distribution Width 14.7 H Platelet Count 291 Mean Platelet Volume 10.5 H Neutrophils % 67.5 Lymphocytes % 14.5 L Monocytes % 5.1 Eosinophils % 12.1 H Basophils % 0.3 Nucleated Red Blood Cells % 0.0 Neutrophils # (Manual) 7.9 H Lymphocytes # 1.7 Monocytes # 0.6 Eosinophils # 1.4 H Basophils # 0.0 Nucleated Red Blood Cells # 0.0 Sodium Level 140 Potassium Level 4.8 Chloride Level 106 Carbon Dioxide Level 23 Anion Gap 16 Blood Urea Nitrogen 56 H Creatinine 2.84 H Glucose Level 142 # Calcium Level 7.7 L Medications Medications Current Medications Amlodipine Besylate (Norvasc) 10 mg DAILY PO Last administered on 03/29/17 08: 16; Admin Dose 10 MG; Start 03/27/17 at 09:00 Cholecalciferol (Vitamin D) 1,000 unit DAILY PO Last administered on 03/29/17 08:17; Admin Dose 1,000 UNIT; Start 03/27/17 at 09:00 Clopidogrel Bisulfate (plaVIX) 75 mg DAILY PO Last administered on 03/29/17 08 :15; Admin Dose 75 MG; Start 03/27/17 at 09:00 Docusate Sodium (Colace) 100 mg BID PO Last administered on 03/29/17 08:16; Admin Dose 100 MG; Start 03/27/17 at 09:00 Famotidine (Pepcid) 20 mg DAILY PRN PO PRN; Start 03/27/17 at 04:00 Folic Acid (Folic Acid) 1 mg DAILY PO Last administered on 03/29/17 08:16; Admin Dose 1 MG; Start 03/27/17 at 09:00 Hydralazine HCl (Apresoline) 50 mg BID PO Last administered on 03/29/17 08:16 ; Admin Dose 50 MG; Start 03/27/17 at 09:00 Hydralazine HCl (Apresoline) 10 mg DAILY@21 PO Last administered on 03/28/17 21:12; Admin Dose 10 MG; Start 03/27/17 at 21:00 Hydroxychloroquine Sulfate (Plaquenil) 200 mg DAILY PO Last administered on 08:17; Admin Dose 200 MG; Start 03/27/17 at 09:00 Loratadine (Claritin) 10 mg DAILY PO Last administered on 03/29/17 08:17; Admin Dose 10 MG; Start 03/27/17 at 09:00 Losartan Potassium (Cozaar) 100 mg DAILY PO Last administered on 03/29/17 08: 17; Admin Dose 100 MG; Start 03/27/17 at 09:00 Tramadol HCl (Ultram) 50 mg Q6H PRN PO PAIN LEVEL 7-10; Start 03/27/17 at 04:00 Atorvastatin Calcium (Lipitor) 10 mg QHS PO Last administered on 03/28/17 21: 12; Admin Dose 10 MG; Start 03/27/17 at 21:00 Diagnostic Test (Pha) (Accu-Chek) 1 ea 02 XX ; Start 03/28/17 at 02:00 Miscellaneous Information 1 ea NOTE XX ; Start 03/27/17 at 04:30 Glucose (Glutose) 15 gm Q15M PRN PO DECREASED GLUCOSE; Start 03/27/17 at 04:30 Glucose (Glutose) 22.5 gm Q15M PRN PO DECREASED GLUCOSE; Start 03/27/17 at 04: 30 Dextrose (D50w Syringe) 25 ml Q15M PRN IV DECREASED GLUCOSE; Start 03/27/17 at 04:30 Dextrose (D50w Syringe) 50 ml Q15M PRN IV DECREASED GLUCOSE; Start 03/27/17 at 04:30 Glucagon (Glucagen) 1 mg Q15M PRN IM DECREASED GLUCOSE; Start 03/27/17 at 04:30 Glucose (Glutose) 15 gm Q15M PRN BUCCAL DECREASED GLUCOSE; Start 03/27/17 at 04 :30 Insulin Glargine 40 unit 40 unit BID@08,20 SC Last administered on 03/29/17 08 :21; Admin Dose 40 UNIT; Start 03/27/17 at 08:00 Vancomycin HCl 1.75 gm/Sodium Chloride 500 ml @ 125 mls/hr Q48H IVPB Last administered on 03/29/17 10:05; Admin Dose 125 MLS/HR; Start 03/29/17 at 10:00 Piperacillin Sod/ Tazobactam Sod (Zosyn 3.375gm/ 100 ml (Pmx)) 100 ml @ 200 mls /hr Q8 IVPB ; Start 03/29/17 at 14:00 ERON MILLS Mar 29, 2017 11:01
--- NOTE | 2017-03-29 11:34 | PN ---
DATE: 03/29/2017 SUBJECTIVE DATA: Patient is stable. No events overnight. No fevers, chills, nausea, vomiting. OBJECTIVE DATA: VITAL SIGNS: Blood pressure 169/79, respirations 16, pulse 68, temperature is 97.6. HEENT: Head is normocephalic. NECK: Supple. HEART: Regular rate. LUNGS: Diminished breath sounds at the base. ABDOMEN: Soft, nontender to palpation. No rebound or guarding. EXTREMITIES: Negative for clubbing, cyanosis. No edema. Positive right extremity with wound. LABORATORY AND DIAGNOSTIC DATA: Sodium 140, potassium 4.9, chloride 106, BUN 56, creatinine 2.84. White count 9.7, hemoglobin 9.7, hematocrit 31.4, platelet count 291. ASSESSMENT AND PLAN: 1. Nonoliguric acute kidney injury on top of chronic kidney disease with previous baseline creatinine 2.2 to 2.8 mg/dL. Etiology of current acute kidney injury secondary to hemodynamics. Renal function appears to be near baseline. Continue current treatment. Supportive care. Renally dose all meds. 2. Chronic kidney disease, stage III-IV, secondary to diabetic nephropathy. Continue to monitor. Continue to treat acute kidney injury as stated above. Continue disease factor modification. 3. Anemia. Monitor H and H levels. Continue Epogen. 4. Mineral bone disorder. Monitor calcium and phosphorus levels. 5. Right foot osteomyelitis. Continue current antibiotic regimen. 6. Hypertension. Continue current blood pressure regimen. 7. Diabetes. Continue Accu-Chek and sliding scale. 8. Hypothyroidism. Continue Synthroid. Dictated By: Gilmar Diehl DO /vickie/emelia /Document#: [id number]
[2017-03-29 12:15] VITALS: BP 135/64
[2017-03-29 14:03] VITALS: BP 149/72; RESP 18
--- NOTE | 2017-03-29 15:08 | CONS ---
Date/Time of Note Date/Time of Note DATE: 03/29/17 TIME: 15:06 Assessment/Plan Assessment/Plan Chief Complaint/Hosp Course SUBJECTIVE DATA: The patient is alert, feels good, denies pain, discomfort. No fevers. MICROBIOLOGY: Blood cultures remain negative. ANTIMICROBIALS: The patient is on vancomycin and Zosyn. OBJECTIVE DATA: GENERAL: This is a morbidly obese, well developed, middle-aged, white woman, who is alert, in no distress. HEENT: Head atraumatic, normocephalic. Sclerae anicteric. Buccal mucosa pink. NECK: Supple. RESPIRATORY: Chest rise symmetrical. Breath sounds clear. HEART: S1, S2. ABDOMEN: Soft, bowel sounds present. EXTREMITIES: With right lower extremity dressing intact. ASSESSMENT: 1. Right lower extremity osteomyelitis with wound culture in December grew Sandy parapsilosis, Enterobacter cloacae, coag-negative staph species. 2. Morbid obesity. 3. Diabetes, poorly controlled. 4. Chronic kidney disease. 5. Charcot deformity. PLAN: The patient remains stable, continue abx, await for podiatry input. Continue BS control DW pt/staff Problems: Consultation Date/Type/Reason Admit Date/Time Mar 27, 2017 at 01:03 Initial Consult Date 03/27/17 Type of Consultation: ID Exam/Review of Systems Vital Signs Vitals Vital Signs Date Time Temp Pulse Resp B/P Pulse Ox O2 Delivery O2 Flow Rate FiO2 03/29/17 14:03 98.2 76 18 149/72 98 03/27/17 02:46 Room Air Intake and Output 03/28/17 03/28/17 03/29/17 15:00 23:00 07:00 Intake Total 100 ml 960 ml 920 ml Balance 100 ml 960 ml 920 ml Results Result Diagram: 03/29/17 0430 03/29/17 0430 Results 24 hrs Laboratory Tests Test 03/28/17 17:22 03/28/17 21:09 03/29/17 01:55 03/29/17 04:30 Bedside Glucose 375 H 240 H 147 White Blood Count 11.7 H Red Blood Count 3.49 L Hemoglobin 9.7 L Hematocrit 31.4 L Mean Corpuscular Volume 90.0 Mean Corpuscular Hemoglobin 27.8 L Mean Corpuscular Hemoglobin Concent 30.9 L Red Cell Distribution Width 14.7 H Platelet Count 291 Mean Platelet Volume 10.5 H Neutrophils % 67.5 Lymphocytes % 14.5 L Monocytes % 5.1 Eosinophils % 12.1 H Basophils % 0.3 Nucleated Red Blood Cells % 0.0 Neutrophils # (Manual) 7.9 H Lymphocytes # 1.7 Monocytes # 0.6 Eosinophils # 1.4 H Basophils # 0.0 Nucleated Red Blood Cells # 0.0 Sodium Level 140 Potassium Level 4.8 Chloride Level 106 Carbon Dioxide Level 23 Anion Gap 16 Blood Urea Nitrogen 56 H Creatinine 2.84 H Glucose Level 142 # Calcium Level 7.7 L Test 03/29/17 08:13 03/29/17 12:16 Bedside Glucose 92 173 Medications Medications Current Medications Amlodipine Besylate (Norvasc) 10 mg DAILY PO Last administered on 03/29/17 08: 16; Admin Dose 10 MG; Start 03/27/17 at 09:00 Cholecalciferol (Vitamin D) 1,000 unit DAILY PO Last administered on 03/29/17 08:17; Admin Dose 1,000 UNIT; Start 03/27/17 at 09:00 Clopidogrel Bisulfate (plaVIX) 75 mg DAILY PO Last administered on 03/29/17 08 :15; Admin Dose 75 MG; Start 03/27/17 at 09:00 Docusate Sodium (Colace) 100 mg BID PO Last administered on 03/29/17 08:16; Admin Dose 100 MG; Start 03/27/17 at 09:00 Famotidine (Pepcid) 20 mg DAILY PRN PO PRN; Start 03/27/17 at 04:00 Folic Acid (Folic Acid) 1 mg DAILY PO Last administered on 03/29/17 08:16; Admin Dose 1 MG; Start 03/27/17 at 09:00 Hydralazine HCl (Apresoline) 50 mg BID PO Last administered on 03/29/17 08:16 ; Admin Dose 50 MG; Start 03/27/17 at 09:00 Hydralazine HCl (Apresoline) 10 mg DAILY@21 PO Last administered on 03/28/17 21:12; Admin Dose 10 MG; Start 03/27/17 at 21:00 Hydroxychloroquine Sulfate (Plaquenil) 200 mg DAILY PO Last administered on 08:17; Admin Dose 200 MG; Start 03/27/17 at 09:00 Loratadine (Claritin) 10 mg DAILY PO Last administered on 03/29/17 08:17; Admin Dose 10 MG; Start 03/27/17 at 09:00 Losartan Potassium (Cozaar) 100 mg DAILY PO Last administered on 03/29/17 08: 17; Admin Dose 100 MG; Start 03/27/17 at 09:00 Tramadol HCl (Ultram) 50 mg Q6H PRN PO PAIN LEVEL 7-10; Start 03/27/17 at 04:00 Atorvastatin Calcium (Lipitor) 10 mg QHS PO Last administered on 03/28/17 21: 12; Admin Dose 10 MG; Start 03/27/17 at 21:00 Diagnostic Test (Pha) (Accu-Chek) 1 ea 02 XX ; Start 03/28/17 at 02:00 Miscellaneous Information 1 ea NOTE XX ; Start 03/27/17 at 04:30 Glucose (Glutose) 15 gm Q15M PRN PO DECREASED GLUCOSE; Start 03/27/17 at 04:30 Glucose (Glutose) 22.5 gm Q15M PRN PO DECREASED GLUCOSE; Start 03/27/17 at 04: 30 Dextrose (D50w Syringe) 25 ml Q15M PRN IV DECREASED GLUCOSE; Start 03/27/17 at 04:30 Dextrose (D50w Syringe) 50 ml Q15M PRN IV DECREASED GLUCOSE; Start 03/27/17 at 04:30 Glucagon (Glucagen) 1 mg Q15M PRN IM DECREASED GLUCOSE; Start 03/27/17 at 04:30 Glucose (Glutose) 15 gm Q15M PRN BUCCAL DECREASED GLUCOSE; Start 03/27/17 at 04 :30 Insulin Glargine 40 unit 40 unit BID@08,20 SC Last administered on 03/29/17 08 :21; Admin Dose 40 UNIT; Start 03/27/17 at 08:00 Vancomycin HCl 1.75 gm/Sodium Chloride 500 ml @ 125 mls/hr Q48H IVPB Last administered on 03/29/17 10:05; Admin Dose 125 MLS/HR; Start 03/29/17 at 10:00 Piperacillin Sod/ Tazobactam Sod (Zosyn 3.375gm/ 100 ml (Pmx)) 100 ml @ 200 mls /hr Q8 IVPB Last administered on 8/31/17at 13:58; Admin Dose 200 MLS/HR; Start 03/29/17 at 14:00 GEORGIANA MORIN NP Mar 29, 2017 15:08
[2017-03-29 20:00] VITALS: BP 193/82; RESP 20
[2017-03-29] MEDS: ATORVASTATIN 10 MG TAB PO SCH (21:46)
[2017-03-29 23:14] VITALS: BP 142/62; PULSE 75
[2017-03-30] VITALS (21 sets, daily range): BP systolic 153–190; BP diastolic 64–84; PULSE 69–88; RESP 12–20
[2017-03-30] MEDS: ACCU-CHEK XX SCH (02:45)
[2017-03-30] MEDS: PIPER-TAZO 3.375 GM IV (PMX) 100 ML IVPB SCH ×3 (06:20→22:25)
[2017-03-30] MEDS: LEVOTHYROXINE 25 MCG TAB PO SCH (06:20)
--- NOTE | 2017-03-30 06:40 | CONS ---
DATE OF ADMISSION: DATE OF CONSULTATION: 03/28/2017 REASON FOR CONSULTATION: Right foot infection. HISTORY OF PRESENT ILLNESS: This is a 52-year-old female with chronic osteomyelitis, right foot; Charcot deformity, had been on a course of antibiotics intravenously and MRI was repeated, revealed persistent bone marrow edema of midfoot bones and recommended hospitalization for continued antibiotics and surgical intervention. The patient is seen by Infectious Disease. PAST MEDICAL HISTORY: Includes: 1. Diabetes. 2. Hyperthyroidism. 3. Bilateral foot Charcot. 4. Right foot chronic osteomyelitis. PAST SURGICAL HISTORY: Left foot tibiocalcaneal arthrodesis, right 4th toe amputation. SOCIAL HISTORY: Denies any tobacco, alcohol use. Patient lives at home. PHYSICAL EXAMINATION: VITAL SIGNS: Temperature 97.5, pulse 70, respiratory rate 18, blood pressure 138/63, pulse ox 95, room air. GENERAL APPEARANCE: Patient is alert, oriented, no acute distress. NECK: Trachea is midline. LUNGS: Regular respiration. ABDOMEN: Patient morbidly obese. EXTREMITIES: Has 2+ DP, PT pulses, right foot. Foot is warm. There is contusion over the medial longitudinal arch with eschar. Plantar right foot with ulceration, 4 x 3 cm with 9 o'clock tunneling to bone. There is mild serosanguineous drainage, edema present to foot and ankle. There is a chronic Charcot deformity, which is stable, rocker-bottom foot type. Absent protective sensation. Patient with a 2+ popliteal pulse. LABORATORY: WBC 12.6, hemoglobin 10, hematocrit 32.1, platelets of 305. Sodium 141, potassium 5.1, chloride 107, CO2 20, BUN 50, creatinine 2.89. Cultures from right foot superficial swabbed reviewed. ASSESSMENT: 1. Chronic osteomyelitis of right foot. 2. Charcot deformity. 3. History of amputation. 4. High-risk for amputation. 5. Diabetes type 2, poorly controlled with peripheral neuropathy. PLAN: Appreciate ID recommendations. Reviewed labs and culture results. Patient with recent MRI revealing persistent bone marrow edema. Recommend biopsy of bone. The patient amenable, scheduled for Sunday afternoon. We will coordinate with the operating room staff and obtain a consent for right foot debridement of ulceration, biopsy of bone, possible wound VAC, possible allograft application, marked and tight glycemic control while in-house, anticipate need of wound VAC at time of discharge. Consider home health versus SNF placement. Dictated By: Andrew Bird DPM /vickie/mary /Document#: [id number] NEMO
[2017-03-30 07:04] LABS: BASOPHILS % 0.4 % (0.0-2.0); EOSINOPHILS # 1.3 10^3/ul (0.0-0.5); EOSINOPHILS % 11.4 % (0.0-7.0); HEMATOCRIT 34.2 % (37.0-47.0); HEMOGLOBIN 10.6 g/dl (12.0-16.0); LYMPHOCYTES % 17.8 % (15.0-51.0); MEAN CORPUSCULAR VOLUME 90.5 fl (82.0-101.0); MEAN PLATELET VOLUME 10.6 fl (7.4-10.4); MONOCYTE # 0.5 10^3/ul (0.3-0.9); MONOCYTES % 4.9 % (0.0-11.0); NEUTROPHILS % 65.1 % (39.0-77.0); PLATELET COUNT 326 10^3/UL (140-415); RED BLOOD COUNT 3.78 10^6/ul (4.20-5.40); RED CELL DISTRIBUTION WIDTH 14.6 % (11.5-14.5); WHITE BLOOD COUNT 11.1 10^3/ul (4.8-10.8)
[2017-03-30 07:44] LABS: CALCIUM 8.1 mg/dl (8.4-10.2); CREATININE 2.65 mg/dl (0.44-1.00)
[2017-03-30] MEDS: AMLODIPINE 10 MG TAB PO SCH (08:01)
[2017-03-30] MEDS: FOLIC ACID 1 MG TAB PO SCH (08:02)
[2017-03-30] MEDS: LOSARTAN 50 MG TAB PO SCH (08:02)
[2017-03-30] MEDS: CHOLECALCIFEROL 1,000 UNIT TAB PO SCH (08:02)
[2017-03-30] MEDS: HYDROXYCHLOROQUINE 200 MG TAB PO SCH (08:04)
[2017-03-30] MEDS: LORATADINE 10 MG TAB PO SCH (08:04)
[2017-03-30] MEDS: INSULIN GLARGINE [LANtus] 3 ML PEN SC SCH ×2 (08:05→20:00)
[2017-03-30] MEDS: INSULIN ASPART [NOVOLOG] 3 ML PEN SC SCH ×3 (08:07→21:00)
[2017-03-30] MEDS: CLOPIDOGREL 75 MG TAB PO SCH (08:08)
[2017-03-30] MEDS: DOCUSATE SODIUM 100 MG CAP PO SCH ×2 (08:08→22:22)
[2017-03-30] MEDS ORDERED: DEXTROSE 5%-0.45% NACL 1,000 ML IV ONE (10:00)
--- NOTE | 2017-03-30 11:42 | PN ---
DATE: 03/30/2017 SUBJECTIVE DATA: Patient is stable. No events overnight. No fevers, chills, nausea, vomiting. OBJECTIVE DATA: VITAL SIGNS: Blood pressure is 164/79, respiration is 16, pulse 67, temperature 97.4. HEENT: Head is normocephalic. NECK: Supple. HEART: Regular rate. LUNGS: Diminished breath sounds at the base. ABDOMEN: Soft, nontender to palpation. No guarding. EXTREMITIES: Negative for clubbing, cyanosis. No edema. The patient's right foot is in a positive dressing. NEUROLOGIC: No change in exam. MUSCULOSKELETAL: No joint effusion. MEDICATIONS: Reviewed. LABORATORY AND DIAGNOSTIC DATA: Sodium 141, potassium 5.0, BUN 49, creatinine 2.65. White count 11.1, hemoglobin 10.6, hematocrit 34.2, platelet count is 326. ASSESSMENT AND PLAN: 1. Nonoliguric acute kidney injury on top of chronic kidney disease with previous baseline creatinine of 2.2 to 2.8 mg/dL. Etiology of acute kidney injury secondary to hemodynamics. Renal function is returning to baseline. Continue current treatment. Supportive care. Renally dose all meds. 2. Chronic kidney disease, stage IIIB/4, secondary to diabetic nephropathy. Continue current treatment plan. Supportive care. Continue disease factor modification. 3. Anemia. Monitor H and H levels. Continue Epogen. 4. Mineral bone disorder. Continue to monitor calcium and phosphorus levels. 5. Right foot osteomyelitis. The patient is seen by Podiatry. Follow up recommendations. Continue current antibiotic regimen. 6. Hypertension. Continue current blood pressure regimen. 7. Diabetes. Continue Accu-Cheks and sliding scale. 8. Hypothyroidism. Continue Synthroid. Dictated By: Gilmar Diehl DO /vickie/nick /Document#: [id number]
[2017-03-30] MEDS ORDERED: Insulin NOVOLOG SS MODERATE Algorithm(NPO/TPN/ENTERAL FEEDS) SC SCH (12:00)
[2017-03-30] MEDS ORDERED: INSULIN ASPART [NOVOLOG] 3 ML PEN SC SCH (12:00)
--- NOTE | 2017-03-30 13:49 | PN ---
DATE: 03/30/2017 SUBJECTIVE DATA: No acute changes. The patient is alert, feels good, denies pain, and no fevers. LABORATORY AND DIAGNOSTIC DATA: WBC 11.1, platelets 326, no shift, and no bands. BUN 49 and creatinine 2.65. MICROBIOLOGY: Wound culture growing Corynebacterium species. Blood cultures negative. Wound culture on previous admission grew Enterococcus species, Sandy parapsilosis, Enterobacter cloacae. PHYSICAL EXAMINATION: GENERAL: This is a morbidly obese, well developed, middle-aged, [place] woman who is alert, in no distress. HEENT: Head atraumatic, normocephalic. Sclerae anicteric. Buccal mucosa pink. NECK: Supple. CHEST: Rise symmetrical. Breath sounds clear. HEART: S1, S2. ABDOMEN: Soft, bowel sounds present. EXTREMITIES: Right foot dressing intact. ASSESSMENT: 1. Right foot osteomyelitis, status post multiple debridement with culture grew multiple organisms. Repeat culture growing coag-negative Staph species. 2. Right foot Charcot type. 3. Morbid obesity. 4. Poorly controlled diabetes. 5. Chronic kidney disease. PLAN: 1. The patient is being followed by Dr. Bird, pending biopsy of the bone. 2. Continue present care. 3. Antibiotics. 4. Monitor renal function closely. 5. Await for final workup. Dictated By: Jordon Bazzi NP /vickie/stephanie /Document#: [id number]
--- NOTE | 2017-03-30 14:21 | PN ---
Date/Time of Note Date/Time of Note DATE: 03/30/17 TIME: 14:17 Assessment/Plan VTE Prophylaxis VTE Prophylaxis Intervention: other Lines/Catheters IV Catheter Type (from Nrs): PICC Line Central line still needed: Yes Assessment/Plan Assessment/Plan 1. Right foot osteomyelitis, status post multiple debridement with culture grew multiple organisms. Repeat culture growing coag-negative Staph species, on vanco/zysin, surgery today 2. Right foot Charcot type 3. Morbid obesity. 4. Poorly controlled diabetes, insulins 5. Chronic kidney disease. follow up with BMP Subjective 24 Hr Interval Summary Free Text/Dictation afebrile, right foot wound Exam/Review of Systems Vital Signs Vitals Vital Signs Date Time Temp Pulse Resp B/P Pulse Ox O2 Delivery O2 Flow Rate FiO2 03/30/17 14:07 98.0 74 16 157/74 93 03/30/17 03:00 Room Air Intake and Output 03/29/17 03/29/17 03/30/17 15:00 23:00 07:00 Intake Total 600 ml 870 ml 700 ml Balance 600 ml 870 ml 700 ml Exam Constitutional: alert, obese, oriented, well developed Psych: nl mood/affect, no complaints Head: atraumatic, normocephalic Eyes: EOMI, PERRL, nl conjunctiva, nl lids ENMT: nl external ears & nose, nl lips & teeth, nl nasal mucosa & septum Neck: non-tender, supple Respiratory: clear to auscultation, normal air movement, No congested cough, No crackles/rales, No diminished breath sounds, No intercostal retraction, No labored breathing, No other, No respirations, No tactile fremitus, No wheezing Cardiovascular: nl pulses, regular rate and rhythm, No S3, No S4, No bruits, No diastolic murmur, No edema, No gallop, No irregular rhythm, No jugular venous distention (JVD), No murmurs/extra sounds, No other, No rub, No systolic murmur Gastrointestinal: nl liver, spleen, non-tender, soft, No ascites, No bowel sounds, No distended, No firm, No hepatomegaly, No mass , No other, No rebound or guarding, No splenomegaly, No surgical scars, No tender Musculoskeletal: nl extremities to inspection Extremities: other (right foot wound) Neurological: [employer] II-XII intact, nl mental status, nl speech, nl strength Results Result Diagram: 03/30/17 0603 03/30/17 0603 Results 24 hrs Laboratory Tests Test 03/29/17 17:39 03/29/17 21:33 03/30/17 02:25 03/30/17 06:03 Bedside Glucose 222 H 218 245 H White Blood Count 11.1 H Red Blood Count 3.78 L Hemoglobin 10.6 L Hematocrit 34.2 L Mean Corpuscular Volume 90.5 Mean Corpuscular Hemoglobin 28.0 L Mean Corpuscular Hemoglobin Concent 31.0 L Red Cell Distribution Width 14.6 H Platelet Count 326 Mean Platelet Volume 10.6 H Neutrophils % 65.1 Lymphocytes % 17.8 Monocytes % 4.9 Eosinophils % 11.4 H Basophils % 0.4 Nucleated Red Blood Cells % 0.0 Neutrophils # (Manual) 7.2 Lymphocytes # 2.0 Monocytes # 0.5 Eosinophils # 1.3 H Basophils # 0.0 Nucleated Red Blood Cells # 0.0 Sodium Level 141 Potassium Level 5.0 Chloride Level 111 H Carbon Dioxide Level 21 Anion Gap 14 Blood Urea Nitrogen 49 H Creatinine 2.65 H Glucose Level 207 Calcium Level 8.1 L Test 03/30/17 08:00 03/30/17 12:14 Bedside Glucose 187 259 H Medications Medications Current Medications Amlodipine Besylate (Norvasc) 10 mg DAILY PO Last administered on 03/30/17 08: 01; Admin Dose 10 MG; Start 03/27/17 at 09:00 Cholecalciferol (Vitamin D) 1,000 unit DAILY PO Last administered on 03/30/17 08:02; Admin Dose 1,000 UNIT; Start 03/27/17 at 09:00 Clopidogrel Bisulfate (plaVIX) 75 mg DAILY PO Last administered on 03/29/17 08 :15; Admin Dose 75 MG; Start 03/27/17 at 09:00 Docusate Sodium (Colace) 100 mg BID PO Last administered on 03/29/17 08:16; Admin Dose 100 MG; Start 03/27/17 at 09:00 Famotidine (Pepcid) 20 mg DAILY PRN PO PRN; Start 03/27/17 at 04:00 Folic Acid (Folic Acid) 1 mg DAILY PO Last administered on 03/30/17 08:02; Admin Dose 1 MG; Start 03/27/17 at 09:00 Hydralazine HCl (Apresoline) 50 mg BID PO Last administered on 03/30/17 08:03; Admin Dose 50 MG; Start 03/27/17 at 09:00 Hydralazine HCl (Apresoline) 10 mg DAILY@21 PO Last administered on 03/29/17 21:46; Admin Dose 10 MG; Start 03/27/17 at 21:00 Hydroxychloroquine Sulfate (Plaquenil) 200 mg DAILY PO Last administered on 03/30 08:04; Admin Dose 200 MG; Start 03/27/17 at 09:00 Loratadine (Claritin) 10 mg DAILY PO Last administered on 03/30/17 08:04; Admin Dose 10 MG; Start 03/27/17 at 09:00 Losartan Potassium (Cozaar) 100 mg DAILY PO Last administered on 03/30/17 08:02 ; Admin Dose 100 MG; Start 03/27/17 at 09:00 Tramadol HCl (Ultram) 50 mg Q6H PRN PO PAIN LEVEL 7-10; Start 03/27/17 at 04:00 Atorvastatin Calcium (Lipitor) 10 mg QHS PO Last administered on 03/29/17 21: 46; Admin Dose 10 MG; Start 03/27/17 at 21:00 Diagnostic Test (Pha) (Accu-Chek) 1 ea 02 XX Last administered on 03/30/17 02: 45; Admin Dose 1 EA; Start 03/28/17 at 02:00 Miscellaneous Information 1 ea NOTE XX ; Start 03/27/17 at 04:30 Glucose (Glutose) 15 gm Q15M PRN PO DECREASED GLUCOSE; Start 03/27/17 at 04:30 Glucose (Glutose) 22.5 gm Q15M PRN PO DECREASED GLUCOSE; Start 03/27/17 at 04: 30 Dextrose (D50w Syringe) 25 ml Q15M PRN IV DECREASED GLUCOSE; Start 03/27/17 at 04:30 Dextrose (D50w Syringe) 50 ml Q15M PRN IV DECREASED GLUCOSE; Start 03/27/17 at 04:30 Glucagon (Glucagen) 1 mg Q15M PRN IM DECREASED GLUCOSE; Start 03/27/17 at 04:30 Glucose (Glutose) 15 gm Q15M PRN BUCCAL DECREASED GLUCOSE; Start 03/27/17 at 04 :30 Insulin Glargine 40 unit 40 unit BID@08,20 SC Last administered on 03/30/17 08: 05; Admin Dose 40 UNIT; Start 03/27/17 at 08:00 Vancomycin HCl 1.75 gm/Sodium Chloride 500 ml @ 125 mls/hr Q48H IVPB Last administered on 03/29/17 10:05; Admin Dose 125 MLS/HR; Start 03/29/17 at 10:00 Piperacillin Sod/ Tazobactam Sod 100 ml @ 200 mls/hr Q8 IVPB Last administered on 03/30/17 13:38; Admin Dose 200 MLS/HR; Start 03/29/17 at 14:00 Dextrose/Sodium Chloride (D5-1/2ns) 1,000 ml @ 60 mls/hr [id number] ONCE IV Last administered on 03/30/17 10:30; Admin Dose 60 MLS/HR; Start 03/30/17 at 10:00; Stop 03/31/17 at 02:39 Insulin Aspart (Novolog Insulin Pen) (Adult SC Insulin - Moder... Q6 SC Last administered on 03/30/17 12:18; Admin Dose 6 UNIT; Start 03/30/17 at 12:00 LESLIE HOUSE MD Mar 30, 2017 14:21
--- NOTE | 2017-03-30 15:34 | RADRPT ---
Vent Rate: 67 bpm RR Interval: [address] Interval: 130 msec QRS Duration: 96 msec QT Interval: 460 msec QTC Interval: 486 msec P-R-T [place]: 45 - 8 - 99 degrees Normal sinus rhythm T wave abnormality, consider lateral ischemia Prolonged QT Abnormal ECG Electronically Signed By: Yao Myles [id number]
[2017-03-30] MEDS ORDERED: ENALAPRILAT 1.25 MG INJ IV PRN (16:00)
[2017-03-30] MEDS ORDERED: LORAZEPAM 2 MG INJ IV ONE (16:00)
[2017-03-30] MEDS ORDERED: MEPERIDINE 25 MG INJ IV PRN (18:30)
[2017-03-30] MEDS ORDERED: OXYCODONE/ACETAMINOPHEN (5/325) TAB PO PRN ×2 (18:30)
[2017-03-30] MEDS ORDERED: MIDAZOLAM 1 MG/ML 2 ML INJ IV PRN (18:30)
[2017-03-30] MEDS ORDERED: ONDANSETRON 4 MG INJ IV PRN ×2 (18:30→21:00)
[2017-03-30] MEDS ORDERED: METOCLOPRAMIDE 10 MG INJ IV PRN (18:30)
[2017-03-30] MEDS ORDERED: DIPHENHYDRAMINE 50 MG INJ IV PRN ×2 (18:30→21:00)
[2017-03-30] MEDS ORDERED: EPHEDrine SULFATE 50 MG/5 ML SYG IV PRN (18:30)
[2017-03-30] MEDS ORDERED: FENTAnyl 50 MCG/ML VIAL IV PRN ×3 (18:30)
[2017-03-30] MEDS ORDERED: hydrALAzine 20 MG INJ IV PRN ×2 (18:30)
[2017-03-30] MEDS ORDERED: LABETALOL HCL 20MG INJ IV PRN (18:30)
[2017-03-30] MEDS ORDERED: hydrALAzine 20 MG INJ ONE (18:34)
[2017-03-30] MEDS ORDERED: PROPOFOL 20 ML ONE (20:44)
[2017-03-30] MEDS ORDERED: ONDANSETRON 4 MG INJ ONE (20:44)
[2017-03-30] MEDS ORDERED: METOCLOPRAMIDE 10 MG INJ ONE (20:44)
[2017-03-30] MEDS ORDERED: LIDOCAINE 2% (SDV) 5 ML INJ ONE (20:44)
--- NOTE | 2017-03-30 20:51 | SIPON ---
Date/Time of Note Date/Time of Note DATE: 03/30/17 TIME: 20:44 Operative Report Preoperative Diagnosis Right foot diabetic foot ulceration Chronic OM right foot midfoot Charcot rockerbottom foot DM2 DM2 neuropathy Postoperative Diagnosis same Operation/Procedure Performed Incisional and drainage with biopsy of bone Excisional debridement skin/ subcut/ mm <20 cm2 Application of amniofill allograft 1g Surgeon: CARMEN HAWKINS DPM Anesthesia Type: general Estimated Blood Loss: 10 - 50 ml's Transfusion Required: no Specimen: none Specimens bone culture and bone pathology Grafts/Implants amniofill 1g Complications: no CARMEN HAWKINS DPM Mar 30, 2017 20:51
[2017-03-30] MEDS ORDERED: KETOROLAC 15 MG INJ IV PRN (21:00)
[2017-03-30] MEDS ORDERED: HYDROCODONE/APAP (5/325) TAB PO PRN (21:00)
[2017-03-30] MEDS ORDERED: morphine 2 MG INJ IV PRN (21:00)
[2017-03-30] MEDS ORDERED: IBUPROFEN 600 MG TAB PO PRN (21:00)
[2017-03-30] MEDS: ATORVASTATIN 10 MG TAB PO SCH (22:22)
[2017-03-31] VITALS (8 sets, daily range): BP systolic 138–178; BP diastolic 63–78; PULSE 71–85; RESP 18–20
[2017-03-31] MEDS: INSULIN ASPART [NOVOLOG] 3 ML PEN SC SCH ×7 (02:23→21:30)
[2017-03-31] MEDS: ACCU-CHEK XX SCH (02:24)
[2017-03-31] MEDS: INSULIN GLARGINE [LANtus] 3 ML PEN SC SCH ×2 (02:24→21:30)
[2017-03-31] MEDS: PIPER-TAZO 3.375 GM IV (PMX) 100 ML IVPB SCH ×3 (04:55→21:31)
[2017-03-31 05:23] LABS: BASOPHILS % 0.3 % (0.0-2.0); EOSINOPHILS # 1.2 10^3/ul (0.0-0.5); EOSINOPHILS % 9.2 % (0.0-7.0); HEMATOCRIT 30.7 % (37.0-47.0); HEMOGLOBIN 9.5 g/dl (12.0-16.0); LYMPHOCYTES # 1.9 10^3/ul (0.8-2.9); LYMPHOCYTES % 14.4 % (15.0-51.0); MEAN CORPUSCULAR HEMOGLOBIN 28.5 pg (29.0-33.0); MEAN CORPUSCULAR HGB CONC 30.9 g/dl (32.0-37.0); MEAN CORPUSCULAR VOLUME 92.2 fl (82.0-101.0); MEAN PLATELET VOLUME 10.6 fl (7.4-10.4); MONOCYTE # 0.6 10^3/ul (0.3-0.9); MONOCYTES % 4.6 % (0.0-11.0); PLATELET COUNT 286 10^3/UL (140-415); RED BLOOD COUNT 3.33 10^6/ul (4.20-5.40); RED CELL DISTRIBUTION WIDTH 14.5 % (11.5-14.5); WHITE BLOOD COUNT 12.8 10^3/ul (4.8-10.8)
[2017-03-31 06:13] LABS: CALCIUM 7.3 mg/dl (8.4-10.2); CREATININE 2.63 mg/dl (0.44-1.00); POTASSIUM 4.7 mmol/L (3.5-5.1)
[2017-03-31] MEDS: LEVOTHYROXINE 25 MCG TAB PO SCH (06:32)
--- NOTE | 2017-03-31 08:48 | OPR ---
DATE OF OPERATION: 03/30/2017 SURGEON: Andrew Bird DPM DAY GUARD: None. PREOPERATIVE DIAGNOSIS: 1. Right foot diabetic foot ulceration. 2. Chronic osteomyelitis of mid foot bones, right foot. 3. Charcot rocker bottom deformity. 4. History of toe amputation, right foot. 5. Diabetes type 2 with neuropathy. 6. Diabetes type 2 poorly controlled. POSTOPERATIVE DIAGNOSIS: 1. Right foot diabetic foot ulceration. 2. Chronic osteomyelitis of mid foot bones, right foot. 3. Charcot rocker bottom deformity. 4. History of toe amputation, right foot. 5. Diabetes type 2 with neuropathy. 6. Diabetes type 2 poorly controlled. OPERATION PERFORMED: 1. Right foot incision and drainage of bone cortex with bone biopsy. 2. Excisional debridement of skin, subcutaneous tissue, and muscle, right foot ulceration. ANESTHESIA: General. ESTIMATED BLOOD LOSS: 30 cc. COMPLICATIONS: None. IMPLANT: Amniofil 1 g. COMPLICATIONS: None. INDICATION FOR PROCEDURE: This is a 52-year-old female with chronic foot deformity from a Charcot foot. She has failed outpatient treatment. She has a persistent osteomyelitis. Recent MRI reveals bone marrow edema of tarsal bones suggestive of osteomyelitis. Patient admitted and seen by ID and recommended biopsy of bone to help direct antibiotic treatment. Discussed planned procedure, risks, benefits, potential complications. Informed consent obtained. OPERATIVE PROCEDURE: Patient brought into the operating room and placed in the supine position. Formal timeout was performed. Extremities prepped with Betadine scrub and paint and draped in the usual sterile fashion. At this time an incision was made adjacent to the ulceration, and using a Klemme, the tissue was elevated off of the periosteum in the tarsal bones. Using a rongeur, the bone was resected for culture and biopsy. Attention was directed to the wound and excision debridement of skin, subcutaneous tissue, muscle performed less than 20 cm squared. The patient had a cavity in the central aspect and this wound was irrigated. At this time the cavity was packed with Amniofill 1 g. Patient had estimated blood loss of 30 cc. Hemostasis achieved and applied Adaptic, 4 by 4 gauze, Kerlix, and bias wrap. The patient tolerated the procedure well and transferred to PACU with vital signs stable. POSTOPERATIVE PLAN: Recommend nonweightbearing, elevation, reinforced dressings as needed, and await culture and pathology results. Dictated By: Andrew Bird DPM /vickie/maribel /Document#: [id number]
[2017-03-31] MEDS: CLOPIDOGREL 75 MG TAB PO SCH (09:40)
[2017-03-31] MEDS: DOCUSATE SODIUM 100 MG CAP PO SCH ×2 (09:41→21:00)
[2017-03-31] MEDS: AMLODIPINE 10 MG TAB PO SCH (09:41)
[2017-03-31] MEDS: LORATADINE 10 MG TAB PO SCH (09:41)
[2017-03-31] MEDS: FOLIC ACID 1 MG TAB PO SCH (09:41)
[2017-03-31] MEDS: CHOLECALCIFEROL 1,000 UNIT TAB PO SCH (09:41)
[2017-03-31] MEDS: HYDROXYCHLOROQUINE 200 MG TAB PO SCH (09:41)
[2017-03-31] MEDS: LOSARTAN 50 MG TAB PO SCH (09:41)
[2017-03-31] MEDS: VANCOMYCIN 1.75 GM in NS 500 ML IVPB SCH (10:34)
--- NOTE | 2017-03-31 13:40 | PN ---
Date/Time of Note Date/Time of Note DATE: 03/31/17 TIME: 13:39 Assessment/Plan VTE Prophylaxis VTE Prophylaxis Intervention: other Lines/Catheters IV Catheter Type (from Nrs): PICC Line Central line still needed: Yes Assessment/Plan Chief Complaint/Hosp Course SUBJECTIVE DATA: Patient is stable. No events overnight. No fevers, chills, nausea, vomiting. OBJECTIVE DATA: HEENT: Head is normocephalic. NECK: Supple. HEART: Regular rate. LUNGS: Diminished breath sounds at the base. ABDOMEN: Soft, nontender to palpation. No guarding. EXTREMITIES: Negative for clubbing, cyanosis. No edema. The patient's right foot is in a positive dressing. NEUROLOGIC: No change in exam. MUSCULOSKELETAL: No joint effusion. MEDICATIONS: Reviewed. 1. Nonoliguric acute kidney injury on top of chronic kidney disease with previous baseline creatinine of 2.2 to 2.8 mg/dL. Etiology of acute kidney injury secondary to hemodynamics. Renal function is returning to baseline. Continue current treatment. Supportive care. Renally dose all meds. avoid NSAID's 2. Chronic kidney disease, stage IIIB/4, secondary to diabetic nephropathy. Continue current treatment plan. Supportive care. Continue disease factor modification. continue Losartan 3. Anemia. Monitor H and H levels. Continue Epogen. 4. Mineral bone disorder. Continue to monitor calcium and phosphorus levels. 5. Right foot osteomyelitis. The patient is seen by Podiatry. Follow up recommendations. Continue current antibiotic regimen. 6. Hypertension. Continue current blood pressure regimen. 7. Diabetes. Continue Accu-Cheks and sliding scale. 8. Hypothyroidism. Continue Synthroid. Problems: Exam/Review of Systems Vital Signs Vitals Vital Signs Date Time Temp Pulse Resp B/P Pulse Ox O2 Delivery O2 Flow Rate FiO2 03/31/17 08:05 97.3 76 18 141/65 94 03/31/17 06:13 Room Air 03/30/17 20:55 8.0 Intake and Output 03/30/17 03/30/17 03/31/17 15:00 23:00 07:00 Intake Total 100 ml 1180 ml 1150 ml Output Total 30 ml Balance 100 ml 1150 ml 1150 ml Results Result Diagram: 03/31/17 0452 03/31/17 0452 Results 24 hrs Laboratory Tests Test 03/30/17 16:27 03/30/17 20:56 9/1/17 22:17 03/31/17 02:16 Bedside Glucose 208 97 84 386 H Test 03/31/17 04:41 03/31/17 04:52 03/31/17 07:44 03/31/17 09:15 Bedside Glucose 311 H 82 White Blood Count 12.8 H Red Blood Count 3.33 L Hemoglobin 9.5 L Hematocrit 30.7 L Mean Corpuscular Volume 92.2 Mean Corpuscular Hemoglobin 28.5 L Mean Corpuscular Hemoglobin Concent 30.9 L Red Cell Distribution Width 14.5 Platelet Count 286 Mean Platelet Volume 10.6 H Neutrophils % 71.0 Lymphocytes % 14.4 L Monocytes % 4.6 Eosinophils % 9.2 H Basophils % 0.3 Nucleated Red Blood Cells % 0.0 Neutrophils # (Manual) 9.1 H Lymphocytes # 1.9 Monocytes # 0.6 Eosinophils # 1.2 H Basophils # 0.0 Nucleated Red Blood Cells # 0.0 Sodium Level 138 Potassium Level 4.7 Chloride Level 111 H Carbon Dioxide Level 19 L Anion Gap 13 Blood Urea Nitrogen 43 H Creatinine 2.63 H Glucose Level 314 H Calcium Level 7.3 L Vancomycin Level Trough 13.4 Test 03/31/17 11:52 Bedside Glucose 237 H Medications Medications Current Medications Amlodipine Besylate (Norvasc) 10 mg DAILY PO Last administered on 03/31/17 09: 41; Admin Dose 10 MG; Start 03/27/17 at 09:00 Cholecalciferol (Vitamin D) 1,000 unit DAILY PO Last administered on 03/31/17 09:41; Admin Dose 1,000 UNIT; Start 03/27/17 at 09:00 Clopidogrel Bisulfate (plaVIX) 75 mg DAILY PO Last administered on 03/31/17 09: 40; Admin Dose 75 MG; Start 03/27/17 at 09:00 Docusate Sodium (Colace) 100 mg BID PO Last administered on 03/31/17 09:41; Admin Dose 100 MG; Start 03/27/17 at 09:00 Famotidine (Pepcid) 20 mg DAILY PRN PO PRN; Start 03/27/17 at 04:00 Folic Acid (Folic Acid) 1 mg DAILY PO Last administered on 03/31/17 09:41; Admin Dose 1 MG; Start 03/27/17 at 09:00 Hydralazine HCl (Apresoline) 50 mg BID PO Last administered on 03/31/17 09:41; Admin Dose 50 MG; Start 03/27/17 at 09:00 Hydralazine HCl (Apresoline) 10 mg DAILY@21 PO Last administered on 03/30/17 22 :23; Admin Dose 10 MG; Start 03/27/17 at 21:00 Hydroxychloroquine Sulfate (Plaquenil) 200 mg DAILY PO Last administered on 03/31 09:41; Admin Dose 200 MG; Start 03/27/17 at 09:00 Loratadine (Claritin) 10 mg DAILY PO Last administered on 03/31/17 09:41; Admin Dose 10 MG; Start 03/27/17 at 09:00 Losartan Potassium (Cozaar) 100 mg DAILY PO Last administered on 03/31/17 09:41 ; Admin Dose 100 MG; Start 03/27/17 at 09:00 Tramadol HCl (Ultram) 50 mg Q6H PRN PO PAIN LEVEL 7-10; Start 03/27/17 at 04:00 Atorvastatin Calcium (Lipitor) 10 mg QHS PO Last administered on 03/30/17 22:22 ; Admin Dose 10 MG; Start 03/27/17 at 21:00 Diagnostic Test (Pha) (Accu-Chek) 1 ea 02 XX Last administered on 03/31/17 02: 24; Admin Dose 1 EA; Start 03/28/17 at 02:00 Miscellaneous Information 1 ea NOTE XX ; Start 03/27/17 at 04:30 Glucose (Glutose) 15 gm Q15M PRN PO DECREASED GLUCOSE; Start 03/27/17 at 04:30 Glucose (Glutose) 22.5 gm Q15M PRN PO DECREASED GLUCOSE; Start 03/27/17 at 04: 30 Dextrose (D50w Syringe) 25 ml Q15M PRN IV DECREASED GLUCOSE; Start 03/27/17 at 04:30 Dextrose (D50w Syringe) 50 ml Q15M PRN IV DECREASED GLUCOSE; Start 03/27/17 at 04:30 Glucagon (Glucagen) 1 mg Q15M PRN IM DECREASED GLUCOSE; Start 03/27/17 at 04:30 Glucose (Glutose) 15 gm Q15M PRN BUCCAL DECREASED GLUCOSE; Start 03/27/17 at 04 :30 Insulin Glargine 40 unit 40 unit BID@08,20 SC Last administered on 03/31/17 02: 24; Admin Dose 40 UNIT; Start 03/27/17 at 08:00 Vancomycin HCl 1.75 gm/Sodium Chloride 500 ml @ 125 mls/hr Q48H IVPB Last administered on 03/31/17 10:34; Admin Dose 125 MLS/HR; Start 03/29/17 at 10:00 Piperacillin Sod/ Tazobactam Sod (Zosyn 3.375gm/ 100 ml (Pmx)) 100 ml @ 200 mls /hr Q8 IVPB Last administered on 03/31/17 04:55; Admin Dose 200 MLS/HR; Start 03/29/17 at 14:00 Enalaprilat (Vasotec Iv) 0.625 mg Q6H PRN IV SBP > 170 Last administered on 03/30 16:24; Admin Dose 0.625 MG; Start 03/30/17 at 16:00 Insulin Aspart (Novolog Insulin Pen) (Adult SC Insulin - Moder... Q4 SC Last administered on 03/31/17 12:17; Admin Dose 6 UNIT; Start 03/30/17 at 17:00 Ibuprofen (Motrin) 600 mg Q6H PRN PO PAIN LEVEL 6-10; Start 03/30/17 at 21:00 Ketorolac Tromethamine (Toradol) 15 mg Q6H PRN IV PAIN; Start 03/30/17 at 21:00 ; Stop 04/02/17 at 20:59 Acetaminophen/ Hydrocodone Bitart ([place] (5/325)) 1 tab Q6H PRN PO PAIN LEVEL 6 -10; Start 03/30/17 at 21:00 Morphine Sulfate (morphine) 2 mg Q2H PRN IV BREAKTHROUGH PAIN; Start 03/30/17 at 21:00 Ondansetron HCl (Zofran Inj) 4 mg Q6H PRN IV NAUSEA AND/OR VOMITING; Start 03/30 at 21:00 Diphenhydramine HCl (Benadryl) 25 mg Q6H PRN IV ITCHING; Start 03/30/17 at 21:00 MARIELOS ALAN DO Mar 31, 2017 13:40
--- NOTE | 2017-03-31 14:28 | PN ---
Date/Time of Note Date/Time of Note DATE: 03/31/17 TIME: 14:26 Assessment/Plan VTE Prophylaxis VTE Prophylaxis Intervention: SCD's Lines/Catheters IV Catheter Type (from Nrs): PICC Line Central line still needed: Yes Assessment/Plan Chief Complaint/Hosp Course Assessment and plan 1. Right foot infection osteomyelitis. Continue antibiotics. Noted with Corynebacterium species and wound. s/p podiatry intervention. Continue on antibiotics 2. Essential hypertension. Continue antihypertensives and adjust as needed 3. Diabetes. On insulin regimen. Stable at present. Will monitor. 4. Hypothyroidism. Continue on Synthroid 5. CAD. Medications to be renally dosed. Monitor renal panel. Stable at present Disposition plan: Continue with antibiotics and analgesics. Await for clinical improvement of renal function. Discharge when medically stable and cleared by consult Discussed plan of care with Dr. Dave Problems: Subjective 24 Hr Interval Summary Free Text/Dictation no s/s of distress Exam/Review of Systems Vital Signs Vitals Vital Signs Date Time Temp Pulse Resp B/P Pulse Ox O2 Delivery O2 Flow Rate FiO2 03/31/17 08:05 97.3 76 18 141/65 94 03/31/17 06:13 Room Air 03/30/17 20:55 8.0 Intake and Output 03/30/17 03/30/17 03/31/17 15:00 23:00 07:00 Intake Total 100 ml 1180 ml 1150 ml Output Total 30 ml Balance 100 ml 1150 ml 1150 ml Exam Constitutional: obese, oriented Psych: nl mood/affect Respiratory: clear to auscultation, normal air movement Cardiovascular: regular rate and rhythm Gastrointestinal: non-tender, soft Extremities: other (right lower extremity s/p surgical intervention with dressing cdi ) Neurological: C[employer] II-XII intact, nl mental status, nl speech Results Result Diagram: 03/31/172 03/31/17 0452 Results 24 hrs Laboratory Tests Test 03/30/17 16:27 03/30/17 20:56 03/30/17 22:17 03/31/17 02:16 Bedside Glucose 208 97 84 386 H Test 03/31/17 04:41 03/31/17 04:52 03/31/17 07:44 03/31/17 09:15 Bedside Glucose 311 H 82 White Blood Count 12.8 H Red Blood Count 3.33 L Hemoglobin 9.5 L Hematocrit 30.7 L Mean Corpuscular Volume 92.2 Mean Corpuscular Hemoglobin 28.5 L Mean Corpuscular Hemoglobin Concent 30.9 L Red Cell Distribution Width 14.5 Platelet Count 286 Mean Platelet Volume 10.6 H Neutrophils % 71.0 Lymphocytes % 14.4 L Monocytes % 4.6 Eosinophils % 9.2 H Basophils % 0.3 Nucleated Red Blood Cells % 0.0 Neutrophils # (Manual) 9.1 H Lymphocytes # 1.9 Monocytes # 0.6 Eosinophils # 1.2 H Basophils # 0.0 Nucleated Red Blood Cells # 0.0 Sodium Level 138 Potassium Level 4.7 Chloride Level 111 H Carbon Dioxide Level 19 L Anion Gap 13 Blood Urea Nitrogen 43 H Creatinine 2.63 H Glucose Level 314 H Calcium Level 7.3 L Vancomycin Level Trough 13.4 Test 03/31/17 11:52 Bedside Glucose 237 H Medications Medications Current Medications Amlodipine Besylate (Norvasc) 10 mg DAILY PO Last administered on 03/31/17 09: 41; Admin Dose 10 MG; Start 03/27/17 at 09:00 Cholecalciferol (Vitamin D) 1,000 unit DAILY PO Last administered on 03/31/17 09:41; Admin Dose 1,000 UNIT; Start 03/27/17 at 09:00 Clopidogrel Bisulfate (plaVIX) 75 mg DAILY PO Last administered on 03/31/17 09: 40; Admin Dose 75 MG; Start 03/27/17 at 09:00 Docusate Sodium (Colace) 100 mg BID PO Last administered on 03/31/17 09:41; Admin Dose 100 MG; Start 03/27/17 at 09:00 Famotidine (Pepcid) 20 mg DAILY PRN PO PRN; Start 03/27/17 at 04:00 Folic Acid (Folic Acid) 1 mg DAILY PO Last administered on 03/31/17 09:41; Admin Dose 1 MG; Start 03/27/17 at 09:00 Hydralazine HCl (Apresoline) 50 mg BID PO Last administered on 03/31/17 09:41; Admin Dose 50 MG; Start 03/27/17 at 09:00 Hydralazine HCl (Apresoline) 10 mg DAILY@21 PO Last administered on 03/30/17 22 :23; Admin Dose 10 MG; Start 03/27/17 at 21:00 Hydroxychloroquine Sulfate (Plaquenil) 200 mg DAILY PO Last administered on 03/31 09:41; Admin Dose 200 MG; Start 03/27/17 at 09:00 Loratadine (Claritin) 10 mg DAILY PO Last administered on 03/31/17 09:41; Admin Dose 10 MG; Start 03/27/17 at 09:00 Losartan Potassium (Cozaar) 100 mg DAILY PO Last administered on 03/31/17 09:41 ; Admin Dose 100 MG; Start 03/27/17 at 09:00 Tramadol HCl (Ultram) 50 mg Q6H PRN PO PAIN LEVEL 7-10; Start 03/27/17 at 04:00 Atorvastatin Calcium (Lipitor) 10 mg QHS PO Last administered on 03/30/17 22:22 ; Admin Dose 10 MG; Start 03/27/17 at 21:00 Diagnostic Test (Pha) (Accu-Chek) 1 ea 02 XX Last administered on 03/31/17 02: 24; Admin Dose 1 EA; Start 03/28/17 at 02:00 Miscellaneous Information 1 ea NOTE XX ; Start 03/27/17 at 04:30 Glucose (Glutose) 15 gm Q15M PRN PO DECREASED GLUCOSE; Start 03/27/17 at 04:30 Glucose (Glutose) 22.5 gm Q15M PRN PO DECREASED GLUCOSE; Start 03/27/17 at 04: 30 Dextrose (D50w Syringe) 25 ml Q15M PRN IV DECREASED GLUCOSE; Start 03/27/17 at 04:30 Dextrose (D50w Syringe) 50 ml Q15M PRN IV DECREASED GLUCOSE; Start 03/27/17 at 04:30 Glucagon (Glucagen) 1 mg Q15M PRN IM DECREASED GLUCOSE; Start 03/27/17 at 04:30 Glucose (Glutose) 15 gm Q15M PRN BUCCAL DECREASED GLUCOSE; Start 03/27/17 at 04 :30 Insulin Glargine 40 unit 40 unit BID@08,20 SC Last administered on 03/31/17 02: 24; Admin Dose 40 UNIT; Start 03/27/17 at 08:00 Vancomycin HCl 1.75 gm/Sodium Chloride 500 ml @ 125 mls/hr Q48H IVPB Last administered on 03/31/17 10:34; Admin Dose 125 MLS/HR; Start 03/29/17 at 10:00 Piperacillin Sod/ Tazobactam Sod (Zosyn 3.375gm/ 100 ml (Pmx)) 100 ml @ 200 mls /hr Q8 IVPB Last administered on 03/31/17 04:55; Admin Dose 200 MLS/HR; Start 03/29/17 at 14:00 Enalaprilat (Vasotec Iv) 0.625 mg Q6H PRN IV SBP > 170 Last administered on 03/30 16:24; Admin Dose 0.625 MG; Start 03/30/17 at 16:00 Insulin Aspart (Novolog Insulin Pen) (Adult SC Insulin - Moder... Q4 SC Last administered on 03/31/17 12:17; Admin Dose 6 UNIT; Start 03/30/17 at 17:00 Ibuprofen (Motrin) 600 mg Q6H PRN PO PAIN LEVEL 6-10; Start 03/30/17 at 21:00 Ketorolac Tromethamine (Toradol) 15 mg Q6H PRN IV PAIN; Start 03/30/17 at 21:00 ; Stop 04/02/17 at 20:59 Acetaminophen/ Hydrocodone Bitart ([place] (5/325)) 1 tab Q6H PRN PO PAIN LEVEL 6 -10; Start 03/30/17 at 21:00 Morphine Sulfate (morphine) 2 mg Q2H PRN IV BREAKTHROUGH PAIN; Start 03/30/17 at 21:00 Ondansetron HCl (Zofran Inj) 4 mg Q6H PRN IV NAUSEA AND/OR VOMITING; Start 03/30 at 21:00 Diphenhydramine HCl (Benadryl) 25 mg Q6H PRN IV ITCHING; Start 03/30/17 at 21:00 ERON MILLS Mar 31, 2017 14:28
--- NOTE | 2017-03-31 14:50 | PN ---
DATE: 03/31/2017 SUBJECTIVE DATA: The patient postop day 1, right foot incision and drainage with bone biopsy and excision and debridement of ulceration and application of allograft. Wound biopsy is pending. Patient's cultures reveal Staph species; sensitivities pending. No acute complaints overnight. Patient's blood sugar remains elevated. OBJECTIVE DATA: EXTREMITIES: Right foot Charcot deformity. There is sanguinous drainage. Dressings removed. Ulceration plantar aspect, no signs of active bleeding. Graft present. There is a contusion at the medial aspect of the foot. New malodor. Patient has 2 toe amputation, rocker bottom foot type. LABORATORY: WBC 12.8, hemoglobin 9.5, hematocrit 30.7, platelets 286. ASSESSMENT: 1. Right foot osteomyelitis. 2. Right foot diabetic foot ulceration. 3. Charcot deformity. 4. Diabetes type 2, poorly controlled. 5. Diabetes with peripheral neuropathy. PLAN: Patient seen and evaluated, dressings changed. Patient will need 4-6 weeks of IV antibiotics. Appreciate the assistance. Currently has a PICC line present. Patient's wound is stable. Recommend discharge planning. Keep dressings clean, dry, and intact unless drainage then reinforce. Can change p.r.n. if becomes wet, soils or malodors. Schedule followup as an outpatient later this week. Dictated By: Andrew Bird DPM /vickie/mark /Document#: [id number] NEMO
--- NOTE | 2017-03-31 16:30 | CONS ---
Date/Time of Note Date/Time of Note DATE: 03/31/17 TIME: 16:11 Assessment/Plan Assessment/Plan Chief Complaint/Hosp Course ID PROGRESS NOTE CURRENT ABX: => Vanco IV + Zosyn 24H INTERVAL SUMMARY * POD #1 03/30/17 =>s/p F-foot I&D w/bone biopsy and excision and debridement of ulceration and application of allograft. * 03/30/17 BONE CX: GRAM STAIN Final => POLYMORPH. LEUKOCYTE NONE SEEN NO ORGANISM SEEN * TISSUE (BIOPSY) CULTURE Preliminary No growth after 1 day * Wound culture growing Corynebacterium species + Staph species * Blood cultures negative. * Wound culture on previous admission grew Enterococcus species, Sandy parapsilosis, Enterobacter cloacae. EXAM GEN: VSS, no fevers, HEENT: Unremarkable NECK: trach site clear CVS: RRR, S1 and S2 CHEST: Coarse BS b/l ABD: Soft, NT, + BS EXT: R-foot DSG C/D/I ID ASSESSMENT 52 yo F admit with: 1. Right foot osteomyelitis, status post multiple debridement * POD #1 03/30/17 =>s/p F-foot I&D w/bone biopsy and excision and debridement of ulceration and application of allograft. * 03/30/17 BONE CX: GRAM STAIN Final => POLYMORPH. LEUKOCYTE NONE SEEN NO ORGANISM SEEN * TISSUE (BIOPSY) CULTURE Preliminary No growth after 1 day * Wound culture growing Corynebacterium species + Staph species * Blood cultures negative. * Wound culture on previous admission grew Enterococcus species, Sandy parapsilosis, Enterobacter cloacae. 2. Right foot Charcot type. 3. Morbid obesity. 4. Poorly controlled diabetes. 5. Chronic kidney disease. (-) MRSA Nares INVASIVES: PIV CURRENT ABX: =>Vanco IV + Zosyn ID RECOMMENDATIONS 1. Patient may DC home on Vanco IV w/continued dose per OP Clinical pharmacist for a total of 6 weeks 2. No clear indication to continue Zosyn, may DC . Problems: Consultation Date/Type/Reason Admit Date/Time Mar 27, 2017 at 01:03 Initial Consult Date 03/27/17 Type of Consultation: ID Exam/Review of Systems Vital Signs Vitals Vital Signs Date Time Temp Pulse Resp B/P Pulse Ox O2 Delivery O2 Flow Rate FiO2 03/31/17 08:05 97.3 76 18 141/65 94 03/31/17 06:13 Room Air 03/30/17 20:55 8.0 Intake and Output 03/30/17 03/30/17 03/31/17 15:00 23:00 07:00 Intake Total 100 ml 1180 ml 1150 ml Output Total 30 ml Balance 100 ml 1150 ml 1150 ml Results Result Diagram: 03/31/17 0452 03/31/17 0452 Results 24 hrs Laboratory Tests Test 03/30/17 16:27 03/30/17 20:56 03/30/17 22:17 03/31/17 02:16 Bedside Glucose 208 97 84 386 H Test 03/31/17 04:41 03/31/17 04:52 03/31/17 07:44 03/31/17 09:15 Bedside Glucose 311 H 82 White Blood Count 12.8 H Red Blood Count 3.33 L Hemoglobin 9.5 L Hematocrit 30.7 L Mean Corpuscular Volume 92.2 Mean Corpuscular Hemoglobin 28.5 L Mean Corpuscular Hemoglobin Concent 30.9 L Red Cell Distribution Width 14.5 Platelet Count 286 Mean Platelet Volume 10.6 H Neutrophils % 71.0 Lymphocytes % 14.4 L Monocytes % 4.6 Eosinophils % 9.2 H Basophils % 0.3 Nucleated Red Blood Cells % 0.0 Neutrophils # (Manual) 9.1 H Lymphocytes # 1.9 Monocytes # 0.6 Eosinophils # 1.2 H Basophils # 0.0 Nucleated Red Blood Cells # 0.0 Sodium Level 138 Potassium Level 4.7 Chloride Level 111 H Carbon Dioxide Level 19 L Anion Gap 13 Blood Urea Nitrogen 43 H Creatinine 2.63 H Glucose Level 314 H Calcium Level 7.3 L Vancomycin Level Trough 13.4 Test 03/31/17 11:52 Bedside Glucose 237 H Medications Medications Current Medications Amlodipine Besylate (Norvasc) 10 mg DAILY PO Last administered on 03/31/17 09: 41; Admin Dose 10 MG; Start 03/27/17 at 09:00 Cholecalciferol (Vitamin D) 1,000 unit DAILY PO Last administered on 03/31/17 09:41; Admin Dose 1,000 UNIT; Start 03/27/17 at 09:00 Clopidogrel Bisulfate (plaVIX) 75 mg DAILY PO Last administered on 03/31/17 09: 40; Admin Dose 75 MG; Start 03/27/17 at 09:00 Docusate Sodium (Colace) 100 mg BID PO Last administered on 03/31/17 09:41; Admin Dose 100 MG; Start 03/27/17 at 09:00 Famotidine (Pepcid) 20 mg DAILY PRN PO PRN; Start 03/27/17 at 04:00 Folic Acid (Folic Acid) 1 mg DAILY PO Last administered on 03/31/17 09:41; Admin Dose 1 MG; Start 03/27/17 at 09:00 Hydralazine HCl (Apresoline) 50 mg BID PO Last administered on 03/31/17 09:41; Admin Dose 50 MG; Start 03/27/17 at 09:00 Hydralazine HCl (Apresoline) 10 mg DAILY@21 PO Last administered on 03/30/17 22 :23; Admin Dose 10 MG; Start 03/27/17 at 21:00 Hydroxychloroquine Sulfate (Plaquenil) 200 mg DAILY PO Last administered on 03/31 09:41; Admin Dose 200 MG; Start 03/27/17 at 09:00 Loratadine (Claritin) 10 mg DAILY PO Last administered on 03/31/17 09:41; Admin Dose 10 MG; Start 03/27/17 at 09:00 Losartan Potassium (Cozaar) 100 mg DAILY PO Last administered on 03/31/17 09:41 ; Admin Dose 100 MG; Start 03/27/17 at 09:00 Tramadol HCl (Ultram) 50 mg Q6H PRN PO PAIN LEVEL 7-10; Start 03/27/17 at 04:00 Atorvastatin Calcium (Lipitor) 10 mg QHS PO Last administered on 03/30/17 22:22 ; Admin Dose 10 MG; Start 03/27/17 at 21:00 Miscellaneous Information 1 ea NOTE XX ; Start 03/27/17 at 04:30 Glucose (Glutose) 15 gm Q15M PRN PO DECREASED GLUCOSE; Start 03/27/17 at 04:30 Glucose (Glutose) 22.5 gm Q15M PRN PO DECREASED GLUCOSE; Start 03/27/17 at 04: 30 Dextrose (D50w Syringe) 25 ml Q15M PRN IV DECREASED GLUCOSE; Start 03/27/17 at 04:30 Dextrose (D50w Syringe) 50 ml Q15M PRN IV DECREASED GLUCOSE; Start 03/27/17 at 04:30 Glucagon (Glucagen) 1 mg Q15M PRN IM DECREASED GLUCOSE; Start 03/27/17 at 04:30 Glucose (Glutose) 15 gm Q15M PRN BUCCAL DECREASED GLUCOSE; Start 03/27/17 at 04 :30 Insulin Glargine 40 unit 40 unit BID@08,20 SC Last administered on 03/31/17 02: 24; Admin Dose 40 UNIT; Start 03/27/17 at 08:00 Vancomycin HCl 1.75 gm/Sodium Chloride 500 ml @ 125 mls/hr Q48H IVPB Last administered on 03/31/17 10:34; Admin Dose 125 MLS/HR; Start 03/29/17 at 10:00 Piperacillin Sod/ Tazobactam Sod (Zosyn 3.375gm/ 100 ml (Pmx)) 100 ml @ 200 mls /hr Q8 IVPB Last administered on 03/31/17 15:15; Admin Dose 200 MLS/HR; Start 03/29/17 at 14:00 Enalaprilat (Vasotec Iv) 0.625 mg Q6H PRN IV SBP > 170 Last administered on 03/30 16:24; Admin Dose 0.625 MG; Start 03/30/17 at 16:00 Ibuprofen (Motrin) 600 mg Q6H PRN PO PAIN LEVEL 6-10; Start 03/30/17 at 21:00 Ketorolac Tromethamine (Toradol) 15 mg Q6H PRN IV PAIN; Start 03/30/17 at 21:00 ; Stop 04/02/17 at 20:59 Acetaminophen/ Hydrocodone Bitart ([place] (5/325)) 1 tab Q6H PRN PO PAIN LEVEL 6 -10; Start 03/30/17 at 21:00 Morphine Sulfate (morphine) 2 mg Q2H PRN IV BREAKTHROUGH PAIN; Start 03/30/17 at 21:00 Ondansetron HCl (Zofran Inj) 4 mg Q6H PRN IV NAUSEA AND/OR VOMITING; Start 03/30 at 21:00 Diphenhydramine HCl (Benadryl) 25 mg Q6H PRN IV ITCHING; Start 03/30/17 at 21:00 Diagnostic Test (Pha) (Accu-Chek) 1 ea 02 XX ; Start 04/01/17 at 02:00 SCOTTY PICHARDO NP Mar 31, 2017 16:21
[2017-03-31] MEDS: ATORVASTATIN 10 MG TAB PO SCH (21:33)
[2017-04-01] MEDS ORDERED: ACCU-CHEK XX SCH (02:00)
[2017-04-01 02:36] VITALS: BP 139/65; RESP 18
[2017-04-01] MEDS: PIPER-TAZO 3.375 GM IV (PMX) 100 ML IVPB SCH ×2 (05:31→14:00)
[2017-04-01] MEDS: LEVOTHYROXINE 25 MCG TAB PO SCH (06:07)
[2017-04-01] MEDS ORDERED: ALTEPLASE (CATHFLO) 2 MG INJ CATHETER ONE (07:00)
[2017-04-01 07:20] VITALS: BP 167/77; RESP 16
[2017-04-01] MEDS: INSULIN ASPART [NOVOLOG] 3 ML PEN SC SCH ×4 (08:00→11:56)
[2017-04-01] MEDS: INSULIN GLARGINE [LANtus] 3 ML PEN SC SCH (08:20)
[2017-04-01] MEDS: LORATADINE 10 MG TAB PO SCH (08:30)
[2017-04-01] MEDS: DOCUSATE SODIUM 100 MG CAP PO SCH ×2 (08:30→08:34)
[2017-04-01] MEDS: FOLIC ACID 1 MG TAB PO SCH (08:30)
[2017-04-01] MEDS: LOSARTAN 50 MG TAB PO SCH (08:30)
[2017-04-01] MEDS: AMLODIPINE 10 MG TAB PO SCH (08:31)
[2017-04-01] MEDS: HYDROXYCHLOROQUINE 200 MG TAB PO SCH (08:31)
[2017-04-01] MEDS: CHOLECALCIFEROL 1,000 UNIT TAB PO SCH (08:31)
[2017-04-01] MEDS: CLOPIDOGREL 75 MG TAB PO SCH (08:31)
[2017-04-01 10:23] LABS: BASOPHIL # 0.1 10^3/ul (0.0-0.1); BASOPHILS % 0.4 % (0.0-2.0); EOSINOPHILS # 1.1 10^3/ul (0.0-0.5); EOSINOPHILS % 9.1 % (0.0-7.0); HEMATOCRIT 32.7 % (37.0-47.0); HEMOGLOBIN 10.1 g/dl (12.0-16.0); LYMPHOCYTES # 1.5 10^3/ul (0.8-2.9); LYMPHOCYTES % 12.1 % (15.0-51.0); MEAN CORPUSCULAR HEMOGLOBIN 28.4 pg (29.0-33.0); MEAN CORPUSCULAR HGB CONC 30.9 g/dl (32.0-37.0); MEAN CORPUSCULAR VOLUME 91.9 fl (82.0-101.0); MEAN PLATELET VOLUME 10.7 fl (7.4-10.4); MONOCYTE # 0.5 10^3/ul (0.3-0.9); MONOCYTES % 3.9 % (0.0-11.0); PLATELET COUNT 321 10^3/UL (140-415); RED BLOOD COUNT 3.56 10^6/ul (4.20-5.40); RED CELL DISTRIBUTION WIDTH 14.5 % (11.5-14.5); WHITE BLOOD COUNT 12.5 10^3/ul (4.8-10.8)
[2017-04-01 10:33] LABS: CALCIUM 8.1 mg/dl (8.4-10.2); CREATININE 2.65 mg/dl (0.44-1.00); POTASSIUM 4.7 mmol/L (3.5-5.1)
[2017-04-01] MEDS ORDERED: HYDR-3498 PO (10:38)
[2017-04-01] MEDS ORDERED: LANT3I SC (10:38)
[2017-04-01] MEDS ORDERED: Vancomycin Iv Per Pharmacy XX (10:38)
[2017-04-01] MEDS ORDERED: NOVO3I SC (10:38)
--- NOTE | 2017-04-01 10:48 | PDOCDIS ---
Discharge Instructions DIAGNOSIS Discharge Diagnosis 1. Right foot infection osteomyelitis. 2. Essential hypertension. 3. Diabetes. 4. Hypothyroidism. 5. CAD. CONDITION Patient Condition: Stable HOME CARE INSTRUCTIONS: Diet Instructions: Low Fat /CholesterolSpecial Diet: Carb contolled FOLLOW UP/APPOINTMENTS Follow-up Plan 1. Follow up with Dr. Bird within one week ERON MILLS Apr 01, 2017 10:48
--- NOTE | 2017-04-01 13:57 | DS ---
Date/Time of Note Date/Time of Note DATE: 04/01/17 TIME: 13:53 Discharge Summary Admission/Discharge Info Admit Date/Time Mar 27, 2017 at 01:03 Discharge Date/Time Discharge Diagnosis 1. Right foot infection osteomyelitis. 2. Essential hypertension. 3. Diabetes. 4. Hypothyroidism. 5. CAD. Patient Condition: Stable Consults 1. Dr. Andrew Bird 2. Dr. Gilmar Diehl 3. Dr. Harley Diaz [facility] Course This Is a 52-year-old female with history of rectal vasculitis with a history of right second and third toe amputations, CKD, hypothyroidism, hypertension, diabetes, came to [facility] after being seen by her hod carrier and was noted with worsening of right foot infection. Patient was again seen by a hod carrier as an inpatient. She was also seen by infectious disease physician for antibiotic regimen and management. We did have cultures drawn that did show her to have current Bactrim and coagulase negative staph in wound culture. She was placed on appropriate antibiotics. Patient also did undergo right foot plantar bone biopsy as well as debridement and application of allograft. She did tolerate procedure well. She was otherwise otherwise medically. She was continued on antihypertensives for hypertension and insulin for diabetes. She is also continued on Synthroid for her hypothyroidism and she was seen by training professional for her CKD. Her medications were renally dosed. During her course of stay she did improve. The plan of care was discussed with the patient and patient did verbalize her understanding. On the day of discharge patient was in stable condition Discussed plan of care with Dr. Dave [facility] Active Scripts [Vancomycin Iv Per Pharmacy] 1 EA EACH No Conflict Check, 0 EA XX .PER PROTOCOL for 42 Days Prov:ERON MILLS 04/01/17 Insulin Glargine* (Lantus*) 100 Unit/Ml Soln, 40 UNIT SC BID@08,20 for 30 Days Prov:ERON MILLS 04/01/17 Insulin Aspart* (Novolog Insulin Pen*) 100 Unit/Ml Soln, 6 UNIT SC WITH MEALS for 30 Days Prov:ERON MILLS 04/01/17 Docusate Sodium (Dok) 100 Mg Capsule, 100 MG PO BID for 30 Days, CAP 2 Refills Prov:MARIAA AGOSTO 01/08/17 Tramadol HCl (Tramadol HCl) 50 Mg Tab, 50 MG PO Q6H Y for PAIN LEVEL 7-10 for 14 Days, TAB Prov:JUAN ANTONIO CISNEROS [employer]IST 03/25/14 Hydralazine Hcl* (Apresoline*) 10 Mg Tab, 10 MG PO DAILY@21 for 30 Days, TAB Prov:JUAN ANTONIO CISNEROS [employer] MARKETING SPECIALIST 03/25/14 Folic Acid* (Folic Acid*) 1 Mg Tab, 1 MG PO DAILY for 30 Days Prov:JUAN ANTONIO CISNEROS [employer] MARKETING SPECIALIST 03/25/14 Reported Medications Loratadine* (Loratadine*) 10 Mg Tablet, 10 MG PO DAILY, #30 TAB 03/26/17 Losartan Potassium* (Losartan Potassium*) 100 Mg Tablet, 100 MG PO DAILY, TAB 03/26/17 Simvastatin* (Zocor*) 20 Mg Tablet, 20 MG PO QHS, #30 TAB 03/26/17 Cholecalciferol* (Vitamin D3*) 1,000 Unit Tablet, 1000 UNIT PO DAILY, TAB 03/26/17 Famotidine* (Famotidine*) 20 Mg Tablet, 20 MG PO PRN Y for DAILY, #60 TAB 03/26/17 Clopidogrel Bisulfate* (Clopidogrel Bisulfate*) 75 Mg Tablet, 75 MG PO DAILY, # 30 TAB 03/26/17 Levothyroxine Sodium* (Levothyroxine Sodium*) 25 Mcg Tablet, 25 MCG PO BEFORE BREAKFAST, #30 TAB TAKE 1 TABLET AT 8 AM DAILY 03/26/17 Insulin Glargine* (Lantus*) 100 Unit/Ml Soln, 40 UNIT SC BID WITH MEALS, #1 VIAL 03/26/17 Insulin Lispro (Humalog) 100 Unit/1 Ml Cartridge, SC SLIDING SCALE 03/26/17 Hydralazine Hcl* (Hydralazine Hcl*) 50 Mg Tab, 50 MG PO BID, #120 TAB Tk 1 tablet by mouth twice daily 03/26/17 Amlodipine Besylate* (Norvasc*) 10 Mg Tablet, 10 MG PO DAILY 11/18/11 Hydroxychloroquine Sulfate* (Plaquenil*) 200 Mg Tab, DAILY 10/03/10 Discontinued Scripts Lactobacillus Rhamnosus* (Culturelle*) 1 Each Cap.sprink, 1 CAP PO BID for 42 Days, CAP Prov:MARIAA AGOSTO 01/08/17 Ascorbic Acid (Vitamin C) 500 Mg Tab, 1000 MG PO DAILY for 30 Days, TAB 2 Refills Prov:MARIAA AGOSTO 01/08/17 [Vancomycin Iv Per Pharmacy] 1 EA EACH No Conflict Check, 0 EA XX .PER PROTOCOL for 42 Days Prov:MARIAA AGOSTO. 01/08/17 Levofloxacin* (Levaquin*) 250 Mg Tablet, 250 MG PO DAILY@06 for 42 Days, TAB Prov:MARIAA AGOSTO. 01/08/17 Fluconazole* (Diflucan*) 100 Mg Tablet, 100 MG PO DAILY for 42 Days, TAB Prov:MARIAA AGOSTO. 01/08/17 Insulin Glargine* (Lantus*) 100 Unit/Ml Soln, 22 UNIT SC Q12 for 30 Days Prov:JUAN ANTONIO CISNEROS NP 03/25/14 Insulin Aspart* (Novolog Insulin Pen*) 100 Unit/Ml Soln, 16 UNIT SC WITH MEALS for 30 Days Prov:JUAN ANTONIO CISNEROS NP 03/25/14 Sodium Hypochlorite ([place] (1/4 Strength)) 1 Applic Irrig.soln, 0 APPLIC IRR BID for 7 Days Prov:JUAN ANTONIO CISNEROS NP 03/25/14 Levothyroxine Sodium* (Synthroid*) 75 Mcg Tab, 75 MCG PO DAILY@06 for 30 Days Prov:JUAN ANTONIO CISNEROS NP 03/25/14 Ferrous Sulfate* (Ferrous Sulfate*) 325 Mg Tabec, 325 MG PO TID for 30 Days Prov:JUAN ANTONIO CISNEROS NP 03/25/14 Atorvastatin Calcium* (Atorvastatin Calcium*) 20 Mg Tab, 20 MG PO QHS for 30 Days Prov:JUAN ANTONIO CISNEROS NP 03/25/14 Aspirin (Aspirin) 81 Mg Chew, 81 MG PO DAILY for 30 Days Prov:JUAN ANTONIO CISNEROS NP 03/25/14 Follow-up Plan CONDITION Patient Condition: Stable HOME CARE INSTRUCTIONS: Diet Instructions: Low Fat /CholesterolSpecial Diet: Carb contolled FOLLOW UP/APPOINTMENTS Follow-up Plan 1. Follow up with Dr. Bird within one week Primary Care Provider Sim Castillo Time spent on discharge: > 30 minutes Pending Labs Laboratory Tests Test 03/31/17 16:50 03/31/17 21:25 04/01/17 01:52 04/01/17 08:12 Bedside Glucose 221mg/dL (70-220) 253mg/dL (70-220) 166mg/dL (70-220) 73mg/dL (70-220) Test 04/01/17 09:17 04/01/17 11:53 White Blood Count 12.510^3/ul (4.8-10.8) Red Blood Count 3.5610^6/ul (4.20-5.40) Hemoglobin 10.1g/dl (12.0-16.0) Hematocrit 32.7% (37.0-47.0) Mean Corpuscular Volume 91.9fl (82.0-101.0) Mean Corpuscular Hemoglobin 28.4pg (29.0-33.0) Mean Corpuscular Hemoglobin Concent 30.9g/dl (32.0-37.0) Red Cell Distribution Width 14.5% (11.5-14.5) Platelet Count 26962^3/UL (140-415) Mean Platelet Volume 10.7fl (7.4-10.4) Neutrophils % 74.0% (39.0-77.0) Lymphocytes % 12.1% (15.0-51.0) Monocytes % 3.9% (0.0-11.0) Eosinophils % 9.1% (0.0-7.0) Basophils % 0.4% (0.0-2.0) Nucleated Red Blood Cells % 0.0/100WBC (0.0-0.0) Neutrophils # (Manual) 9.210^3/ul (1.7-7.5) Lymphocytes # 1.510^3/ul (0.8-2.9) Monocytes # 0.510^3/ul (0.3-0.9) Eosinophils # 1.110^3/ul (0.0-0.5) Basophils # 0.110^3/ul (0.0-0.1) Nucleated Red Blood Cells # 0.010^3/ul (0.0-0.0) Sodium Level 140mmol/L (135-144) Potassium Level 4.7mmol/L (3.5-5.1) Chloride Level 110mmol/L (97-110) Carbon Dioxide Level 21mmol/L (21-31) Anion Gap 14 (8-16) Blood Urea Nitrogen 37mg/dl (7-20) Creatinine 2.65mg/dl (0.44-1.00) Glucose Level 155mg/dl (70-220) Calcium Level 8.1mg/dl (8.4-10.2) Bedside Glucose 161mg/dL (70-220) ERON MILLS Apr 01, 2017 13:57
[2017-04-01 14:00] VITALS: BP 138/78; PULSE 82; RESP 18
--- NOTE | 2017-04-01 15:17 | CONS ---
Date/Time of Note Date/Time of Note DATE: 04/01/17 TIME: 15:15 Assessment/Plan Assessment/Plan Chief Complaint/Hosp Course ID PROGRESS NOTE CURRENT ABX: => Vanco IV + Zosyn 24H INTERVAL SUMMARY * POD #2 9 =>s/p F-foot I&D w/bone biopsy and excision and debridement of ulceration and application of allograft. * 117 BONE CX: GRAM STAIN Final => POLYMORPH. LEUKOCYTE NONE SEEN NO ORGANISM SEEN * TISSUE (BIOPSY) CULTURE Preliminary No growth after 2 day * Wound culture growing Corynebacterium species + Staph species WOUND CULTURE Preliminary Organism 1 CORYNEBACTERIUM SPECIES QUANTITY 2+ Organism 2 COAGULASE NEGATIVE STAPH QUANTITY RARE Susceptibilities previously reported, see prior culture report of same specimen site. COAG NEG M.I.C. RX --------- --- CEFAZOLIN S CIPROFLOXACIN >=8 R CLINDAMYCIN R DOXYCYCLINE S ERYTHROMYCIN R LEVOFLOXACIN >=8 R OXACILLIN S PENICILLIN-G >=0.5 R RIFAMPIN <=0.5 S VANCOMYCIN <=0.5 S TRIMETHOPRIM/SULFAMETHOXAZOLE <=10 S * Blood cultures negative. * Wound culture on previous admission grew Enterococcus species, Sandy parapsilosis, Enterobacter cloacae. EXAM GEN: VSS, no fevers, HEENT: Unremarkable NECK: trach site clear CVS: RRR, S1 and S2 CHEST: Coarse BS b/l ABD: Soft, NT, + BS EXT: R-foot DSG C/D/I ID ASSESSMENT 52 yo F admit with: 1. Right foot osteomyelitis, status post multiple debridement * POD #2 03/30/17 =>s/p F-foot I&D w/bone biopsy and excision and debridement of ulceration and application of allograft. * 03/30/17 BONE CX: GRAM STAIN Final => POLYMORPH. LEUKOCYTE NONE SEEN NO ORGANISM SEEN * TISSUE (BIOPSY) CULTURE Preliminary No growth after 2 day * Wound culture growing Corynebacterium species + Staph species * Blood cultures negative. * Wound culture on previous admission grew Enterococcus species, Sandy parapsilosis, Enterobacter cloacae. 2. Right foot Charcot type. 3. Morbid obesity. 4. Poorly controlled diabetes. 5. Chronic kidney disease. (-) MRSA Nares INVASIVES: PIV CURRENT ABX: =>Vanco IV + Zosyn ID RECOMMENDATIONS 1. Patient may DC home on Vanco IV w/continued dose per OP Clinical pharmacist for a total of 6 weeks 2. No clear indication to continue Zosyn, may DC upon discharge . Problems: Consultation Date/Type/Reason Admit Date/Time Mar 27, 2017 at 01:03 Initial Consult Date 03/27/17 Type of Consultation: ID Exam/Review of Systems Vital Signs Vitals Vital Signs Date Time Temp Pulse Resp B/P Pulse Ox O2 Delivery O2 Flow Rate FiO2 04/01/17 07:20 97.8 71 16 167/77 93 03/31/17 06:13 Room Air 03/30/17 20:55 8.0 Intake and Output 03/31/17 03/31/17 04/01/17 14:59 22:59 06:59 Intake Total 2020 ml 340 ml Balance 2020 ml 340 ml Results Result Diagram: 04/01/1717 04/01/1717 Results 24 hrs Laboratory Tests Test 03/31/17 16:50 03/31/17 21:25 04/01/17 01:52 04/01/17 08:12 Bedside Glucose 221 H 253 H 166 73 Test 04/01/17 09:17 04/01/17 11:53 White Blood Count 12.5 H Red Blood Count 3.56 L Hemoglobin 10.1 L Hematocrit 32.7 L Mean Corpuscular Volume 91.9 Mean Corpuscular Hemoglobin 28.4 L Mean Corpuscular Hemoglobin Concent 30.9 L Red Cell Distribution Width 14.5 Platelet Count 321 Mean Platelet Volume 10.7 H Neutrophils % 74.0 Lymphocytes % 12.1 L Monocytes % 3.9 Eosinophils % 9.1 H Basophils % 0.4 Nucleated Red Blood Cells % 0.0 Neutrophils # (Manual) 9.2 H Lymphocytes # 1.5 Monocytes # 0.5 Eosinophils # 1.1 H Basophils # 0.1 Nucleated Red Blood Cells # 0.0 Sodium Level 140 Potassium Level 4.7 Chloride Level 110 Carbon Dioxide Level 21 Anion Gap 14 Blood Urea Nitrogen 37 H Creatinine 2.65 H Glucose Level 155 # Calcium Level 8.1 L Bedside Glucose 161 Medications Medications Current Medications Amlodipine Besylate (Norvasc) 10 mg DAILY PO Last administered on 04/01/17t 08: 31; Admin Dose 10 MG; Start 03/27/17 at 09:00 Cholecalciferol (Vitamin D) 1,000 unit DAILY PO Last administered on 04/01/17 08:31; Admin Dose 1,000 UNIT; Start 03/27/17 at 09:00 Clopidogrel Bisulfate (plaVIX) 75 mg DAILY PO Last administered on 04/01/17 08: 31; Admin Dose 75 MG; Start 03/27/17 at 09:00 Docusate Sodium (Colace) 100 mg BID PO Last administered on 03/31/17 09:41; Admin Dose 100 MG; Start 03/27/17 at 09:00 Famotidine (Pepcid) 20 mg DAILY PRN PO PRN; Start 03/27/17 at 04:00 Folic Acid (Folic Acid) 1 mg DAILY PO Last administered on 04/01/17 08:30; Admin Dose 1 MG; Start 03/27/17 at 09:00 Hydralazine HCl (Apresoline) 50 mg BID PO Last administered on 04/01/17 08:30; Admin Dose 50 MG; Start 03/27/17 at 09:00 Hydralazine HCl (Apresoline) 10 mg DAILY@21 PO Last administered on 03/31/17 21 :34; Admin Dose 10 MG; Start 03/27/17 at 21:00 Hydroxychloroquine Sulfate (Plaquenil) 200 mg DAILY PO Last administered on 04/01 08:31; Admin Dose 200 MG; Start 03/27/17 at 09:00 Loratadine (Claritin) 10 mg DAILY PO Last administered on 04/01/17 08:30; Admin Dose 10 MG; Start 03/27/17 at 09:00 Losartan Potassium (Cozaar) 100 mg DAILY PO Last administered on 04/01/17 08:30 ; Admin Dose 100 MG; Start 03/27/17 at 09:00 Tramadol HCl (Ultram) 50 mg Q6H PRN PO PAIN LEVEL 7-10; Start 03/27/17 at 04:00 Atorvastatin Calcium (Lipitor) 10 mg QHS PO Last administered on 03/31/17 21:33 ; Admin Dose 10 MG; Start 03/27/17 at 21:00 Miscellaneous Information 1 ea NOTE XX ; Start 03/27/17 at 04:30 Glucose (Glutose) 15 gm Q15M PRN PO DECREASED GLUCOSE; Start 03/27/17 at 04:30 Glucose (Glutose) 22.5 gm Q15M PRN PO DECREASED GLUCOSE; Start 03/27/17 at 04: 30 Dextrose (D50w Syringe) 25 ml Q15M PRN IV DECREASED GLUCOSE; Start 03/27/17 at 04:30 Dextrose (D50w Syringe) 50 ml Q15M PRN IV DECREASED GLUCOSE; Start 03/27/17 at 04:30 Glucagon (Glucagen) 1 mg Q15M PRN IM DECREASED GLUCOSE; Start 03/27/17 at 04:30 Glucose (Glutose) 15 gm Q15M PRN BUCCAL DECREASED GLUCOSE; Start 03/27/17 at 04 :30 Insulin Glargine 40 unit 40 unit BID@08,20 SC Last administered on 04/01/17 08: 20; Admin Dose 40 UNIT; Start 03/27/17 at 08:00 Vancomycin HCl 1.75 gm/Sodium Chloride 500 ml @ 125 mls/hr Q48H IVPB Last administered on 03/31/17 10:34; Admin Dose 125 MLS/HR; Start 03/29/17 at 10:00 Piperacillin Sod/ Tazobactam Sod (Zosyn 3.375gm/ 100 ml (Pmx)) 100 ml @ 200 mls /hr Q8 IVPB Last administered on 04/01/17 05:31; Admin Dose 200 MLS/HR; Start 03/29/17 at 14:00 Enalaprilat (Vasotec Iv) 0.625 mg Q6H PRN IV SBP > 170 Last administered on 03/30 16:24; Admin Dose 0.625 MG; Start 03/30/17 at 16:00 Ibuprofen (Motrin) 600 mg Q6H PRN PO PAIN LEVEL 6-10; Start 03/30/17 at 21:00 Ketorolac Tromethamine (Toradol) 15 mg Q6H PRN IV PAIN; Start 03/30/17 at 21:00 ; Stop 04/02/17 at 20:59 Acetaminophen/ Hydrocodone Bitart ([place] (5/325)) 1 tab Q6H PRN PO PAIN LEVEL 6 -10; Start 03/30/17 at 21:00 Morphine Sulfate (morphine) 2 mg Q2H PRN IV BREAKTHROUGH PAIN; Start 03/30/17 at 21:00 Ondansetron HCl (Zofran Inj) 4 mg Q6H PRN IV NAUSEA AND/OR VOMITING; Start 03/30 at 21:00 Diphenhydramine HCl (Benadryl) 25 mg Q6H PRN IV ITCHING; Start 03/30/17 at 21:00 Diagnostic Test (Pha) (Accu-Chek) 1 ea 02 XX Last administered on 04/01/17t 01: 54; Admin Dose 1 EA; Start 04/01/17 at 02:00 SCOTTY PICHARDO NP Apr 01, 2017 15:16
== END 2017-04-01 15:43 | disposition home health service (06) | DRG 629 ==
LOC: E/R 17:41 → MS1 03-27 01:03 → PP2 03-27 02:57
PROVIDERS: ADMIT Internal Medicine; ATTEND Internal Medicine
PROC: 0QBL0ZZ Excision of Right Tarsal, Open Approach (ICD-10-PCS; principal; 2017-03-30 20:00)
DX: E11.621 Type 2 diabetes mellitus with foot ulcer (principal); M86.671 Other chronic osteomyelitis, right ankle and foot; E11.22 Type 2 diabetes mellitus with diabetic chronic kidney disease; N17.9 Acute kidney failure, unspecified; N18.4 Chronic kidney disease, stage 4 (severe); E11.610 Type 2 diabetes mellitus with diabetic neuropathic arthropathy; Z68.43 Body mass index [BMI] 50.0-59.9, adult; I12.9 Hypertensive chronic kidney disease with stage 1 through stage 4 chronic kidney disease, or unspecified chronic kidney disease; E11.65 Type 2 diabetes mellitus with hyperglycemia; E03.9 Hypothyroidism, unspecified; E66.01 Morbid (severe) obesity due to excess calories; L97.514 Non-pressure chronic ulcer of other part of right foot with necrosis of bone; D64.9 Anemia, unspecified; Z99.2 Dependence on renal dialysis; Z79.84 Long term (current) use of oral hypoglycemic drugs; Z79.4 Long term (current) use of insulin; Z89.421 Acquired absence of other right toe(s)
CPT/HCPCS: 36415; 80048; 80053; 80202; 82962; 83036; 83690; 85025; 87040; 87070; 87075; 87081; 87102; 87116; 88304; 88311; 93005; J0360; J1815; J2405; J2543; J2765; J2997; J3370; J7040; J7042

== ENCOUNTER 2017-07-16 15:24 | Observation (INO) | payer OTHER ==
[~2017-07-16] VITALS: Ht 160 cm; Wt 131.0 kg
[2017-07-16] VITALS (21 sets, daily range): BP systolic 134–156; BP diastolic 61–83; PULSE 67–88; RESP 14–24; Ht 160 cm; Wt 131.0 kg
[~2017-07-16 15:24] MED LIST changes: -ASC500 PO; -ASPI81TA3 PO; -ATOR20TA38 PO; +CHOL100062 PO; +CLINDAMYCIN 900 MG/50 ML D5W IVPB IVPB ONE; +CLOP75TA4 PO; +FAMO20TA18 PO; -FER325 PO; -FLUC100T PO; +HYDR-3498 PO; +HYDR-3672 PO; -LACT1CAP57 PO; -LEVO250T35 PO; +LEVO25TA53 PO; +LIDOCAINE 2% (SDV) 5 ML INJ ONE; +LORA10TA3 PO; +LOSA100T7 PO; +SIMV20TA PO; -SODI473S19 IRR; -SYN75 PO
[2017-07-16] MEDS ORDERED: MINERAL OIL LIGHT 10 ML VIAL ONE (16:53)
[2017-07-16] MEDS ORDERED: LIDOCAINE 1%/EPI 30 ML INJ ONE (16:53)
--- NOTE | 2017-07-16 17:13 | HPN ---
Date/Time of Note Date/Time of Note DATE: 07/16/17 TIME: 17:13 Interval H&P Admission Note Pt. seen H&P reviewed: No system changes CARMEN HAWKINS DPM Jul 16, 2017 17:13
[2017-07-16] MEDS ORDERED: PROPOFOL 20 ML ONE (17:18)
[2017-07-16] MEDS ORDERED: MIDAZOLAM 1 MG/ML 2 ML INJ ONE (17:20)
[2017-07-16 17:47] LABS: BASOPHILS % 0.3 % (0.0-2.0); EOSINOPHILS # 0.7 10^3/ul (0.0-0.5); EOSINOPHILS % 4.7 % (0.0-7.0); HEMATOCRIT 34.3 % (37.0-47.0); HEMOGLOBIN 10.6 g/dl (12.0-16.0); LYMPHOCYTES # 2.1 10^3/ul (0.8-2.9); MEAN CORPUSCULAR HGB CONC 30.9 g/dl (32.0-37.0); MEAN CORPUSCULAR VOLUME 90.7 fl (82.0-101.0); MEAN PLATELET VOLUME 10.8 fl (7.4-10.4); MONOCYTE # 0.7 10^3/ul (0.3-0.9); MONOCYTES % 4.4 % (0.0-11.0); NEUTROPHIL # 11.3 10^3/ul (1.6-7.5); NEUTROPHILS % 76.1 % (39.0-77.0); PLATELET COUNT 392 10^3/UL (140-415); RED BLOOD COUNT 3.78 10^6/ul (4.20-5.40); RED CELL DISTRIBUTION WIDTH 14.5 % (11.5-14.5); WHITE BLOOD COUNT 14.9 10^3/ul (4.8-10.8)
--- NOTE | 2017-07-16 17:53 | SIPON ---
Date/Time of Note Date/Time of Note DATE: 07/16/17 TIME: 17:49 Operative Report Preoperative Diagnosis Right foot diabetic foot ulceration Charcot right foot H/o right foot 2-4 toe amputation h/o OM right foot midfoot DM2 with PN Obesity Edema Charcot left ankle Postoperative Diagnosis Right foot diabetic foot ulceration Charcot right foot H/o right foot 2-4 toe amputation h/o OM right foot midfoot DM2 with PN Obesity Edema Charcot left ankle Operation/Procedure Performed Right foot wound bed prep Application of allograft integra right foot 4x5 cm Surgeon Marge assistant sales center manager none Anesthesia: MAC Estimated blood loss: 10 - 50 ml's Transfusion Required none Specimen wound culture right foot Grafts/Implants integra right foot 4x5 cm Complications none CARMEN HAWKINS DPM Jul 16, 2017 17:53
[2017-07-16 17:54] LABS: HOLD TRANSMISSIONS 1
[2017-07-16] MEDS ORDERED: HYDROCODONE/APAP (5/325) TAB PO PRN ×2 (18:00→21:00)
[2017-07-16] MEDS ORDERED: ACETAMINOPHEN 500 MG TAB PO PRN (18:00)
[2017-07-16] MEDS: SENNA/DOCUSATE NA (8.6MG/50MG) TAB PO SCH ×2 (20:24→20:26)
[2017-07-16] MEDS: FERROUS FUMARATE (SR) TAB PO SCH (20:24)
[2017-07-16] MEDS ORDERED: D5W-0.45 NACL + KCL 10 MEQ 1,000 ML IV SCH (21:00)
[2017-07-16] MEDS ORDERED: ZOLPIDEM 5 MG TAB PO PRN (21:00)
[2017-07-16] MEDS: CEFAZOLIN 2 GM/50 ML (PMX) 50 ML IVPB SCH (21:10)
[2017-07-16] MEDS ORDERED: morphine LIQ (10 MG/5 ML) CUP PO PRN (21:30)
[2017-07-16] MEDS ORDERED: DEXTROSE 50% 50 ML SYRINGE IV PRN ×2 (22:00)
[2017-07-16] MEDS ORDERED: GLUCOSE GEL 15 GRAM TUBE PO PRN ×2 (22:00)
[2017-07-16] MEDS ORDERED: GLUCAGON 1 MG INJ IM PRN (22:00)
[2017-07-16] MEDS ORDERED: GLUCOSE GEL 15 GRAM TUBE BUCCAL PRN (22:00)
[2017-07-17] MEDS ORDERED: INSULIN ASPART [NOVOLOG] 3 ML PEN SC SCH ×2 (01:00→07:50)
[2017-07-17] MEDS: ACCU-CHEK XX SCH (02:00)
[2017-07-17 02:43] VITALS: BP 127/61; RESP 18
[2017-07-17] MEDS: LEVOTHYROXINE 25 MCG TAB PO SCH (05:31)
[2017-07-17] MEDS: CEFAZOLIN 2 GM/50 ML (PMX) 50 ML IVPB SCH ×3 (05:31→21:27)
--- NOTE | 2017-07-17 06:29 | OPR ---
DATE OF OPERATION: 07/16/2017 SURGEON: Carmen Bird. TELETYPEWRITER INSTALLER: None. POSTOPERATIVE DIAGNOSES: 1. Right foot diabetic foot ulceration. 2. Charcot deformity with rocker bottom foot type. 3. Edema. 4. Diabetes type 2 with peripheral neuropathy. 5. History of osteomyelitis, mid foot. 6. Left ankle Charcot. 7. Obesity. POSTOPERATIVE DIAGNOSES: 1. Right foot diabetic foot ulceration. 2. Charcot deformity with rocker bottom foot type. 3. Edema. 4. Diabetes type 2 with peripheral neuropathy. 5. History of osteomyelitis, mid foot. 6. Left ankle Charcot. 7. Obesity. PROCEDURES PERFORMED: 1. Wound bed preparation for grafting. 2. Application of Integra bilayer allograft. ANESTHESIA: MAC. HEMOSTASIS: Compression. ESTIMATED BLOOD LOSS: 20 mL. MATERIALS: 3-0 nylon. COMPLICATIONS: None. INDICATION FOR PROCEDURE: A 52-year-old female with a chronic ulcerations, had wound care with the use of negative pressure wound therapy, has delayed wound healing and has tried various products. A t this time recommend coverage with Integra bilayer to help heal the wound. The patient states good glycemic control. She had been medically optimized and cleared for surgical intervention. The pat ient remains ambulatory and has deformity of the right foot due to chronic Charcot foot. The patien t at high risk for complications. She has had 3 toes amputated to the right foot. DESCRIPTION OF PROCEDURE: The patient brought into the operating room and placed in the supine posi tion. Formal timeout was performed. The foot was marked, confirmed by the surgical team, prepped w ith Betadine scrub and paint, draped in usual sterile fashion. At this time, using the VersaJet, e wound bed was prepared using a 14 mm 45 degree angle VersaJet blade and saline for irrigation. Th e patient's wound was cultured. The wound was irrigated and post-debridement wound size measured 5 x 3 cm and at this time the Integra bilayer was opened and secured to the wound with 3-0 nylon and a bulky compression wrap applied. The patient had estimated blood loss of 20 to 30 mL and was transf erred to PACU with vital signs stable. POSTOPERATIVE PLAN: Patient will be admitted. She had clindamycin preoperatively, will continue An cef and Dr. Lua consulted for medical management. Admitted for observation. Monitor for any blee ding. The patient advised bed rest with elevation of the extremity. We will hold off on the wound VAC at this time. Dictated By: CARMEN DAVEY/SYED Conf#: [id number] DID#: [id number]
[2017-07-17] MEDS ORDERED: ACCU-CHEK XX SCH (07:20)
[2017-07-17 08:00] VITALS: BP 159/70; RESP 19
[2017-07-17] MEDS: SENNA/DOCUSATE NA (8.6MG/50MG) TAB PO SCH ×2 (08:37→21:00)
[2017-07-17] MEDS: CHOLECALCIFEROL 1,000 UNIT TAB PO SCH (08:38)
[2017-07-17] MEDS: ZINC SULFATE 220 MG CAP PO SCH (08:39)
[2017-07-17] MEDS: ASCORBIC ACID 500 MG TAB PO SCH (08:39)
[2017-07-17] MEDS: FAMOTIDINE 20 MG TAB PO SCH (08:39)
[2017-07-17] MEDS: FERROUS FUMARATE (SR) TAB PO SCH ×2 (08:40→21:28)
[2017-07-17] MEDS: LOSARTAN 50 MG TAB PO SCH (08:40)
[2017-07-17] MEDS: ASPIRIN 81 MG TAB PO SCH (08:40)
[2017-07-17] MEDS: FOLIC ACID 1 MG TAB PO SCH (08:40)
[2017-07-17] MEDS: FLUCONAZOLE 200 MG TAB PO SCH (08:41)
[2017-07-17] MEDS: AMLODIPINE 10 MG TAB PO SCH (08:43)
[2017-07-17] MEDS: INSULIN ASPART [NOVOLOG] 3 ML PEN SC SCH ×5 (08:55→21:30)
--- NOTE | 2017-07-17 10:27 | HP ---
DATE OF ADMISSION: 07/16/2017 REASON FOR ADMISSION: Status post elective allograft placement in the right foot. HISTORY OF PRESENT ILLNESS: The patient is 52-year-old morbidly obese female with history of diabetes mellitus, diabetic neuropathy, CKD with baseline creatinine around 2.5, bilateral Charc ot foot, anemia, hypothyroidism, dyslipidemia, status post right carotid endarterectomy, who underwe nt multiple surgeries to both lower extremities, most recently to the right lower extremity, includi ng treatment for osteomyelitis with 6 weeks of IV vancomycin. The patient now underwent application of allograft to Charcot right foot, 4 x 5 cm, and the patient was again admitted for further monito ring. Upon evaluation, the patient with no complaints. Denies any pain. Denies any chest pain or shortness of breath. Denies any fever or chills. The patient is admitted for further care. Her [facility] medical doctor, Dr. Romo. Right lower extremity is bandaged and covered. The patient ne eds further care. PAST MEDICAL HISTORY: Includes diabetes mellitus, CKD, diabetic neuropathy, osteomyelitis of the ri ght foot, mid foot, status post treatment, hypertension, hypothyroidism, bilateral Charcot foot, ane louie, carotid artery disease. SURGICAL HISTORY: Left lower extremity debridement, right lower extremity multiple debridements, ri ght second and third toe amputations, right side carotid endarterectomy. ALLERGIES: NO DRUG ALLERGIES. SOCIAL HISTORY: The patient denies tobacco, alcohol or IV drug use. The patient resides with her 2 daughters. She has strong family support. FAMILY HISTORY: Noncontributory. HOME MEDICATIONS: Include: 1. Loratadine 10 mg daily. 2. Plaquenil 200 mg daily. 3. Plavix 75 mg daily. 4. Amlodipine 10 mg daily. 5. Hydralazine 10 mg daily. This is also 50 b.i.d. 6. Losartan 100 mg daily. 7. Simvastatin 20 mg at bedtime. 8. Hydrocodone APAP q.4h. p.r.n. 9. Tramadol 50 q.6h. p.r.n. 10. Colace 100 b.i.d. 11. Pepcid 20 mg p.r.n. 12. Insulin aspart 6 units with meals. 13. Insulin Lantus 40 units twice a day. 14. Synthroid 25 mcg daily. 15. Vitamin D3 1000 daily. 16. Folic acid 1 mg daily. 17. Vancomycin. She finished a course of 6 weeks. PHYSICAL EXAMINATION: VITAL SIGNS: Temperature 98.2, pulse 81, respirations 19, blood pressure 159/70, saturation 92% to 96% on room air. GENERAL: The patient is in no acute distress. The patient is pale. The patient is morbidly obese. CARDIOVASCULAR: S1 and S2, regular rate. LUNGS: Clear. ABDOMEN: Soft, nontender. EXTREMITIES: Right lower extremity is well covered. There is amputation of the second and third di gits of the right foot. There is nonspecific edema throughout the lower extremities. LABORATORY DATA: Done on 07/16/2017 shows a white count of 14.9, hemoglobin 10.6, hematocrit 34, pl atelets 392, neutrophils 76%, lymphocytes 14%. Chemistry: No labs for that today. Blood sugar lev el 165, 315, 125. At 8:42 p.m. yesterday, it was slightly low at 58. Previous labs were all review ed from previous hospitalizations. Labs done at the doctor's office on 07/10/2017 shows a white cou nt, again, high at 15.4, hemoglobin of 10.9, BUN 44, creatinine 2.5. INR 1.0. Alkaline phosphatase 119, AST 11, ALT 10. ASSESSMENT AND PLAN: 1. This is a 52-year-old morbidly obese female with history of diabetes mellitus, hyperte nsion, hypothyroidism, CKD, anemia, who presents with elective right foot graft placement. 2. Postop day #1 of allograft placement on the wound. Continue wound care. Further recommendation s per Dr. Bird. 3. Diabetes mellitus. The patient was placed on weight-based insulin, Lantus twice a day. The pat ient will around 20 or 30 units twice a day with insulin sliding scale. Check hemoglobin A1c. May consider oral medications as well, such as Januvia or Tradjenta. 4. Hypertension. Continue current medications. Monitor closely. The patient will be placed on a low-salt diet. 5. Chronic kidney disease. Monitor kidney function, including electrolytes. She has been seen by multiple nephrologists during her previous hospitalization. Notes were reviewed. 6. The patient will be placed on deep vein thrombosis prophylaxis and gastrointestinal prophylaxis. 7. Continue vitamins for maximum wound healing. 8. Hypothyroidism. Continue Synthroid 25 mcg daily. Follow up TSH level. Overall, keep leg eleva lacie while in bed. 9. We will discuss discharge planning with Dr. Bird, and home health will follow. We will follo w with your on ongoing progress while in house. I would like to thank Dr. Bird for this opportunity to take care of the patient. Dictated By: LAURYN GUZMAN/SYED Conf#: [id number] DID#: [id number] CC: CARMEN BIRD DPJan;*EndCC*
[2017-07-17 14:00] VITALS: BP 162/70; RESP 18
[2017-07-17 19:56] VITALS: BP 161/71; RESP 18
[2017-07-17] MEDS: INSULIN GLARGINE [LANtus] 3 ML PEN SC SCH (21:29)
[2017-07-18 01:53] VITALS: BP 174/78; RESP 18
[2017-07-18] MEDS: ACCU-CHEK XX SCH (02:26)
[2017-07-18 05:23] LABS: BASOPHILS % 0.3 % (0.0-2.0); EOSINOPHILS # 0.7 10^3/ul (0.0-0.5); EOSINOPHILS % 5.3 % (0.0-7.0); HEMATOCRIT 32.1 % (37.0-47.0); HEMOGLOBIN 10.1 g/dl (12.0-16.0); LYMPHOCYTES # 1.7 10^3/ul (0.8-2.9); LYMPHOCYTES % 13.1 % (15.0-51.0); MEAN CORPUSCULAR HEMOGLOBIN 28.4 pg (29.0-33.0); MEAN CORPUSCULAR HGB CONC 31.5 g/dl (32.0-37.0); MEAN CORPUSCULAR VOLUME 90.2 fl (82.0-101.0); MEAN PLATELET VOLUME 10.4 fl (7.4-10.4); MONOCYTE # 0.6 10^3/ul (0.3-0.9); MONOCYTES % 4.7 % (0.0-11.0); NEUTROPHILS % 76.1 % (39.0-77.0); PLATELET COUNT 377 10^3/UL (140-415); RED BLOOD COUNT 3.56 10^6/ul (4.20-5.40); RED CELL DISTRIBUTION WIDTH 14.6 % (11.5-14.5); WHITE BLOOD COUNT 13.1 10^3/ul (4.8-10.8)
[2017-07-18 05:45] LABS: MAGNESIUM 1.5 mg/dl (1.7-2.5); PHOSPHORUS 5.4 mg/dl (2.5-4.9)
[2017-07-18 05:51] LABS: ALBUMIN 3.1 g/dl (3.3-4.9); ALBUMIN/GLOBULIN RATIO 0.68; BILIRUBIN,INDIRECT 0.3 mg/dl (0-1.1); BILIRUBIN,TOTAL 0.3 mg/dl (0.2-1.3); CALCIUM 8.7 mg/dl (8.4-10.2); CREATININE 2.78 mg/dl (0.44-1.00); POTASSIUM 5.3 mmol/L (3.5-5.1); TOTAL PROTEIN 7.6 g/dl (6.1-8.1)
[2017-07-18] MEDS: CEFAZOLIN 2 GM/50 ML (PMX) 50 ML IVPB SCH ×3 (06:40→20:17)
[2017-07-18] MEDS: LEVOTHYROXINE 25 MCG TAB PO SCH (06:40)
[2017-07-18 07:54] VITALS: BP 147/71; RESP 18
[2017-07-18] MEDS: INSULIN ASPART [NOVOLOG] 3 ML PEN SC SCH ×6 (09:25→20:37)
[2017-07-18] MEDS: INSULIN GLARGINE [LANtus] 3 ML PEN SC SCH ×2 (09:26→20:00)
[2017-07-18] MEDS: FLUCONAZOLE 200 MG TAB PO SCH (09:27)
[2017-07-18] MEDS: FERROUS FUMARATE (SR) TAB PO SCH ×2 (09:27→20:16)
[2017-07-18] MEDS: AMLODIPINE 10 MG TAB PO SCH (09:28)
[2017-07-18] MEDS: ASCORBIC ACID 500 MG TAB PO SCH (09:28)
[2017-07-18] MEDS: LOSARTAN 50 MG TAB PO SCH (09:28)
[2017-07-18] MEDS: SENNA/DOCUSATE NA (8.6MG/50MG) TAB PO SCH ×2 (09:29→20:37)
[2017-07-18] MEDS: FAMOTIDINE 20 MG TAB PO SCH (09:29)
[2017-07-18] MEDS: ASPIRIN 81 MG TAB PO SCH (09:29)
[2017-07-18] MEDS: FOLIC ACID 1 MG TAB PO SCH (09:29)
[2017-07-18] MEDS: CHOLECALCIFEROL 1,000 UNIT TAB PO SCH (09:29)
[2017-07-18] MEDS: ZINC SULFATE 220 MG CAP PO SCH (09:31)
[2017-07-18] MEDS ORDERED: MAGNESIUM SULFATE 2 GM/50 ML 50 ML IVPB ONE (13:30)
[2017-07-18] MEDS: LORATADINE 10 MG TAB PO SCH (14:47)
[2017-07-18 16:28] VITALS: BP 133/64; RESP 20
--- NOTE | 2017-07-18 20:06 | PN ---
DATE: 07/18/2017 SUBJECTIVE: The patient seen complaining of some allergies, nasal congestion, sugar level is only 2 00. Case discussed with Dr. Hawkins. PHYSICAL EXAMINATION: VITAL SIGNS: Temperature 97.7, pulse 80, respirations 18, blood pressure 147/70, oxygen saturation 96%. GENERAL: The patient is in no acute distress. HEENT: Morbidly obese, pale. CARDIOVASCULAR: S1, S2, regular rate and rhythm. LUNGS: Clear. ABDOMEN: Soft, nontender. EXTREMITIES: Lower extremity nonpitting edema bilateral lower extremities. Right foot is all barnes ged. She does have second and third toe amputations. She does have a rash in the lower extremity. She had it before admission. LABORATORY DATA: White count 13.1, hemoglobin 10.1, hematocrit 32, platelet count 377, neutrophils 76%, lymphocytes 13%. Chemistry: Sodium 140, potassium 5.6, chloride 110, bicarbonate 20, BUN 47, creatinine 2.78, glucose of 225. Last glucose level 227 and 231. Hemoglobin A1c 7.8, magnesium low at 1.5, phosphorus is high at 5.4. Wound culture is pending. MEDICATIONS: 1. Lantus 25 units twice a day. 2. Insulin aspart 6 units q.a.c. 3. Aspirin 81 daily. 4. Folic acid 1 daily. 5. Vitamin C 1000 daily. 6. Zinc sulfate 20 mg daily. 7. Diflucan 200 mg daily. 8. Vitamin D 1000 daily. 9. Cozaar 100 mg daily. 10. Pepcid 20 mg daily. 11. Norvasc 10 mg daily. 12. Insulin aspart per sliding scale. 13. Synthroid 25 mcg daily. 14. Accu-Chek q.a.c. and at bedtime. 15. Cefazolin as directed, hypoglycemia protocol. 16. Morphine p.r.n. 17. Senna 1 tab b.i.d. 18. Ferrous sulfate 325 b.i.d. 19. Ambien 5 mg at bedtime p.r.n. 20. [place] p.r.n. 21. ____ p.r.n. ASSESSMENT AND PLAN: 1. This is a 52-year-old morbidly obese female with history of diabetes mellitus, hyperte nsion, hypothyroidism, CKD, anemia who presented for elective right foot graft placement. 2. Postop day #2 of allograft placement on the wound. Continue wound care. Further recommendation per Dr. Hawkins. 3. Diabetes mellitus. Will increase insulin Lantus to 30 units subQ b.i.d. and increase NovoLog to 10 units before meals. May consider adding oral agent such as Januvia or Tradjenta. 4. Renal. The patient with slightly worsening kidney function. Observe, replace magnesium. 5. Chronic kidney disease. Again, see above. 6. Allergic rhinitis. The patient has Flonase, add Claritin, observe. 7. Hypothyroidism. Continue Synthroid. 8. Physical therapy as tolerated, especially status post surgery. 9. childbirth educator notes. 10. Hyperkalemia, observe. 11. Anemia. The patient with anemia of chronic disease. No need for transfusion. 12. Leukocytosis. Follow up cultures. The patient remains on cefazolin for now. We will follow. Dictated By: LAURYN GUZMAN/SYED Conf#: [id number] DID#: [id number] CC: MARIAA AGOSTO MD; STEFFANY GOMEZ MD; CARMEN HAWKINS DPM;*EndCC*
[2017-07-18 20:25] VITALS: BP 141/69; RESP 20
[2017-07-18] MEDS ORDERED: INSULIN GLARGINE [LANtus] 3 ML PEN SC ONE (20:30)
[2017-07-19 01:59] VITALS: BP 138/68; RESP 18
[2017-07-19] MEDS: ACCU-CHEK XX SCH (02:00)
[2017-07-19 05:18] LABS: BASOPHIL # 0.1 10^3/ul (0.0-0.1); BASOPHILS % 0.4 % (0.0-2.0); EOSINOPHILS # 0.7 10^3/ul (0.0-0.5); EOSINOPHILS % 5.6 % (0.0-7.0); HEMATOCRIT 32.5 % (37.0-47.0); HEMOGLOBIN 10.4 g/dl (12.0-16.0); LYMPHOCYTES # 1.7 10^3/ul (0.8-2.9); LYMPHOCYTES % 12.7 % (15.0-51.0); MEAN CORPUSCULAR HEMOGLOBIN 28.7 pg (29.0-33.0); MEAN CORPUSCULAR VOLUME 89.5 fl (82.0-101.0); MEAN PLATELET VOLUME 10.3 fl (7.4-10.4); MONOCYTE # 0.6 10^3/ul (0.3-0.9); MONOCYTES % 4.2 % (0.0-11.0); NEUTROPHILS % 76.5 % (39.0-77.0); PLATELET COUNT 376 10^3/UL (140-415); RED BLOOD COUNT 3.63 10^6/ul (4.20-5.40); RED CELL DISTRIBUTION WIDTH 14.6 % (11.5-14.5); WHITE BLOOD COUNT 13.1 10^3/ul (4.8-10.8)
[2017-07-19] MEDS: LEVOTHYROXINE 25 MCG TAB PO SCH (05:26)
[2017-07-19] MEDS: CEFAZOLIN 2 GM/50 ML (PMX) 50 ML IVPB SCH (05:26)
[2017-07-19 05:55] LABS: PHOSPHORUS 5.3 mg/dl (2.5-4.9)
[2017-07-19 07:56] VITALS: BP 180/77; RESP 16
[2017-07-19] MEDS: FERROUS FUMARATE (SR) TAB PO SCH (08:55)
[2017-07-19] MEDS: FAMOTIDINE 20 MG TAB PO SCH (08:55)
[2017-07-19] MEDS: SENNA/DOCUSATE NA (8.6MG/50MG) TAB PO SCH (08:56)
[2017-07-19] MEDS: FLUCONAZOLE 200 MG TAB PO SCH (08:56)
[2017-07-19] MEDS: CHOLECALCIFEROL 1,000 UNIT TAB PO SCH (08:56)
[2017-07-19] MEDS: FOLIC ACID 1 MG TAB PO SCH (08:56)
[2017-07-19] MEDS: ASPIRIN 81 MG TAB PO SCH (08:56)
[2017-07-19] MEDS: LORATADINE 10 MG TAB PO SCH (08:56)
[2017-07-19] MEDS: ZINC SULFATE 220 MG CAP PO SCH (08:56)
[2017-07-19] MEDS: LOSARTAN 50 MG TAB PO SCH (08:56)
[2017-07-19] MEDS: AMLODIPINE 10 MG TAB PO SCH (08:56)
[2017-07-19] MEDS: ASCORBIC ACID 500 MG TAB PO SCH (08:56)
[2017-07-19] MEDS: INSULIN ASPART [NOVOLOG] 3 ML PEN SC SCH ×4 (09:01→12:46)
[2017-07-19] MEDS: INSULIN GLARGINE [LANtus] 3 ML PEN SC SCH (09:01)
[2017-07-19 09:19] LABS: CALCIUM 8.7 mg/dl (8.4-10.2); CREATININE 2.71 mg/dl (0.44-1.00); POTASSIUM 5.6 mmol/L (3.5-5.1)
--- NOTE | 2017-07-19 14:04 | CONS ---
Date/Time of Note Date/Time of Note DATE: 07/19/17 TIME: 14:00 Assessment/Plan Assessment/Plan Chief Complaint/Hosp Course Assessment. 1. Right foot diabetic foot ulceration. 2. Charcot deformity with rocker bottom foot type. 3. Edema. 4. Diabetes type 2 with peripheral neuropathy. 5. History of osteomyelitis, mid foot. 6. Left ankle Charcot. 7. Obesity. Plan 1. S/P Wound bed preparation for grafting, right Diabetic Foot Ulcer. 2. S/P Application of Integra bilayer allograft. 3. Surgical site is stable. Will monitor. Follow up in Wound Clinic with Dr. Bird. Problems: Consultation Date/Type/Reason Admit Date/Time Jul 16, 2017 at 19:18 Initial Consult Date Type of Consultation: Podiatry: Dr. Bird coverage Reason for Consultation Right Diabetic Foot Ulcer. Exam/Review of Systems Vital Signs Vitals Vital Signs Date Time Temp Pulse Resp B/P Pulse Ox O2 Delivery O2 Flow Rate FiO2 07/19/17 07:56 98.0 72 16 180/77 100 07/16/17 23:00 Room Air Intake and Output 07/18/17 07/18/17 07/19/17 15:00 23:00 07:00 Intake Total 850 ml 700 ml Output Total 3 ml 700 ml Balance 847 ml 0 ml Exam Wound bed preparation for grafting, right foot. Application of Integra bilayer allograft. Dressing is dry, clean, and intact. Pain is managed. No malodor. No signs of infection. Results Result Diagram: 07/19/17 0453 07/19/17 0452 Results 24 hrs Laboratory Tests Test 07/18/17 17:23 07/18/17 20:15 07/19/17 04:52 07/19/17 04:53 Bedside Glucose 115 79 Sodium Level 138 Potassium Level 5.6 H Chloride Level 109 Carbon Dioxide Level 18 L Anion Gap 17 H Blood Urea Nitrogen 50 H Creatinine 2.71 H Glucose Level 244 H Calcium Level 8.7 White Blood Count 13.1 H Red Blood Count 3.63 L Hemoglobin 10.4 L Hematocrit 32.5 L Mean Corpuscular Volume 89.5 Mean Corpuscular Hemoglobin 28.7 L Mean Corpuscular Hemoglobin Concent 32.0 Red Cell Distribution Width 14.6 H Platelet Count 376 Mean Platelet Volume 10.3 Neutrophils % 76.5 Lymphocytes % 12.7 L Monocytes % 4.2 Eosinophils % 5.6 Basophils % 0.4 Nucleated Red Blood Cells % 0.0 Neutrophils # 10.0 H Lymphocytes # 1.7 Monocytes # 0.6 Eosinophils # 0.7 H Basophils # 0.1 Nucleated Red Blood Cells # 0.0 Phosphorus Level 5.3 H Magnesium Level 2.0 Test 07/19/17 08:12 07/19/17 12:40 Bedside Glucose 230 H 223 H Medications Medications Current Medications Senna/Docusate Sodium (Senokot-S) 1 tab BID PO Last administered on 07/19/17 08:56; Admin Dose 1 TAB; Start 07/16/17 at 21:00 Acetaminophen (Tylenol Tab) 1,000 mg Q4H PRN PO PAIN LEVEL 1-5; Start at 18:00 Docusate Sodium/ Ferrous Fumarate ([place]-Sequ[place]) 1 tab BID PO Last administered on 07/19/17 08:55; Admin Dose 1 TAB; Start 07/16/17 at 21:00 Aspirin (Aspirin) 81 mg DAILY PO Last administered on 07/19/17 08:56; Admin Dose 81 MG; Start 07/17/17 at 09:00 Acetaminophen/ Hydrocodone Bitart ([place] (5/325)) 1 tab Q4H PRN PO PAIN LEVEL 4 -6; Start 07/16/17 at 18:00 Folic Acid (Folic Acid) 1 mg DAILY PO Last administered on 07/19/17 08:56; Admin Dose 1 MG; Start 07/17/17 at 09:00 Ascorbic Acid (Vitamin C) 1,000 mg DAILY PO Last administered on 07/19/17 08: 56; Admin Dose 1,000 MG; Start 07/17/17 at 09:00 Zinc Sulfate (Zinc Sulfate) 220 mg DAILY PO Last administered on 07/19/17 08: 56; Admin Dose 220 MG; Start 07/17/17 at 09:00 Fluconazole (Diflucan) 200 mg DAILY PO Last administered on 07/19/17 08:56; Admin Dose 200 MG; Start 07/17/17 at 09:00 Cholecalciferol (Vitamin D) 1,000 unit DAILY PO Last administered on 08:56; Admin Dose 1,000 UNIT; Start 07/17/17 at 09:00 Levothyroxine Sodium (Synthroid) 25 mcg DAILY@06 PO Last administered on 05:26; Admin Dose 25 MCG; Start 07/17/17 at 06:00 Losartan Potassium (Cozaar) 100 mg DAILY PO Last administered on 07/19/17 08: 56; Admin Dose 100 MG; Start 07/17/17 at 09:00 Famotidine (Pepcid) 20 mg DAILY PO Last administered on 07/19/17 08:55; Admin Dose 20 MG; Start 07/17/17 at 09:00 Amlodipine Besylate (Norvasc) 10 mg DAILY PO Last administered on 07/19/17 08 :56; Admin Dose 10 MG; Start 07/17/17 at 09:00 Zolpidem Tartrate (Ambien) 5 mg HS PRN PO INSOMNIA; Start 07/16/17 at 21:00 Acetaminophen/ Hydrocodone Bitart ([place] (5/325)) 1 tab Q6H PRN PO PAIN LEVEL 4 -6; Start 07/16/17 at 21:00 Morphine Sulfate (morphine) 6 mg Q2H PRN PO PAIN 8-10; Start 07/16/17 at 21:30 Diagnostic Test (Pha) (Accu-Chek) 1 ea 02 XX Last administered on 07/18/17 02 :26; Admin Dose 1 EA; Start 07/17/17 at 02:00 Miscellaneous Information 1 ea NOTE XX ; Start 07/16/17 at 22:00 Glucose (Glutose) 15 gm Q15M PRN PO DECREASED GLUCOSE; Start 07/16/17 at 22:00 Glucose (Glutose) 22.5 gm Q15M PRN PO DECREASED GLUCOSE; Start 07/16/17 at 22: 00 Dextrose (D50w Syringe) 25 ml Q15M PRN IV DECREASED GLUCOSE; Start 07/16/17 at 22:00 Dextrose (D50w Syringe) 50 ml Q15M PRN IV DECREASED GLUCOSE; Start 07/16/17 at 22:00 Glucagon (Glucagen) 1 mg Q15M PRN IM DECREASED GLUCOSE; Start 07/16/17 at 22: 00 Glucose (Glutose) 15 gm Q15M PRN BUCCAL DECREASED GLUCOSE; Start 07/16/17 at 22:00 Insulin Glargine (Lantus) 30 unit BID@08,20 SC Last administered on 07/19/17 09:01; Admin Dose 30 UNIT; Start 07/18/17 at 20:00 Loratadine (Claritin) 10 mg DAILY PO Last administered on 07/19/17 08:56; Admin Dose 10 MG; Start 07/18/17 at 14:00 Hydralazine HCl 25 mg 25 mg Q6 PRN PO hypertension; Start 07/18/17 at 14:00 Cefazolin Sodium/ Dextrose (Ancef 2 Gm/50 ml (Pmx)) 50 ml @ 100 mls/hr Q12 IVPB ; Start 07/19/17 at 21:00 KYLER ROQUE DPM Jul 19, 2017 14:04
--- NOTE | 2017-07-19 14:51 | PDOCDIS ---
Discharge Instructions CONDITION Patient Condition: Stable HOME CARE INSTRUCTIONS: Special Diet: CARB CONTROLLED ACTIVITY: Activity Restrictions: Slowly Increase Activity FOLLOW UP/APPOINTMENTS Follow-up Plan follow up with PCP and Dr. Marge dc with home health for wound care LAURYN OLIVAS MD Jul 19, 2017 14:51
[2017-07-19] MEDS ORDERED: CEPH250S33 PO (14:53)
[2017-07-19] MEDS ORDERED: DOXY100T20 PO (14:53)
[2017-07-19] MEDS ORDERED: FLUC200T36 PO (14:53)
[2017-07-19] MEDS ORDERED: NA POLYST SULFON 15 GM/60 ML BTL PO ONE (15:00)
--- NOTE | 2017-07-19 20:39 | DS ---
DATE OF ADMISSION: 07/16/2017 DATE OF DISCHARGE: 07/19/2017 REASON FOR ADMISSION: Status post elective allograft placement in the right foot. HOSPITAL COURSE: The patient is a 52-year-old obese female with history of diabetes melli tus, neuropathy, CKD, baseline creatinine of 2.5, bilateral Charcot foot, anemia, hypothyroidism, dy slipidemia, status post right carotid endarterectomy, status post multiple surgeries of the lower ex tremities, treated recently for osteomyelitis for 6 weeks with IV antibiotics, now presents for allo graft placement. The patient underwent the above surgery on 07/17/2017, where she underwent applica tion of Integra bilayer allograft. The patient tolerated procedure well. Postop kidney function is slightly worsened. We adjusted as glucose levels have fluctuated from the 70s to the 200s, q uite challenging. She was noted to have leukocytosis, was placed on cefazolin with overall good res ults. Culture shows +2 strep, +2 corynebacterium and +2 Staphylococcus. The Staph agalactia and th e corynebacterium both sensitive to cefazolin. The staph results are not available, but I will disc harge her with Keflex and doxycycline, and continue Diflucan as she currently takes. I would prefer to discharge her on home health. The patient is feeling better. I offered Kayexalate prior to dis charge, but the patient is refusing. The patient instructed to follow up with home health, and with Dr. Bird. DISCHARGE MEDICATIONS: The patient will be discharged with the following medications: 1. Keflex 500 mg q.8 hours for 10 days. 2. Doxycycline 100 mg daily. 3. Diflucan 100 mg daily. 4. Amlodipine 10 mg daily. 5. Vitamin D3 1000 daily. 6. Plavix 75 mg daily. 7. Colace 100 b.i.d. 8. Pepcid 20 mg p.r.n. 9. Folic acid 1 mg daily. 10. Hydralazine 50 mg b.i.d. 11. Plaquenil 200 mg daily. 12. Insulin aspart 6 units with meals. 13. Insulin Lantus 40 units t.i.d. 14. Synthroid 25 mcg daily. 15. Loratadine 10 mg daily. 16. Simvastatin 20 mg daily. 17. Tramadol 50 mg q.6 p.r.n. I stopped her [place], Losartan and vancomycin as she does not take the vancomycin anymore. FINAL DIAGNOSES: 1. Right diabetic foot ulcer. 2. Status post allograft placement to the wound. 3. Possible wound with above infection. Continue Keflex and doxycycline and Diflucan. 4. Chronic kidney disease. 5. Rnjyr-cb-aynsjem renal insufficiency. 6. Hyperkalemia. 7. Morbidly obese state. 8. Anemia of chronic disease. 9. Hypertension. 10. Mild leukocytosis, afebrile, feeling fine. 11. hyperkalemia. The patient to follow up closely with her PCP and Dr. Bird. If there i s any change in condition, to call 911. Keep leg elevated. The patient was discharged with home he alth for wound care and physical therapy. 12. Hypothyroidism. 13. Constipation. Dictated By: LAURYN GUZMAN/SYED Conf#: [id number] DID#: [id number] CC: CARMEN BIRD DPM;*EndCC*
[2017-07-19] MEDS ORDERED: CEFAZOLIN 2 GM/50 ML (PMX) 50 ML IVPB SCH (21:00)
== END 2017-07-19 15:20 | disposition home or self-care (01) ==
LOC: SDS 15:24 → MS1 19:18
PROVIDERS: ADMIT Podiatrist Foot & Ankle Surgery; ATTEND Podiatrist Foot & Ankle Surgery
DX: E11.621 Type 2 diabetes mellitus with foot ulcer (principal); L97.519 Non-pressure chronic ulcer of other part of right foot with unspecified severity; E11.610 Type 2 diabetes mellitus with diabetic neuropathic arthropathy; R60.0 Localized edema; E11.42 Type 2 diabetes mellitus with diabetic polyneuropathy; E66.01 Morbid (severe) obesity due to excess calories; Z68.43 Body mass index [BMI] 50.0-59.9, adult; Z79.4 Long term (current) use of insulin; I10 Essential (primary) hypertension; E03.9 Hypothyroidism, unspecified; I12.9 Hypertensive chronic kidney disease with stage 1 through stage 4 chronic kidney disease, or unspecified chronic kidney disease; E11.22 Type 2 diabetes mellitus with diabetic chronic kidney disease; N18.9 Chronic kidney disease, unspecified
CPT/HCPCS: 80048; 80053; 82962; 83036; 83735; 84100; 85025; 87070; 87075; 87102; C1781; G0378; J0690; J1815; J2250; J3475; J3480

== ENCOUNTER 2019-05-29 10:22 | Inpatient (IN) | payer OTHER ==
[~2019-05-29] VITALS: Ht 162.6 cm; Wt 114.2 kg
[~2019-05-29 10:22] MED LIST changes: +AMLO-147 PO; +CARV12.579 PO; +CEPH250S33 PO; -CLINDAMYCIN 900 MG/50 ML D5W IVPB IVPB ONE; +CLOP75TA19 PO; +CLOP75TA27 PO; -CLOP75TA4 PO; +DOXY-214 PO; +FLUC200T PO; -HYDR-3498 PO; -HYDR10TA36 PO; +HYDR200T39 PO; -LEVO25TA53 PO; +LEVO25TA6 PO; -LIDOCAINE 2% (SDV) 5 ML INJ ONE; +LOSA100T15 PO; -LOSA100T7 PO; +TRAM50TA PO; -Vancomycin Iv Per Pharmacy XX
[2019-05-29] MEDS ORDERED: ALBUTEROL 0.5% (NEB) 2.5 MG/0.5 ML AMP INH STA (13:07)
[2019-05-29] MEDS ORDERED: CA CHLORIDE 10% 10 ML SYRINGE IV STA (13:07)
[2019-05-29] MEDS ORDERED: NA BICARBONATE 8.4% 50 ML SYG IV STA (13:07)
[2019-05-29] MEDS ORDERED: INSULIN REGULAR, HUMAN 100 UNIT/1 ML 3ML VIAL IVP STA (13:07)
[2019-05-29] MEDS ORDERED: DEXTROSE 50% 50 ML SYRINGE IV PRN ×3 (13:30→17:30)
[2019-05-29] MEDS ORDERED: ACETAMINOPHEN 325 MG TAB PO PRN (15:30)
[2019-05-29] MEDS ORDERED: ONDANSETRON 4 MG INJ IV PRN ×2 (15:30→16:00)
[2019-05-29] MEDS: NA POLYST SULFON 15 GM/60 ML BTL PO ONE ×2 (16:00→17:43)
[2019-05-29] MEDS ORDERED: NACL 0.9% 3 ML SYG IV SCH (16:00)
[2019-05-29] MEDS ORDERED: HYDROCODONE/APAP (5/325) TAB PO PRN (16:00)
[2019-05-29] MEDS ORDERED: FUROSEMIDE 40 MG INJ IV ONE (16:00)
[2019-05-29] MEDS ORDERED: GLUCOSE GEL 15 GRAM TUBE BUCCAL PRN (17:30)
[2019-05-29] MEDS ORDERED: GLUCAGON 1 MG INJ IM PRN (17:30)
[2019-05-29] MEDS ORDERED: GLUCOSE GEL 15 GRAM TUBE PO PRN ×2 (17:30)
[2019-05-29] MEDS: INSULIN ASPART [NOVOLOG] 3 ML PEN SC SCH ×2 (19:51→22:48)
[2019-05-29 21:42] VITALS: BP 156/67; PULSE 80; RESP 20
[2019-05-29 21:58] VITALS: Ht 162.6 cm; Wt 114.2 kg
[2019-05-30] VITALS (18 sets, daily range): BP systolic 130–175; BP diastolic 65–85; PULSE 62–98; RESP 0–22
[2019-05-30] MEDS ORDERED: SOD CHLORIDE 0.9% 1,000 ML IV SCH
[2019-05-30] MEDS ORDERED: ACCU-CHEK XX SCH (02:00)
[2019-05-30] MEDS: INSULIN ASPART [NOVOLOG] 3 ML PEN SC SCH ×4 (06:22→17:00)
[2019-05-30] MEDS ORDERED: LEVOTHYROXINE 25 MCG TAB PO SCH (07:00)
[2019-05-30] MEDS ORDERED: FAMOTIDINE 20 MG TAB PO SCH (09:00)
[2019-05-30] MEDS ORDERED: CLOPIDOGREL 75 MG TAB PO SCH (09:00)
[2019-05-30] MEDS ORDERED: LORATADINE 10 MG TAB PO SCH (09:00)
[2019-05-30] MEDS ORDERED: FOLIC ACID 1 MG TAB PO SCH (09:00)
[2019-05-30] MEDS ORDERED: HYDROXYCHLOROQUINE 200 MG TAB PO SCH (09:00)
[2019-05-30] MEDS ORDERED: AMLODIPINE 10 MG TAB PO SCH (09:00)
[2019-05-30] MEDS ORDERED: HEPARIN 1000 UNITS/ML 10 ML INJ ONE (11:35)
[2019-05-30] MEDS ORDERED: LIDOCAINE 1%/EPI 30 ML INJ ONE (11:35)
[2019-05-30] MEDS ORDERED: LIDOCAINE 1% (MPF) 30 ML INJ ONE (11:35)
[2019-05-30] MEDS: SEVELAMER CARBONATE 2.4 GM PKT NGT SCH ×2 (12:00→17:55)
[2019-05-30] MEDS ORDERED: ALBUMIN HUMAN 25% 100 ML IV PRN (12:00)
[2019-05-30] MEDS ORDERED: HEPARIN 1000 UNITS/ML 10 ML INJ CATHETER ONE (12:00)
[2019-05-30] MEDS ORDERED: SODIUM CHLORIDE 0.9% 1L BAG IV PRN (12:00)
[2019-05-30] MEDS ORDERED: EPHEDrine 25 MG/5 ML SYG ONE (12:57)
[2019-05-30] MEDS ORDERED: IOHEXOL 300MG/ML 30 ML BTL ONE (13:12)
[2019-05-30] MEDS ORDERED: MIDAZOLAM 1 MG/ML 2 ML INJ ONE (13:15)
[2019-05-30] MEDS ORDERED: FENTAnyl 50 MCG/ML VIAL ONE (13:15)
[2019-05-30] MEDS ORDERED: CEFAZOLIN 1 GM INJ ONE (13:45)
[2019-05-30] MEDS ORDERED: DIPHENHYDRAMINE 50 MG INJ IV PRN (14:30)
[2019-05-30] MEDS ORDERED: FENTAnyl 50 MCG/ML VIAL IV PRN ×2 (14:30)
[2019-05-30] MEDS ORDERED: hydrALAzine 20 MG INJ IV PRN (14:30)
[2019-05-30] MEDS ORDERED: ALBUTEROL 0.083% (NEB) 2.5 MG/3 ML AMP HHN PRN (14:30)
[2019-05-30] MEDS ORDERED: LABETALOL HCL 20MG INJ IV PRN (14:30)
[2019-05-30] MEDS ORDERED: MEPERIDINE 25 MG INJ IV PRN (14:30)
[2019-05-30] MEDS ORDERED: ONDANSETRON 4 MG INJ IV PRN (14:30)
[2019-05-30] MEDS ORDERED: EPHEDrine 25 MG/5 ML SYG IV PRN (14:30)
[2019-05-30] MEDS ORDERED: SEVELAMER CARBONATE 800 MG TABLET PO SCH (17:55)
== END 2019-05-30 20:17 | disposition left against medical advice (07) | DRG 314 ==
LOC: E/R 10:22 → TEL 15:23 → SUATTDRO 15:26
PROVIDERS: ADMIT Internal Medicine; ATTEND Internal Medicine
PROC: 5A1D70Z Performance of Urinary Filtration, Intermittent, Less than 6 Hours Per Day (ICD-10-PCS; 2019-05-30)
PROC: 0J2TXYZ Change Other Device in Trunk Subcutaneous Tissue and Fascia, External Approach (ICD-10-PCS; principal; 2019-05-30 12:30)
DX: T82.49XA Other complication of vascular dialysis catheter, initial encounter (principal); N18.6 End stage renal disease; I12.0 Hypertensive chronic kidney disease with stage 5 chronic kidney disease or end stage renal disease; Z68.41 Body mass index [BMI] 40.0-44.9, adult; E11.22 Type 2 diabetes mellitus with diabetic chronic kidney disease; Z99.2 Dependence on renal dialysis; E87.5 Hyperkalemia; E66.01 Morbid (severe) obesity due to excess calories
CPT/HCPCS: 71045; 80048; 80053; 80061; 82962; 83036; 83735; 84100; 84443; 85025; 87081; 93005; 94664; 96374; 96375; C1752; J0690; J1644; J1815; J1940; J2250; J2405; J3010; J7030; Q9967